=== PATIENT | male | born 1955 | race Caucasian/White ===

== ENCOUNTER 2023-01-11 12:17 | Emergency (ER) | payer MEDICARE, SELFPAY ==
--- NOTE | ~2023-01-11 | XR_ITS ---
EXAMINATION: XR ankle LT min 3V DATE: 01/11/2023 12:47 INDICATION: Left ankle pain, initial encounter TECHNIQUE: Anteroposterior, lateral, mortise, and additional oblique view of the ankle were obtained. COMPARISON: None. FINDINGS: There is an oblique lucency in the anterior margin of the distal tibia on the lateral view which extends to the tibiotalar joint. A tiny osseous fragment projects distal to the lateral malleol us. There is mild soft tissue swelling of ankle. Calcified atherosclerosis is noted. There is a plant ar calcaneal enthesophyte. 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 Possible nondisplaced fractures of the anterior distal tibia at the tibiotalar joint and possible avulsion of the lateral malleolus. Correlate for tenderness at the sites. Reviewed, dictated and finalized at location A. IMPRESSION: 1. Possible nondisplaced fractures of the anterior distal tibia at the tibiotal ar joint and possible avulsion of the lateral malleolus. Correlate for tenderne ss at the sites.
--- NOTE | 2023-01-11 12:19 | ED.LOWEXIN ---
HPI - Extremity Injury (Lower) General Chief Complaint: Extremity Injury, Lower Stated Complaint: INJURED L FOOT Time Seen by Provider: 01/11/23 12:19 Source: patient Mode of arrival: ambulatory Limitations: no limitations History of Present Illness HPI Narrative: Mr. Malave is a 67-year-old male patient presenting to the clinic today with complaints of a left ankle injury. He reports he almost fell this morning when getting off the commode twisting his left ankle. States he almost fell but caught himself using the vanity. He reports pain to the lateral ankle and it is radiating across the ankle joint. Related Data Home Medications Medication Instructions Recorded Confirmed alprazolam 0.5 mg tablet mg 01/11/23 atorvastatin 40 mg tablet mg 01/11/23 bupropion HCl 450 mg 24 hr tablet, mg PO 01/11/23 extended release hydrocodone 5 mg-acetaminophen 325 tablet 01/11/23 mg tablet metformin 500 mg tablet,extended mg PO 01/11/23 release 24 hr pantoprazole 40 mg tablet,delayed mg PO 01/11/23 release pregabalin 50 mg capsule mg 01/11/23 propranolol 80 mg capsule,24 mg PO 01/11/23 hr,extended release quetiapine 50 mg tablet mg 01/11/23 semaglutide 0.25 mg or 0.5 mg (2 mg subcut 01/11/23 mg/1.5 mL) subcutaneous pen injector (Ozempic) valsartan 160 tablet 01/11/23 mg-hydrochlorothiazide 25 mg tablet Allergies Allergy/AdvReac Type Severity Reaction Status Date / Time Penicillins Allergy Hives Verified 01/11/23 12:29 Review of Systems Review of Systems: Pertinent positives per HPI. Patient denies any fever, chills, rash, headache, visual changes, dizziness, cough, runny nose, sore throat, shortness of breath, chest pain, palpitations, nausea, vomiting, diarrhea, constipation, abdominal pain, or any urinary issues. [facility] Comments At the time of my signature, I reviewed and agree with the nursing past medical, surgical, social, and family history. There is no relevant family history pertinent to the patient complaint. Exam Narrative: General: Well-developed, obese, in no apparent distress Head: Normocephalic, atraumatic. Cardio: Regular rate and rhythm, s1 and s2 normal, no murmur appreciated. Resp: Clear to auscultation bilaterally, no rhonchi, rales, wheezing or rubs. Musculoskeletal: No deformity, tender to palpation over the lateral malleolus and across the anterior ankle joint, pain with valgus varus testing, no pain with dorsal and plantar flexion, muscle strength strong and equal, peripheral pulse strong, no edema, no cyanosis, sitting in wheelchair Course Course Emergency Course: Portions of this record may have been created with voice recognition software. Level of Care: Express Care Visit Vital Signs Vital signs: Vital Signs Temperature 36.1 C L 01/11/23 12:30 Pulse Rate 89 01/11/23 12:30 Respiratory Rate 16 01/11/23 12:30 Blood Pressure 125/83 01/11/23 12:30 Pulse Oximetry 100 01/11/23 12:30 Temperature 36.1 C L 01/11/23 12:33 Pulse Rate 89 01/11/23 12:33 Respiratory Rate 16 01/11/23 12:33 Blood Pressure 125/83 01/11/23 12:33 Pulse Oximetry 100 01/11/23 12:33 Vital signs reviewed MDM - Extremity Injury (Lower) MDM Narrative Medical decision making narrative: At the time of visit patient is resting comfortably on exam table. X-ray of the left ankle was performed and he has possible fractures of the left anterior tibia/tibialtalor joint, and the lateral malleolus. Will place a posterior short-leg splint on the patient have him follow-up with ortho. Supportive measures were discussed with the patient he voiced understanding of discharge instructions and agrees to treatment plan. Differential Diagnosis Differential diagnosis: Likely ankle sprain and strain and ankle fracture Imaging Data Radiologist's impression: Close Ankle X-Ray (Signed) Mays,Sean - 01/11/23 [id number]
[2023-01-11 12:30] VITALS: BP 125/83; PULSE 89; RESP 16; TEMP 36.1; O2SAT 100
[2023-01-11 12:33] VITALS: BP 125/83; PULSE 89; RESP 16; TEMP 36.1; O2SAT 100
--- NOTE | 2023-01-11 16:18 | PC.NURSE ---
1432 Patient is waiting with left leg elevated on chair-patient is attempting to secure ride home, concern about getting into his condo which has several steps. Patient has walker at home. Patient instructed to call out for assistance.
--- NOTE | 2023-01-11 16:21 | PC.NURSE ---
1500 patient remains sitting in wheelchair with left leg elevated. toes left foot warm to touch, patient reports that left foot is numb but has been since he was a child due to traumatic injury. Patient reports he has spoken to his son and he is on his way here.
--- NOTE | 2023-01-11 16:23 | PC.NURSE ---
1530 frequent checks on patient- declines drink.
--- NOTE | 2023-01-11 16:24 | PC.NURSE ---
1545 Attempted to fit patient with crutches, unable to stand independently with crutches; patient reports he felt as if he was going to fall. Crutches were not dispensed. Continue to wait for son.
--- NOTE | 2023-01-11 16:26 | PC.NURSE ---
1615 Patient remains sitting in wheelchair with left leg elevated. Declines offer of drink or use of potty. Reports his son should be here in 30 minutes.
== END 2023-01-11 16:35 | disposition home or self-care (01) ==
PROVIDERS: Emergency Provider Nurse Practitioner Family
DX: S82.892A Other fracture of left lower leg, initial encounter for closed fracture (principal); X50.9XXA Other and unspecified overexertion or strenuous movements or postures, initial encounter; E78.00 Pure hypercholesterolemia, unspecified; I10 Essential (primary) hypertension; G47.33 Obstructive sleep apnea (adult) (pediatric); K21.9 Gastro-esophageal reflux disease without esophagitis; E11.9 Type 2 diabetes mellitus without complications; Z96.612 Presence of left artificial shoulder joint; Z96.611 Presence of right artificial shoulder joint; Z86.73 Personal history of transient ischemic attack (TIA), and cerebral infarction without residual deficits; F41.9 Anxiety disorder, unspecified; F32.9 Major depressive disorder, single episode, unspecified; D64.9 Anemia, unspecified; Z86.61 Personal history of infections of the central nervous system
CPT/HCPCS: 29515; 73610; 99214; G0463

== ENCOUNTER 2023-12-15 11:22 | Emergency (ER) | payer MEDICARE, SELFPAY ==
--- NOTE | ~2023-12-15 | XR_ITS ---
[XR ribs BI 3V w CXR 2V ] INDICATION: Status post fall TECHNIQUE: Frontal projection of the upper ribs, frontal projection of the lower ribs, oblique projec tion of all the ribs, frontal inspiratory chest x-ray for interpretation. FINDINGS: There are no displaced rib fractures identified. There are no soft tissue abnormality see n. The lungs are clear. IMPRESSION: 1:No acute displaced rib fractures. Reviewed, dictated and finalized at location B.
[2023-12-15 11:28] VITALS: BP 142/87; PULSE 76; RESP 20; TEMP 36.4; O2SAT 100
--- NOTE | 2023-12-15 11:36 | ED.GENADULT ---
HPI - General Adult General Chief complaint: Upper Respiratory Infection Stated complaint: Upper Respiratory Symptoms Source: patient, RN notes reviewed and old records reviewed Mode of arrival: ambulatory Limitations: no limitations History of Present Illness HPI narrative: 67-year-old male presents to [facility] with complaints of productive cough, congestion, pain with coughing this started Friday into Friday. Patient states he has also fallen and Friday, Patient states his jaw and left shoulder. Patient complaining all over pain, patient states is chronic pain. Patient is worried that he might of her ribs in full that is now causing cough. Patient does complain of headache but states has had headache for 2 years. Related Data Home Medications Medication Instructions Recorded Confirmed alprazolam 0.5 mg tablet 0.5 mg PO TID PRN Anxiety 01/11/23 12/15/23 aspirin 81 mg tablet,delayed 81 mg PO DAILY 01/11/23 12/15/23 release atorvastatin 40 mg tablet 40 mg PO HS 01/11/23 12/15/23 bupropion HCl 450 mg 24 hr tablet, 450 mg PO DAILY 01/11/23 12/15/23 extended release ferrous sulfate 325 mg (65 mg 325 mg PO DAILY 01/11/23 12/15/23 iron) tablet hydrocodone 5 mg-acetaminophen 325 1 tablet PO Q6H pain 01/11/23 12/15/23 mg tablet metformin 500 mg tablet,extended 1,000 mg PO BID 01/11/23 12/15/23 release 24 hr pregabalin 50 mg capsule 50 mg PO TID 01/11/23 12/15/23 propranolol 80 mg capsule,24 80 mg PO DAILY 01/11/23 12/15/23 hr,extended release quetiapine 50 mg tablet 50 mg PO HS 01/11/23 12/15/23 losartan 50 mg tablet 50 mg PO DAILY 12/15/23 12/15/23 semaglutide 7 mg tablet (Rybelsus) 7 mg PO DAILY 12/15/23 12/15/23 Allergies Allergy/AdvReac Type Severity Reaction Status Date / Time Penicillins Allergy Hives Verified 12/15/23 11:34 blood pressure med Allergy Headache Uncoded 12/15/23 11:35 Review of Systems Constitutional: Constitutional: Reports no additional constitutional complaints, Denies body ache(s), Denies chills, Denies fatigue, Denies fever(s) and Denies headache(s) Eyes: Eyes: Reports no additional eye complaints and Denies blurry vision ENT: Reports system reviewed and no additional complaints, except as documented, Denies vertigo, Denies dizziness, Denies ear discharge, Denies otalgia, Denies facial pain, Denies headache(s), Reports nasal congestion, Denies nasal discharge, Denies sinus pain, Denies sinus pressure and Denies sore throat Cardiovascular: Cardiovascular: Reports no additional cardiovascular complaints, Denies chest pain, Denies chest pain at rest, Denies rapid heart rate and Denies dyspnea Respiratory: Respiratory: Reports no additional respiratory complaints, Reports chest congestion, Reports cough, Reports pain on inspiration, Reports pain with cough and Denies dyspnea Gastrointestinal: Gastrointestinal: Denies abdominal pain, Denies diarrhea, Denies nausea and Denies vomiting Integumentary/Breasts: Skin/Breast: Denies rash Neurologic: Reports system reviewed and no additional complaints, except as documented, Denies vertigo, Denies dizziness and Denies headache(s) Endocrine: Endocrine: Denies fatigue PMFSH Past Medical History Medical History Crush injury of foot Crushing injury of left foot Moderate left ankle sprain Surgical History Surgical History History of shoulder replacement Family History Family History Unknown Hypertension Depression Diabetes mellitus Cerebrovascular accident Neuropathy Social History Social History Smoking status: Never smoker Alcohol intake: never Substance use: never Occupation/Education: retired Gender identity (if verbalized by the patient): Male Comments At the time of m
[2023-12-15 11:39] VITALS: BP 142/87; PULSE 76; RESP 20; TEMP 36.4; O2SAT 100
== END 2023-12-15 12:32 | disposition home or self-care (01) ==
PROVIDERS: Emergency Provider Registered Nurse; PCP Nurse Practitioner Family
DX: B34.9 Viral infection, unspecified (principal); R07.81 Pleurodynia; Z20.822 Contact with and (suspected) exposure to COVID-19; Z79.82 Long term (current) use of aspirin
CPT/HCPCS: 71046; 71110; 87426; 87804; 99213; G0463

== ENCOUNTER 2023-12-22 10:06 | Outpatient (CLI) | payer MEDICARE, SELFPAY ==
[2023-12-22 17:07] LABS: Cholesterol 115 mg/dL (0-200); HDL Direct 41 mg/dL; Triglycerides 103 mg/dL (<150)
[2023-12-22 17:14] LABS: Basophils Absolute Auto 0.1 K/mm3 (0.0-0.1); Basophils Percent Auto 0.8 % (0.2-1.2); Eosinophils Absolute Auto 0.2 K/mm3 (0-0.3); Eosinophils Percent Auto 3.1 % (0-4.4); Hematocrit 47.3 % (42.0-52.0); Hemoglobin 14.9 g/dL (14.0-18.0); Immature Granulocyte Absolute 0.03 K/mm3 (0.00-0.031); Immature Granulocyte Percent A 0.4 % (0-0.5); Immature Platelet Fraction Pct 5.1 % (0.9-11.2); Lymphocytes Absolute Auto 1.77 K/mm3 (0.9-3.2); Lymphocytes Percent Auto 24.1 % (18.3-44.2); Mean Corpuscular HGB Conc 31.5 g/dl (32-36); Mean Corpuscular Hemoglobin 28.2 pg (26-34); Mean Corpuscular Volume 89.4 fl (80-100); Mean Platelet Volume 11.5 fl (7.4-10.4); Monocytes Absolute Auto 0.7 K/mm3 (0.1-0.6); Monocytes Percent Auto 9.1 % (2.6-8.5); Neutrophils Absolute Auto 4.6 K/mm3 (1.3-6.7); Neutrophils Percent Auto 62.5 % (45.5-73.1); Platelet Count Result 255 k/mm3 (150-375); Red Blood Count 5.29 M/mm3 (4.6-6.20); Red Cell Distribution Width 15.4 % (11.5-14.5); White Blood Count 7.3 K/mm3 (4.5-10.0)
[2023-12-22 17:19] LABS: LDL Cholesterol Direct 61 mg/dL
[2023-12-22 17:29] LABS: Hemoglobin A1C 5.9 % (<5.7)
[2023-12-22 17:36] LABS: Vitamin D 25 Hydroxy 73.1 ng/mL
[2023-12-22 17:42] LABS: Prostate Specific Antigen 0.4 ng/mL (< OR = 4.0); Thyroid Stimulating Hormone 0.843 uIU/mL (0.465-4.680)
[2023-12-22 18:08] LABS: Platelet Estimate Adequate (Adequate); Schistocytes None Seen
[2023-12-23 11:48] LABS: Alanine Aminotransferase 19 U/L (6-50); Albumin Level 4.2 g/dL (3.5-5.1); Alkaline Phosphatase 90 U/L (38-126); Anion Gap 7 mmol/L (4-12); Aspartate Amino Transferase 24 U/L (17-59); Blood Urea Nitrogen 14 mg/dL (9-20); Calcium 9.9 mg/dL (8.4-10.2); Carbon Dioxide 31 mmol/L (22-30); Chloride 105 mmol/L (98-107); Estimated Glomerular Filt Rate > 60; Glucose 129 mg/dL (65-110); Potassium 4.7 mmol/L (3.4-5.0); Sodium 143 mmol/L (137-145)
== END 2023-12-22 10:07 | disposition home or self-care (01) ==
LOC: ANHGOSHLAB 10:08
PROVIDERS: PCP Nurse Practitioner Family; Visit Provider Nurse Practitioner Family
DX: E11.9 Type 2 diabetes mellitus without complications (principal); I10 Essential (primary) hypertension; Z00.00 Encounter for general adult medical examination without abnormal findings; Z12.5 Encounter for screening for malignant neoplasm of prostate; E55.9 Vitamin D deficiency, unspecified; E78.5 Hyperlipidemia, unspecified; Z13.29 Encounter for screening for other suspected endocrine disorder
CPT/HCPCS: 36415; 80053; 80061; 82306; 83036; 84153; 84443; 85025; 85055; G0103

== ENCOUNTER 2024-01-28 12:23 | Outpatient (CLI) | payer MEDICARE, SELFPAY ==
--- NOTE | ~2024-01-28 | CT_ITS ---
Non-contrast Head CT History: Headache Technique: Axial non-contrast imaging of the brain was performed. Dose reduction technique was used on this scan by utilizing automated exposure control and iterative reconstruction technique. The dose -length product (DLP) was 726.40 mGy-cm. Findings: There is no evidence of intracranial hemorrhage, mass lesion, or acute infarct. Brain par enchyma appears normal. The ventricles and subarachnoid spaces are normal in size. The calvarium ap pears normal. The visualized paranasal sinuses and mastoid air cells are clear. Impression: No significant abnormality seen. Reviewed, dictated and finalized at location . Impression: No significant abnormality seen.
== END 2024-01-28 12:24 ==
PROVIDERS: PCP Family Medicine; Visit Provider Nurse Practitioner
DX: G93.89 Other specified disorders of brain (principal)
CPT/HCPCS: 70450

== ENCOUNTER 2024-02-08 15:48 | Inpatient (IN) | payer MEDICARE, SELFPAY ==
[2024-02-08] VITALS (8 sets, daily range): BP systolic 128–146; BP diastolic 79–100; PULSE 82–94; RESP 15–16; TEMP 36.6; O2SAT 96–100
--- NOTE | ~2024-02-08 | CT_ITS ---
EXAMINATION: CT lumbar spine wo con DATE: 02/08/2024 18:15 INDICATION: fall . TECHNIQUE: Computed tomography (CT) of the lumbar spine was performed without intravenous contrast. A utomated exposure control and iterative reconstruction technique were employed. The dose-length produ ct was 1286.92 mGy-cm. COMPARISON: None. FINDINGS: 5 nonrib-bearing lumbar-type vertebral bodies. Bilateral pars defects at L5-S1. 5 mm haroon listhesis at L5-S1. Multilevel disc space narrowing, severe at L5-S1 where there is vacuum phenomenon . Vertebral body heights are maintained. Multilevel large bridging osteophytes. Multilevel mild facet hypertrophy and sclerosis. Severe bilateral neural foraminal narrowing at L5-S1 secondary to degener ative changes and the anterolisthesis. No severe central canal narrowing. Moderate central canal narr owing at L3-4 and L4-5 secondary to degenerative change. IMPRESSION: No acute fracture or traumatic malalignment in the lumbar spine. Reviewed, dictated and finalized at location K.
--- NOTE | ~2024-02-08 | CT_ITS ---
EXAMINATION: CT cervical spine wo con DATE: 02/08/2024 18:15 INDICATION: fall TECHNIQUE: Computed tomography (CT) of the cervical spine was performed without intravenous contrast. Automated exposure control and iterative reconstruction technique were employed. The dose-length pro duct was 523.90 mGy-cm. COMPARISON: None. FINDINGS: Vertebral Body Alignment: 2 mm anterolisthesis at C7-T1, presumably on a degenerative basis. Craniocervical and atlantoaxial alignment: Moderate degenerative change. Alignment intact. Osseous structures/fracture: No evidence of a lytic or blastic process in the visualized spine. No e vidence of acute fracture. Uncomplicated ACDF spanning C5-C7, interbody bone plugs in good position Cervical soft tissues: The paraspinal soft tissues planes are maintained. Degenerative changes: Multilevel severe degenerative disc disease. Multilevel moderate facet arthropa thy. Multilevel severe left-sided neural foraminal narrowing secondary to degenerative changes. Sever e central canal narrowing at C5-6 secondary to degenerative changes. IMPRESSION: No acute fracture or traumatic malalignment in the cervical spine. Reviewed, dictated and finalized at location K.
--- NOTE | ~2024-02-08 | CT_ITS ---
CT ANGIOGRAM NECK AND HEAD History: Dizziness. Technique: Serial spiral axial images through the head and neck were obtained during arterial phase I V injection of 100 cc of Omnipaque 350. 3-D postprocessing and MIP images were then reconstructed on the remote workstation. Dose reduction technique was used on this scan by utilizing automated exposur e control and iterative reconstruction technique. The dose-length product (DLP) was 1229.69 mGy-cm. CTA neck findings: Bilateral vertebral arteries are patent. Bilateral common carotid, internal carot id, and external carotid arteries are patent. No stenosis. No large vessel occlusion. No aneurysm. Th e proximal right internal carotid artery demonstrates 0% stenosis relative to the normal distal arter y lumen diameter. The proximal left internal carotid artery demonstrates 0% stenosis relative to the normal distal artery lumen diameter. CTA head findings: Distal vertebral arteries, basilar artery, and posterior cerebral arteries are pat ent. Distal internal carotid arteries, middle cerebral arteries, and anterior cerebral arteries are p atent. No stenosis or large vessel occlusion. No aneurysm. There is a 1.3 x 0.9 cm enhancing extra axial lesion in the anterior temporal lobe region, most mine tible with meningioma (series 3 image 103). Impression: No significant vascular abnormality. 1.3 x 0.9 cm meningioma in the anterior right temporal lobe region, as detailed above. Reviewed, dictated and finalized at location . Impression: No significant vascular abnormality. 1.3 x 0.9 cm meningioma in the anterior right temporal lobe region, as detailed above.
--- NOTE | ~2024-02-08 | CT_ITS ---
EXAMINATION: CT brain wo con DATE: 02/08/2024 18:15 INDICATION: hx of fall . TECHNIQUE: Computed tomography (CT) of the head was performed without intravenous contrast. The mA wa s adjusted according to patient size. Iterative reconstruction technique was employed. The dose-lengt h product was 605.33 mGy-cm. COMPARISON: 01/28/2024. FINDINGS: No acute intracranial hemorrhage or extra-axial fluid collection. No hydrocephalus, mass, or herniation. No acute ischemic infarct. Unremarkable dural venous sinus attenuation. No acute osseous abnormality. Posterior scalp swelling/hematoma. Left frontal and bilateral ethmoid and maxillary mucosal thickening, the remaining aerated spaces are clear. IMPRESSION: No acute intracranial process. Reviewed, dictated and finalized at location K.
--- NOTE | ~2024-02-08 | MR_ITS ---
EXAMINATION: MR brain/brain stem wo/w con DATE: 02/10/2024 10:50 INDICATION: Unresponsiveness. Falls. TECHNIQUE: Magnetic resonance imaging (MRI) of the brain and brainstem was performed without and with 20 mL MultiHance intravenous contrast. COMPARISON: Head CT 02/08/2024 FINDINGS: There are scattered areas of nonspecific increased T2-weighted signal intensity in the cere bral white matter and lorenzo, which is within normal limits for the patient's age. There is no intracra nial hemorrhage or acute infarction. Anterior to the right temporal lobe, there is a 1.6 x 0.9 cm enh ancing extra-axial mass with dural tails, consistent with a meningioma. The ventricles are normal in size. There is mild mucosal thickening in the paranasal sinuses. The orbits are normal. The mastoid a ir cells are normal. IMPRESSION: 1. 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 Reviewed, dictated and finalized at location A.
--- NOTE | ~2024-02-08 | XR_ITS ---
EXAMINATION: XR chest 1V portable Exam Date/Time: 02/08/2024 17:20 CDT HISTORY: fall Comparison: 12/15/2023. RESULT: Lines, tubes, and devices: Partially visualized bilateral shoulder arthroplasty hardware. Lungs and pleura: Low volumes and mild crowding. Streaky bibasilar scar/atelectasis. Cardiomediastinal silhouette: Stable. Other: No acute osseous or upper abdominal finding. IMPRESSION: No acute cardiopulmonary process. Reviewed, dictated and finalized at location K.
--- NOTE | 2024-02-08 17:20 | ECG_ITS ---
SEE SCANNED COPY FOR CONFIRMED REPORT. MTDD
[2024-02-08 17:39] LABS: Basophils Absolute Auto 0.1 K/mm3 (0.0-0.1); Basophils Percent Auto 0.9 % (0.2-1.2); Eosinophils Absolute Auto 0.3 K/mm3 (0-0.3); Eosinophils Percent Auto 4.6 % (0-4.4); Hematocrit 43.5 % (42.0-52.0); Hemoglobin 14.1 g/dL (14.0-18.0); Immature Granulocyte Absolute 0.01 K/mm3 (0.00-0.031); Immature Granulocyte Percent A 0.2 % (0-0.5); Lymphocytes Absolute Auto 1.93 K/mm3 (0.9-3.2); Lymphocytes Percent Auto 34.4 % (18.3-44.2); Mean Corpuscular HGB Conc 32.4 g/dl (32-36); Mean Corpuscular Hemoglobin 28.4 pg (26-34); Mean Corpuscular Volume 87.7 fl (80-100); Mean Platelet Volume 10.2 fl (7.4-10.4); Monocytes Absolute Auto 0.5 K/mm3 (0.1-0.6); Monocytes Percent Auto 9.1 % (2.6-8.5); Neutrophils Absolute Auto 2.9 K/mm3 (1.3-6.7); Neutrophils Percent Auto 50.8 % (45.5-73.1); Platelet Count Result 193 k/mm3 (150-375); Red Blood Count 4.96 M/mm3 (4.6-6.20); Red Cell Distribution Width 14.2 % (11.5-14.5); White Blood Count 5.6 K/mm3 (4.5-10.0)
[2024-02-08 17:52] LABS: Magnesium 1.6 mg/dL (1.6-2.3)
[2024-02-08 17:53] LABS: Alanine Aminotransferase 18 U/L (6-50); Albumin Level 4.4 g/dL (3.5-5.1); Alkaline Phosphatase 56 U/L (38-126); Anion Gap 9 mmol/L (4-12); Aspartate Amino Transferase 18 U/L (17-59); Bilirubin,Total 1.5 mg/dL (0.2-1.3); Blood Urea Nitrogen 12 mg/dL (9-20); Calcium 9.2 mg/dL (8.4-10.2); Carbon Dioxide 25 mmol/L (22-30); Chloride 108 mmol/L (98-107); Estimated CRCL calculation 81 ml/min; Estimated Glomerular Filt Rate > 60; Glucose 84 mg/dL (65-110); Potassium 4.2 mmol/L (3.4-5.0); Sodium 142 mmol/L (137-145)
[2024-02-08 18:03] LABS: Troponin I < 0.012 ng/mL (0.000-0.034)
[2024-02-08 18:07] LABS: D Dimer < 0.27 ug/mL (<0.48)
[2024-02-08 19:13] LABS: Appearance Urine Clear (Clear); Bilirubin Urine Negative (Negative); Blood Urine Negative (Negative); Color Urine Yellow (Yellow); Glucose Urine UA Negative (Negative); Ketones Urine Negative (Negative); Leukocyte Esterase Ur Negative LEU/UL (Negative); Nitrate Urine Negative (Negative); Protein Urine Negative (Negative); Specific Grav Ur 1.023 (1.001-1.035); Urobilinogen Urine 0.2 mg/dL (<2.0); pH Urine 5.5 (5.0-9.0)
--- NOTE | 2024-02-08 19:16 | ED.GENADULT ---
HPI - General Adult General Chief complaint: Fall Stated complaint: fall last noc Time Seen by Provider: 02/08/24 16:43 History of Present Illness HPI narrative: Ernst Malave is a 68 y/o male with PMHx htn/ DM/ HLD/ who presents today with his son after having a fall yesterday and he does not remember how it happened. He explains that he has had multiple falls increasingly lately over the past 6-8 months that he states that he feels his legs give out and he falls Yesterday he states that he was driving home from [place] and was all over the road because he felt dizzy, he then pulled in to a gas station for gas and the next thing he remembers he was laying on the ground between the gas pump and his car. He states he came to- got up and walked around to his car, felt like he was drunk trying to walk and drive home. He explained this to his son and his son made him come in today - he reports he does feel better today/ no blurry vision report mild dizzy No chest pain/ SOB / fever/ cough / no recent illness Related Data Home Medications Medication Instructions Recorded Confirmed aspirin 81 mg tablet,delayed 81 mg PO DAILY 01/11/23 02/09/24 release atorvastatin 40 mg tablet 40 mg PO HS 01/11/23 02/09/24 bupropion HCl 450 mg 24 hr tablet, 450 mg PO DAILY 01/11/23 02/09/24 extended release hydrocodone 5 mg-acetaminophen 325 1 tablet PO Q6H PRN pain 01/11/23 02/09/24 mg tablet metformin 500 mg tablet,extended 1,000 mg PO BID 01/11/23 02/09/24 release 24 hr propranolol 80 mg capsule,24 80 mg PO DAILY 01/11/23 02/09/24 hr,extended release quetiapine 50 mg tablet 50 mg PO HS 01/11/23 02/09/24 cyclobenzaprine 5 mg tablet 5 mg PO TID PRN Spasms 12/22/23 02/09/24 multivitamin 1 tablet PO DAILY 12/22/23 02/09/24 pregabalin 50 mg capsule 100 mg PO BID 01/27/24 02/09/24 Allergies Allergy/AdvReac Type Severity Reaction Status Date / Time Penicillins Allergy Hives Verified 01/27/24 07:34 blood pressure med Allergy Headache Uncoded 01/27/24 07:34 Review of Systems Review of Systems: CONSTITUTIONAL: Denies fever, chills, or sweats. EYES: Denies visual changes, redness, or discharge. ENT: Denies rhinorrhea, congestion, sore throat, or otalgia. CARDIOVASCULAR: Denies chest pain, palpitations, or edema. RESPIRATORY: Denies cough or dyspnea. GASTROINTESTINAL: Denies abdominal pain, nausea, vomiting, or diarrhea. GENITOURINARY: Denies dysuria or hematuria. SKIN: Denies rash or itching. MUSCULOSKELETAL: Denies back pain, joint pain, or myalgia. NEUROLOGIC: Reports he had some dizzy/ blurry vision/ balance issues after a fall yesterday that has improved mostly today PSYCHIATRIC: Denies anxiety or depression. [facility] Past Medical History Medical History Crush injury of foot Crushing injury of left foot Diabetes type 2, controlled HTN (hypertension) with goal to be determined Hyperlipidemia Moderate left ankle sprain Neuropathy Sinusitis, acute Surgical History Surgical History History of shoulder replacement Family History Family History Unknown Hypertension Depression Diabetes mellitus Cerebrovascular accident Neuropathy Social History Social History Smoking status: Never smoker Alcohol intake: former Substance use: never Substance use type: does not use Do You Feel Safe in your Home?: Yes Lack of Transportation: No Lack of Food: Never True Current Housing: I Have Housing Concerned About Future Housing: No Difficulty Paying Gas/Electric Bills: No Difficulty Paying for Meds: No Currently Unemployed: No Education: Bachelor's Degree Difficulty w/ Childcare or Family Care: No Occupation/Education: retired Gender identity (if verbalized by the patient): Male Spiritual ca
[2024-02-08 19:19] LABS: Add Urine Microscopic? NO
--- NOTE | 2024-02-08 20:56 | PC.NURSE ---
ADMISSION ORDERS ENTERED AT 2026, BUT ED PROVIDER INSTRUCTED THAT THIS PT CANNOT GO TO A ROOM ON TELE FLOOR UNTIL HE GETS HIS CTA-BRAIN & CAROTID, AND THE RESULTS COME BACK. REROLLING MACHINE OPERATOR MADE AWARE OF THIS AT 2052.
--- NOTE | 2024-02-08 21:05 | PM.IMHP ---
H&P: HPI History of Present Illness Date/Time: 02/08/24 21:05 Chief Complaint: 1. Near fall 2. Pre-syncope 3. Dizziness Narrative: Ernst Malave is a 68yo M with a MHx significant for obesity, Depression, NIDDM, HTN, Dyslipidemia, intention tremors. The day [employer], he while at a gas station, the head turning action of replacing the nozzle and locking the tank cap left his dizzy; dizzy enough to lead to a fall, but he caught a nearby object to prevent a full fall. As he made his way to the utility driver's seat, he describes his gait to be as if drunken; he successfully got in but while he drove home, he could not keep in a straight line; he on multiple occasions cross the median. He denies associated chest pain, diaphoresis, nausea, vomiting, total LOC, visual disturbance, speech difficulties, numbness or weakness in his limbs He came to the [facility] on the same day of the event, but could not find his way to the ED and frustrated, returned home. Today he returned at the request of his son, who is at the bedside. He confesses to having experienced similar episodes in the pass; they occur when he gets up from a sitting to a standing position; also whenever he turns his neck to visualize an object to his flanks. He was also evaluated about 3 years ago for similar symptoms and with an unremarkable work-up was believed to have suffered a TIA. 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 His routine medications include a Statin and low-dose Aspirin daily. Work-up findings in the [facility] CBC was unremarkable; CMP demonstrated an elevated total bilirubin, 1.5 CT Head and neck: No acute intracranial process CT cervical spine: No acute fracture or traumatic malalignment in the cervical spine. CT Lumbar spine: No acute fracture or traumatic malalignment in the lumbar spine. CXR: No acute cardiopulmonary process. UA: Unremarkable Ernst Malave will be admitted, evaluated and managed for pre-syncope and near fall. Review of Systems Constitutional: Constitutional: Denies body ache(s), Denies chills, Denies difficulty sleeping, Denies fatigue, Denies lethargy and Denies night sweats Eyes: Eyes: Denies no additional eye complaints and Denies blurry vision ENT: Denies system reviewed and no additional complaints, except as documented, Reports as per HPI, Denies Normal hearing present, Denies dysphagia, Denies epistaxis, Denies nasal congestion and Denies nasal discharge Cardiovascular: Cardiovascular: Denies no additional cardiovascular complaints, Denies chest pain, Denies diaphoresis, Denies pedal edema, Denies leg edema, Reports lightheadedness and Denies palpitations Respiratory: Respiratory: Denies no additional respiratory complaints, Denies chest congestion, Denies hemoptysis, Denies dyspnea and Denies dyspnea on exertion Gastrointestinal: Gastrointestinal: Denies no additional gastrointestinal complaints, Denies abdominal pain, Denies melena, Denies bloating, Denies hematochezia, Denies constipation, Denies diarrhea, Denies nausea and Denies vomiting Genitourinary: Genitourinary: Denies hematuria, Denies flank pain, Denies urinary frequency, Denies urinary hesitancy and Reports urinary incontinence Musculoskeletal: Musculoskeletal: Reports no additional musculoskeletal complaints, Denies back pain, Reports arthralgias and Reports joint swelling Integumentary/Breasts: Skin/Breast: Denies pruritus and Denies erythema Neurologic: Denies system reviewed and no additional complaints, except as documented, Denies abnormal gait, Denies confusion and Denies headache(s) Psychiatric: Psychiatric: Denies anxiety, Denies behavioral changes, Denies depression and Denies homicidal ideation [facility] Past Medical History Medical History Crush injury of foot Crushing injury o
--- NOTE | 2024-02-08 21:35 | ECG_ITS ---
SEE SCANNED COPY FOR CONFIRMED REPORT. MTDD
[2024-02-08 23:44] LABS: Cholesterol 108 mg/dL (0-200); HDL Direct 43 mg/dL; Triglycerides 140 mg/dL (<150)
[2024-02-08 23:46] LABS: Hemoglobin A1C 5.5 % (<5.7)
[2024-02-08 23:55] LABS: LDL Cholesterol Direct 57 mg/dL
[2024-02-09] VITALS (17 sets, daily range): BP systolic 104–144; BP diastolic 66–88; PULSE 82–117; RESP 14–20; TEMP 36.1–36.5; O2SAT 95–99; BMI 35.2
--- NOTE | 2024-02-09 | ECHO_ITS ---
Patient Info Name: Ernst Malave Age: 68 years : 1955 Gender: Male Ht: 72 in Wt: 257 lbs BSA: 2.47 m2 HR: 85 bpm BP: 144 / 84 mmHg Heart Rhythm: Sinus Rhythm Technical Quality: Fair Exam Date: 02/09/2024 12:47 PM Exam Location: Echo Lab Patient Status: Inpatient Admit Date: 02/08/2024 Staff Ordering Physician: Cameron Aragon MD [place]: Pat Barber RDCS Attending Provider: Cameron Aragon MD Referring Physician: Mahesh PENA; Exam Type: CA echo doppler color flow Study Info Indications R55 - Syncope and collapse - chf Complete two-dimensional, color flow and Doppler transthoracic echocardiogram is performed with contrast to opacify the left ventricle and to improve the deliniation of the left ventricle endocardial borders. Contrast/Agitated Saline Contrast/Ag. Saline: Definity Amount: 2.00 ml Administered By: Pat Barber RDCS Existing IV Access: Yes IV Access Condition: patent with no signs of infiltration Summary 1. Definity contrast administered improved wall motion interpretation. 2. Left ventricular chamber dimension is normal. 3. Left ventricular systolic function is normal, estimated at 60-65%. 4. The left ventricular diastolic function is grade I diastolic dysfunction. 5. E/e' 9 is minimally elevated. Left Ventricle E/e' 9 is minimally elevated. Definity contrast administered improved wall motion interpretation. Left ventricular chamber dimension is normal. Left ventricular systolic function is normal, estimated at 60-65%. The left ventricular diastolic function is grade I diastolic dysfunction. Right Ventricle Right ventricular systolic function is normal and with normal TAPSE 2.2 cm. Right ventricular chamber dimension is normal. Left Atria Left atrial chamber dimension is normal. Right Atria Right atrial chamber dimension is normal. Aortic Valve The aortic valve is trileaflet. There is no aortic valve stenosis. There is no aortic valve regurgitation. Pulmonic Valve There is no pulmonic regurgitation. Mitral Valve There is no mitral valve stenosis. There is no mitral valve regurgitation. Tricuspid Valve There is no tricuspid valve regurgitation. Pericardium/Pleural There is no pericardial effusion. Inferior Vena Cava Normal inferior vena cava with >50% collapse upon inspiration consistent with normal right atrial pressure, 5 mmHg. Aorta The aortic root size at the sinus of Valsalva is normal. Left Ventricular Outflow Tract Name Value Normal LVOT 2D LVOT Diameter 2.1 cm LVOT Doppler LVOT Peak Gradient 3 mmHg LVOT Mean Gradient 2 mmHg LVOT VTI 16 cm LVOT VTI/AV VTI Ratio 0.8 LVOT Stroke Volume 55 ml LVOT CO 4.5 l/min LVOT CI 1.9 l/min/m2 Pulmonic Valve Name Value Normal RVOT
--- NOTE | 2024-02-09 00:37 | ADMGEN ---
This patient, Ernst Malave, was admitted to Medical Room 340-01. Patient/family oriented to hospital policies and general routines including ID bracelet, bed and alarms, visiting hours, pain management, procedures, bathroom and other care routines, personal items, smoking policy, room service/diet, and visiting hours. Information on how to activate the Rapid Response Team has been discussed. Patient/Family are encouraged to report perceived risks to care and to ask questions if they do not understand what they are told or what they should do.
[2024-02-09 01:04] LABS: Glucose Point of Care 85 mg/dl (65-105)
[2024-02-09 05:50] LABS: Basophils Absolute Auto 0.1 K/mm3 (0.0-0.1); Basophils Percent Auto 0.9 % (0.2-1.2); Eosinophils Absolute Auto 0.3 K/mm3 (0-0.3); Eosinophils Percent Auto 4.1 % (0-4.4); Hemoglobin 13.6 g/dL (14.0-18.0); Immature Granulocyte Absolute 0.01 K/mm3 (0.00-0.031); Immature Granulocyte Percent A 0.2 % (0-0.5); Lymphocytes Absolute Auto 1.89 K/mm3 (0.9-3.2); Lymphocytes Percent Auto 29.5 % (18.3-44.2); Mean Corpuscular HGB Conc 32.4 g/dl (32-36); Mean Corpuscular Hemoglobin 28.6 pg (26-34); Mean Corpuscular Volume 88.4 fl (80-100); Mean Platelet Volume 10.2 fl (7.4-10.4); Monocytes Absolute Auto 0.6 K/mm3 (0.1-0.6); Neutrophils Absolute Auto 3.6 K/mm3 (1.3-6.7); Neutrophils Percent Auto 56.3 % (45.5-73.1); Platelet Count Result 180 k/mm3 (150-375); Red Blood Count 4.75 M/mm3 (4.6-6.20); Red Cell Distribution Width 14.2 % (11.5-14.5); White Blood Count 6.4 K/mm3 (4.5-10.0)
[2024-02-09 06:04] LABS: Alanine Aminotransferase 18 U/L (6-50); Albumin Level 4.1 g/dL (3.5-5.1); Alkaline Phosphatase 54 U/L (38-126); Anion Gap 7 mmol/L (4-12); Aspartate Amino Transferase 19 U/L (17-59); Bilirubin,Total 1.8 mg/dL (0.2-1.3); Blood Urea Nitrogen 14 mg/dL (9-20); Carbon Dioxide 26 mmol/L (22-30); Chloride 106 mmol/L (98-107); Estimated CRCL calculation 75 ml/min; Estimated Glomerular Filt Rate > 60; Glucose 109 mg/dL (65-110); Potassium 4.1 mmol/L (3.4-5.0); Sodium 139 mmol/L (137-145)
[2024-02-09 08:33] LABS: Glucose Point of Care 116 mg/dl (65-105)
[2024-02-09] MEDS: ACETAMINOPHEN 325 MG TABLET 650 MG PO ×2 (08:39→23:51)
[2024-02-09] MEDS: ENOXAPARIN 40 MG/0.4 ML SYRINGE SUB-Q (08:39)
[2024-02-09] MEDS: HYDROcodone/acetaminophen (*CRX) 5-325 MG TABLET 1 TAB PO (09:34)
[2024-02-09 11:59] LABS: Glucose Point of Care 114 mg/dl (65-105)
--- NOTE | 2024-02-09 12:21 | PM.IMPN ---
Progress Note: A&P Assessment and Plan (1) Pre-syncope: Code(s): R55 - Syncope and collapse Status: Acute Plan This is a 68-year-old male who presents after a fall. He reports recurrent falls increasingly over the past 6-8 months. He states his legs give out any falls however a day prior to admission he was driving home from [place] and was feeling dizzy all over the road. He then pulled into a gas station for gas and next thing he remembers was laying on the ground between the gas pump in his car. He states she got up and walked around to his car felt like he was drunk trying to walk and he drove home. Explained this to his son and his son brought him to the ER for evaluation. He reports to me that whenever he makes a sudden movement he feels dizzy vision gets blurry and a falls. This also happens with sudden neck movement. ER evaluation revealed Labs were unremarkable CT head and neck with no acute intracranial process does have 1.3 x 0.9 cm meningioma in the anterior right temporal region. CTA neck with no carotid artery stenosis CT cervical spine no acute fracture or traumatic malalignment in the cervical spine CT lumbar spine no acute fracture or traumatic malalignment of the lumbar spine Chest x-ray no acute cardiopulmonary process UA unremarkable. EKG normal sinus rhythm D-dimer negative TSH normal Orthostatic blood pressures been adequate. MRI brain/echo/neurology consult/monitor on telemetry Chronic headache Dyslipidemia. on Statin Hypertension. on Losartan NIDDM. Place on Basal+correctional insulin Obesity, BMI 35 Depression. on Quetiapine, Wellbutrin, Amitriptyline Peripheral neuropathy. on Pre-gabalin Intention tremors. on Propranolol Code status. Full VTE prophylaxis. on Lovenox, SCDs Nutrition. Carb-controlled; Heart healthy Dispostion. TBD PT OT to see Subjective Date/time seen: 02/09/24 12:21 Interval history: Feels well. No new complaints. History reviewed with the patient. Imaging findings were reviewed. Normally from [facility] and had been seeing neurologist there. Dizziness has been an ongoing issue leading to multiple falls in the past. Review of Systems Review of Systems: All systems reviewed & are unremarkable except as noted in HPI and below Exam Narrative: GENERAL: Well-appearing, well-nourished, and in no acute distress. HEAD: Normocephalic, atraumatic. EYES: PERRLA and EOMI. ENT: Nares clear, no rhinorrhea or epistaxis.? Mucous membranes moist.? ? NECK: Supple.? No adenopathy or masses.? No carotid bruits or JVD CHEST: Clear to auscultation.? No respiratory distress.? No wheezes rales or rhonchi HEART: Regular rate and rhythm.? No murmur heard.? Normal peripheral pulses. ABDOMEN: Soft, nontender, nondistended, normal active bowel sounds. EXTREMITIES: Normal range of motion.? No edema. SKIN: Warm, dry, no rash. NEURO: No focal deficits.? Alert and oriented x3. PSYCH: Normal mood and affect. Objective Data Vital Signs Vital Signs: Vital Signs - 24 hr 02/08/24 15:52 02/08/24 18:44 02/08/24 16:41 Temperature 98 F Pulse Rate 94 86 91 Respiratory Rate 16 16 Blood Pressure 146/100 H 135/79 Pulse Oximetry 99 98 Oxygen Delivery 02/08/24 18:46 02/08/24 19:16 02/08/24 20:01 Temperature Pulse Rate 83 85 84 Respiratory Rate 15 Blood Pressure 135/79 128/90 133/88 Pulse Oximetry 100 97 98 Oxygen Delivery 02/08/24 20:16 02/08/24 23:15 02/09/24 00:46 Temperature Pulse Rate 82 87 Respiratory Rate 15 Blood Pressure 145/93 H Pulse Oximetry 98 96 Oxygen Delivery Room Air 02/09/24 00:35 02/09/24 00:36 02/09/24 00:40 Temperature Pulse Rate 82 84 90 Respiratory Rate 18 Blood Pressure 141/80 H 129/88 125/66 Pulse Oximetry 95 Oxygen Delivery 02/09/24 00:00 02/09/24 01:30 02/09/24 04:00 Temperature Pulse Rate 86 85 83 Respiratory Rate 14 Blood Pressure Pulse Oximetry 96 Oxygen Delive
[2024-02-09] MEDS: PERFLUTREN LIPID MICROSPHERES 1.5 ML VIAL DILUTED TO 10 ML TOTAL VOLUME IV PUSH (13:11)
--- NOTE | 2024-02-09 13:54 | IVDEFINITY ---
Prior to administration of IV Definity the patient was educated on the risks and benefits of the imaging enhancing agent including potential adverse side effects. The patient verbalized understanding. Allergies were verified. No exclusion criteria were identified and at least one of the following inclusion criteria were met: 1) physician request, 2) patient technically difficult to image (per the [place] [employer]ocardi[employer] guidelines of two or more segments not discernable within the apical view), or 3) questionable left ventricular function. ?
[2024-02-09] MEDS: PREGABALIN (*CRX) 50 MG CAPSULE 100 MG PO (17:47)
[2024-02-09] MEDS: metFORMIN HCL XR 500 MG TAB.SR.24H 1000 MG PO (17:48)
--- NOTE | 2024-02-09 17:56 | WPDNEURCNPN ---
Assessment and Plan Assessment and plan (1) Syncope and collapse: Code(s): R55 - Syncope and collapse Status: Acute Assessment and Plan: Possibility of seizure need to be considered particularly since there is a lack of awareness for. Of time before he falls. He has been found to have a what appears to be most likely meningioma in the right anterior temporal region. Although it is small weight can certainly be a possible source of seizures indeed be borne in mind. An MRI of the brain would be recommended. (2) Chronic headache: Code(s): R51.9 - Headache, unspecified; G89.29 - Other chronic pain Status: Acute Assessment and Plan: The patient history of headache for last 4 years however these occur either in the frontal area or sometimes occipital area. (3) Frequent falls: Code(s): R29.6 - Repeated falls Status: Acute (4) Diabetes type 2, controlled: Code(s): E11.9 - Type 2 diabetes mellitus without complications Status: Acute (5) Meningioma: Code(s): D32.9 - Benign neoplasm of meninges, unspecified Status: Acute Assessment and Plan: Small meningioma 1.3/0.9 cm in the right anterior temporal area was noted Plan Initially I would like to hold off how the medications such as bupropion which may increase the possibility of seizures and also has a fairly high dose of it. In addition we can hold off cyclobenzaprine and amitriptyline and start him on Keppra particularly since he had a meningioma and episodes where he had lapse in his awareness leading to the fall and has a possibility of some sort of partial complex seizure would come to mind until we figure out what is going on. He has had a 5 or 6 spells in the last 1 year. An MRI of the brain is recommended to identify the lesion in more detail. As I noted the CT angiogram head and neck did not show any significant abnormalities. Consult date: 02/09/24 HPI: Ernst Malave is a 68 year old male with multiple spells of unexpected fall. The most recent spell occurred while he was trying to fill up gas in his car and he does not know what happened but apparently did not buy any gas and in turn around the next thing he knows he was on the floor. He thinks he may have had a lapse in his awareness for a few seconds. He did not have any major head trauma tongue biting incontinence urine. He also does not recall having any chest pain palpitation or any other warning signs. He does have a recurrent spells such as this. Does not smoke or drink any alcohol. Patient is . 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 He also history of obstructive sleep apnea syndrome and has been compliant with the CPAP. No history of major head trauma meningitis or encephalitis reported. Previous CT scan of brain did not show any significant abnormality. He has had a CT angiogram of the head and neck done today which shows the meningioma in the right temporal area however no large vessel occlusion. History of diabetes mellitus for under 10 years. History of chronic headache for last 4 years. States that he has headache usually in the frontal area sometimes in the occipital area. His BMI is over 35. History of hypertension which has been controlled with medications. Review of Systems Review of Systems: All systems reviewed & are unremarkable except as noted in HPI and below Constitutional: Constitutional: Reports no additional constitutional complaints Eyes: Eyes: Reports no additional eye complaints ENT: Reports system reviewed and no additional complaints, except as documented Cardiovascular: Cardiovascular: Reports no additional cardiovascular complaints Respiratory: Respiratory: Reports no additional respiratory complaints Gastrointestinal: Gastrointestinal: Reports no additional gastrointestinal complaints Genitourinar
[2024-02-09 19:06] LABS: Cholesterol 125 mg/dL (0-200); HDL Direct 45 mg/dL; Triglycerides 183 mg/dL (<150)
[2024-02-09 19:17] LABS: LDL Cholesterol Direct 63 mg/dL
[2024-02-09 19:23] LABS: T4 Thyroxine 9.12 ug/dL (5.53-11.0)
[2024-02-09 19:53] LABS: Vitamin D 25 Hydroxy 49.7 ng/mL
[2024-02-09 20:14] LABS: Folic Acid > 20.0 ng/mL (2.76->20)
--- NOTE | 2024-02-09 21:00 | PHAR ---
PT'S HOME MED PROPRANOLOL ER 80 MG CAPSULES VERIFIED BY PHARMACY
[2024-02-09] MEDS: QUEtiapine FUMARATE 25 MG TABLET 50 MG PO (21:54)
[2024-02-09] MEDS: levETIRAcetam Tablet 250 MG, levETIRAcetam Tablet 500 MG 750 MG PO (21:54)
[2024-02-09] MEDS: ATORVASTATIN 40 MG TABLET PO (21:54)
--- NOTE | 2024-02-09 23:40 | PHAR ---
Pt is no longer taking the injection at this time. Will switch over to PO form at d/c.
[2024-02-10] VITALS (13 sets, daily range): BP systolic 94–115; BP diastolic 64–80; PULSE 79–116; RESP 14–20; TEMP 36.2–37.2; O2SAT 96–100
[2024-02-10 04:46] LABS: Glucose Point of Care 98 mg/dl (65-105)
[2024-02-10 06:21] LABS: Basophils Absolute Auto 0.1 K/mm3 (0.0-0.1); Basophils Percent Auto 0.8 % (0.2-1.2); Eosinophils Absolute Auto 0.2 K/mm3 (0-0.3); Eosinophils Percent Auto 3.9 % (0-4.4); Hematocrit 44.7 % (42.0-52.0); Hemoglobin 14.2 g/dL (14.0-18.0); Immature Granulocyte Absolute 0.02 K/mm3 (0.00-0.031); Immature Granulocyte Percent A 0.3 % (0-0.5); Lymphocytes Absolute Auto 2.33 K/mm3 (0.9-3.2); Lymphocytes Percent Auto 37.6 % (18.3-44.2); Mean Corpuscular HGB Conc 31.8 g/dl (32-36); Mean Corpuscular Hemoglobin 28.2 pg (26-34); Mean Corpuscular Volume 88.9 fl (80-100); Mean Platelet Volume 10.9 fl (7.4-10.4); Monocytes Absolute Auto 0.6 K/mm3 (0.1-0.6); Monocytes Percent Auto 9.7 % (2.6-8.5); Neutrophils Percent Auto 47.7 % (45.5-73.1); Platelet Count Result 177 k/mm3 (150-375); Red Blood Count 5.03 M/mm3 (4.6-6.20); White Blood Count 6.2 K/mm3 (4.5-10.0)
[2024-02-10 06:32] LABS: Alanine Aminotransferase 17 U/L (6-50); Albumin Level 4.4 g/dL (3.5-5.1); Alkaline Phosphatase 56 U/L (38-126); Anion Gap 9 mmol/L (4-12); Aspartate Amino Transferase 25 U/L (17-59); Bilirubin,Total 1.6 mg/dL (0.2-1.3); Blood Urea Nitrogen 13 mg/dL (9-20); Calcium 8.9 mg/dL (8.4-10.2); Carbon Dioxide 23 mmol/L (22-30); Chloride 107 mmol/L (98-107); Estimated CRCL calculation 82 ml/min; Estimated Glomerular Filt Rate > 60; Glucose 91 mg/dL (65-110); Magnesium 1.9 mg/dL (1.6-2.3); Potassium 3.6 mmol/L (3.4-5.0); Sodium 139 mmol/L (137-145)
[2024-02-10 08:47] LABS: Glucose Point of Care 100 mg/dl (65-105)
[2024-02-10] MEDS: PREGABALIN (*CRX) 50 MG CAPSULE 100 MG PO ×2 (08:47→18:11)
[2024-02-10] MEDS: LOSARTAN POTASSIUM 50 MG TABLET PO (08:47)
[2024-02-10] MEDS: MULTIVITAMINS THERAPEUTIC TAB (*BKC) 1 TABLET PO (08:48)
[2024-02-10] MEDS: ASPIRIN 81 MG ENTERIC TABLET PO (08:49)
[2024-02-10] MEDS: metFORMIN HCL XR 500 MG TAB.SR.24H 1000 MG PO ×2 (08:49→18:11)
[2024-02-10] MEDS: levETIRAcetam Tablet 250 MG, levETIRAcetam Tablet 500 MG 750 MG PO ×2 (08:50→20:13)
[2024-02-10] MEDS: ENOXAPARIN 40 MG/0.4 ML SYRINGE SUB-Q (08:50)
[2024-02-10] MEDS: HYDROcodone/acetaminophen (*CRX) 5-325 MG TABLET 1 TAB PO ×2 (08:59→22:09)
[2024-02-10] MEDS: LORazepam (*CRX) 0.5 MG TABLET PO (09:48)
--- NOTE | 2024-02-10 09:49 | WPDNEUROLOGY ---
Neurology EEG Report General Information Date of Study: 02/10/24 TEST eeg DIAGNOSIS Loss of consciousness CONDITION OF RECORDING awake drowsy and sleep EEG NUMBER [id number] CLINICAL HISTORY patient is not sure what hospital he is at or why he is here EEG DESCRIPTION background rhythm consists of low-voltage to medium voltage 5 to 7 hertz per 2nd theta activity admixed with multiple movements artifacts. Bilateral symmetrical sleep activity seen during sleep with symmetrical sleep spindles. Hyperventilation not done. Photic stimulation not done. Non paroxysmal. Nonfocal. Nonlateralizing. IMPRESSION abnormal record due to the presence of excessive amount of theta activity. Clinical correlation recommended as these abnormalities could be suggestive of underlying organic a metabolic encephalopathy or postictal state.
[2024-02-10 12:08] LABS: Glucose Point of Care 101 mg/dl (65-105)
--- NOTE | 2024-02-10 12:25 | PM.IMPN ---
Progress Note: A&P Assessment and Plan (1) Pre-syncope: Code(s): R55 - Syncope and collapse Status: Acute Plan This is a 68-year-old male who presents after a fall. He reports recurrent falls increasingly over the past 6-8 months. He states his legs give out any falls however a day prior to admission he was driving home from [place] and was feeling dizzy all over the road. He then pulled into a gas station for gas and next thing he remembers was laying on the ground between the gas pump in his car. He states she got up and walked around to his car felt like he was drunk trying to walk and he drove home. Explained this to his son and his son brought him to the ER for evaluation. He reports to me that whenever he makes a sudden movement he feels dizzy vision gets blurry and a falls. This also happens with sudden neck movement. ER evaluation revealed Labs were unremarkable CT head and neck with no acute intracranial process does have 1.3 x 0.9 cm meningioma in the anterior right temporal region. CTA neck with no carotid artery stenosis CT cervical spine no acute fracture or traumatic malalignment in the cervical spine CT lumbar spine no acute fracture or traumatic malalignment of the lumbar spine Chest x-ray no acute cardiopulmonary process UA unremarkable. EKG normal sinus rhythm telemetry with sinus rhythm D-dimer negative TSH normal Orthostatic blood pressures been adequate. Brain MRI 6 cm meningioma. EEG was performed as possible seizure as a etiology. Neurology has been consulted and has been placed on Keppra. With the possibility of seizure his bupropion has been stopped. He has been on bupropion 450 mg daily since he went in with suicidal ideation. Echo normal EF grade 1 diastolic dysfunction abnormality. Confusion: New 02/10/2024. Labs unremarkable. Will check ABG. MRI brain with no acute findings.? Postictal Chronic headache Dyslipidemia. on Statin Hypertension. on Losartan NIDDM. Place on Basal+correctional insulin Obesity, BMI 35 Depression. on Quetiapine, Wellbutrin, Amitriptyline. Wellbutrin held Peripheral neuropathy. on Pre-gabalin Intention tremors. on Propranolol Code status. Full VTE prophylaxis. on Lovenox, SCDs Nutrition. Carb-controlled; Heart healthy Dispostion. TBD PT OT to see Subjective Date/time seen: 02/10/24 12:25 Interval history: He reports that he is more confused today unaware of this happening and what made him come here. Not feeling dizzy or lightheaded. Does not clearly remember what happened prior to admission. He used his CPAP last night. Labs reviewed. Discussed with nursing staff. Review of Systems Review of Systems: All systems reviewed & are unremarkable except as noted in HPI and below Exam Narrative: GENERAL: Well-appearing, well-nourished, and in no acute distress. HEAD: Normocephalic, atraumatic. EYES: PERRLA and EOMI. ENT: Nares clear, no rhinorrhea or epistaxis.? Mucous membranes moist.? ? NECK: Supple.? No adenopathy or masses.? No carotid bruits or JVD CHEST: Clear to auscultation.? No respiratory distress.? No wheezes rales or rhonchi HEART: Regular rate and rhythm.? No murmur heard.? Normal peripheral pulses. ABDOMEN: Soft, nontender, nondistended, normal active bowel sounds. EXTREMITIES: Normal range of motion.? No edema. SKIN: Warm, dry, no rash. NEURO: No focal deficits.? Alert and oriented x3. PSYCH: Normal mood and affect. Objective Data Vital Signs Vital Signs: Vital Signs - 24 hr 02/09/24 14:42 02/09/24 14:44 02/09/24 14:43 Temperature 97.4 F L Pulse Rate 88 Respiratory Rate 18 Blood Pressure 122/80 122/80 124/77 Pulse Oximetry 97 Oxygen Delivery 02/09/24 14:44 02/09/24 16:00 02/09/24 20:00 Temperature Pulse Rate 100 100 Respiratory Rate Blood Pressure 104/68 Pulse Oximetry Oxygen Delivery 02/09/24 20:00 02/10/24 00:00 02/09/24 22:00 Temperature 97.7 F Pulse Rate 100 92 98 Re
[2024-02-10 15:09] LABS: Alveolar/Arterial O2 Gradient 18.9 mmHg; Base Excess ABG -0.8 mEq/l (+/-2.0); Fractional Inspired Oxygen 21 %; Oxygen Content ABG 20.5 %vol (16.0-22.0); Oxygen Saturation ABG 96.1 % (95.0-100.0); Oxyhemoglobin 94.7 % THb (90.0-100.0); PCO2 ABG 40.3 mmHg (35.0-45.0); PO2 ABG 82.6 mmHg (80.0-100.0); PO2 FiO2 Ratio Arterial Blood 3.93 %; Total Hemoglobin 15.4 g/dL (12.0-18.0); pH ABG 7.393 (7.350-7.450)
[2024-02-10 15:10] LABS: Device ROOM AIR; Modified Allen's Test Pass; Site Drawn LEFT RADIAL
--- NOTE | 2024-02-10 16:17 | PHAR ---
PT'S HOME MED RYBELSUS 7 MG TABLETS VERIFIED BY PHARMACY
[2024-02-10 17:05] LABS: Glucose Point of Care 93 mg/dl (65-105)
[2024-02-10] MEDS: ATORVASTATIN 40 MG TABLET PO (20:13)
[2024-02-10] MEDS: QUEtiapine FUMARATE 25 MG TABLET 50 MG PO (20:13)
[2024-02-10 20:27] LABS: Glucose Point of Care 97 mg/dl (65-105)
[2024-02-11] VITALS (8 sets, daily range): BP systolic 105–115; BP diastolic 75–100; PULSE 77–85; RESP 16–20; TEMP 36.3–37.1; O2SAT 97–98
[2024-02-11 05:45] LABS: Basophils Absolute Auto 0.1 K/mm3 (0.0-0.1); Basophils Percent Auto 1.2 % (0.2-1.2); Eosinophils Absolute Auto 0.3 K/mm3 (0-0.3); Eosinophils Percent Auto 4.6 % (0-4.4); Hematocrit 44.8 % (42.0-52.0); Hemoglobin 14.1 g/dL (14.0-18.0); Immature Granulocyte Absolute 0.02 K/mm3 (0.00-0.031); Immature Granulocyte Percent A 0.4 % (0-0.5); Lymphocytes Absolute Auto 2.09 K/mm3 (0.9-3.2); Lymphocytes Percent Auto 37.1 % (18.3-44.2); Mean Corpuscular HGB Conc 31.5 g/dl (32-36); Mean Corpuscular Hemoglobin 28.7 pg (26-34); Mean Corpuscular Volume 91.1 fl (80-100); Mean Platelet Volume 10.6 fl (7.4-10.4); Monocytes Absolute Auto 0.6 K/mm3 (0.1-0.6); Monocytes Percent Auto 10.6 % (2.6-8.5); Neutrophils Absolute Auto 2.6 K/mm3 (1.3-6.7); Neutrophils Percent Auto 46.1 % (45.5-73.1); Platelet Count Result 189 k/mm3 (150-375); Red Blood Count 4.92 M/mm3 (4.6-6.20); Red Cell Distribution Width 13.8 % (11.5-14.5); White Blood Count 5.6 K/mm3 (4.5-10.0)
[2024-02-11 05:55] LABS: Alanine Aminotransferase 17 U/L (6-50); Albumin Level 4.2 g/dL (3.5-5.1); Alkaline Phosphatase 55 U/L (38-126); Anion Gap 7 mmol/L (4-12); Aspartate Amino Transferase 19 U/L (17-59); Bilirubin,Total 1.3 mg/dL (0.2-1.3); Blood Urea Nitrogen 14 mg/dL (9-20); Carbon Dioxide 29 mmol/L (22-30); Chloride 105 mmol/L (98-107); Estimated CRCL calculation 75 ml/min; Estimated Glomerular Filt Rate > 60; Glucose 97 mg/dL (65-110); Potassium 4.7 mmol/L (3.4-5.0); Sodium 141 mmol/L (137-145)
[2024-02-11] MEDS: ASPIRIN 81 MG ENTERIC TABLET PO (08:44)
[2024-02-11] MEDS: levETIRAcetam Tablet 250 MG, levETIRAcetam Tablet 500 MG 750 MG PO (08:45)
[2024-02-11] MEDS: metFORMIN HCL XR 500 MG TAB.SR.24H 1000 MG PO (08:46)
[2024-02-11] MEDS: MULTIVITAMINS THERAPEUTIC TAB (*BKC) 1 TABLET PO (08:46)
[2024-02-11] MEDS: LOSARTAN POTASSIUM 50 MG TABLET PO (08:46)
[2024-02-11] MEDS: PREGABALIN (*CRX) 50 MG CAPSULE 100 MG PO (08:47)
[2024-02-11] MEDS: HYDROcodone/acetaminophen (*CRX) 5-325 MG TABLET 1 TAB PO (08:48)
[2024-02-11] MEDS: ENOXAPARIN 40 MG/0.4 ML SYRINGE SUB-Q (08:49)
--- NOTE | 2024-02-11 12:08 | WPDNEURCNPN ---
Consult date: 02/11/24 HPI: Ernts Malave is a 68 year old male admitted to the emergency room for the complaints of syncope and collapse and initially seen by For the possibility of seizure in addition to the ongoing diagnosis of 1. Chronic headaches 2. Frequent falls 3. Diabetes mellitus 4. Incidental finding of the meningioma Dr. Ramirez you wanted to readjust his medications. Patient wanted me to discuss with him again in front of his son who was at this time present on telephone. Patient's routine lab has been normal and he has been receiving aspirin 81mg daily, losartan 50mg daily, metformin 1000mg twice a day, Lyrica 100mg twice a day, Seroquel 50mg at night, and Keppra 750mg q.12 hours eeg was abnormal due to the presence of excessive amount of theta activity which raise the possibility of either metabolic encephalopathy or postictal state. As mentioned before MRI documented only 1.6cm right sphenoid wing meningioma. Patient was advised it could be incidental finding but he should continue the anticonvulsants as started and follow-up with a physician in addition to stay off the driving the 6 months he has been taking multiple pain medication particularly hydrocodone for that he was not able to drive anyhow was advised to take the simpler pain medication and again stay off the driving should follow-up with his physician. [facility] Past Medical History Medical History (Updated 02/09/24 @ 18:02 by Yoan Espinoza MD) Crush injury of foot Crushing injury of left foot Diabetes type 2, controlled HTN (hypertension) with goal to be determined Hyperlipidemia Meningioma Moderate left ankle sprain Neuropathy Sinusitis, acute Surgical History Surgical History History of shoulder replacement Family History Family History Unknown Hypertension Depression Diabetes mellitus Cerebrovascular accident Neuropathy Social History Social History Smoking status: Never smoker Alcohol intake: former Substance use: never Substance use type: does not use Do You Feel Safe in your Home?: Yes Lack of Transportation: No Lack of Food: Never True Current Housing: I Have Housing Concerned About Future Housing: No Difficulty Paying Gas/Electric Bills: No Difficulty Paying for Meds: No Currently Unemployed: No Education: Bachelor's Degree Difficulty w/ Childcare or Family Care: No Occupation/Education: retired Gender identity (if verbalized by the patient): Male Spiritual care concerns: No Agree to blood products: Yes Meds Home Medications and Allergies Home Medications Medication Instructions Recorded Confirmed Type aspirin 81 mg tablet,delayed 81 mg PO DAILY 01/11/23 02/09/24 History release atorvastatin 40 mg tablet 40 mg PO HS 01/11/23 02/09/24 History bupropion HCl 450 mg 24 hr tablet, 450 mg PO DAILY 01/11/23 02/09/24 History extended release hydrocodone 5 mg-acetaminophen 325 1 tablet PO Q6H PRN pain 01/11/23 02/09/24 History mg tablet metformin 500 mg tablet,extended 1,000 mg PO BID 01/11/23 02/09/24 History release 24 hr propranolol 80 mg capsule,24 80 mg PO DAILY 01/11/23 02/09/24 History hr,extended release quetiapine 50 mg tablet 50 mg PO HS 01/11/23 02/09/24 History cyclobenzaprine 5 mg tablet 5 mg PO TID PRN Spasms 12/22/23 02/09/24 History multivitamin 1 tablet PO DAILY 12/22/23 02/09/24 History amitriptyline 100 mg tablet 100 mg PO QHS #30 tabs 01/27/24 02/09/24 Rx losartan 50 mg tablet 50 mg PO DAILY #90 tabs 01/27/24 02/09/24 Rx pregabalin 50 mg capsule 100 mg PO BID 01/27/24 02/09/24 History semaglutide 7 mg tablet (Rybelsus) 7 mg PO DAILY 02/10/24 02/10/24 History Allergies Allergy/AdvReac Type Severity Reaction Status Date / Time Penicillins Allergy Hives Verified 01/27/24 07:34 blood
--- NOTE | 2024-02-11 16:15 | PM.DS ---
DS: Admitting Diagnosis Discharge Date 02/11/24 Admitting Diagnosis 1. Near fall 2. Pre-syncope 3. Dizziness DS: Discharge Diagnosis Discharge Diagnosis (1) Pre-syncope: Code(s): R55 - Syncope and collapse Status: Acute Plan This is a 68-year-old male who presents after a fall. He reports recurrent falls increasingly over the past 6-8 months. He states his legs give out any falls however a day prior to admission he was driving home from [place] and was feeling dizzy all over the road. He then pulled into a gas station for gas and next thing he remembers was laying on the ground between the gas pump in his car. He states she got up and walked around to his car felt like he was drunk trying to walk and he drove home. Explained this to his son and his son brought him to the ER for evaluation. He reports to me that whenever he makes a sudden movement he feels dizzy vision gets blurry and a falls. This also happens with sudden neck movement. ER evaluation revealed Labs were unremarkable CT head and neck with no acute intracranial process does have 1.3 x 0.9 cm meningioma in the anterior right temporal region. CTA neck with no carotid artery stenosis CT cervical spine no acute fracture or traumatic malalignment in the cervical spine CT lumbar spine no acute fracture or traumatic malalignment of the lumbar spine Chest x-ray no acute cardiopulmonary process UA unremarkable. EKG normal sinus rhythm telemetry with sinus rhythm D-dimer negative TSH normal Orthostatic blood pressures been adequate. Brain MRI 6 cm meningioma. EEG was performed as possible seizure as a etiology. Neurology has been consulted and has been placed on Keppra. With the possibility of seizure his bupropion has been stopped. He has been on bupropion 450 mg daily since he went in with suicidal ideation. Echo normal EF grade 1 diastolic dysfunction abnormality. Confusion: New 02/10/2024. Labs unremarkable. Will check ABG. MRI brain with no acute findings.? Postictal 02/11/24: will Dc today; to stop Wellbutrin, Chronic headache Dyslipidemia. on Statin Hypertension. on Losartan NIDDM. Place on Basal+correctional insulin Obesity, BMI 35 Depression. on Quetiapine, Wellbutrin, Amitriptyline. Wellbutrin held Peripheral neuropathy. on Pre-gabalin Intention tremors. on Propranolol Code status. Full VTE prophylaxis. on Lovenox, SCDs Nutrition. Carb-controlled; Heart healthy Disposition. home DS: Summary Hospital Course Reason for hospitalization: 1. Near fall 2. Pre-syncope 3. Dizziness Hospital Course: Ernst Malave is a 68yo M with a MHx significant for obesity, Depression, NIDDM, HTN, Dyslipidemia, intention tremors. 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 He denies associated chest pain, diaphoresis, nausea, vomiting, total LOC, visual disturbance, speech difficulties, numbness or weakness in his limbs He came to the [facility] on the same day of the event, but could not find his way to the ED and frustrated, returned home. Today he returned at the request of his son, who is at the bedside. He confesses to having experienced similar episodes in the pass; they occur when he gets up from a sitting to a standing position; also whenever he turns his neck to visualize an object to his flanks. He was also evaluated about 3 years ago for similar symptoms and with an unremarkable work-up was believed to have suffered a TIA. 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
[2024-02-11 16:58] LABS: T3 Free 3.1
== END 2024-02-11 16:40 | disposition home health service (06) | DRG 312 ==
LOC: ANHED 20:47 → ANH3MED 23:49
PROVIDERS: Internal Medicine; Psychiatry & Neurology Neurology; Admitting Provider Internal Medicine; Emergency Provider Nurse Practitioner Family; PCP Family Medicine; Visit Provider Internal Medicine
DX: R55 Syncope and collapse (principal); I10 Essential (primary) hypertension; E78.5 Hyperlipidemia, unspecified; E11.40 Type 2 diabetes mellitus with diabetic neuropathy, unspecified; E66.9 Obesity, unspecified; D32.0 Benign neoplasm of cerebral meninges; R51.9 Headache, unspecified; G47.30 Sleep apnea, unspecified; G25.2 Other specified forms of tremor; R29.6 Repeated falls; F32.A Depression, unspecified; Z96.619 Presence of unspecified artificial shoulder joint; Z79.82 Long term (current) use of aspirin
CPT/HCPCS: 36415; 36600; 70450; 70496; 70498; 70553; 71045; 72125; 72131; 80053; 80061; 81003; 82306; 82607; 82746; 82805; 82948; 83036; 83735; 84436; 84443; 84480; 84484; 85025; 85380; 93005; 93306; 95816; 96372; 97161; 97166; 99285; A9270; A9577; C8929; G0378; J1650; Q9957; Q9967

== ENCOUNTER 2024-04-09 17:28 | Observation (INO) | payer MEDICARE, SELFPAY ==
--- NOTE | ~2024-04-09 | CT_ITS ---
CT lumbar spine wo con Ordering provider: Denice Longoria PA-C History: 68 years Male with . fall, low back pain . Comparison: None. Technique: CT lumbar spine without contrast. Automated exposure control and iterative reconstruction technique were employed. The dose-length product was 681.00 mGy-cm. FINDINGS: VERTEBRAE: First-degree spondylolisthesis at the level of L5-S1 with bilateral spondylolysis. Otherwi se, Normal height and alignment. No subluxation or visible acute fracture. DISC SPACES: Well maintained. . T12-L1: No stenosis. L1-L2: No stenosis. L2-L3: No stenosis. Diffuse disc bulge. Slight narrowing of the foramina. L3-L4: No stenosis. Diffuse disc bulge with bilateral narrowing of the foramina and the root compress ion. L4-L5: No stenosis. Diffuse disc bulge with bilateral narrowing of the foramina and the root que jax. L5-S1: No stenosis. Diffuse disc bulge with bilateral narrowing of the foramina and the root que jax. PARASPINOUS SOFT TISSUES: Mild atheromatous disease of the abdominal aorta. Effusion in the left sacroiliac joint. IMPRESSION: No acute osseous abnormalities.. Reviewed, dictated and finalized at location A.
--- NOTE | ~2024-04-09 | CT_ITS ---
CT diagnostic chest wo con Ordering provider: Denice Longoria PA-C History: 68 years Male with . lung contusion versus atelectasis . Comparison: None. Technique: CT chest without IV contrast. Radiation reduction technique utilized. DLP is 428.77 mGy-cm. FINDINGS: VISUALIZED THORACIC INLET: Normal. MEDIASTINUM: Aorta/coronary arteries: Mild atheromatous disease. Heart/other: The heart is not enlarged. Trace of pericardial effusion. Lymph nodes: No mediastinal or hilar adenopathy. Calcified left hilar and subcarinal lymph nodes. LUNGS: Minimal atelectatic changes seen in the lingula with minimal dependent atelectatic changes see n posteriorly in the left lung base. No pulmonary nodules or masses. No infiltrates or effusions. No pneumothorax. VISUALIZED UPPER ABDOMEN: Cholelithiasis. Otherwise, the visualized upper abdomen is normal. MUSCULOSKELETAL: Soft tissues: The superficial soft tissues are normal. Bones: Age appropriate degenerative changes of the spine. IMPRESSION: 1. Trace of pericardial effusion. 2. Subsegmental chronic Atelectatic changes in the lingula. 3. No acute lung lesion seen. 4. Cholelithiasis. Reviewed, dictated and finalized at location A.
--- NOTE | ~2024-04-09 | XR_ITS ---
XR chest 2V Ordering provider: Denice Longoria PA-C History: 68 years Male with . fall . Comparison: February 08, 2024 FINDINGS: MEDIASTINUM: The cardiac silhouette is not enlarged. LUNGS: No effusion or pneumothorax. Opacification in the left lung base suggestive of atelectasis michael neema lung contusion. OTHER: No free air under the diaphragm. Degenerative changes of the spine. Bilateral shoulder arthrop lasty. IMPRESSION: Opacification in the left lung base suggestive of atelectasis versus lung contusion. Reviewed, dictated and finalized at location A. IMPRESSION: Opacification in the left lung base suggestive of atelectasis versus lung contu jax.
--- NOTE | ~2024-04-09 | CT_ITS ---
CT brain wo con Ordering provider: Denice Longoria PA-C History: 68 years Male with . headache, fall . Comparison: February 08, 2024 Technique: CT of the head without contrast. Radiation reduction technique utilized. DLP is 681 mGy-cm. FINDINGS: BRAIN PARENCHYMA AND CSF SPACES: Mild leukoaraiosis and diffuse cortical atrophy. Mild atheromatous d isease. The anterior right temporal meningioma is unchanged and measures 1.8 x 8.8 cm.. No midline s hift, mass effect or hemorrhage. The brain parenchyma and CSF spaces are otherwise normal. VISUALIZED PARANASAL SINUSES: Normal. MASTOIDS: Normal. BONES: Normal. SOFT TISSUES: Visualized nasopharynx is normal. Superficial soft tissues are normal. IMPRESSION: No acute intracranial findings. Reviewed, dictated and finalized at location A.
--- NOTE | ~2024-04-09 | CT_ITS ---
CT cervical spine wo con Ordering provider: Denice Longoria PA-C History: . fall, neck pain . Comparison: None. Technique: CT of the cervical spine was performed without contrast. Sagittal and coronal reformatted images were also obtained and reviewed. Automated exposure control and iterative reconstruction mendez hnique were employed. The dose-length product was 681.00 mGy-cm. FINDINGS: VERTEBRAE: No subluxation or acute fracture. The occipital condyles are intact. Postoperative change s at the levels of C5-C6 and T1 with plate and screws seen anteriorly. DISC SPACES: Narrowing of the disc C5-C6, C6-C7 and C7-T1. Multilevel facet joint disease. Multilevel uncovertebral joint osteoarthritic changes. Narrowing of the foramina at the level of C3-C4, and lef t C4-C5. Mild spinal canal stenosis at the level of C5-C6 and C6-C7 with narrowing of the foramina. PARASPINOUS SOFT TISSUES: Normal. IMPRESSION: No acute osseous abnormality cervical spine. Reviewed, dictated and finalized at location A.
--- NOTE | ~2024-04-09 | MR_ITS ---
EXAMINATION: MR brain/brain stem wo con DATE: 04/12/2024 11:50 INDICATION: Nystagmus and ataxia TECHNIQUE: Magnetic resonance imaging (MRI) of the brain and brainstem was performed without intraven ous contrast. Sequences included sagittal and axial T1-weighted SE, axial diffusion-weighted FS SE, a xial 3D SWAN, axial T2-weighted FLAIR, and axial T2-weighted FSE. Postcontrast axial and coronal T1-w eighted SE was obtained. Apparent diffusion coefficient (ADC) maps were created. COMPARISON: Head CT dated 04/09/2024 FINDINGS: There are no areas of restricted diffusion to suggest acute infarction. No intracranial hemorrhage. N o interval change in the slightly T2 hyperintense 1.5 x 0.9 cm dural based extra-axial meningioma nereida ng the greater wing of the right sphenoid. There are scattered areas of nonspecific increased T2-weig hted signal intensity in the cerebral and pontine white matter, predominantly involving the deep and periventricular white matter and at the left lorenzo. There are no intraparenchymal signal abnormalities seen on the other pulse sequences. The ventricles are symmetric and normal in size. There are no abn ormal extra-axial fluid collections. Flow voids are seen in the cerebral arteries on the T2-weighted sequences consistent with their expected patency. Visualized orbits and soft tissues are unremarkable . Mild mucosal thickening the bilateral ethmoid sinuses. IMPRESSION: 1. No acute intracranial process. 2. Unchanged mild mass effect cerebral and pontine white matter T2 hyperintensity consistent with chr onic small vessel ischemic disease. 3. Unchanged 1.5 x 0.9 cm right sphenoid wing meningioma. Reviewed, dictated and finalized at location A. IMPRESSION: 1. No acute intracranial process. 2. Unchanged mild mass effect cerebral and pontine white matter T2 hyperintensi ty consistent with chronic small vessel ischemic disease. 3. Unchanged 1.5 x 0.9 cm right sphenoid wing meningioma.
[2024-04-09 17:33] VITALS: BP 141/73; PULSE 130; RESP 22; TEMP 36.6; O2SAT 98
--- NOTE | 2024-04-09 17:48 | ECG_ITS ---
Test Date: 2024-04-09 17:50:28 Measurements Intervals [place] Rate: 123 P: 12 [place]: 148 QRS: 28 QRSD: 92 T: 34 QT: 299 QTc: 429 Interpretive Statements SINUS TACHYCARDIA DELAYED PRECORDIAL R/S TRANSITION BASELINE ARTIFACT- III, AVF, V1, V6 ABNORMAL ECG No previous ECG available for comparison Electronically Signed On 04-09-2024 20:12:16 CDT by Gordon Jackson D.O.
[2024-04-09 18:27] VITALS: BP 158/86; PULSE 116
[2024-04-09 18:28] VITALS: BP 148/90; PULSE 128
[2024-04-09 18:29] VITALS: BP 145/83; PULSE 131
--- NOTE | 2024-04-09 18:30 | ED.FALL ---
HPI - Fall General Chief Complaint: Fall Stated Complaint: fall Time Seen by Provider: 04/09/24 18:19 Source: patient Mode of arrival: EMS Limitations: other (patient does not fully remember incident) History of Present Illness HPI Narrative: This is a 68 year old male that presents to the ER for a fall today. Patient walked from his house to [email or web address] to get some meatloaf today. This took him about 3 hours. He ate and had a couple glasses of iced tea then tried to walk back home. He was close to his house when he started to feel very lightheaded. He had to sit on the ground. He does not believe he lost consciousness. Some bystanders called 911. Patient currently reports a headache, and lightheadedness. Denies chest pain, shortness of breath, vomiting, focal numbness or weakness. Related Data Home Medications Medication Instructions Recorded Confirmed aspirin 81 mg tablet,delayed 81 mg PO DAILY 01/11/23 02/17/24 release atorvastatin 40 mg tablet 40 mg PO HS 01/11/23 02/17/24 metformin 500 mg tablet,extended 1,000 mg PO BID 01/11/23 02/17/24 release 24 hr multivitamin 1 tablet PO DAILY 12/22/23 02/17/24 semaglutide 7 mg tablet (Rybelsus) 7 mg PO DAILY 02/10/24 02/17/24 Allergies Allergy/AdvReac Type Severity Reaction Status Date / Time Penicillins Allergy Hives Verified 02/17/24 13:01 blood pressure med Allergy Headache Uncoded 02/17/24 13:01 Review of Systems Review of Systems: CONSTITUTIONAL: Denies fever EYES: Denies visual changes CARDIOVASCULAR: Denies chest pain RESPIRATORY: Denies dyspnea. GASTROINTESTINAL: Denies vomiting MUSCULOSKELETAL: Reports back pain, joint pain, and myalgia. NEUROLOGIC: Reports headache. Denies numbness, or weakness. All systems reviewed & are unremarkable except as noted in HPI and below PMFSH Past Medical History Medical History Crush injury of foot Crushing injury of left foot Diabetes type 2, controlled HTN (hypertension) with goal to be determined Hyperlipidemia Meningioma Moderate left ankle sprain Neuropathy Sinusitis, acute Surgical History Surgical History History of shoulder replacement Family History Family History Unknown Hypertension Depression Diabetes mellitus Cerebrovascular accident Neuropathy Social History Social History Smoking status: Never smoker Alcohol intake: former Substance use: never Substance use type: does not use Do You Feel Safe in your Home?: Yes Lack of Transportation: No Lack of Food: Never True Current Housing: I Have Housing Concerned About Future Housing: No Difficulty Paying Gas/Electric Bills: No Difficulty Paying for Meds: No Currently Unemployed: No Education: Bachelor's Degree Difficulty w/ Childcare or Family Care: No Occupation/Education: retired Gender identity (if verbalized by the patient): Male Spiritual care concerns: No Agree to blood products: Yes Exam Narrative: GENERAL: Well-appearing, well-nourished, and in no acute distress. HEAD: Normocephalic, atraumatic. EYES: PERRLA and EOMI. ENT: Nares clear, no rhinorrhea or epistaxis. Mucous membranes moist. Oropharynx without tonsillar hypertrophy exudate or other lesions. Bilateral TMs pearly see non-bulging NECK: Supple. No adenopathy or masses. Tender to palpation of midline cervical spine CHEST: Clear to auscultation. No respiratory distress. No wheezes rales or rhonchi HEART: Regular rate and rhythm. No murmur heard. Normal peripheral pulses. BACK: Nontender to palpation of midline thoracic spine. Tender to palpation of midline lumbar spine EXTREMITIES: Normal range of motion. No edema or obvious deformity. Strength equal in bilateral upper and lower extremities (5/5) SKIN: Warm, dry,
[2024-04-09 18:32] LABS: Basophils Absolute Auto 0.1 K/mm3 (0.0-0.1); Basophils Percent Auto 0.9 % (0.2-1.2); Eosinophils Absolute Auto 0.2 K/mm3 (0-0.3); Eosinophils Percent Auto 1.6 % (0-4.4); Hematocrit 45.5 % (42.0-52.0); Hemoglobin 14.6 g/dL (14.0-18.0); Immature Granulocyte Absolute 0.03 K/mm3 (0.00-0.031); Immature Granulocyte Percent A 0.3 % (0-0.5); Lymphocytes Absolute Auto 1.39 K/mm3 (0.9-3.2); Lymphocytes Percent Auto 15.1 % (18.3-44.2); Mean Corpuscular HGB Conc 32.1 g/dl (32-36); Mean Corpuscular Hemoglobin 28.4 pg (26-34); Mean Corpuscular Volume 88.5 fl (80-100); Mean Platelet Volume 10.2 fl (7.4-10.4); Monocytes Absolute Auto 0.7 K/mm3 (0.1-0.6); Monocytes Percent Auto 7.1 % (2.6-8.5); Neutrophils Absolute Auto 6.9 K/mm3 (1.3-6.7); Platelet Count Result 345 k/mm3 (150-375); Red Blood Count 5.14 M/mm3 (4.6-6.20); Red Cell Distribution Width 13.2 % (11.5-14.5); White Blood Count 9.2 K/mm3 (4.5-10.0)
[2024-04-09] MEDS: SODIUM CHLORIDE 0.9% IV 1,000 ML 999 ML IV CONT (18:34)
[2024-04-09 18:41] LABS: Alanine Aminotransferase 21 U/L (6-50); Albumin Level 4.5 g/dL (3.5-5.1); Alkaline Phosphatase 68 U/L (38-126); Anion Gap 16 mmol/L (4-12); Aspartate Amino Transferase 26 U/L (17-59); Bilirubin,Total 0.8 mg/dL (0.2-1.3); Blood Urea Nitrogen 18 mg/dL (9-20); Calcium 9.2 mg/dL (8.4-10.2); Carbon Dioxide 20 mmol/L (22-30); Chloride 108 mmol/L (98-107); Creatine Kinase 245 U/L (55-170); Estimated CRCL calculation 61 ml/min; Estimated Glomerular Filt Rate 50; Glucose 147 mg/dL (65-110); Potassium 4.2 mmol/L (3.4-5.0); Sodium 144 mmol/L (137-145)
--- NOTE | 2024-04-09 19:07 | PC.NURSE ---
pt attempted to urinate at this time with no success
--- NOTE | 2024-04-09 19:25 | PC.NURSE ---
called pt son Maurice at this time per pt request to give him an update on care
[2024-04-09] MEDS: ACETAMINOPHEN 500 MG TABLET 1000 MG PO (19:34)
[2024-04-09] MEDS: LACTATED RINGERS 1,000 ML 999 ML IV CONT (19:38)
[2024-04-09 20:24] LABS: Appearance Urine Clear (Clear); Bacteria Urine None Seen /hpf; Bilirubin Urine Negative (Negative); Blood Urine Negative (Negative); Color Urine Yellow (Yellow); Glucose Urine UA Negative (Negative); Ketones Urine 2+ mg/dL (Negative); Leukocyte Esterase Ur Negative LEU/UL (Negative); Need Manual Microscopic Reviewed; Nitrate Urine Negative (Negative); Protein Urine 2+ mg/dL (Negative); RBC Urine 0-2 /hpf (0-2); Specific Grav Ur 1.036 (1.001-1.035); Squamous Epithelial Cell Urine None Seen /hpf (Few); WBC Urine 0-5 /hpf (0-3)
[2024-04-09 20:25] LABS: Add Urine Microscopic? YES
[2024-04-09 23:47] VITALS: BP 149/94; PULSE 89; RESP 20; O2SAT 99
[2024-04-09] MEDS: levETIRAcetam Tablet 250 MG, levETIRAcetam Tablet 500 MG 750 MG PO (23:53)
[2024-04-09] MEDS: LACTATED RINGERS 1,000 ML 125 ML IV CONT (23:53)
[2024-04-10] VITALS (11 sets, daily range): BP systolic 117–174; BP diastolic 51–96; PULSE 67–100; RESP 18–20; TEMP 36.4–36.9; O2SAT 95–100
--- NOTE | 2024-04-10 03:54 | PM.IMHP ---
H&P: HPI History of Present Illness Date/Time: 04/10/24 03:54 Chief Complaint: Weakness and fall Narrative: 68-year-old loquacious male with a past medical history type 2 diabetes mellitus, obstructive sleep apnea, essential hypertension, hyperlipidemia and peripheral neuropathy who presented to the ER by private vehicle when a bystander witnessed the patient fall her walking to [employer]. The patient reported that he was creeping meat loaf and is not allowed to drive until he is evaluated by Neurology as outpatient so he decided to walk to [employer] while 5 miles from his home. He ate his meal and walk back home. He reports that he became weak and stumbled. A bystander saw him fall in stopped at help. The Bystander then brought him into the ER. On arrival to the ER the patient was found to be tachycardic heart rate in the 130s. The patient reports that he became very hot. He was sweaty. His legs started to hurt. He noticed that he was drifting to the left side when he was walking. He knew he was going to fall so he East himself down to the ground. A nurse was walking on the trail behind events all him go down in assisted him. She convinced him to allow her to bring him to the ER. He denies having any chest pain or shortness of breath. He does admit that he is now sun burned and realizes that he got too much sun on his walk. He denies any nausea or vomiting. He reports that he usually drinks 3 64 oz glasses of water a day. He drank 3 glasses of tea when he went to lunch. The patient had is giving variable reports as to his home meds depending on the provider. He he tells me that he stop taking Rybelsus because his A1c was normal. This seems to be accurate. His primary care providers note states that the patient's amitriptyline, Lyrica, cyclobenzaprine and Novice would be discontinued because the patient did not know why he was taking the medications. At the time my evaluation the patient is was aware that he took the Lyrica for neuropathy and took amitriptyline and cyclobenzaprine for headaches. He states he only reason he has not been taking them is because his primary care physician did not sent in the refill to the pharmacy. Although he had told nursing staff that he did not take these medications at all anymore. Patient was easily distracted and at times difficult to redirect. He told me that he has been out of his cap breath for about 5 days since his primary care did not feel his meds. Review of Systems Review of Systems: 12 systems were reviewed with pertinent positives and negatives per HPI. Except as documented in the HPI, all other systems were reviewed and are negative. [facility] Past Medical History Medical History (Updated 04/10/24 @ 08:46 by Dennise Becker DO) Crush injury of foot As a child left foot Crushing injury of left foot Diabetes type 2, controlled HTN (hypertension) with goal to be determined Hyperlipidemia Meningioma Neuropathy Obstructive sleep apnea on CPAP Sinusitis, acute Surgical History Surgical History (Updated 04/10/24 @ 08:46 by Dennise Becker DO) History of shoulder replacement Bilateral Status post open reduction with internal fixation of fracture Left foot due to crush injury as a child Family History Family History Unknown Hypertension Depression Diabetes mellitus Cerebrovascular accident Neuropathy Social History Social History (Updated 04/10/24 @ 08:30 by Dennise Becker DO) Social History: The patient is still but he and his have been legally since 2018. 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 He denies any history of tobacco or alcohol use. Code status: DNR/DNI per patient request Healthcare power of securities attorney: Lalo (son) Smoking status: Never smoker Alcohol intake: former Substance use: never Substance use t
--- NOTE | 2024-04-10 07:26 | PC.NURSE ---
On 04/10/24, the SAND SHOVELER, [ Gita], provided care and completed [email or web address] documentation on this patient. I have reviewed the SAND SHOVELER's documentation and agree with the findings.
[2024-04-10 07:30] LABS: Glucose Point of Care 100 mg/dl (65-105)
[2024-04-10] MEDS: PREGABALIN (*CRX) 50 MG CAPSULE 100 MG PO ×2 (09:06→18:31)
[2024-04-10] MEDS: levETIRAcetam 250 MG TABLET 750 MG PO ×2 (09:06→20:58)
[2024-04-10] MEDS: MULTIVITAMINS THERAPEUTIC TAB (*BKC) 1 TABLET PO (09:06)
[2024-04-10] MEDS: ENOXAPARIN 40 MG/0.4 ML SYRINGE SUB-Q (09:06)
[2024-04-10] MEDS: CYCLOBENZAPRINE HCL 5 MG TABLET PO (09:06)
[2024-04-10] MEDS: ASPIRIN 81 MG ENTERIC TABLET PO (09:06)
[2024-04-10 10:46] LABS: Anion Gap 9 mmol/L (4-12); Blood Urea Nitrogen 14 mg/dL (9-20); Calcium 8.4 mg/dL (8.4-10.2); Carbon Dioxide 24 mmol/L (22-30); Chloride 107 mmol/L (98-107); Estimated CRCL calculation 92 ml/min; Estimated Glomerular Filt Rate > 60; Glucose 161 mg/dL (65-110); Potassium 3.8 mmol/L (3.4-5.0); Sodium 140 mmol/L (137-145)
[2024-04-10 10:51] LABS: Creatine Kinase 1203 U/L (55-170)
--- NOTE | 2024-04-10 11:29 | PM.IMPN ---
Progress Note: A&P Assessment and Plan (1) Elevated CK: Code(s): R74.8 - Abnormal levels of other serum enzymes Status: Acute Assessment and Plan: CK came back greater than a 1000 this morning which is an increase from yesterday -will continue IV fluids and recheck tomorrow -once this is trending down, patient can discharge home -likely due to heat exhaustion and/or more physical exertion than he is used to (walking 4 miles to a restaurant) -will monitor kidney and liver function (2) Acute kidney injury: Code(s): N17.9 - Acute kidney failure, unspecified Status: Acute Assessment and Plan: Resolved -likely due to dehydration -continue IV fluids due to elevated CK (3) Acute dehydration: Code(s): E86.0 - Dehydration Status: Acute Assessment and Plan: Improving with IV fluids (4) Memory changes: Code(s): R41.3 - Other amnesia Status: Acute Assessment and Plan: Has history of TIA, seizures and memory issues at times which is why he cannot drive -follow-up with outpatient neurologist (5) Pre-syncope: Code(s): R55 - Syncope and collapse Status: Acute Assessment and Plan: Due to dehydration -PT ordered (6) Obstructive sleep apnea on CPAP: Code(s): G47.33 - Obstructive sleep apnea (adult) (pediatric) Status: Acute Assessment and Plan: Will order CPAP Plan hx of seizures-continue keppra Time Spent With Patient Time with patient: 25 - 35 minutes Subjective Date/time seen: 04/10/24 11:29 Interval history: Pt is a 68-year-old male here for heat exhaustion. Patient was seen today and states he feels good. He does have pain to his left rib cage at the lower part but overall doing okay. He denies chest pain, nausea, vomiting, fevers or chills. He does not feel short of breath. He states he sleeps with a CPAP and cannot sleep without it. We reviewed the events of yesterday. He said he thought walking to [employer] would get him some exercise and get him the food that he wanted. He realized on the way back it was too far and that is when he lowered himself to the ground and someone helped him. Did not fall and hit his head or have seizure-like activity. He had no loss of consciousness. He says he has history of TIA and seizures and that is why he does not drive. He sees Neurology on Friday. He had been out of his Keppra for 1 week prior to this. Review of Systems Review of Systems: All systems reviewed & are unremarkable except as noted in HPI and below Exam Narrative: General: Well developed well nourished patient in NAD HEENT: normocephalic Neck: supple Neuro: Alert and oriented x4. Strength equal 5/5 in the upper and lower extremities. No asymmetrical features. Fluent speech CV:RRR Resp:CTA. Pain to palpation to left ribcage Abd: Soft, non distended. No pain to palpation. Positive bowel sounds Extremities: No swelling, erythema, or pain to palpation. Objective Data Vital Signs Vital Signs: Vital Signs - 24 hr 04/09/24 17:33 04/09/24 18:27 04/09/24 18:28 Temperature 97.9 F Pulse Rate 130 H 116 H 128 H Respiratory Rate 22 H Blood Pressure 141/73 H 158/86 H 148/90 H Pulse Oximetry 98 Oxygen Delivery Room Air 04/09/24 18:29 04/09/24 23:47 04/10/24 00:34 Temperature 98.2 F Pulse Rate 131 H 89 69 Respiratory Rate 20 18 Blood Pressure 145/83 H 149/94 H 164/96 H Pulse Oximetry 99 95 Oxygen Delivery 04/10/24 00:35 04/10/24 00:49 04/10/24 04:00 Temperature 98.4 F 97.9 F Pulse Rate 99 100 83 Respiratory Rate 18 18 Blood Pressure 174/80 H 171/86 H Pulse Oximetry 95 97 Oxygen Delivery 04/10/24 06:00 Temperature 97.7 F Pulse Rate 75 Respiratory Rate 18 Blood Pressure 123/83 Pulse Oximetry 98 Oxygen Delivery Intake/Output Intake/Output: Intake & Output 04/07/24 04/08/24 04/09/24 04/10/24
[2024-04-10 11:34] LABS: Glucose Point of Care 121 mg/dl (65-105)
[2024-04-10] MEDS: LACTATED RINGERS 1,000 ML 100 ML IV CONT (12:21)
[2024-04-10 17:07] LABS: Glucose Point of Care 103 mg/dl (65-105)
[2024-04-10] MEDS: ACETAMINOPHEN 325 MG TABLET 650 MG PO (18:31)
[2024-04-10] MEDS: QUEtiapine FUMARATE 25 MG TABLET 50 MG PO (20:57)
[2024-04-10] MEDS: ATORVASTATIN 40 MG TABLET PO (20:58)
[2024-04-10 21:23] LABS: Glucose Point of Care 110 mg/dl (65-105)
[2024-04-11] VITALS (11 sets, daily range): BP systolic 130–158; BP diastolic 75–86; PULSE 17–91; RESP 18–22; TEMP 36.3–36.6; O2SAT 95–100
[2024-04-11] MEDS: LACTATED RINGERS 1,000 ML 100 ML IV CONT ×2 (00:56→14:53)
--- NOTE | 2024-04-11 06:47 | PC.NURSE ---
On 04/11/24, the FACILITY SERVICE ASSOCIATE, [ Gita], provided care and completed [facility] documentation on this patient. I have reviewed the FACILITY SERVICE ASSOCIATE's documentation and agree with the findings.
[2024-04-11 07:25] LABS: Glucose Point of Care 113 mg/dl (65-105)
[2024-04-11 07:28] LABS: Hematocrit 38.2 % (42.0-52.0); Hemoglobin 11.9 g/dL (14.0-18.0); Mean Corpuscular HGB Conc 31.2 g/dl (32-36); Mean Corpuscular Hemoglobin 28.1 pg (26-34); Mean Corpuscular Volume 90.3 fl (80-100); Mean Platelet Volume 10.2 fl (7.4-10.4); Platelet Count Result 223 k/mm3 (150-375); Red Blood Count 4.23 M/mm3 (4.6-6.20); Red Cell Distribution Width 13.2 % (11.5-14.5); White Blood Count 4.2 K/mm3 (4.5-10.0)
[2024-04-11 07:44] LABS: Alanine Aminotransferase 21 U/L (6-50); Albumin Level 3.4 g/dL (3.5-5.1); Alkaline Phosphatase 48 U/L (38-126); Anion Gap 7 mmol/L (4-12); Aspartate Amino Transferase 41 U/L (17-59); Blood Urea Nitrogen 10 mg/dL (9-20); Calcium 8.3 mg/dL (8.4-10.2); Carbon Dioxide 26 mmol/L (22-30); Chloride 107 mmol/L (98-107); Creatine Kinase 850 U/L (55-170); Estimated CRCL calculation 103 ml/min; Estimated Glomerular Filt Rate > 60; Glucose 116 mg/dL (65-110); Potassium 3.7 mmol/L (3.4-5.0); Sodium 140 mmol/L (137-145)
[2024-04-11] MEDS: MULTIVITAMINS THERAPEUTIC TAB (*BKC) 1 TABLET PO (08:49)
[2024-04-11] MEDS: levETIRAcetam 250 MG TABLET 750 MG PO ×2 (08:49→20:19)
[2024-04-11] MEDS: PREGABALIN (*CRX) 50 MG CAPSULE 100 MG PO ×2 (08:49→18:06)
[2024-04-11] MEDS: ENOXAPARIN 40 MG/0.4 ML SYRINGE SUB-Q (08:49)
--- NOTE | 2024-04-11 11:13 | PM.IMPN ---
Progress Note: A&P Assessment and Plan (1) Elevated CK: Code(s): R74.8 - Abnormal levels of other serum enzymes Status: Acute Assessment and Plan: CK down to 850 today -will continue IV fluids and continue to monitor -once this is trending down, patient can discharge home -likely due to heat exhaustion and/or more physical exertion than he is used to (walking 4 miles to a restaurant) -kidney and liver function WNL, will continue to monitor (2) Acute kidney injury: Code(s): N17.9 - Acute kidney failure, unspecified Status: Acute Assessment and Plan: Resolved -likely due to dehydration -continue IV fluids due to elevated CK (3) Acute dehydration: Code(s): E86.0 - Dehydration Status: Resolved Assessment and Plan: Improving with IV fluids (4) Memory changes: Code(s): R41.3 - Other amnesia Status: Acute Assessment and Plan: Has history of TIA, seizures and memory issues at times which is why he cannot drive -scheduled to see our neuro tomorrow, will consult while inpatient (5) Pre-syncope: Code(s): R55 - Syncope and collapse Status: Acute Assessment and Plan: Due to dehydration -PT ordered and awaiting evaluation Patient also has history of seizures and has been off his Keppra for approximately 2 weeks -restarted Keppra while inpatient and Seroquel Provider previously took him off Seroquel cold turkey Will order ECHO (6) Obstructive sleep apnea on CPAP: Code(s): G47.33 - Obstructive sleep apnea (adult) (pediatric) Status: Chronic Assessment and Plan: Home CPAP settings Subjective Date/time seen: 04/11/24 11:13 Interval history: Patient sitting up at the edge of his bed this morning in no distress. 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 He does report intermittent double vision sand dizziness, but walked with PT in the [place] without problem. He is scheduled to see Dr. Espinoza tomorrow in clinic, however will consult while inpatient. His CK has improved but is still elevated at 850 today, will continue IV fluids for the time being and plan for d/c when improving. Review of Systems Review of Systems: All systems reviewed & are unremarkable except as noted in HPI and below Exam Narrative: General: Well developed well nourished patient in no acute distress HEENT: normocephalic, PERRLA, EOMI Neck: supple Neuro: Alert and oriented x4. Strength equal 5/5 in the upper and lower extremities. No asymmetrical features. Fluent speech CV:RRR, no mumurs Resp:Lungs clear to auscultation Abd: Soft, non distended. No pain to palpation. Positive bowel sounds Extremities: No swelling, erythema, or pain to palpation. Psych: appropriate mood and affect Objective Data Vital Signs Vital Signs: Vital Signs - 24 hr 04/10/24 13:53 04/10/24 12:00 04/10/24 16:00 Temperature 97.5 F L Pulse Rate 84 84 84 Respiratory Rate 20 Blood Pressure 117/77 Pulse Oximetry 100 Oxygen Delivery Oxygen Flow Rate Fraction of Inspired Oxygen 04/10/24 21:42 04/10/24 20:00 04/10/24 20:00 Temperature 98 F Pulse Rate 67 67 Respiratory Rate 20 Blood Pressure 118/51 L Pulse Oximetry 97 Oxygen Delivery Room Air Oxygen Flow Rate Fraction of Inspired Oxygen 04/11/24 00:00 04/11/24 04:00 04/11/24 06:00 Temperature 97.4 F L Pulse Rate 77 67 69 Respiratory Rate 20 Blood Pressure 158/86 H Pulse Oximetry 100 Oxygen Delivery Oxygen Flow Rate Fraction of Inspired Oxygen 04/10/24 20:30 04/11/24 07:55 04/11/24 07:55 Temperature Pulse Rate 91 Respiratory Rate 20 Blood Pressure Pulse Oximetry 95 Oxygen Delivery Autopap CPAP Autopap Oxygen Flow Rate 0 Fraction of Inspired Oxygen 04/11/24 08:00 04/11/24 08:00 Temperature Pulse Rate 68 91 Respiratory Rate B
[2024-04-11 11:51] LABS: Glucose Point of Care 146 mg/dl (65-105)
[2024-04-11] MEDS: ASPIRIN 81 MG ENTERIC TABLET PO (13:26)
[2024-04-11 16:36] LABS: Glucose Point of Care 94 mg/dl (65-105)
--- NOTE | 2024-04-11 17:17 | WPDNEURCNPN ---
Assessment and Plan Assessment and plan (1) Seizure disorder: Code(s): G40.909 - Epilepsy, unspecified, not intractable, without status epilepticus Status: Acute Assessment and Plan: The patient is on Keppra 750 mg twice a day. We should check his Keppra level while he is here. (2) Chronic headache: Code(s): R51.9 - Headache, unspecified; G89.29 - Other chronic pain Status: Acute Assessment and Plan: Etiology for this is unclear. He has had a separation from his in 2018 and lives alone. He is retired from his work. The description is suggestive of a muscle contraction type headache and can be treated symptomatically. I told him that I did not think that the headache was due to tumor noted on the brain scan. (3) Memory changes: Code(s): R41.3 - Other amnesia Status: Acute Assessment and Plan: Patient is concerned about mild memory loss over the last 2 3 years. At this time this appears to more of a subjective issue since I did not see any clear evidence for loss however in the office visits more elaborate evaluation and follow-up can be made. (4) Frequent falls: Code(s): R29.6 - Repeated falls Status: Acute Assessment and Plan: This has been discussed previously. At times it has been thought that he has transient ischemic attack and other times seizures 8 was decided that we shall continue to treat him for both with antiplatelets statins and anticonvulsants for now. He has been investigated [facility] also 2 years ago. (5) Dizziness: Code(s): R42 - Dizziness and giddiness Status: Acute Assessment and Plan: patient has a mild left beating nystagmus. This raises possibility of benign paroxysmal vertigo or a brainstem pathology and I would suggest a repeat MRI of the brain in view of the history and findings. 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 She began around 1200 and now is coming down. Renal function is also improving. (11) Obstructive sleep apnea on CPAP: Code(s): G47.33 - Obstructive sleep apnea (adult) (pediatric) Status: Chronic (12) Acute dehydration: Code(s): E86.0 - Dehydration Status: Resolved Assessment and Plan: This was thought to be due to the heat exhaustion. Plan 1. MRI of the brain in view of the left beating nystagmus and symptoms of ataxia and reason particularly when looking to the left side 2. Continue the Keppra 750 mg twice a day 3. Check levetiracetam blood level tomorrow. 4. Continue the efforts of hydration and physical therapy for ambulation 5. I discussed with him regarding use of available technology to get food deliveries and get around in Uber or Lyft or cab Or use of bike while he has driving restriction in place. He told me that he does not use any of those apps and I advised to seek help from his family members. 6. I would see him for follow-up in my office in 4 4-6 weeks time. 7. An outpatient appointment with the neurosurgeon regarding meningioma would be considered. Consult date: 04/11/24 HPI: Ernst Malave is a 68 year old male with history of seizure disorder, right sphenoid wing meningioma and a possible transient ischemic attack admitte
[2024-04-11] MEDS: CYCLOBENZAPRINE HCL 5 MG TABLET PO (18:06)
[2024-04-11 19:04] LABS: Cholesterol 150 mg/dL (0-200); HDL Direct 35 mg/dL; Triglycerides 161 mg/dL (<150)
[2024-04-11 19:16] LABS: LDL Cholesterol Direct 99 mg/dL
[2024-04-11 19:37] LABS: Thyroid Stimulating Hormone 0.758 uIU/mL (0.465-4.680)
[2024-04-11 20:06] LABS: Glucose Point of Care 97 mg/dl (65-105)
[2024-04-11 20:19] LABS: Folic Acid > 20.0 ng/mL (2.76->20)
[2024-04-11] MEDS: QUEtiapine FUMARATE 25 MG TABLET 50 MG PO (20:20)
[2024-04-11] MEDS: ATORVASTATIN 40 MG TABLET PO (20:20)
[2024-04-12] VITALS: PULSE 80
[2024-04-12] MEDS: LACTATED RINGERS 1,000 ML 100 ML IV CONT (01:58)
[2024-04-12 04:00] VITALS: PULSE 79
[2024-04-12 05:51] VITALS: BP 126/72; PULSE 72; RESP 18; TEMP 36.3; O2SAT 100
--- NOTE | 2024-04-12 07:39 | PC.NURSE ---
I have reviewed the charting and in agreement of the findings. Will continue to monitor
[2024-04-12 07:41] LABS: Glucose Point of Care 102 mg/dl (65-105)
[2024-04-12 08:00] VITALS: PULSE 67; RESP 18; O2SAT 100
--- NOTE | 2024-04-12 08:48 | PM.IMPN ---
Progress Note: A&P Assessment and Plan (1) Acute dehydration: Code(s): E86.0 - Dehydration Status: Resolved Assessment and Plan: 04/12/24: Received IV fluids (2) Acute kidney injury: Code(s): N17.9 - Acute kidney failure, unspecified Status: Acute Assessment and Plan: 04/12/24: Likely secondary to dehydration Initial creatinine 1.4 Baseline creatinine 0.9-1.1 Creatinine today 0.8 Resolved (3) Elevated CK: Code(s): R74.8 - Abnormal levels of other serum enzymes Status: Acute Assessment and Plan: 04/12/24: CK Continue IV fluids (4) Memory changes: Code(s): R41.3 - Other amnesia Status: Acute Assessment and Plan: 04/12/24: Patient experiencing increased memory loss over the last 2-3 years Neurology will follow up outpatient for more detailed evaluation (5) Pre-syncope: Code(s): R55 - Syncope and collapse Status: Acute Assessment and Plan: 04/12/24: Likely secondary to dehydration Orthostatic blood pressures did not show significant drop in heart rate or blood pressure Last echo was on 02/09/2024 which showed a normal LV systolic function with an estimated EF of 60-65%, grade 1 diastolic dysfunction PT ordered (6) Obstructive sleep apnea on CPAP: Code(s): G47.33 - Obstructive sleep apnea (adult) (pediatric) Status: Chronic Assessment and Plan: 04/12/24: Continue CPAP Subjective Date/time seen: 04/12/24 08:48 Interval history: Interval history: This is a 68-year-old male who presented to the hospital on 04/09/2024 for evaluation after sustaining a fall. Workup in hospital included a chest x-ray which shown opacification in the left lung base suggestive of atelectasis versus lung contusion. Head CT was negative for any acute intracranial findings. Cervical spine CT was negative. Lumbar spine CT was negative. Chest CTA showed trace pericardial effusion, no acute lung lesion, subsegmental chronic atelectasis changes in the lingula. Initial labs showed a normal white blood cell count of 9.2, bicarb 20, creatinine 1.4, EGFR 50, blood sugar ranging 147-161, total CK 245> 1203> A 50. UA was obtained and showed a urine specific gravity of 1.036, 2+ urine protein, 2+ ketone, otherwise normal. Patient was given IV fluids. 04/12/24: Patient denies. Patient endorses. Review of Systems Review of Systems: All systems reviewed & are unremarkable except as noted in HPI and below Constitutional: Constitutional: Reports as per HPI and Reports no additional constitutional complaints Eyes: Eyes: Reports as per HPI and Reports no additional eye complaints ENT: Reports system reviewed and no additional complaints, except as documented and Reports as per HPI Cardiovascular: Cardiovascular: Reports as per HPI and Reports no additional cardiovascular complaints Respiratory: Respiratory: Reports as per HPI and Reports no additional respiratory complaints Gastrointestinal: Gastrointestinal: Reports as per HPI and Reports no additional gastrointestinal complaints Genitourinary: Genitourinary: Reports no additional male genitourinary complaints and Reports as per HPI Musculoskeletal: Musculoskeletal: Reports no additional musculoskeletal complaints and Reports as per HPI Integumentary/Breasts: Skin/Breast: Reports system reviewed and no additional complaints, except as docu and Reports as per HPI Neurologic: Reports system reviewed and no additional complaints, except as documented and Reports as per HPI Psychiatric: Psychiatric: Reports no additional psychiatric complaints and Reports as per HPI Exam Narrative: General: In no acute distress, well nourished Head: atraumatic, no encephalopathy Eyes: EOMI, PERRLA, sclera clear ENT: moist mucous membranes, nasal passages clear Neck: supple, no JVD, no adenopathy, trachea midline Cardiac: Normal S1 and
[2024-04-12 09:51] LABS: Basophils Percent Auto 0.8 % (0.2-1.2); Eosinophils Absolute Auto 0.2 K/mm3 (0-0.3); Hematocrit 39.2 % (42.0-52.0); Hemoglobin 12.5 g/dL (14.0-18.0); Immature Granulocyte Absolute 0.01 K/mm3 (0.00-0.031); Immature Granulocyte Percent A 0.3 % (0-0.5); Lymphocytes Percent Auto 30.5 % (18.3-44.2); Mean Corpuscular HGB Conc 31.9 g/dl (32-36); Mean Corpuscular Hemoglobin 28.5 pg (26-34); Mean Corpuscular Volume 89.3 fl (80-100); Mean Platelet Volume 9.7 fl (7.4-10.4); Monocytes Absolute Auto 0.5 K/mm3 (0.1-0.6); Monocytes Percent Auto 12.5 % (2.6-8.5); Neutrophils Absolute Auto 1.8 K/mm3 (1.3-6.7); Neutrophils Percent Auto 50.9 % (45.5-73.1); Platelet Count Result 224 k/mm3 (150-375); Red Blood Count 4.39 M/mm3 (4.6-6.20); Red Cell Distribution Width 13.2 % (11.5-14.5); White Blood Count 3.6 K/mm3 (4.5-10.0)
[2024-04-12 10:01] LABS: Alanine Aminotransferase 22 U/L (6-50); Albumin Level 3.6 g/dL (3.5-5.1); Alkaline Phosphatase 49 U/L (38-126); Anion Gap 7 mmol/L (4-12); Aspartate Amino Transferase 30 U/L (17-59); Blood Urea Nitrogen 7 mg/dL (9-20); Calcium 8.6 mg/dL (8.4-10.2); Carbon Dioxide 29 mmol/L (22-30); Chloride 106 mmol/L (98-107); Estimated CRCL calculation 103 ml/min; Estimated Glomerular Filt Rate > 60; Glucose 127 mg/dL (65-110); Magnesium 1.8 mg/dL (1.6-2.3); Potassium 3.9 mmol/L (3.4-5.0); Sodium 142 mmol/L (137-145)
[2024-04-12 10:03] LABS: Creatine Kinase 316 U/L (55-170)
[2024-04-12] MEDS: levETIRAcetam 250 MG TABLET 750 MG PO (10:04)
[2024-04-12] MEDS: ASPIRIN 81 MG ENTERIC TABLET PO (10:04)
[2024-04-12] MEDS: PREGABALIN (*CRX) 50 MG CAPSULE 100 MG PO (10:04)
[2024-04-12] MEDS: MULTIVITAMINS THERAPEUTIC TAB (*BKC) 1 TABLET PO (10:04)
[2024-04-12] MEDS: ENOXAPARIN 40 MG/0.4 ML SYRINGE SUB-Q (10:04)
[2024-04-12 11:29] LABS: Glucose Point of Care 104 mg/dl (65-105)
--- NOTE | 2024-04-12 13:46 | PM.DS ---
DS: Admitting Diagnosis Discharge Date 04/12/24 Admitting Diagnosis Acute kidney injury Dehydration Presyncope Obstructive sleep apnea on CPAP DS: Discharge Diagnosis Discharge Diagnosis (1) Acute dehydration: Code(s): E86.0 - Dehydration Status: Resolved (2) Acute kidney injury: Code(s): N17.9 - Acute kidney failure, unspecified Status: Acute (3) Elevated CK: Code(s): R74.8 - Abnormal levels of other serum enzymes Status: Acute (4) Memory changes: Code(s): R41.3 - Other amnesia Status: Acute (5) Pre-syncope: Code(s): R55 - Syncope and collapse Status: Acute (6) Obstructive sleep apnea on CPAP: Code(s): G47.33 - Obstructive sleep apnea (adult) (pediatric) Status: Chronic DS: Summary Hospital Course Reason for hospitalization: Acute kidney injury Dehydration Presyncope Obstructive sleep apnea on CPAP Hospital Course: This is a 68-year-old male who presented to the hospital on 04/09/2024 for evaluation after sustaining a fall. Workup in hospital included a chest x-ray which shown opacification in the left lung base suggestive of atelectasis versus lung contusion. Head CT was negative for any acute intracranial findings. Cervical spine CT was negative. Lumbar spine CT was negative. Chest CTA showed trace pericardial effusion, no acute lung lesion, subsegmental chronic atelectasis changes in the lingula. Initial labs showed a normal white blood cell count of 9.2, bicarb 20, creatinine 1.4, EGFR 50, blood sugar ranging 147-161, total CK 245> 1203> A 50. UA was obtained and showed a urine specific gravity of 1.036, 2+ urine protein, 2+ ketone, otherwise normal. Patient was given IV fluids. Patient denies any fever, chills, nausea, vomiting, diarrhea, abdominal pain, chest pain, shortness a breath. He states that he is feeling much better today. He had a brain MRI today that was negative for any acute intracranial process and showed unchanged mild mass effect cerebral and pontine white matter T2 hyperintensity consistent with chronic small vessel ischemic disease, unchanged 1.5 x 0.9 cm right sphenoid wing meningioma. Patient is stable for discharge at this time. He will need to follow up with Neurology within the next 4-6 weeks. Final diagnosis: Rhabdomyolysis, acute kidney injury, dehydration Status at Discharge Cognitive/behavioral status at discharge: Alert oriented x4 Functional status at discharge: uses cane/walker Overall status at discharge: patient is progressing back to baseline Time Spent with Patient Time attestation: Total time spent providing and/or coordinating discharge services: Time spent: Greater than 30 minutes Exam Narrative: General: In no acute distress, well nourished Head: atraumatic, no encephalopathy Eyes: EOMI, PERRLA, sclera clear ENT: moist mucous membranes, nasal passages clear Neck: supple, no JVD, no adenopathy, trachea midline Cardiac: Normal S1 and S2. RRR, No murmur, gallops or friction rubs, peripheral pulses intact. Respiratory: Lungs clear to auscultation, no adventitious lung sounds, currently on room air Gastrointestinal: soft, non-distended, non-tender, normoactive bowel sounds. : voiding without difficulty. Extremities: moves all extremities well, no edema, good ROM, strength 5/5 Skin: clean, dry, intact. No wounds or lesions. Neuro: Alert and oriented x4, cranial nerves intact, no neuro deficits. Psych: normal mood, normal affect, interactive DS: Data Data Completed and Pending Completed studies during hospitalization: Chest x-ray Head CT Cervical spine CT Lumbar spine Chest CT Brain MRI Pending studies at discharge: None Labs on day of discharge: Labs from last 24 hours 04/12/24 04/12/24 04/12/24 11:15 09:27 07:26 WBC 3.6 L RBC 4.39 L Hgb 12.5 L Hct 39.2 L MCV 89.3 MCH 28.5 MCHC 31.9 L RDW 13.2 Plt Count 224 MPV 9.7 Immature Gran %
[2024-04-12 14:00] VITALS: BP 139/89; PULSE 77; RESP 18; TEMP 36.6; O2SAT 98
[2024-04-14 06:14] LABS: Methylmalonic Acid 151 nmol/L (69-390)
== END 2024-04-12 17:00 | disposition home or self-care (01) ==
LOC: ANHED 19:46 → ANH3MEDSUR 04-10 00:14
PROVIDERS: Physician Assistant; Psychiatry & Neurology Neurology; Admitting Provider Internal Medicine; Emergency Provider Physician Assistant; PCP Family Medicine; Visit Provider Nurse Practitioner Acute Care
DX: N17.9 Acute kidney failure, unspecified (principal); E86.0 Dehydration; R74.8 Abnormal levels of other serum enzymes; R41.3 Other amnesia; R55 Syncope and collapse; R51.9 Headache, unspecified; G89.29 Other chronic pain; D32.9 Benign neoplasm of meninges, unspecified; W01.0XXA Fall on same level from slipping, tripping and stumbling without subsequent striking against object, initial encounter; I10 Essential (primary) hypertension; E78.5 Hyperlipidemia, unspecified; E11.42 Type 2 diabetes mellitus with diabetic polyneuropathy; G40.909 Epilepsy, unspecified, not intractable, without status epilepticus; G47.33 Obstructive sleep apnea (adult) (pediatric); Z79.84 Long term (current) use of oral hypoglycemic drugs; Z79.82 Long term (current) use of aspirin; Z79.85 Long-term (current) use of injectable non-insulin antidiabetic drugs
CPT/HCPCS: 36415; 70450; 70551; 71046; 71250; 72125; 72131; 80048; 80053; 80061; 81001; 82306; 82550; 82607; 82746; 82948; 83735; 83921; 84443; 85025; 85027; 93005; 96360; 96361; 96372; 97161; 99285; A9270; G0378; J1650; J7030; J7120

== ENCOUNTER 2024-04-25 17:14 | Observation (INO) | payer MEDICARE, SELFPAY ==
--- NOTE | ~2024-04-25 | CT_ITS ---
EXAMINATION: CT brain wo con DATE: 04/25/2024 22:01 INDICATION: Slurred speech. Weakness. Dizziness, lightheadedness. Weakness. Abdominal pain. TECHNIQUE: Computed tomography (CT) of the head was performed without intravenous contrast. The mA wa s adjusted according to patient size. Iterative reconstruction technique was employed. Exam dose: 68 1.00 mGy-cm total exam DLP. COMPARISON: 04/12/2024 MR brain/brainstem 04/09/2024 CT brain FINDINGS: No intracranial mass lesion or hemorrhage, midline shift or mass defect or subdural hematom a is detected. Normal ventricular size. No subdural or epidural hematoma. The orbital contents are unremarkable. No skull fracture or bone destruction. Bilateral nasal antral windows and partial ethmoidectomies. There is mild soft tissue thickening of the remaining ethmoid air cells and the paranasal sinuses and mastoid air cells are otherwise unremarkable IMPRESSION: No significant intracranial abnormality Reviewed, dictated and finalized at [facility] Reviewed, dictated and finalized at [facility].
--- NOTE | ~2024-04-25 | MR_ITS ---
MRI of the abdomen: Clinical indication: Left renal lesion. Technique: Coronal SSFSE ARC, WATER:coronal LAVA-FLEX, Coronal 2D FIESTA FatSat, Axial SSFSE BH ARC, Axial 3D DualEcho BH, Axial SSFSE-IR, Axial DWI b=500, Axial 2D FIESTA FatSat, pre and dynamic postco ntrast Axial LAVA ARC, postcontrast Coronal In and Opposed phase LAVA FLEX. Following intravenous adm inistration of 20 cc MultiHance gadolinium, T1-weighted fat-sat imaging was performed in the axial an d coronal planes. COMPARISON: CT scan dated 04/25/2024 Findings: Several gallstones are noted. The common bile duct is normal in course and caliber. No fill ing defects are seen within the CBD. No evidence of intrahepatic biliary ductal dilatation. The pancr eatic duct is normal in size. Liver, spleen, pancreas, adrenals, and right kidney appear normal. 2 simple/benign left renal cysts a re present, which correlate with lesion seen on prior CT scan. One of these is a medial lesion measur ing 2.3 cm. No suspicious renal mass identified. The aorta and the paraaortic regions appear normal. Impression: Benign left renal cysts. No suspicious renal mass. Cholelithiasis. Reviewed, dictated and finalized at [facility]. Impression: Benign left renal cysts. No suspicious renal mass. Cholelithiasis.
--- NOTE | ~2024-04-25 | CT_ITS ---
EXAMINATION: CTA brain carotid DATE: 04/26/2024 11:04 INDICATION: Slurred speech. Confusion. TECHNIQUE: Computed tomographic angiography (CTA) of the head was performed without and with 100 mL O mnipaque-350 intravenous contrast. CTA of the neck was performed with intravenous contrast. Automated exposure control and iterative reconstruction technique were employed. The dose-length product was 1 970.43 mGy-cm. Maximum intensity projection and volume rendered 3D-reconstructions were created by chica hines technologist on a separate workstation. COMPARISON: Head CT 04/25/2024, right MRI 04/12/2024 FINDINGS: HEAD CTA: There is no acute ischemic infarct or intracranial hemorrhage. There is a 1.5 x 0.8 cm enha ncing extra-axial mass anterior to right temporal lobe, consistent with a sphenoid wing meningioma. T he ventricles are normal in size. There is mild mucosal thickening in the paranasal sinuses. The mast oid air cells are normal. The orbits are normal. The vertebral arteries are codominant. There is no s ignificant stenosis of basilar artery or the posterior cerebral arteries. There is no significant ivett nosis of the intracranial internal carotid arteries or anterior or middle cerebral arteries. Anterior communicating artery is normal. The posterior communicating arteries are normal. There is no aneurys m. NECK CTA: Calcified left hilar mediastinal lymph nodes are consistent with old granulomatous disease. There are no pathologically enlarged lymph nodes. There is no free intraperitoneal fluid. The proxim al vertebral arteries are distributed by artifact. There is no significant stenosis of the vertebral arteries. There is plaque in the proximal internal carotid arteries. There is 0% stenosis of the prox imal right internal carotid artery relative to normal distal artery lumen diameter (NASCET criteria). There is 0% stenosis of the proximal left internal carotid artery relative to normal distal artery l umen diameter. There are changes of anterior fusion procedure from C5 to C7 with anterior plate and s crews. There is moderate cervical spondylosis. IMPRESSION: 1. 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 2. No aneurysm or significant intracranial arterial stenosis. 3. 0% stenosis of the proximal internal carotid arteries relative to normal distal artery lumen diame ters (NASCET criteria). Reviewed, dictated and finalized at location A. IMPRESSION: 1. 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 2. No aneurysm or significant intracranial arterial stenosis. 3. 0% stenosis of the proximal internal carotid arteries relative to normal dis roman artery lumen diameters (NASCET criteria).
--- NOTE | ~2024-04-25 | MR_ITS ---
EXAMINATION: MR brain/brain stem wo/w con DATE: 04/26/2024 12:52 INDICATION: Slurred speech. Sphenoid wing meningioma. TECHNIQUE: Magnetic resonance imaging (MRI) of the brain and brainstem was performed without and with 20 mL MultiHance intravenous contrast. COMPARISON: Brain MRI 04/12/2024 FINDINGS: There are scattered areas of nonspecific increased T2-weighted signal intensity in the cere bral white matter, which is within normal limits for the patient's age. There is a 15 x 8 mm enhancin g extra-axial mass anterolateral right temporal lobe, consistent with a sphenoid wing meningioma. The re is no intracranial hemorrhage or acute ischemic infarct. The ventricles are normal in size. There is mucosal thickening in the paranasal sinuses. The orbits are normal. The mastoid air cells are norm al. IMPRESSION: 1. 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 Reviewed, dictated and finalized at location A.
--- NOTE | ~2024-04-25 | CT_ITS ---
EXAMINATION: CT abdomen pelvis w con DATE: 04/25/2024 22:02 INDICATION: Abdominal pain TECHNIQUE: Computed tomography (CT) of the abdomen and pelvis was performed with 100 CC Omnipaque 350 intravenous contrast. Automated exposure control and iterative reconstruction technique were employe d. Exam dose: 1692.10 mGy-cm total exam DLP. COMPARISON: None. FINDINGS: Minimal focal discoid atelectasis or scarring at the left lung base. Lung bases are clear o f infiltrate or consolidation. Heart size is within normal limits. Cholelithiasis, with stones situated in the dependent aspect of the gallbladder neck. No unusual gall bladder wall distention, no gallbladder wall thickening or pericholecystic fluid or fat stranding. No hepatic space-occupying mass lesion is evident. No bile duct or pancreatic duct dilatation. No pancreatic mass lesion or calcification. Normal splenic size. Normal morphology of the adrenal glands. Approximately 11 mm exophytic anterior upper pole left renal cyst and 8mm anterior upper pole left re nal cortical cyst. There is an indeterminate approximately 1.5 x 2.5 cm hypoenhancing lesion of the anteromedial aspect of the mid to upper left kidney. Hypernephroma is not excluded. Consider further evaluation with nii l MR examination. No right renal space occupying mass lesion is evident. No urinary tract calculus or hydroureteronephrosis of either kidney. Normal caliber of the abdominal aorta and iliac arteries, with calcified plaques. No intraperitoneal or retroperitoneal or pelvic mass lesion or adenopathy or ascites is detected. Normal appendix. There are numerous diverticula of the sigmoid and descending colon in addition to the right colon, pa rticularly at the hepatic flexure and descending colon. There is minimal surrounding fat infiltration and some diverticula and a couple of areas in the dista l descending colon which may represent mild uncomplicated diverticulitis. Right fat-containing inguinal hernia Very small fat-containing umbilical hernia. Diffuse idiopathic skeletal hyperostosis of the thoracolumbar spine. 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 Consider further evaluation with renal MRI Reviewed, dictated and finalized at Location A. Reviewed, dictated and finalized at location J. IMPRESSION: There are 2 focal areas of mild pericolic fat stranding of the dis roman descending colon in areas of diverticulosis, suggesting mild uncomplicated diverticulitis Diverticulosis of left and right colon Normal appendix Cholelithiasis Left renal cysts Indeterminate 1.5 x 2.5 cm hypoenhancing lesion of the anteromedial aspect of t he mid to upper left kidney; hypernephroma is not excluded. Consider further ev aluation with renal MRI
--- NOTE | ~2024-04-25 | XR_ITS ---
XR chest 2V DATE: 04/25/2024 17:46 INDICATION: Dizziness, lightheadedness for one day. Weakness. TECHNIQUE: AP and lateral views COMPARISON: 04/09/2024 CT chest 04/09/2024 AP and lateral chest FINDINGS: Normal heart size. Aortic arch calcification. No hilar or mediastinal enlargement. No pulmonary infiltrate or consolidation, pleural effusion or pulmonary vascular congestion or pneumo thorax. Bilateral glenohumeral arthroplasty. Status post anterior cervical spine surgical fusion. Degenerative spurring of the thoracic spine. IMPRESSION: No active cardiopulmonary disease Reviewed, dictated and finalized at location J.
[2024-04-25 17:18] VITALS: BP 119/73; PULSE 90; RESP 20; TEMP 36.6; O2SAT 100
--- NOTE | 2024-04-25 17:19 | ECG_ITS ---
Test Date: 2024-04-25 17:25:12 Measurements Intervals [place] Rate: 91 P: 34 MI: 190 QRS: 22 QRSD: 88 T: 30 QT: 326 QTc: 402 Interpretive Statements SINUS RHYTHM POOR R-WAVE PROGRESSION OTHERWISE UNREMARKABLE ECG Compared to ECG 04/09/2024 17:50:28 NO SIGNIFICANT CHANGE Electronically Signed On 04-26-2024 15:28:06 CDT by Darrius Braun M.D.
[2024-04-25 17:41] LABS: Basophils Absolute Auto 0.1 K/mm3 (0.0-0.1); Basophils Percent Auto 1.1 % (0.2-1.2); Eosinophils Absolute Auto 0.3 K/mm3 (0-0.3); Eosinophils Percent Auto 4.1 % (0-4.4); Hematocrit 40.7 % (42.0-52.0); Hemoglobin 13.2 g/dL (14.0-18.0); Immature Granulocyte Absolute 0.02 K/mm3 (0.00-0.031); Immature Granulocyte Percent A 0.2 % (0-0.5); Lymphocytes Absolute Auto 1.05 K/mm3 (0.9-3.2); Mean Corpuscular HGB Conc 32.4 g/dl (32-36); Mean Corpuscular Hemoglobin 27.6 pg (26-34); Mean Corpuscular Volume 85.1 fl (80-100); Mean Platelet Volume 10.8 fl (7.4-10.4); Monocytes Absolute Auto 0.7 K/mm3 (0.1-0.6); Monocytes Percent Auto 8.6 % (2.6-8.5); Neutrophils Absolute Auto 5.9 K/mm3 (1.3-6.7); Platelet Count Result 244 k/mm3 (150-375); Red Blood Count 4.78 M/mm3 (4.6-6.20); Red Cell Distribution Width 13.4 % (11.5-14.5); White Blood Count 8.1 K/mm3 (4.5-10.0)
[2024-04-25 17:52] LABS: Alanine Aminotransferase 23 U/L (6-50); Albumin Level 4.4 g/dL (3.5-5.1); Alkaline Phosphatase 64 U/L (38-126); Anion Gap 15 mmol/L (4-12); Aspartate Amino Transferase 29 U/L (17-59); Bilirubin,Total 0.6 mg/dL (0.2-1.3); Blood Urea Nitrogen 20 mg/dL (9-20); Calcium 9.3 mg/dL (8.4-10.2); Carbon Dioxide 18 mmol/L (22-30); Chloride 109 mmol/L (98-107); Estimated CRCL calculation 71 ml/min; Estimated Glomerular Filt Rate 60; Glucose 85 mg/dL (65-110); Sodium 142 mmol/L (137-145)
[2024-04-25 20:45] LABS: Creatine Kinase 86 U/L (55-170)
[2024-04-25 20:50] VITALS: BP 113/67; PULSE 89; RESP 16; O2SAT 98
[2024-04-25 21:10] LABS: Add Urine Microscopic? YES; Appearance Urine Clear (Clear); Bilirubin Urine Negative (Negative); Blood Urine Negative (Negative); Color Urine Dark Yellow (Yellow); Glucose Urine UA Negative (Negative); Ketones Urine 1+ mg/dL (Negative); Leukocyte Esterase Ur Negative LEU/UL (Negative); Nitrate Urine Negative (Negative); Protein Urine Negative (Negative); Specific Grav Ur 1.035 (1.001-1.035); Urobilinogen Urine 0.2 mg/dL (<2.0)
[2024-04-25] MEDS: SODIUM CHLORIDE 0.9% IV 1,000 ML 999 ML IV CONT (21:43)
[2024-04-25 21:47] LABS: Ethanol < 10 mg/dL (<10); Magnesium 2.1 mg/dL (1.6-2.3)
[2024-04-25 21:51] LABS: INR 1.1; Prothrombin Time 14.5 Seconds (11.1-14.7)
[2024-04-25 21:52] LABS: Partial Thromboplastin Time 24.7 Seconds (22.3-36.8)
[2024-04-25 21:58] LABS: Lactic Acid Reflex 0.8 mmol/L (0.7-2.0)
[2024-04-25 21:58] LABS: Amphetamine Screen Urine Negative (Negative); Barbiturate Screen Urine Negative (Negative); Benzodiazepines Screen Urine Negative (Negative); Cannabinoid Screen Urine Negative (Negative); Cocaine Screen Urine Negative (Negative); Methadone Screen Urine Negative (Negative); Opiate Screen Urine Negative (Negative); Phencyclidine Screen Urine Negative (Negative)
[2024-04-25 22:06] LABS: Troponin I < 0.012 ng/mL (0.000-0.034)
[2024-04-25 22:11] LABS: Procalcitonin 0.1 ng/mL
[2024-04-25 22:42] VITALS: BP 111/88; PULSE 87; RESP 18; O2SAT 98
--- NOTE | 2024-04-25 22:44 | ED.GENADULT ---
HPI - General Adult General Chief complaint: Weakness Stated complaint: weakness Time Seen by Provider: 04/25/24 20:27 History of Present Illness HPI narrative: patient is a 68-year-old gentleman who presents emergency department with chief complaint of weak dizzy and abdominal pain. The patient is recently discharged hospital he had an episode of heat exhaustion and dehydration patient was discharged home and was feeling better and reports that on Friday he started getting episodes of confusion feeling like as though he was slurring his speech whenever he would talk fast the patient reports that he started having discomfort in his abdomen as well today. Patient reports no focal weakness in his arms or legs Related Data Home Medications Medication Instructions Recorded Confirmed aspirin 81 mg tablet,delayed 81 mg PO DAILY 01/11/23 04/10/24 release atorvastatin 40 mg tablet 40 mg PO HS 01/11/23 04/10/24 multivitamin 1 tablet PO DAILY 12/22/23 04/10/24 cyclobenzaprine 5 mg tablet 5 mg PO TID PRN Muscle Spasm 04/10/24 04/10/24 hydrocodone 5 mg-acetaminophen 325 1 tablet PO Q6H PRN Pain (Scale 04/10/24 04/10/24 mg tablet Score 7-10) ibuprofen 600 mg tablet 600 mg PO Q6H PRN Moderate Pain 04/10/24 04/10/24 (Scale Score 5-6) pregabalin 100 mg capsule 100 mg PO BID 04/10/24 04/10/24 tirzepatide 2.5 mg/0.5 mL 2.5 mg subcut WEEKLY 04/10/24 04/10/24 subcutaneous pen injector (Lroy) bupropion HCl 150 mg 24 hr tablet, mg PO DAILY 04/23/24 extended release losartan 50 mg tablet mg PO DAILY 04/23/24 metformin 500 mg tablet,extended mg PO 04/23/24 release 24 hr propranolol 80 mg capsule,24 mg PO DAILY 04/23/24 hr,extended release Allergies Allergy/AdvReac Type Severity Reaction Status Date / Time Penicillins Allergy Hives Verified 04/23/24 12:55 blood pressure med Allergy Headache Uncoded 04/23/24 12:55 Review of Systems Review of Systems: A 10 system review of systems was completed on the patient and is negative except for what is stated in the HPI. Nursing and ancillary documentation was reviewed. 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 He denies any history of tobacco or alcohol use. Code status: DNR/DNI per patient request Healthcare power of personal injury attorney: Lalo (son) Smoking status: Never smoker Alcohol intake: former Substance use: never Substance use type: does not use Do You Feel Safe in your Home?: Yes Lack of Transportation: No Lack of Food: Never True Current Housing: I Have Housing Concerned About Future Housing: No Difficulty Paying Gas/Electric Bills: No Difficulty Paying for Meds: No Currently Unemployed: No Education: Bachelor's Degree Difficulty w/ Childcare or Family Care: No Occupation/Education: retired Gender identity (if verbalized by the patient): Barrie
[2024-04-26] VITALS (14 sets, daily range): BP systolic 111–155; BP diastolic 62–89; PULSE 78–90; RESP 15–18; TEMP 36.4–36.9; O2SAT 96–99; BMI 37.3
[2024-04-26 01:11] LABS: Troponin I < 0.012 ng/mL (0.000-0.034)
[2024-04-26] MEDS: SODIUM CHLORIDE 0.9% IV 1,000 ML 100 ML IV CONT ×2 (01:35→15:07)
[2024-04-26] MEDS: metroNIDAZOLE 500 MG/ISO 100ML 500 MG/100 ML BAG 100 MG IVPB (01:36)
--- NOTE | 2024-04-26 03:06 | ADMGEN ---
This patient, Ernst Malave, was admitted to Medical Room 252-01. Patient/family oriented to hospital policies and general routines including ID bracelet, bed and alarms, visiting hours, pain management, procedures, bathroom and other care routines, personal items, smoking policy, room service/diet, and visiting hours. Information on how to activate the Rapid Response Team has been discussed. Patient/Family are encouraged to report perceived risks to care and to ask questions if they do not understand what they are told or what they should do.
--- NOTE | 2024-04-26 07:56 | PM.IMHP ---
H&P: HPI History of Present Illness Date/Time: 04/26/24 07:56 Chief Complaint: Confusion/slurred Speech Narrative: Patient is a 68-year-old male who presented to the emergency department with complaints confusion and slurred speech. Patient states he was at home and his son had noticed worsening confusion, fall at home with reported slurred speech. Patient was recently discharged on 04/12/2024 for rhabdomyolysis. In that admission patient was found to have a right sphenoid meningioma and was seen by Neurology. Patient states he has had other issues with seizure-like activity as well as chronic headaches likely secondary to this finding on last visit he was started on Keppra b.i.d. and informed it is best that he does not drive. Patient also has a past medical history of diabetes, HTN, HLD, neuropathy, and seizures. Patient's labs were unremarkable in the emergency department with negative drug screen, negative UA in no acute issues noted on head CT. It was reported to ED had some abdominal pain and CT abdomen showed stable diverticulosis of the right and left colon and a hypoenhancing lesion of the anterior medial aspect of the mid left upper kidney. Patient was admitted for further evaluation and treatment of worsening confusion and generalized weakness. Patient denied any chest pain, shortness a breath, nausea, vomiting, loss of consciousness or hitting his head. Patient with no deficits upon assessment full strength and range of motion of upper and lower extremities facial drooping NIH stroke scale 0. Patient states he does follow with a neurologist outpatient but unsure of their name however did inform patient he would likely need a neurosurgeon to evaluate for removal of the meningioma. 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 He denies any history of tobacco or alcohol use. Code status: DNR/DNI per patient request Healthcare power of finance attorney: Lalo (son) Smoking status: Never smoker Alcohol intake: former Substance use: never Substance use type: does not use Do You Feel Safe in your Home?: Yes Lack of Transportation: No Lack of Food: Never True Current Housing: I Have Housing Concerned About Future Housing: No Difficulty Paying Gas/Electric Bills: No Difficulty Paying for Meds: No Currently Unemployed: No Education: Associate Degree Difficulty w/ Childcare or Family Care: No Occupation/Education: retired Gender identity (if verbalized by the patient): Male Spiritual care concerns: No Agree to blood products: Yes Meds Home Medications and Allergies Home Medications Medication Instructions Recorded Confirmed Type aspirin 81 mg tablet,delayed 81 mg PO DAILY 01/11/23 04/26/24 History
[2024-04-26 08:08] LABS: Glucose Point of Care 81 mg/dl (65-105)
[2024-04-26 08:17] LABS: Hematocrit 37.9 % (42.0-52.0); Hemoglobin 11.9 g/dL (14.0-18.0); Mean Corpuscular HGB Conc 31.4 g/dl (32-36); Mean Corpuscular Hemoglobin 27.5 pg (26-34); Mean Corpuscular Volume 87.7 fl (80-100); Mean Platelet Volume 10.4 fl (7.4-10.4); Platelet Count Result 212 k/mm3 (150-375); Red Blood Count 4.32 M/mm3 (4.6-6.20); Red Cell Distribution Width 13.7 % (11.5-14.5); White Blood Count 7.4 K/mm3 (4.5-10.0)
[2024-04-26 08:27] LABS: Alanine Aminotransferase 20 U/L (6-50); Albumin Level 3.8 g/dL (3.5-5.1); Alkaline Phosphatase 54 U/L (38-126); Anion Gap 15 mmol/L (4-12); Aspartate Amino Transferase 24 U/L (17-59); Bilirubin,Total 0.4 mg/dL (0.2-1.3); Blood Urea Nitrogen 19 mg/dL (9-20); Calcium 8.3 mg/dL (8.4-10.2); Carbon Dioxide 17 mmol/L (22-30); Chloride 111 mmol/L (98-107); Estimated CRCL calculation 71 ml/min; Estimated Glomerular Filt Rate 60; Glucose 77 mg/dL (65-110); Lipase 167 U/L (23-300); Potassium 3.4 mmol/L (3.4-5.0); Sodium 143 mmol/L (137-145)
--- NOTE | 2024-04-26 10:29 | PC.NURSE ---
Patient off of unit to CT scan
[2024-04-26] MEDS: metroNIDAZOLE 500 MG TABLET PO ×3 (11:28→22:22)
[2024-04-26] MEDS: MULTIVITAMINS THERAPEUTIC TAB (*BKC) 1 TABLET PO (11:28)
[2024-04-26] MEDS: PANTOPRAZOLE 40 MG TABLET PO (11:28)
[2024-04-26] MEDS: ENOXAPARIN 40 MG/0.4 ML SYRINGE SUB-Q (11:28)
[2024-04-26] MEDS: buPROPion HCL XL (24 HR) 150 MG TABCR PO (11:28)
[2024-04-26] MEDS: LOSARTAN POTASSIUM 50 MG TABLET PO (11:28)
[2024-04-26] MEDS: PREGABALIN (*CRX) 50 MG CAPSULE 100 MG PO ×2 (11:28→22:21)
[2024-04-26] MEDS: ASPIRIN 81 MG ENTERIC TABLET PO (11:28)
[2024-04-26] MEDS: levETIRAcetam 250 MG TABLET 750 MG PO ×2 (11:28→22:20)
--- NOTE | 2024-04-26 11:59 | PC.NURSE ---
Patient off of unit to MRI
[2024-04-26 12:45] LABS: Glucose Point of Care 82 mg/dl (65-105)
--- NOTE | 2024-04-26 16:01 | PCPTNOTE ---
On 04/26/24, the student, [Lurdes Ruiz], provided care and completed [facility] documentation on this patient. I have reviewed the student's documentation and agree with the findings.
--- NOTE | 2024-04-26 16:34 | PC.NURSE ---
RN spoke with maintenance in regards to patient's home cpap that son brought in. Maintenance verbalized via telephone they would come to patient's room and look at the machine.
[2024-04-26] MEDS: ACETAMINOPHEN 325 MG TABLET 650 MG PO (16:59)
--- NOTE | 2024-04-26 17:02 | WPDNEURCNPN ---
Assessment and Plan Assessment and plan (1) Dizziness: Code(s): R42 - Dizziness and giddiness Status: Acute Assessment and Plan: is had MRI of the brain previously as well as on this occasion which did not show any brainstem vascular spell. On the previous occasion he had a right beating nystagmus and is not seen on this occasion which may frequently be the case with benign paroxysmal positional vertigo where a fatigable nystagmus could be seen. I suspect he most likely has underlying peripheral vascular pathology unless we find something else on Cardiac monitoring. neurological examination did not show any significant abnormality. (2) Seizure disorder: Code(s): G40.909 - Epilepsy, unspecified, not intractable, without status epilepticus Status: Acute Assessment and Plan: The patient is on Keppra 750 mg twice a day. Wears Keppra and pregabalin can also cause dizziness he has had this problem even before we put him on the medication but I will go ahead and order a blood level for Keppra for tomorrow morning. (3) Sleep apnea treated with continuous positive airway pressure (CPAP): Code(s): G47.30 - Sleep apnea, unspecified Status: Acute (4) Depression: Qualifiers: Depression Type: major depressive disorder Major depression recurrence: single episode Active/Remission status: in partial remission Qualified Code(s): F32.4 - Major depressive disorder, single episode, in partial remission Code(s): F32.A - Depression, unspecified Status: Acute Plan A course of physical therapy for dizziness may be beneficial. Previously we have talked about using his resources to avoid problems since he lives by himself. He agrees to it. Most recent MRI of the brain and CT angiogram head and neck did not show any significant abnormalities. I have reviewed these and agree with the findings. Consult date: 04/26/24 HPI: Ernst Malave is a 68 year old male with previous diagnosis of seizure disorder and heat exhaustion and dizziness and right beating nystagmus was readmitted account of having dizziness and also some abdominal pain. He has history of occasional dizziness. On the previous admission it was noted that he had right beating nystagmus. MRI of the brain did not show any significant abnormality. His stable meningioma in the file on the previous as well as most recent MRI of the brain. A CT angiogram of the brain was also repeated which did not show any additional new findings. Patient lives by himself. Previous records were reviewed. He denies any headache or any new symptoms with regard to his upper lower limbs or his a [place] unless he is having a dizzy spell. 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
[2024-04-26 17:08] LABS: Glucose Point of Care 72 mg/dl (65-105)
[2024-04-26] MEDS: ATORVASTATIN 40 MG TABLET PO (22:21)
[2024-04-26] MEDS: QUEtiapine FUMARATE 25 MG TABLET 50 MG PO (22:22)
[2024-04-26] MEDS: levoFLOXacin 750 MG TABLET PO (22:47)
[2024-04-26 22:52] LABS: Glucose Point of Care 104 mg/dl (65-105)
[2024-04-27] VITALS: PULSE 80
[2024-04-27] MEDS: SODIUM CHLORIDE 0.9% IV 1,000 ML 100 ML IV CONT (01:26)
[2024-04-27 04:00] VITALS: PULSE 81
[2024-04-27] MEDS: metroNIDAZOLE 500 MG TABLET PO (05:16)
[2024-04-27 05:32] LABS: Hematocrit 37.6 % (42.0-52.0); Hemoglobin 11.5 g/dL (14.0-18.0); Mean Corpuscular HGB Conc 30.6 g/dl (32-36); Mean Corpuscular Hemoglobin 27.4 pg (26-34); Mean Corpuscular Volume 89.7 fl (80-100); Mean Platelet Volume 10.6 fl (7.4-10.4); Platelet Count Result 206 k/mm3 (150-375); Red Blood Count 4.19 M/mm3 (4.6-6.20); White Blood Count 5.2 K/mm3 (4.5-10.0)
[2024-04-27 05:44] LABS: Alanine Aminotransferase 19 U/L (6-50); Albumin Level 3.8 g/dL (3.5-5.1); Alkaline Phosphatase 50 U/L (38-126); Anion Gap 14 mmol/L (4-12); Aspartate Amino Transferase 23 U/L (17-59); Bilirubin,Total 0.5 mg/dL (0.2-1.3); Blood Urea Nitrogen 18 mg/dL (9-20); Carbon Dioxide 19 mmol/L (22-30); Chloride 109 mmol/L (98-107); Estimated CRCL calculation 77 ml/min; Estimated Glomerular Filt Rate > 60; Glucose 65 mg/dL (65-110); Potassium 3.4 mmol/L (3.4-5.0); Sodium 142 mmol/L (137-145)
[2024-04-27 06:30] VITALS: BP 107/61; PULSE 84; RESP 16; TEMP 36.8; O2SAT 95
[2024-04-27 08:00] VITALS: PULSE 82
[2024-04-27 08:03] LABS: Glucose Point of Care 68 mg/dl (65-105)
[2024-04-27 09:42] VITALS: O2SAT 95
[2024-04-27] MEDS: PANTOPRAZOLE 40 MG TABLET PO (10:40)
[2024-04-27] MEDS: levETIRAcetam 250 MG TABLET 750 MG PO (10:40)
[2024-04-27] MEDS: MULTIVITAMINS THERAPEUTIC TAB (*BKC) 1 TABLET PO (10:40)
[2024-04-27] MEDS: ASPIRIN 81 MG ENTERIC TABLET PO (10:40)
[2024-04-27] MEDS: POTASSIUM CHLORIDE 20 MEQ ER TABLET 40 MEQ PO (10:41)
[2024-04-27] MEDS: LOSARTAN POTASSIUM 50 MG TABLET PO (10:41)
[2024-04-27] MEDS: buPROPion HCL XL (24 HR) 150 MG TABCR PO (10:41)
[2024-04-27] MEDS: PREGABALIN (*CRX) 50 MG CAPSULE 100 MG PO (10:41)
[2024-04-27] MEDS: ACETAMINOPHEN 325 MG TABLET 650 MG PO (10:41)
[2024-04-27] MEDS: ENOXAPARIN 40 MG/0.4 ML SYRINGE SUB-Q (10:44)
[2024-04-27 12:00] VITALS: PULSE 78
[2024-04-27 12:10] LABS: Glucose Point of Care 91 mg/dl (65-105)
--- NOTE | 2024-04-27 12:24 | PM.DS ---
DS: Admitting Diagnosis Discharge Date 04/27/2024 Admitting Diagnosis Confusion/diverticulosis DS: Discharge Diagnosis Discharge Diagnosis (1) Meningioma: Code(s): D32.9 - Benign neoplasm of meninges, unspecified Status: Acute (2) Chronic headache: Code(s): R51.9 - Headache, unspecified; G89.29 - Other chronic pain Status: Acute (3) Frequent falls: Code(s): R29.6 - Repeated falls Status: Acute (4) Diabetes type 2, controlled: Code(s): E11.9 - Type 2 diabetes mellitus without complications Status: Acute (5) Seizure disorder: Code(s): G40.909 - Epilepsy, unspecified, not intractable, without status epilepticus Status: Acute (6) Diverticulitis: Code(s): K57.92 - Diverticulitis of intestine, part unspecified, without perforation or abscess without bleeding Status: Acute (7) Hyperlipidemia: Code(s): E78.5 - Hyperlipidemia, unspecified Status: Acute (8) Slurred speech: Code(s): R47.81 - Slurred speech Status: Acute (9) Confusion: Code(s): R41.0 - Disorientation, unspecified Status: Acute (10) Kidney lesion: Code(s): N28.9 - Disorder of kidney and ureter, unspecified Status: Acute Plan Confusion/slurring speech/TIA? HX of 1.6 cm right sphenoid wing meningioma region right anterior temporal lobe HX of seizures CT head negative CTA head pending MRI pending Neurology consulted PT/OT Will likely need outpatient neurosurgeon for meningoma Diverticulitis CT abdomen showing a stable diverticulitis of the left and right colon Rocephin and Flagyl no abdominal pain reported switch to p.o. Flagyl and Levaquin Advance diet as tolerated Normal WBC gentle hydration pain control LT kidney lesion CT ABD 1.5 x 2.5 cm hypoenhancing lesion of the anteromedial aspect of the mid to upper left kidney Tay MRI pending Renal function stable Diabetes Accu-Cheks a.c. HS sliding scale insulin hold oral diabetic medications Diabetic diet Optimize Manuel inhibitors and statins. Watch for hypoglycemia/hypoglycemic protocol ordered HX seizures: Resumed Keppra HX HLD: Resume Statin Disposition: Discharged to home DS: Summary Hospital Course Reason for hospitalization: confusion/diverticulosis Hospital Course: Patient is a 68-year-old male who presented to the emergency department with complaints confusion and slurred speech. Patient states he was at home and his son had noticed worsening confusion, fall at home with reported slurred speech. Patient was recently discharged on 04/12/2024 for rhabdomyolysis. In that admission patient was found to have a right sphenoid meningioma and was seen by Neurology. Patient states he has had other issues with seizure-like activity as well as chronic headaches likely secondary to this finding on last visit he was started on Keppra b.i.d. and informed it is best that he does not drive. Patient also has a past medical history of diabetes, HTN, HLD, neuropathy, and seizures. Patient's labs were unremarkable in the emergency department with negative drug screen, negative UA in no acute issues noted on head CT. It was reported to ED had some abdominal pain and CT abdomen showed stable diverticulosis of the right and left colon and a hypoenhancing lesion of the anterior medial aspect of the mid left upper kidney. Patient was admitted for further evaluation and treatment of worsening confusion and generalized weakness. Patient denied any chest pain, shortness a breath, nausea, vomiting, loss of consciousness or hitting his head. Patient with no deficits upon assessment full strength and range of motion of upper and lower extremities facial drooping NIH stroke scale 0. Patient states he does follow with a neurologist outpatient but unsure of their name however did inform patient he would likely need a neurosurgeon to eval
== END 2024-04-27 13:00 | disposition home or self-care (01) ==
LOC: ANHED 04-26 00:25 → ANH2MED 04-26 01:24
PROVIDERS: Emergency Medicine; Admitting Provider Internal Medicine; Emergency Provider Emergency Medicine; PCP Family Medicine; Visit Provider Nurse Practitioner Family
DX: D32.9 Benign neoplasm of meninges, unspecified (principal); R51.9 Headache, unspecified; G89.29 Other chronic pain; K57.32 Diverticulitis of large intestine without perforation or abscess without bleeding; R29.6 Repeated falls; R53.1 Weakness; R41.0 Disorientation, unspecified; E86.0 Dehydration; N28.9 Disorder of kidney and ureter, unspecified; I10 Essential (primary) hypertension; E11.40 Type 2 diabetes mellitus with diabetic neuropathy, unspecified; E78.5 Hyperlipidemia, unspecified; G47.33 Obstructive sleep apnea (adult) (pediatric); G40.909 Epilepsy, unspecified, not intractable, without status epilepticus; F32.4 Major depressive disorder, single episode, in partial remission; Z66 Do not resuscitate; Z79.82 Long term (current) use of aspirin; Z79.891 Long term (current) use of opiate analgesic; Z79.85 Long-term (current) use of injectable non-insulin antidiabetic drugs; Z79.84 Long term (current) use of oral hypoglycemic drugs
CPT/HCPCS: 36415; 70450; 70496; 70498; 70553; 71046; 74177; 74183; 80053; 80307; 81001; 82550; 82948; 83605; 83690; 83735; 84145; 84484; 85025; 85027; 85610; 85730; 93005; 96361; 96372; 96374; 96375; 97161; 97165; 99285; A9270; A9577; G0378; J0696; J1650; J1836; J7030; Q9967

== ENCOUNTER 2024-08-02 13:40 | Emergency (ER) | payer MEDICARE, SELFPAY ==
--- NOTE | ~2024-08-02 | XR_ITS ---
CHEST RADIOGRAPH CLINICAL HISTORY: AMS . COMPARISON: 04/25/2024 TECHNIQUE: Single portable view of the chest. FINDINGS The cardiomediastinal silhouette is unremarkable. Low lung volumes detected bilaterally, giving the appearance of pulmonary vascular congestion. The lungs are clear. Bilateral shoulder prostheses. IMPRESSION: No focal infiltrate or effusion. Reviewed, dictated and finalized at location A. SITION REPORTER
--- NOTE | ~2024-08-02 | CT_ITS ---
EXAMINATION: CT brain wo con DATE: 08/02/2024 15:46 INDICATION: Altered mental status. TECHNIQUE: Computed tomography (CT) of the head was performed without intravenous contrast. The mA wa s adjusted according to patient size. Iterative reconstruction technique was employed. The dose-lengt h product was 756.67 mGy-cm. COMPARISON: Head CT 04/26/2024 FINDINGS: There is no intracranial hemorrhage or acute infarction. There is a 15 mm extra-axial mass anterior to the right temporal lobe, consistent with a meningioma. The ventricles are normal in size. There is mild mucosal thickening in the paranasal sinuses. The orbits are normal. The mastoid air ce lls are normal. IMPRESSION: 1. 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 Reviewed, dictated and finalized at location A. S MOLDER HELPER
[2024-08-02 14:12] VITALS: PULSE 72; O2SAT 100
[2024-08-02 14:18] VITALS: BP 118/73; PULSE 73; RESP 12; TEMP 36.6; O2SAT 97
--- NOTE | 2024-08-02 14:56 | ECG_ITS ---
Test Date: 2024-08-02 15:01:40 Measurements Intervals [place] Rate: 67 P: 16 IN: 244 QRS: 18 QRSD: 97 T: 28 QT: 358 QTc: 380 Interpretive Statements SINUS RHYTHM WITH FIRST DEGREE AV BLOCK BASELINE ARTIFACT- I, II AVR, AVL, AVF, V1 BORDERLINE ECG Compared to ECG 04/25/2024 17:25:12 NO SIGNIFICANT CHANGE Electronically Signed On 08-02-2024 15:23:39 [employer] by Gordon Jackson D.O.
[2024-08-02 15:23] LABS: Basophils Absolute Auto 0.1 K/mm3 (0.0-0.1); Eosinophils Absolute Auto 0.5 K/mm3 (0-0.3); Eosinophils Percent Auto 7.1 % (0-4.4); Hematocrit 40.4 % (42.0-52.0); Hemoglobin 12.9 g/dL (14.0-18.0); Immature Granulocyte Absolute 0.02 K/mm3 (0.00-0.031); Immature Granulocyte Percent A 0.3 % (0-0.5); Lymphocytes Absolute Auto 2.18 K/mm3 (0.9-3.2); Lymphocytes Percent Auto 30.3 % (18.3-44.2); Mean Corpuscular HGB Conc 31.9 g/dl (32-36); Mean Corpuscular Hemoglobin 27.1 pg (26-34); Mean Corpuscular Volume 84.9 fl (80-100); Mean Platelet Volume 10.5 fl (7.4-10.4); Monocytes Absolute Auto 0.6 K/mm3 (0.1-0.6); Monocytes Percent Auto 8.3 % (2.6-8.5); Neutrophils Absolute Auto 3.8 K/mm3 (1.3-6.7); Platelet Count Result 270 k/mm3 (150-375); Red Blood Count 4.76 M/mm3 (4.6-6.20); Red Cell Distribution Width 17.8 % (11.5-14.5); White Blood Count 7.2 K/mm3 (4.5-10.0)
[2024-08-02 15:32] LABS: Add Urine Microscopic? NO; Appearance Urine Clear (Clear); Bilirubin Urine Negative (Negative); Blood Urine Negative (Negative); Color Urine Yellow (Yellow); Glucose Urine UA Negative (Negative); Ketones Urine Trace mg/dL (Negative); Leukocyte Esterase Ur Negative LEU/UL (Negative); Nitrate Urine Negative (Negative); Protein Urine Negative (Negative); Specific Grav Ur 1.024 (1.001-1.035); Urobilinogen Urine 0.2 mg/dL (<2.0)
[2024-08-02 15:35] LABS: Alanine Aminotransferase 31 U/L (6-50); Alkaline Phosphatase 59 U/L (38-126); Anion Gap 13 mmol/L (4-12); Aspartate Amino Transferase 36 U/L (17-59); Bilirubin,Total 0.4 mg/dL (0.2-1.3); Blood Urea Nitrogen 16 mg/dL (9-20); Calcium 9.2 mg/dL (8.4-10.2); Carbon Dioxide 21 mmol/L (22-30); Chloride 111 mmol/L (98-107); Estimated CRCL calculation 61 ml/min; Estimated Glomerular Filt Rate 50; Glucose 105 mg/dL (65-110); Potassium 4.1 mmol/L (3.4-5.0); Sodium 145 mmol/L (137-145)
[2024-08-02 15:36] LABS: INR 1.2; Prothrombin Time 15.2 Seconds (11.1-14.7)
[2024-08-02 15:37] LABS: Partial Thromboplastin Time 29.3 Seconds (22.3-36.8)
--- NOTE | 2024-08-02 15:57 | ED_ITS ---
HPI - General Adult General Chief complaint: Altered Mental Status Stated complaint: ams Time Seen by Provider: 08/02/24 15:30 History of Present Illness HPI narrative: 68-year-old male presents to the emergency department for evaluation for altered mental status. Patient states this morning he was hallucinating and had an argument with his ex- who no longer lives with him. Patient states his neighbors called his son to inform him that the patient was having an argument with someone and when the son arrived the patient states he was having an argument with his ex- and son confirmed that the ex- was not actually there. Patient states he recognizes this was a hallucination. States that this is not new for him. Patient denies any nausea vomiting diarrhea. Patient denies any pain with urination. Patient denies any recent falls or injuries. Patient states he does have a history alcohol abuse but quit drinking approximately 5 years ago. Related Data Home Medications Medication Instructions Recorded Confirmed aspirin 81 mg tablet,delayed 81 mg PO DAILY 01/11/23 06/11/24 release multivitamin 1 tablet PO DAILY 12/22/23 06/11/24 cyclobenzaprine 5 mg tablet 5 mg PO TID PRN Muscle Spasm 04/10/24 06/11/24 hydrocodone 5 mg-acetaminophen 325 1 tablet PO Q6H PRN Pain (Scale 04/10/24 06/11/24 mg tablet Score 7-10) ibuprofen 600 mg tablet 600 mg PO Q6H PRN Moderate Pain 04/10/24 04/26/24 (Scale Score 5-6) bupropion HCl 150 mg 24 hr tablet, 150 mg PO DAILY 04/23/24 06/11/24 extended release losartan 50 mg tablet 50 mg PO DAILY 04/23/24 06/11/24 metformin 500 mg tablet,extended 500 mg PO BID 04/23/24 06/11/24 release 24 hr propranolol 80 mg capsule,24 80 mg PO DAILY 04/23/24 06/11/24 hr,extended release Allergies Allergy/AdvReac Type Severity Reaction Status Date / Time Penicillins Allergy Hives Verified 08/02/24 14:19 blood pressure med AdvReac Headache Uncoded 08/02/24 14:19 Review of Systems Review of Systems: All systems reviewed & are unremarkable except as noted in HPI and below PMFSH Past Medical History Medical History (Updated 08/02/24 @ 17:19 by Warner Fajardo MD) Crush injury of foot As a child left foot Crushing injury of left foot Depression determined by examination Diabetes type 2, controlled Dizziness Essential tremor HTN (hypertension) with goal to be determined Hyperlipidemia MCI (mild cognitive impairment) with memory loss Meningioma 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 He denies any history of tobacco or alcohol use. Code status: DNR/DNI per patient request Healthcare power of attorney general: Lalo (son) Smoking status: Never smoker Alcohol intake: current Alcohol use details: occasionally Substance use: never Substance use type: does not use Do You Feel Safe in your Home?: Yes Lack of Transportation: No Lack of Food: Never True Current Housing: I Have Housing Concerned About Future Housing: No Difficulty Paying Gas/Electric Bills: No Difficulty Paying for Meds: No Currently Unemployed: No Education: Associate Degree Difficulty w/ Childcare or Family Care: No Occupation/Education: retired Gender identity (if verbalized by the patient): Male Spiritual care concerns: No Agree to blood products: Yes Exam Narrative: APPEARANCE: Well appearing, no pain, no distress, well-nourished. HEAD: normocephalic, atraumatic. EYES: PERRLA/EOMI, conjunctivae clear. NOSE: Normal no drainage EARS:TMS clear with good light reflex. THROAT: Pharynx clear, no exudate. NECK: Supple. No adenopathy, no masses. RESPIRATORY: Airway patent, respirations nonlabored. Clear to auscultation bilaterally, no rales, rhonchi, wheezing. CARDIOVASCULAR: Regular rate and rhythm without murmurs rubs or gallops. ABDOMINAL: Soft, nontender, nondistended, normal bowel sounds MUSCULOSKELETAL: Moves all extremities. Strength/ROM intact, No edema, No calf tenderness. NEURO: Alert. Cranial nerves II through XII intact. Good gait. Good coordination SKIN: Warm, dry. Normal Color Course Vital Signs Vital signs: Vital Signs Pulse Rate 72 08/02/24 14:12 Pulse Oximetry 100 08/02/24 14:12 Oxygen Delivery Room Air 08/02/24 14:12 Temperature 97.9 F 08/02/24 14:18 Pulse Rate 78 08/02/24 17:45 Respiratory Rate 18 08/02/24 17:45 Blood Pressure 118/75 08/02/24 17:45 Pulse Oximetry 100 08/02/24 17:45 Oxygen Delivery Room Air 08/02/24 14:12 Medical Decision Making MDM Narrative Medical decision making narrative: 88-year-old male presents to the emergency department for evaluation for intermittent dizziness. Patient states that having hallucinations is not uncommon for him. I discussed admission and patient appears alert and oriented and has declined admission. Patient states he prefers to have follow-up with his primary care physician. Patient is currently afebrile with no leukocytosis and hemoglobin of 12.9. Patient has no acute abnormalities on his CMP INR is 1.2. UA is negative for infection patient's alcohol was negative. Patient was negative for influenza RSV and for COVID. Patient's head CT was negative for acute intracranial abnormality. Patient was able to ambulate out of the emergency department with a strong steady gait. Patient's family was called and updated that the patient preferred to be discharged home. Differential Diagnosis Differential Diagnosis: CVA, TIA, urinary tract infection, COVID, RSV, influenza. Vital Signs Vital Signs: Vital Signs Pulse Rate 72 08/02/24 14:12 Pulse Oximetry 100 08/02/24 14:12 Oxygen Delivery Room Air 08/02/24 14:12 Temperature 97.9 F 08/02/24 14:18 Pulse Rate 78 08/02/24 17:45 Respiratory Rate 18 08/02/24 17:45 Blood Pressure 118/75 08/02/24 17:45 Pulse Oximetry 100 08/02/24 17:45 Oxygen Delivery Room Air 08/02/24 14:12 Lab Data Lab results reviewed: Yes I reviewed the patient's lab results. 08/02/24 15:09 08/02/24 15:09 Labs: Lab Results 08/02/24 08/02/24 08/02/24 Range/Units 15:09 15:24 16:33 WBC 7.2 (4.5-10.0) K/mm3 RBC 4.76 (4.6-6.20) M/mm3 Hgb 12.9 L (14.0-18.0) g/dL Hct 40.4 L (42.0-52.0) % MCV 84.9 (80-100) fl MCH 27.1 (26-34) pg MCHC 31.9 L (32-36) g/dl RDW 17.8 H (11.5-14.5) % Plt Count 270 (150-375) k/mm3 MPV 10.5 H (7.4-10.4) fl Immature Gran % (Auto) 0.3 (0-0.5) % Neut % (Auto) 53.0 (45.5-73.1) % Lymph % (Auto) 30.3 (18.3-44.2) % [place] % (Auto) 8.3 (2.6-8.5) % Eos % (Auto) 7.1 H (0-4.4) % Baso % (Auto) 1.0 (0.2-1.2) % Lymph # (Auto) 2.18 (0.9-3.2) K/mm3 [place] # (Auto) 0.6 (0.1-0.6) K/mm3 Eos # (Auto) 0.5 H (0-0.3) K/mm3 Baso # (Auto) 0.1 (0.0-0.1) K/mm3 Abs Immat Gran (auto) 0.02 (0.00-0.031) K/mm3 Absolute Neuts (auto) 3.8 (1.3-6.7) K/mm3 Absolute Nucleated RBC 0.000 (0.0-0.012) K/mm3 Nucleated RBC % 0.0 (0.0-0.2) % PT 15.2 H (11.1-14.7) Seconds INR 1.2 APTT 29.3 (22.3-36.8) Seconds Sodium 145 (137-145) mmol/L Potassium 4.1 (3.4-5.0) mmol/L Chloride 111 H (98-107) mmol/L Carbon Dioxide 21 L (22-30) mmol/L Anion Gap 13 H (4-12) mmol/L BUN 16 (9-20) mg/dL Creatinine 1.40 H (0.7-1.3) mg/dL Estim Creat Clear Calc 61 ml/min Estimated GFR 50 L (59 - ) Glucose 105 (65-110) mg/dL Calcium 9.2 (8.4-10.2) mg/dL Total Bilirubin 0.4 (0.2-1.3) mg/dL AST 36 (17-59) U/L ALT 31 (6-50) U/L Alkaline Phosphatase 59 (38-126) U/L Ammonia < 9 L (9-30) umol/L Total Protein 8.0 (6.3-8.2) g/dL Albumin 4.0 (3.5-5.1) g/dL Urine Color Yellow (Yellow) Urine Appearance Clear (Clear) Urine pH 5.0 (5.0-9.0) Ur Specific [place] 1.024 (1.001-1.035) Urine Protein Negative (Negative) mg/dL Urine Glucose (UA) Negative (Negative) mg/dL Urine Ketones Trace H (Negative) mg/dL Ur Blood (Man) Negative (Negative) Urine Nitrate Negative (Negative) Urine Bilirubin Negative (Negative) Urine Urobilinogen 0.2 (<2.0) mg/dL Leukocyte Esterase Rfl Negative (Negative) JORJE/UL Ethyl Alcohol < 10 (<10) mg/dL Influenza A (RT-PCR) (Negative) Influenza B (RT-PCR) (Negative) RSV (RT-PCR) (Negative) SARS-CoV-2 RNA (RT-PCR) (Negative) 08/02/24 Range/Units 16:34 WBC (4.5-10.0) K/mm3 RBC (4.6-6.20) M/mm3 Hgb (14.0-18.0) g/dL Hct (42.0-52.0) % MCV (80-100) fl MCH (26-34) pg MCHC (32-36) g/dl RDW (11.5-14.5) % Plt Count (150-375) k/mm3 MPV (7.4-10.4) fl Immature Gran % (Auto) (0-0.5) % Neut % (Auto) (45.5-73.1) % Lymph % (Auto) (18.3-44.2) % [place] % (Auto) (2.6-8.5) % Eos % (Auto) (0-4.4) % Baso % (Auto) (0.2-1.2) % Lymph # (Auto) (0.9-3.2) K/mm3 [place] # (Auto) (0.1-0.6) K/mm3 Eos # (Auto) (0-0.3) K/mm3 Baso # (Auto) (0.0-0.1) K/mm3 Abs Immat Gran (auto) (0.00-0.031) K/mm3 Absolute Neuts (auto) (1.3-6.7) K/mm3 Absolute Nucleated RBC (0.0-0.012) K/mm3 Nucleated RBC % (0.0-0.2) % PT (11.1-14.7) Seconds INR APTT (22.3-36.8) Seconds Sodium (137-145) mmol/L Potassium (3.4-5.0) mmol/L Chloride (98-107) mmol/L Carbon Dioxide (22-30) mmol/L Anion Gap (4-12) mmol/L BUN (9-20) mg/dL Creatinine (0.7-1.3) mg/dL Estim Creat Clear Calc ml/min Estimated GFR (59 - ) Glucose (65-110) mg/dL Calcium (8.4-10.2) mg/dL Total Bilirubin (0.2-1.3) mg/dL AST (17-59) U/L ALT (6-50) U/L Alkaline Phosphatase (38-126) U/L Ammonia (9-30) umol/L Total Protein (6.3-8.2) g/dL Albumin (3.5-5.1) g/dL Urine Color (Yellow) Urine Appearance (Clear) Urine pH (5.0-9.0) Ur Specific [place] (1.001-1.035) Urine Protein (Negative) mg/dL Urine Glucose (UA) (Negative) mg/dL Urine Ketones (Negative) mg/dL Ur Blood (Man) (Negative) Urine Nitrate (Negative) Urine Bilirubin (Negative) Urine Urobilinogen (<2.0) mg/dL Leukocyte Esterase Rfl (Negative) JORJE/UL Ethyl Alcohol (<10) mg/dL Influenza A (RT-PCR) Negative (Negative) Influenza B (RT-PCR) Negative (Negative) RSV (RT-PCR) Negative (Negative) SARS-CoV-2 RNA (RT-PCR) Negative (Negative) Imaging Data Radiologist's impression: Impressions Head CT 08/02/24 15:48 IMPRESSION: 1. 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 Chest X-Ray 08/02/24 17:23 IMPRESSION: No focal infiltrate or effusion. Discharge Plan Discharge Clinical Impression: Dizziness, Hallucination Patient Disposition: Home, Self-Care Condition: Stable Instructions: Antibiotic Form, General Patient Instructions Additional Instructions: You were offered admission for further workup for your intermittent frankie lucinations, but you declined. Please have close follow-up with primary care physician. If you have any worsening symptoms then please call or return to the emergency department. Prescriptions: No Action aspirin 81 mg Tablet,Delayed Release (Dr/Ec) 81 mg PO DAILY multivitamin Tablet 1 tablet PO DAILY metformin 500 mg tablet extended release 24 hr 500 mg PO BID losartan 50 mg tablet 50 mg PO DAILY bupropion HCl 150 mg tablet extended release 24 hr 150 mg PO DAILY propranolol 80 mg capsule,extended release 24 hr 80 mg PO DAILY hydrocodone-acetaminophen 5-325 mg tablet 1 tablet PO Q6H PRN (Reason: Pain (Scale Score 7-10)) ibuprofen 600 mg Tablet 600 mg PO Q6H PRN (Reason: Moderate Pain (Scale Score 5-6)) cyclobenzaprine 5 mg tablet 5 mg PO TID PRN (Reason: Muscle Spasm) Patient Comments: Has not taken for approx 6 months as Pt. is unable to refill with new provider levetiracetam [Keppra] 750 mg tablet 750 mg PO BID Qty: 60 3RF quetiapine 50 mg tablet 50 mg PO HS Qty: 90 2RF (DME) CPAP machine and supplies See Rx Instructions .Route .MEDSUPPLY Qty: 1 1RF Rx Instructions: Needs machine, mask, tubing, chamber and filters. atorvastatin 40 mg tablet 40 mg PO QHS Qty: 90 2RF pregabalin 100 mg capsule 100 mg PO BID Qty: 180 0RF Follow-up/Referrals: Rosana Zhang MD [Primary Care Provider] -
[2024-08-02 16:52] LABS: Ammonia < 9 umol/L (9-30); Ethanol < 10 mg/dL (<10)
[2024-08-02 17:17] LABS: Influenza A QL RT-PCR Negative (Negative); Influenza B QL RT-PCR Negative (Negative); RSV RNA, RT-PCR Negative (Negative); SARS-CoV-2 RNA PCR Negative (Negative)
[2024-08-02 17:45] VITALS: BP 118/75; PULSE 78; RESP 18; O2SAT 100
--- NOTE | 2024-08-02 18:18 | PC.NURSE ---
pt walks out of ER room holding left lower forearm with paper towel and approaches charge manager desk stating the doctor said I can be discharged, I need my papers . this RN directed pt back to ER room 9 and noted that pt had removed their IV themselves and multiple bloody paper towels in the trash can. this RN then gets papers to discharge patient.
== END 2024-08-02 17:44 | disposition home or self-care (01) ==
PROVIDERS: Emergency Medicine; Emergency Provider Emergency Medicine; PCP Family Medicine
DX: R42 Dizziness and giddiness (principal); R44.3 Hallucinations, unspecified; Z79.82 Long term (current) use of aspirin; E11.9 Type 2 diabetes mellitus without complications; E78.5 Hyperlipidemia, unspecified; I10 Essential (primary) hypertension; G47.33 Obstructive sleep apnea (adult) (pediatric); Z99.89 Dependence on other enabling machines and devices; G40.909 Epilepsy, unspecified, not intractable, without status epilepticus; Z96.612 Presence of left artificial shoulder joint; Z96.611 Presence of right artificial shoulder joint; Z20.822 Contact with and (suspected) exposure to COVID-19
CPT/HCPCS: 36415; 70450; 71045; 80053; 81003; 82077; 82140; 85025; 85610; 85730; 87637; 93005; 99284

== ENCOUNTER 2024-08-28 15:58 | Emergency (ER) | payer MEDICARE, SELFPAY ==
--- NOTE | ~2024-08-28 | XR_ITS ---
EXAMINATION: XR chest 1V portable DATE: 08/28/2024 22:20 INDICATION: Intermittent dizziness. TECHNIQUE: A single frontal view of the chest was obtained. COMPARISON: Chest single view 08/02/2024, CT abdomen and pelvis 04/25/2024 FINDINGS: There is mild atelectasis in the lower lung zones. No pleural effusion or pneumothorax. The heart size is normal. There are bilateral shoulder arthroplasties. There are changes of anterior fus ion procedure in cervical spine. IMPRESSION: 1. Mild atelectasis in the lower lung zones. Reviewed, dictated and finalized at location A. BROKER
[2024-08-28 16:10] VITALS: BP 126/98; PULSE 69; RESP 16; TEMP 36.3; O2SAT 97
--- NOTE | 2024-08-28 21:44 | ECG_ITS ---
Test Date: 2024-08-28 21:57:32 Measurements Intervals [place] Rate: 73 P: -14 ID: [id number] QRS: 34 QRSD: 102 T: 28 QT: 359 QTc: 397 Interpretive Statements SINUS RHYTHM Compared to ECG 08/02/2024 15:01:40 First degree AV block no longer present Electronically Signed On 08-29-2024 14:54:17 AC/DC REWINDER by Jcarlos Hopper M.D.
[2024-08-28 21:55] VITALS: BP 137/72; PULSE 74; PULSE 77; RESP 15; O2SAT 98
[2024-08-28 22:01] VITALS: BP 131/86; PULSE 73; RESP 15; O2SAT 95
[2024-08-28 22:02] LABS: Basophils Absolute Auto 0.1 K/mm3 (0.0-0.1); Basophils Percent Auto 1.3 % (0.2-1.2); Eosinophils Absolute Auto 0.4 K/mm3 (0-0.3); Eosinophils Percent Auto 4.2 % (0-4.4); Hematocrit 40.4 % (42.0-52.0); Hemoglobin 12.7 g/dL (14.0-18.0); Immature Granulocyte Absolute 0.04 K/mm3 (0.00-0.031); Immature Granulocyte Percent A 0.5 % (0-0.5); Lymphocytes Absolute Auto 2.69 K/mm3 (0.9-3.2); Lymphocytes Percent Auto 30.8 % (18.3-44.2); Mean Corpuscular HGB Conc 31.4 g/dl (32-36); Mean Corpuscular Hemoglobin 26.6 pg (26-34); Mean Corpuscular Volume 84.7 fl (80-100); Mean Platelet Volume 10.4 fl (7.4-10.4); Monocytes Absolute Auto 0.9 K/mm3 (0.1-0.6); Neutrophils Absolute Auto 4.6 K/mm3 (1.3-6.7); Neutrophils Percent Auto 53.2 % (45.5-73.1); Platelet Count Result 300 k/mm3 (150-375); Red Blood Count 4.77 M/mm3 (4.6-6.20); Red Cell Distribution Width 17.1 % (11.5-14.5); White Blood Count 8.7 K/mm3 (4.5-10.0)
[2024-08-28 22:14] LABS: Alanine Aminotransferase 20 U/L (6-50); Albumin Level 4.2 g/dL (3.5-5.1); Alkaline Phosphatase 63 U/L (38-126); Anion Gap 12 mmol/L (4-12); Aspartate Amino Transferase 28 U/L (17-59); Bilirubin,Total 0.5 mg/dL (0.2-1.3); Blood Urea Nitrogen 17 mg/dL (9-20); Calcium 9.3 mg/dL (8.4-10.2); Carbon Dioxide 19 mmol/L (22-30); Chloride 113 mmol/L (98-107); Estimated CRCL calculation 65 ml/min; Estimated Glomerular Filt Rate 55; Glucose 89 mg/dL (65-110); Sodium 144 mmol/L (137-145)
[2024-08-28 22:26] LABS: Troponin I < 0.012 ng/mL (0.000-0.034)
[2024-08-28 22:32] VITALS: BP 130/69; PULSE 73; RESP 15; O2SAT 98
[2024-08-28 23:02] VITALS: BP 139/66; PULSE 79; RESP 15; O2SAT 98
[2024-08-28 23:16] VITALS: BP 142/94; PULSE 74; RESP 14; O2SAT 98
--- NOTE | 2024-08-28 23:49 | PC.NURSE ---
pt requested to be straight cathed for urine due to not feeling like having to pee .
[2024-08-29 00:23] LABS: Add Urine Microscopic? YES; Appearance Urine Clear (Clear); Bacteria Urine None Seen /hpf; Bilirubin Urine Negative (Negative); Blood Urine Negative (Negative); Color Urine Yellow (Yellow); Glucose Urine UA Negative (Negative); Ketones Urine 1+ mg/dL (Negative); Leukocyte Esterase Ur Negative LEU/UL (Negative); Need Manual Microscopic Reviewed; Nitrate Urine Negative (Negative); Non Pathogenic Casts 0-2; Protein Urine Trace mg/dL (Negative); RBC Urine 0-2 /hpf (0-2); Specific Grav Ur 1.034 (1.001-1.035); Squamous Epithelial Cell Urine None Seen /hpf (Few); Urobilinogen Urine 0.2 mg/dL (<2.0); WBC Urine 0-5 /hpf (0-3)
--- NOTE | 2024-08-29 01:26 | PC.NURSE ---
this rn attempted to call Lalo- patient son per edp dr. kaminski request. this attempt was unsuccessful.
--- NOTE | 2024-08-29 01:31 | ED_ITS ---
HPI - General Adult General Chief complaint: Dizziness Stated complaint: dizzy, falls Time Seen by Provider: 08/28/24 23:18 History of Present Illness HPI narrative: This is a 68-year-old male with a history of depression, grief reaction dizziness, and hallucinations presenting to ED for dizziness and hallucinations. The symptoms are chronic. Patient says that they are unchanged. He has no physical complaints at this time. He is denying SI or HI. No use of drugs or alcohol. Patient said that he was having his typical dizziness hallucinations at home and called his son asked if he should go to the ER. His ED son told him to come to the emergency room. The patient does not want to be here. Patient's symptoms are chronic. Review of the EMR shows that he has had m ultiple imaging studies including CT, CTA MRI. He has been evaluated by Neurology and follows up with them on an outpatient basis. He has been arranged psychiatry follow-up for his symptoms. Related Data Home Medications Medication Instructions Recorded Confirmed aspirin 81 mg tablet,delayed 81 mg PO DAILY 01/11/23 08/18/24 release multivitamin 1 tablet PO DAILY 12/22/23 08/18/24 cyclobenzaprine 5 mg tablet 5 mg PO TID PRN Muscle Spasm 04/10/24 08/18/24 hydrocodone 5 mg-acetaminophen 325 1 tablet PO Q6H PRN Pain (Scale 04/10/24 08/18/24 mg tablet Score 7-10) ibuprofen 600 mg tablet 600 mg PO Q6H PRN Moderate Pain 04/10/24 08/18/24 (Scale Score 5-6) losartan 50 mg tablet 50 mg PO DAILY 04/23/24 08/18/24 metformin 500 mg tablet,extended 500 mg PO BID 04/23/24 08/18/24 release 24 hr propranolol 80 mg capsule,24 80 mg PO DAILY 04/23/24 08/18/24 hr,extended release bupropion HCl 150 mg 24 hr tablet, 450 mg PO DAILY 08/18/24 08/18/24 extended release quetiapine 50 mg tablet 50 mg PO QHS 08/18/24 08/18/24 Allergies Allergy/AdvReac Type Severity Reaction Status Date / Time Penicillins Allergy Hives Verified 08/18/24 08:14 blood pressure med AdvReac Headache Uncoded 08/18/24 08:14 [facility] Past Medical History Medical History Chronic low back pain Crush injury of foot As a child left foot Depression determined by examination Diabetes type 2, controlled Dizziness Essential tremor Frequent falls Hyperlipidemia MCI (mild cognitive impairment) with memory loss 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 He denies any history of tobacco or alcohol use. Code status: DNR/DNI per patient request Healthcare power of employment law attorney: Lalo (son) Smoking status: Never smoker Alcohol intake: current Alcohol use details: occasionally Substance use: never Substance use type: does not use Do You Feel Safe in your Home?: Yes Lack of Transportation: No Lack of Food: Never True Current Housing: I Have Housing Concerned About Future Housing: No Difficulty Paying Gas/Electric Bills: No Difficulty Paying for Meds: No Currently Unemployed: No Education: Associate Degree Difficulty w/ Childcare or Family Care: No Occupation/Education: retired Gender identity (if verbalized by the patient): Male Spiritual care concerns: No Agree to blood products: Yes Exam Narrative: APPEARANCE: No apparent distress. Head: atraumatic. EYES: EOMI, NOSE: Atraumatic NECK: Trachea midline RESPIRATORY: No increased rate of breathing CARDIOVASCULAR: RRR, ABDOMINAL: Non-distended MUSCULOSKELETAl: No obvious deformities NEURO: Alert. Cranial nerves 2-12 grossly intact. Sensation light touch, motor function cerebellar function intact for 4 extremities. Gait exam was normal. SKIN:: Warm, dry. Normal color PSYCHIATRIC: Normal affect Course Vital Signs Vital signs: Vital Signs Temperature 97.3 F L 08/28/24 16:10 Pulse Rate 69 08/28/24 16:10 Respiratory Rate 16 08/28/24 16:10 Blood Pressure 126/98 H 08/28/24 16:10 Pulse Oximetry 97 08/28/24 16:10 Temperature 97.3 F L 08/28/24 16:10 Pulse Rate 79 08/28/24 23:02 Respiratory Rate 15 08/28/24 23:02 Blood Pressure 139/66 08/28/24 23:02 Pulse Oximetry 98 08/28/24 23:02 Medical Decision Making MDM Narrative Medical decision making narrative: -Course: 68-year-old male presenting with chief complaint of dizziness and hallucinations. This is a chronic problem for this patient and it does not appear that his changed in any way. He can not really give me a good reason for why he came to the emergency room other than he called his son to tell him he was dizzy and the son told him to go to the ER. Patient is not currently dizzy. Patient says that he does not want to be in the emergency room. I called the patient's son but was sent to voicemail. Vital signs are stable. Neuro exam is normal. He is not homicidal or suicidal. He is not overtly psychotic. He has had multiple admissions and workups for the symptoms. I do not think I have anything to add to his workup today. Patient says he is comfortable going home. Patient be discharged follow-up with his outpatient. Vital Signs Vital Signs: Vital Signs Temperature 97.3 F L 08/28/24 16:10 Pulse Rate 69 08/28/24 16:10 Respiratory Rate 16 08/28/24 16:10 Blood Pressure 126/98 H 08/28/24 16:10 Pulse Oximetry 97 08/28/24 16:10 Temperature 97.3 F L 08/28/24 16:10 Pulse Rate 79 08/28/24 23:02 Respiratory Rate 15 08/28/24 23:02 Blood Pressure 139/66 08/28/24 23:02 Pulse Oximetry 98 08/28/24 23:02 Lab Data 08/28/24 21:55 08/28/24 21:55 Labs: Lab Results 08/28/24 08/28/24 Range/Units 21:55 23:56 WBC 8.7 (4.5-10.0) K/mm3 RBC 4.77 (4.6-6.20) M/mm3 Hgb 12.7 L (14.0-18.0) g/dL Hct 40.4 L (42.0-52.0) % MCV 84.7 (80-100) fl MCH 26.6 (26-34) pg MCHC 31.4 L (32-36) g/dl RDW 17.1 H (11.5-14.5) % Plt Count 300 (150-375) k/mm3 MPV 10.4 (7.4-10.4) fl Immature Gran % (Auto) 0.5 (0-0.5) % Neut % (Auto) 53.2 (45.5-73.1) % Lymph % (Auto) 30.8 (18.3-44.2) % Roberts % (Auto) 10.0 H (2.6-8.5) % Eos % (Auto) 4.2 (0-4.4) % Baso % (Auto) 1.3 H (0.2-1.2) % Lymph # (Auto) 2.69 (0.9-3.2) K/mm3 Roberts # (Auto) 0.9 H (0.1-0.6) K/mm3 Eos # (Auto) 0.4 H (0-0.3) K/mm3 Baso # (Auto) 0.1 (0.0-0.1) K/mm3 Abs Immat Gran (auto) 0.04 H (0.00-0.031) K/mm3 Absolute Neuts (auto) 4.6 (1.3-6.7) K/mm3 Absolute Nucleated RBC 0.000 (0.0-0.012) K/mm3 Nucleated RBC % 0.0 (0.0-0.2) % Sodium 144 (137-145) mmol/L Potassium 4.0 (3.4-5.0) mmol/L Chloride 113 H (98-107) mmol/L Carbon Dioxide 19 L (22-30) mmol/L Anion Gap 12 (4-12) mmol/L BUN 17 (9-20) mg/dL Creatinine 1.30 (0.7-1.3) mg/dL Estim Creat Clear Calc 65 ml/min Estimated GFR 55 L (59 - ) Glucose 89 (65-110) mg/dL Calcium 9.3 (8.4-10.2) mg/dL Total Bilirubin 0.5 (0.2-1.3) mg/dL AST 28 (17-59) U/L ALT 20 (6-50) U/L Alkaline Phosphatase 63 (38-126) U/L Troponin I < 0.012 (0.000-0.034) ng/mL Total Protein 7.0 (6.3-8.2) g/dL Albumin 4.2 (3.5-5.1) g/dL Urine Color Yellow (Yellow) Urine Appearance Clear (Clear) Urine pH 5.0 (5.0-9.0) Ur Specific [place] 1.034 (1.001-1.035) Urine Protein Trace (Negative) mg/dL Urine Glucose (UA) Negative (Negative) mg/dL Urine Ketones 1+ H (Negative) mg/dL Ur Blood (Man) Negative (Negative) Urine Nitrate Negative (Negative) Urine Bilirubin Negative (Negative) Urine Urobilinogen 0.2 (<2.0) mg/dL Add Ur Microanalysis Reviewed Leukocyte Esterase Rfl Negative (Negative) JORJE/UL Urine RBC 0-2 (0-2) /hpf Urine WBC 0-5 (0-3) /hpf Ur Squamous Epith Cells None seen (Few) /hpf Urine Bacteria None seen /hpf Urine Casts 0-2 Discharge Plan Discharge Clinical Impression: Dizziness and giddiness Patient Disposition: Home, Self-Care Condition: Stable Instructions: Antibiotic Form, Dizziness (ED) Additional Instructions: please follow-up with the neurologist and her psychologist for further management. If you develop any new or worsening symptoms he can return to the ED for re-evaluation. Prescriptions: No Action aspirin 81 mg Tablet,Delayed Release (Dr/Ec) 81 mg PO DAILY multivitamin Tablet 1 tablet PO DAILY metformin 500 mg tablet extended release 24 hr 500 mg PO BID losartan 50 mg tablet 50 mg PO DAILY propranolol 80 mg capsule,extended release 24 hr 80 mg PO DAILY bupropion HCl 150 mg tablet extended release 24 hr 450 mg PO DAILY quetiapine 50 mg tablet 50 mg PO QHS citalopram 10 mg tablet 10 mg PO DAILY Qty: 90 0RF hydrocodone-acetaminophen 5-325 mg tablet 1 tablet PO Q6H PRN (Reason: Pain (Scale Score 7-10)) ibuprofen 600 mg Tablet 600 mg PO Q6H PRN (Reason: Moderate Pain (Scale Score 5-6)) cyclobenzaprine 5 mg tablet 5 mg PO TID PRN (Reason: Muscle Spasm) Patient Comments: Has not taken for approx 6 months as Pt. is unable to refill with new provider (DME) CPAP machine and supplies See Rx Instructions .Route .MEDSUPPLY Qty: 1 1RF Rx Instructions: Needs machine, mask, tubing, chamber and filters. atorvastatin 40 mg tablet 40 mg PO QHS Qty: 90 2RF levetiracetam [Keppra] 750 mg tablet 750 mg PO BID Qty: 60 5RF pregabalin 100 mg capsule 100 mg PO BID Qty: 180 1RF Follow-up/Referrals: Rosana Zhang MD [Primary Care Provider] -
--- NOTE | 2024-08-29 01:53 | PC.NURSE ---
pt stating upon discharge, no one is listening to me and my symptoms. I am dizzy. I will call my son . this rn verbalized following up with pcp and neurologist at this time. pt is ao x4 upon discharge. pt able to walk with a steady unassisted gait towards the exit of the ed.
== END 2024-08-29 01:54 | disposition home or self-care (01) ==
PROVIDERS: Emergency Provider Emergency Medicine; PCP Family Medicine
DX: R42 Dizziness and giddiness (principal); E78.5 Hyperlipidemia, unspecified; E11.40 Type 2 diabetes mellitus with diabetic neuropathy, unspecified; G47.33 Obstructive sleep apnea (adult) (pediatric); G40.909 Epilepsy, unspecified, not intractable, without status epilepticus; F32.A Depression, unspecified; Z66 Do not resuscitate; Z96.612 Presence of left artificial shoulder joint; Z96.611 Presence of right artificial shoulder joint; Z79.84 Long term (current) use of oral hypoglycemic drugs; Z79.82 Long term (current) use of aspirin; Z79.899 Other long term (current) drug therapy
CPT/HCPCS: 36415; 71045; 80053; 81001; 84484; 85025; 93005; 99284

== ENCOUNTER 2024-09-10 10:44 | Outpatient (RCR) | payer MEDICARE, SELFPAY ==
--- NOTE | 2024-09-10 16:37 | OPREHPOC ---
Outpatient Therapy Plan of Care This is a Multidisciplinary Plan of Care that may contain components documented by all disciplines (PT, OT, and ST.) PT Problem 1 PT Problem #1 Knowledge Deficit PT Goal 1 Goal / Goal Update [place] with HEP Target Visit 4 PT Goal 2 Goal / Goal Update Demonstrate 25% reduction in back pain with exercise intervention Target Visit 8 PT Problem 2 PT Problem #2 Impaired Balance PT Goal 1 Goal / Goal Update Improve [place] score by 5+ point to reflect reduction in fall risk Target Visit 8 PT Goal 2 Goal / Goal Update Improve dyllan hip flexion strength to 4+/5 to improve foot clearance with gait and stair navigation Target Visit 8 PT Problem 3 PT Problem #3 Impaired Endurance PT Goal 1 Goal / Goal Update Demonstrate tolerance to 10 minutes of cardiovascular activity to improve gross endurance for mobility and ADL function Target Visit 8
--- NOTE | 2024-09-10 16:37 | PTOPEVAL1 ---
Assessment and note entered by Robert Hillman, PT Evaluation Information Assessment Status Evaluation ICD-10 Condition Codes (PT) Repeated falls R29.6,Difficulty Walking R26.2, Weakness R53.1 Onset Approximately 2014 but worsening with time Subjective Information Patient reports that he has been having a lot of falls. Reports 5-6 falls this week alone. Reports that he has severe neuropathy in his left foot and does not feel anything at all in his left foot. Had an injury as a child and has had issues with this most of his life. Reports that right foot functions fairly well. Had cervical surgery about 10 years ago due to severe disc issue. Has history of back pain but no surgical intervention. Feels that his balance is just not good and has not been good for a long time. All of his falls seem to be forward. He has been told that he has seizure activity. He also has a fairly consistent headache . Reported Pain Level Pain Score 7: Self Report Assessment PT Clinical Summary Patient presents with poor stability and severe weakness in his L LE. He is showing decent strength of dyllan LEs and but has some weakness and instability of dyllan hips at this time leading to poor lateral stability with ADLs and transfers. Patient demonstrates depressive behavior and was open about past psychological history. I believe that he will benefit form an exercise program focused on LE stability, conditioning, and balance to improve gross mechanics and ADL function. Patient had 2 minor episodes of loss of balance to left side this date on sit to stand transfer. Plan of Care Interventions Gait Training,Manual Therapy,Neuro Re-education, Therapeutic Activities,Therapeutic Exercise Treatment Frequency and 1-2x/week for 8 visits Duration These treatments will address the objective and functional deficits as defined above. The patient will be advanced safely and appropriately in order for the patient to progress towards his/her prior level of function. Additional exercises will be introduced and as well as a comprehensive home exercise program upon discharge, if needed, ?to ensure carryover of functional gains achieved in the clinic. This treatment plan has been reviewed and agreement upon by the patient.
--- NOTE | 2024-09-24 14:27 | PCPTNOTE ---
Patient no showed to appointment this date. Called and left voicemail this date to remind of next appointment on 09/29/23.
--- NOTE | 2024-09-29 12:49 | PCPTNOTE ---
Patient no showed to appointment this date. Called and left voicemail.
--- NOTE | 2024-10-01 08:10 | PCPTNOTE ---
Patient called to cancel all future appointments due to being hospitalized after his evaluation. Patient is now getting home health.
--- NOTE | 2024-10-01 09:04 | PTOPDC ---
Assessment and note entered by Robert Hillman, PT Evaluation Information Assessment Status Discharge - Pt Not Present ICD-10 Condition Codes (PT) Repeated falls R29.6,Difficulty Walking R26.2, Weakness R53.1 Onset Approximately 2014 but worsening with time Subjective Information Patient underwent recent hospitalization and was discharged to home with Home Health. Will be discharged from outpatient services at this time. Assessment PT Clinical Summary Patient currently enrolled in home health and will be discharged at this time from outpatient therapy. Please see initial evaluation for discharge status.
== END 2024-10-01 09:20 | disposition home or self-care (01) ==
LOC: ANHGOSHPT 10:44
PROVIDERS: PCP Family Medicine; Visit Provider Family Medicine
DX: R29.6 Repeated falls (principal); R26.81 Unsteadiness on feet
CPT/HCPCS: 97110; 97161

== ENCOUNTER 2024-10-05 16:43 | Inpatient (IN) | payer MEDICARE, SELFPAY ==
--- NOTE | ~2024-10-05 | CT_ITS ---
Clinical Indication: Sepsis CT Scan of the Chest, Abdomen, and Pelvis with Contrast: Technique: Contiguous sections were acquired throughout the chest, abdomen, and pelvis after intraven ous administration of 100 cc of Omnipaque 350. Dose reduction technique was used on this scan by stefany lux automated exposure control and iterative reconstruction technique. The dose-length product (DL P) was 2925.06 mGy-cm. Comparison: 04/25/2024, 04/09/2024 Findings: Examination degraded by motion artifact. There is no evidence of any significant mediastinal, hilar or axillary lymphadenopathy. The mediastin al soft tissues appear normal. No large central pulmonary embolus seen. No aortic aneurysm or dissect ion. There is no evidence of pleural or pericardial effusion. The lungs are clear. No pulmonary nodules or infiltrates are noted. The liver, spleen, pancreas, adrenals and right kidney are within normal limits. Gallstones are prese nt. Low-density left adrenal mass is unchanged, likely a cyst. There are atherosclerotic calcificatio ns of the aorta. No lymphadenopathy. No bowel obstruction or bowel wall thickening. There is no evidence to suggest acute appendicitis. Urinary bladder is unremarkable. No pelvic mass seen. No ascites. There are bilateral L5 pars interar ticularis defects, with minimal grade 1 anterolisthesis of L5 over S1. Impression: No acute abnormality seen. Cholelithiasis. Reviewed, dictated and finalized at [facility]. OL AGE LEAD TEACHER Impression: No acute abnormality seen. Cholelithiasis.
--- NOTE | ~2024-10-05 | CT_ITS ---
Noncontrast CT scan of the cervical spine Technique: Multiple contiguous axial [address] images of the cervical spine were obtained and rec onstructed in 2D sagittal and coronal planes on the acquisition scanner. Dose reduction technique was used on this scan by utilizing automated exposure control, adjustment of the mA and/or kV according to patient size. The dose-length product (DLP) was 677.67 mGy-cm. Clinical History: Pain, altered mental status Findings: No fractures or dislocations. There is anterior and interbody fusion from C5 to C7. There is moderate degenerative disc narrowing at C2-C3 and C4-C5. There is advanced degenerative disc narro wing in the upper thoracic spine. There are extensive facet joint degenerative changes, left side wor se than right. There is left neural foraminal narrowing at C2-C3. There is bilateral neural foraminal narrowing at C3-C4, left worse than right, with probable mild canal stenosis. There is severe left n eural foraminal narrowing at C4-C5 with moderate right neural foraminal narrowing. There is severe ri ght neural foraminal narrowing at C5-C6, with mild left neural foraminal narrowing and probable mild canal stenosis. There is bilateral moderate neural foraminal narrowing at C6-C7 with mild canal steno sis. No prevertebral soft tissue swelling. Impression: No fracture or subluxation of the cervical spine. Anterior and interbody fusion from C5 to C7. Advanced degenerative spondylosis, as above. Reviewed, dictated and finalized at [facility]. OGICAL SCIENCES PROFESSOR Impression: No fracture or subluxation of the cervical spine. Anterior and interbody fusion from C5 to C7. Advanced degenerative spondylosis, as above.
--- NOTE | ~2024-10-05 | XR_ITS ---
CHEST RADIOGRAPH CLINICAL HISTORY: altered mental status, tachycardic . COMPARISON: 08/28/2024 TECHNIQUE: Single portable view of the chest. FINDINGS The cardiomediastinal silhouette is unremarkable. Redemonstration of a left-sided pleural effusion. The lungs are otherwise clear. Fixation hardware within the lower cervical spine and bilateral shoulders Remaining visualized osseous structures and soft tissues are otherwise unremarkable. IMPRESSION: Small left-sided pleural effusion, without focal infiltrate. Reviewed, dictated and finalized at location A. ESS MAKER
--- NOTE | ~2024-10-05 | CT_ITS ---
Non-contrast Head CT History: Altered mental status COMPARISON: 09/23/2024 Technique: Axial non-contrast imaging of the brain was performed. Dose reduction technique was used on this scan by utilizing automated exposure control and iterative reconstruction technique. The dose -length product (DLP) was 756.67 mGy-cm. Findings: There is no evidence of intracranial hemorrhage, mass lesion, or acute infarct. Brain par enchyma appears normal. The ventricles and subarachnoid spaces are normal in size. The calvarium ap pears normal. The visualized paranasal sinuses and mastoid air cells are clear. Impression: No significant abnormality seen. Reviewed, dictated and finalized at location . INAL PRESS OPERATOR Impression: No significant abnormality seen.
--- NOTE | ~2024-10-05 | XR_ITS ---
XR chest 1V portable Ordering provider: Kelli Jordan APRN History: 68 years Male with . re eval for aspirartion/pneumonia . Comparison: October 05, 2024 FINDINGS: MEDIASTINUM: The cardiac silhouette is not enlarged. LUNGS: No pneumothorax. Minimal opacification the left costophrenic angle which may indicate atelecta sis versus residual effusion. OTHER: No free air under the diaphragm. Degenerative changes of the spine. Bilateral shoulder arthrop lasty. IMPRESSION: Opacification in the left costophrenic angle which is suggestive of atelectasis. Reviewed, dictated and finalized at location A. TRICIAN RESEARCH IMPRESSION: Opacification in the left costophrenic angle which is suggestive of atelectasi s.
[2024-10-05 16:53] VITALS: BP 108/80; PULSE 137; RESP 18; TEMP 36.2; O2SAT 98
--- NOTE | 2024-10-05 17:12 | ECG_ITS ---
Test Date: 2024-10-05 17:14:43 Measurements Intervals [place] Rate: 130 P: 135 [place]: 160 QRS: 22 QRSD: 85 T: 132 QT: 306 QTc: 451 Interpretive Statements SINUS TACHYCARDIA LOW QRS VOLTAGE IN EXTREMITY LEADS [QRS DEFLECTION < 0.5 mV IN LIMB LEADS] MINIMAL ST DEPRESSION [0.025+ mV ST DEPRESSION] ABNORMAL QRS-T ANGLE [QRS-T AXIS DIFFERENCE > 60] Compared to ECG 09/23/2024 18:54:04 SINUS TACHYCARDIA NOW PRESENT Electronically Signed On 10-06-2024 14:17:22 [employer] by Patricia Holley M.D.
--- NOTE | 2024-10-05 17:31 | ED_ITS ---
HPI - Altered Mental Status General Chief Complaint: Altered Mental Status <Lola Gustafson MD - Last Filed: 10/06/24 00:33> Stated Complaint: AMS <Lola Gustafson MD - Last Filed: 10/06/24 00:33> Time Seen by Provider: 10/05/24 17:13 <Lola Gustafson MD - Last Filed: 10/06/24 00:33> Source: patient, family and RN notes reviewed <Lola Gustafson MD - Last Filed: 10/06/24 00:33> Mode of arrival: EMS <Lola Gustafson MD - Last Filed: 10/06/24 00:33> History of Present Illness HPI narrative: Patient with past medical history diabetes mellitus, seizure disorder, and bipolar disorder presents with report of altered mental status. Son states that he has these episodes not infrequently. 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 He reports that he has been admitted for this previously and that a noncancerous tumor had previously been noted in the brain with plans for an MRI. He states he presented approximately week ago for the same. Patient states he has not been taking his medications the last 3 days. He was recently taken off of 1 of his blood pressure medications as well as the Wellbutrin that he has been taking was discontinued given that it lowers the seizure threshold and he has a history of seizures. He notes that his father often complains of head and neck pain and this is chronic. At his baseline he communicates but son does note that his vocabulary is limited and last time he did not talk at all for 4 days and this time it is been a day and a half. Patient was more communicative yesterday and they had talked about looking at assisted living places tomorrow and father was agreeable at that time. Son has made a psych appointment for his father but this will not occur until next month. He has been uncooperative with the home nurse physical therapist that comes to the house. PCP Dr Zhang. <Lola Gustafson MD - Last Filed: 10/06/24 00:33> Related Data Home Medications: Home Medications ?Medication ?Instructions ?Recorded ?Confirmed ?Last Taken ?Type aspirin 81 mg tablet,delayed 81 mg PO DAILY 01/11/23 09/30/24 Unknown History release multivitamin 1 tablet PO DAILY 12/22/23 09/30/24 Unknown History cyclobenzaprine 5 mg tablet 5 mg PO TID PRN Muscle Spasm 04/10/24 09/30/24 Unknown History hydrocodone 5 mg-acetaminophen 325 1 tablet PO Q6H PRN Pain (Scale 04/10/24 09/30/24 Unknown History mg tablet Score 7-10) ibuprofen 600 mg tablet 600 mg PO Q6H PRN Moderate Pain 04/10/24 09/30/24 Unknown History (Scale Score 5-6) losartan 50 mg tablet 50 mg PO DAILY 04/23/24 09/30/24 Unknown History metformin 500 mg tablet,extended 500 mg PO BID 04/23/24 09/30/24 Unknown History release 24 hr propranolol 80 mg capsule,24 80 mg PO DAILY 04/23/24 09/30/24 Unknown History hr,extended release quetiapine 50 mg tablet 50 mg PO QHS 08/18/24 09/30/24 Unknown History <Lola Gustafson MD - Last Filed: 10/06/24 00:33> Allergies/Adverse Reactions: Allergies Allergy/AdvReac Type Severity Reaction Status Date / Time Penicillins Allergy Hives Verified 10/05/24 18:45 blood pressure med AdvReac Headache Uncoded 10/05/24 18:45 <Lola Gustafson MD - Last Filed: 10/06/24 00:33> FOR[facility]LY [facility] Past Medical History Medical History: Medical History Bipolar disorder Essential (primary) hypertension Chronic low back pain Essential tremor Obstructive sleep apnea syndrome in adult 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 Depression determined by examination MCI (mild cognitive impairment) with memory loss Seizure disorder Dizziness Obstructive sleep apnea on CPAP Frequent falls Neuropathy Hyperlipidemia Diabetes type 2, controlled Crush injury of foot As a child left foot <Lola Gustafson MD - Last Filed: 10/06/24 00:33> Surgical History Surgical History: Surgical History Status post open reduction with internal fixation of fracture Left foot due to crush injury as a child History of shoulder replacement Bilateral <Lola Gustafson MD - Last Filed: 10/06/24 00:33> Family History Family History: Family History Unknown Hypertension Depression Diabetes mellitus Cerebrovascular accident Neuropathy <Lola Gustafson MD - Last Filed: 10/06/24 00:33> Social History Social History: Social History Social History: The patient is still but he and his have been legally since 2018. 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 He denies any history of tobacco or alcohol use. Code status: DNR/DNI per patient request Healthcare power of commonwealth attorney: Lalo (son) Smoking status: Never smoker Alcohol intake: current Drinks per week: 4 Alcohol use details: occasionally Substance use: never Substance use type: does not use Do You Feel Safe in your Home?: Yes Lack of Transportation: YES Lack of Food: Never True Current Housing: I Do Not Have Housing Concerned About Future Housing: No Difficulty Paying Gas/Electric Bills: No Difficulty Paying for Meds: No Currently Unemployed: No Education: Trade/Vocational Certificate Difficulty w/ Childcare or Family Care: No Occupation/Education: retired Gender identity (if verbalized by the patient): Male Spiritual care concerns: No Agree to blood products: Yes <Lola Gustafson MD - Last Filed: 10/06/24 00:33> Exam 2 Narrative: GENERAL: Well-appearing, well-nourished HEAD: Normocephalic, atraumatic. EYES: Non injected, non icteric. PERRL. No ocular clonus. ENT: Nares clear, no rhinorrhea or epistaxis. NECK: Supple. CHEST: Speaking in full sentences. No respiratory distress. HEART: Tachycardic rate and rhythm. . ABDOMEN: Soft, nondistended. EXTREMITIES: Normal range of motion. No lower extremity edema. SKIN: Warm, dry. Some scattered abrasions over bilateral knees. NEURO: No focal deficits. Moving all extremities, at times erratically but it does not appear to be rhythmic / seizure-like. No myoclonus invoked at bilateral ankles. PSYCH: Potentially hallucinating. Does appear at time to be picking at things. Spitting and grabbing at staff. Not speaking but responds to painful stimuli. Agitated. <Lola Gustafson MD - Last Filed: 10/06/24 00:33> Course Course Emergency Course: Zych: Patient signed out pending completion of his workup. Patient continued to be severely agitated during his stay and required multiple rounds of sedatives to complete his workup. Extensive workup including laboratory studies, infectious workup, toxicologic workup, CT imaging the head, C-spine chest abdomen pelvis did not reveal any causative findings. Patient meets SIRS criteria and will be treated for sepsis of unknown etiology. Patient will be admitted hospital for further evaluation and treatment. <Tres Jj MD - Last Filed: 10/06/24 04:29> Vital Signs Vital signs: Vital Signs Temperature 97.2 F L 10/05/24 16:53 Pulse Rate 137 H 10/05/24 16:53 Respiratory Rate 18 10/05/24 16:53 Blood Pressure 108/80 10/05/24 16:53 Pulse Oximetry 98 10/05/24 16:53 Oxygen Delivery Room Air 10/05/24 16:53 Temperature 98.7 F 10/06/24 02:04 Pulse Rate 121 H 10/06/24 02:32 Respiratory Rate 20 10/06/24 02:32 Blood Pressure 131/99 H 10/06/24 02:32 Pulse Oximetry 99 10/06/24 02:32 Oxygen Delivery Room Air 10/05/24 16:53 <Lola Gustafson MD - Last Filed: 10/06/24 00:33> Vital Signs Temperature 97.2 F L 10/05/24 16:53 Pulse Rate 137 H 10/05/24 16:53 Respiratory Rate 18 10/05/24 16:53 Blood Pressure 108/80 10/05/24 16:53 Pulse Oximetry 98 10/05/24 16:53 Oxygen Delivery Room Air 10/05/24 16:53 Temperature 98.7 F 10/06/24 02:04 Pulse Rate 121 H 10/06/24 02:32 Respiratory Rate 20 10/06/24 02:32 Blood Pressure 131/99 H 10/06/24 02:32 Pulse Oximetry 99 10/06/24 02:32 Oxygen Delivery Room Air 10/05/24 16:53 <Tres Jj MD - Last Filed: 10/06/24 04:29> MDM - Altered Mental Status MDM Narrative Medical decision making narrative: Patient presents from home with report of altered mental status. In the emergency department he is afebrile with vital signs notable for tachycardia at 137bpm. He is agitated and initially Ativan is ordered followed by Haldol. Patient does feel warm particularly around his head on physical exam. Rectal temperature is obtained and is 101.1 F per nurse. Rectal Tylenol ordered. Given the degree of tachycardia as well as the fact that he is febrile, will also initiate broad-spectrum antibiotics, obtain lactic acid and blood cultures and administer a 2 L of fluids given concern for sepsis. Will reassess and consider the need for full 30cc/kg (total 3330 if so). Patient is reassessed at 6:55 p.m. and continues to be agitated. In order to facilitate further studies, patient will require more medication. Olanzapine 10 mg IM ordered. At this point it is the end of my shift and patient's workup is still not completed. Signed out to oncoming ED attending physician pending work up and reassessment in regards to disposition location which will be admission. Additional 1500 mL fluids ordered given presumed sepsis of unknown origin. <Lola Gustafson MD - Last Filed: 10/06/24 00:33> Differential Diagnosis Differential diagnosis: Likely alcoholic intoxication, altered mental status, delirium, dementia, hypoglycemia, hyponatremia, subarachnoid hemorrhage, sepsis (UTI, pneumonia) and other (meningitis; serotonin syndrome; acute viral syndrome; thyroid dysfunction,) <Lola Gustafson MD - Last Filed: 10/06/24 00:33> Lab Data Attestation: I reviewed the patient's lab results. <Lola Gustafson MD - Last Filed: 10/06/24 00:33> Lab results narrative: Leukocytosis <Lola Gustafson MD - Last Filed: 10/06/24 00:33> Result diagrams: 10/05/24 18:08 10/06/24 00:11 <Lola Gustafson MD - Last Filed: 10/06/24 00:33> Labs: Lab Results 10/05/24 10/05/24 10/05/24 Range/Units 18:07 18:08 18:15 WBC 12.3 H (4.5-10.0) K/mm3 RBC 5.17 (4.6-6.20) M/mm3 Hgb 14.1 (14.0-18.0) g/dL Hct 43.6 (42.0-52.0) % MCV 84.3 (80-100) fl MCH 27.3 (26-34) pg MCHC 32.3 (32-36) g/dl RDW 15.6 H (11.5-14.5) % Plt Count 293 D (150-375) k/mm3 MPV 11.8 H (7.4-10.4) fl Immature Gran % (Auto) 0.2 (0-0.5) % Neut % (Auto) 72.4 (45.5-73.1) % Lymph % (Auto) 18.4 (18.3-44.2) % [place] % (Auto) 8.8 H (2.6-8.5) % Eos % (Auto) 0.0 (0-4.4) % Baso % (Auto) 0.2 (0.2-1.2) % Lymph # (Auto) 2.26 (0.9-3.2) K/mm3 [place] # (Auto) 1.1 H (0.1-0.6) K/mm3 Eos # (Auto) 0.0 (0-0.3) K/mm3 Baso # (Auto) 0.0 (0.0-0.1) K/mm3 Abs Immat Gran (auto) 0.03 (0.00-0.031) K/mm3 Absolute Neuts (auto) 8.9 H (1.3-6.7) K/mm3 Absolute Nucleated RBC 0.000 (0.0-0.012) K/mm3 Nucleated RBC % 0.0 (0.0-0.2) % PT 15.2 H (11.1-14.7) Seconds INR 1.1 APTT 25.3 (22.3-36.8) Seconds D-Dimer 0.46 (<0.48) ug/mL Sodium Cancelled Potassium Cancelled Chloride Cancelled Carbon Dioxide Cancelled Anion Gap Cancelled BUN Cancelled Creatinine Cancelled Estim Creat Clear Calc Cancelled Estimated GFR Cancelled Glucose Cancelled Calcium Cancelled Magnesium (1.6-2.3) mg/dL Total Bilirubin Cancelled AST Cancelled ALT Cancelled Alkaline Phosphatase Cancelled Ammonia Total Creatine Kinase (55-170) U/L Troponin I (0.000-0.034) ng/mL NT-Pro-B Natriuret Pep (19.9-100) pg/mL Total Protein Cancelled Albumin Cancelled TSH 0.556 (0.465-4.680) uIU/mL Urine Color Dark yellow (Yellow) Urine Appearance Clear (Clear) Urine pH 5.5 (5.0-9.0) Ur Specific [place] 1.031 (1.001-1.035) Urine Protein 2+ H (Negative) mg/dL Urine Glucose (UA) Negative (Negative) mg/dL Urine Ketones 2+ H (Negative) mg/dL Ur Blood (Man) Negative (Negative) Urine Nitrate Negative (Negative) Urine Bilirubin Negative (Negative) Urine Urobilinogen 0.2 (<2.0) mg/dL Add Ur Microanalysis Reviewed Leukocyte Esterase Rfl Negative (Negative) JORJE/UL Urine RBC 0-2 (0-2) /hpf Urine WBC 0-5 (0-3) /hpf Ur Squamous Epith Cells None seen (Few) /hpf Urine Bacteria None seen /hpf Urine Casts 0-2 Salicylates (2-20) mg/dL Urine Opiates Screen Negative (Negative) Urine Methadone Screen Negative (Negative) Acetaminophen (10-30) ug/mL Ur Barbiturates Screen Negative (Negative) Pregabalin Levetiracetam Ur Phencyclidine Scrn Negative (Negative) Ur Amphetamine Screen Negative (Negative) U Benzodiazepines Scrn Negative (Negative) Urine Cocaine Screen Negative (Negative) U Cannabinoids Screen Negative (Negative) Ethyl Alcohol (<10) mg/dL Influenza A (RT-PCR) Negative (Negative) Influenza B (RT-PCR) Negative (Negative) RSV (RT-PCR) Negative (Negative) SARS-CoV-2 RNA (RT-PCR) Negative (Negative) 10/06/24 10/06/24 10/06/24 Range/Units 00:11 00:13 01:28 WBC (4.5-10.0) K/mm3 RBC (4.6-6.20) M/mm3 Hgb (14.0-18.0) g/dL Hct (42.0-52.0) % MCV (80-100) fl MCH (26-34) pg MCHC (32-36) g/dl RDW (11.5-14.5) % Plt Count (150-375) k/mm3 MPV (7.4-10.4) fl Immature Gran % (Auto) (0-0.5) % Neut % (Auto) (45.5-73.1) % Lymph % (Auto) (18.3-44.2) % [place] % (Auto) (2.6-8.5) % Eos % (Auto) (0-4.4) % Baso % (Auto) (0.2-1.2) % Lymph # (Auto) (0.9-3.2) K/mm3 [place] # (Auto) (0.1-0.6) K/mm3 Eos # (Auto) (0-0.3) K/mm3 Baso # (Auto) (0.0-0.1) K/mm3 Abs Immat Gran (auto) (0.00-0.031) K/mm3 Absolute Neuts (auto) (1.3-6.7) K/mm3 Absolute Nucleated RBC (0.0-0.012) K/mm3 Nucleated RBC % (0.0-0.2) % PT (11.1-14.7) Seconds INR APTT (22.3-36.8) Seconds D-Dimer (<0.48) ug/mL Sodium 148 H Potassium 3.9 Chloride 114 H Carbon Dioxide 24 Anion Gap 10 BUN 34 H D Creatinine 0.92 Estim Creat Clear Calc 87 Estimated GFR > 60 Glucose 136 H Calcium 9.5 Magnesium 1.8 (1.6-2.3) mg/dL Total Bilirubin 1.4 H AST 26 ALT 24 Alkaline Phosphatase 75 Ammonia Cancelled < 9 L Total Creatine Kinase 100 (55-170) U/L Troponin I 0.027 (0.000-0.034) ng/mL NT-Pro-B Natriuret Pep 578 H (19.9-100) pg/mL Total Protein 7.0 Albumin 4.1 TSH (0.465-4.680) uIU/mL Urine Color (Yellow) Urine Appearance (Clear) Urine pH (5.0-9.0) Ur Specific [place] (1.001-1.035) Urine Protein (Negative) mg/dL Urine Glucose (UA) (Negative) mg/dL Urine Ketones (Negative) mg/dL Ur Blood (Man) (Negative) Urine Nitrate (Negative) Urine Bilirubin (Negative) Urine Urobilinogen (<2.0) mg/dL Add Ur Microanalysis Leukocyte Esterase Rfl (Negative) JORJE/UL Urine RBC (0-2) /hpf Urine WBC (0-3) /hpf Ur Squamous Epith Cells (Few) /hpf Urine Bacteria /hpf Urine Casts Salicylates < 1.0 L (2-20) mg/dL Urine Opiates Screen (Negative) Urine Methadone Screen (Negative) Acetaminophen < 10 L (10-30) ug/mL Ur Barbiturates Screen (Negative) Pregabalin Pending Levetiracetam Pending Ur Phencyclidine Scrn (Negative) Ur Amphetamine Screen (Negative) U Benzodiazepines Scrn (Negative) Urine Cocaine Screen (Negative) U Cannabinoids Screen (Negative) Ethyl Alcohol < 10 (<10) mg/dL Influenza A (RT-PCR) (Negative) Influenza B (RT-PCR) (Negative) RSV (RT-PCR) (Negative) SARS-CoV-2 RNA (RT-PCR) (Negative) <Lola Gustafson MD - Last Filed: 10/06/24 00:33> Lab Results 10/05/24 10/05/24 10/05/24 Range/Units 18:07 18:08 18:15 WBC 12.3 H (4.5-10.0) K/mm3 RBC 5.17 (4.6-6.20) M/mm3 Hgb 14.1 (14.0-18.0) g/dL Hct 43.6 (42.0-52.0) % MCV 84.3 (80-100) fl MCH 27.3 (26-34) pg MCHC 32.3 (32-36) g/dl RDW 15.6 H (11.5-14.5) % Plt Count 293 D (150-375) k/mm3 MPV 11.8 H (7.4-10.4) fl Immature Gran % (Auto) 0.2 (0-0.5) % Neut % (Auto) 72.4 (45.5-73.1) % Lymph % (Auto) 18.4 (18.3-44.2) % [place] % (Auto) 8.8 H (2.6-8.5) % Eos % (Auto) 0.0 (0-4.4) % Baso % (Auto) 0.2 (0.2-1.2) % Lymph # (Auto) 2.26 (0.9-3.2) K/mm3 [place] # (Auto) 1.1 H (0.1-0.6) K/mm3 Eos # (Auto) 0.0 (0-0.3) K/mm3 Baso # (Auto) 0.0 (0.0-0.1) K/mm3 Abs Immat Gran (auto) 0.03 (0.00-0.031) K/mm3 Absolute Neuts (auto) 8.9 H (1.3-6.7) K/mm3 Absolute Nucleated RBC 0.000 (0.0-0.012) K/mm3 Nucleated RBC % 0.0 (0.0-0.2) % PT 15.2 H (11.1-14.7) Seconds INR 1.1 APTT 25.3 (22.3-36.8) Seconds D-Dimer 0.46 (<0.48) ug/mL Sodium Cancelled Potassium Cancelled Chloride Cancelled Carbon Dioxide Cancelled Anion Gap Cancelled BUN Cancelled Creatinine Cancelled Estim Creat Clear Calc Cancelled Estimated GFR Cancelled Glucose Cancelled Calcium Cancelled Magnesium (1.6-2.3) mg/dL Total Bilirubin Cancelled AST Cancelled ALT Cancelled Alkaline Phosphatase Cancelled Ammonia Total Creatine Kinase (55-170) U/L Troponin I (0.000-0.034) ng/mL NT-Pro-B Natriuret Pep (19.9-100) pg/mL Total Protein Cancelled Albumin Cancelled TSH 0.556 (0.465-4.680) uIU/mL Urine Color Dark yellow (Yellow) Urine Appearance Clear (Clear) Urine pH 5.5 (5.0-9.0) Ur Specific [place] 1.031 (1.001-1.035) Urine Protein 2+ H (Negative) mg/dL Urine Glucose (UA) Negative (Negative) mg/dL Urine Ketones 2+ H (Negative) mg/dL Ur Blood (Man) Negative (Negative) Urine Nitrate Negative (Negative) Urine Bilirubin Negative (Negative) Urine Urobilinogen 0.2 (<2.0) mg/dL Add Ur Microanalysis Reviewed Leukocyte Esterase Rfl Negative (Negative) JORJE/UL Urine RBC 0-2 (0-2) /hpf Urine WBC 0-5 (0-3) /hpf Ur Squamous Epith Cells None seen (Few) /hpf Urine Bacteria None seen /hpf Urine Casts 0-2 Salicylates (2-20) mg/dL Urine Opiates Screen Negative (Negative) Urine Methadone Screen Negative (Negative) Acetaminophen (10-30) ug/mL Ur Barbiturates Screen Negative (Negative) Pregabalin Levetiracetam Ur Phencyclidine Scrn Negative (Negative) Ur Amphetamine Screen Negative (Negative) U Benzodiazepines Scrn Negative (Negative) Urine Cocaine Screen Negative (Negative) U Cannabinoids Screen Negative (Negative) Ethyl Alcohol (<10) mg/dL Influenza A (RT-PCR) Negative (Negative) Influenza B (RT-PCR) Negative (Negative) RSV (RT-PCR) Negative (Negative) SARS-CoV-2 RNA (RT-PCR) Negative (Negative) 10/06/24 10/06/24 10/06/24 Range/Units 00:11 00:13 01:28 WBC (4.5-10.0) K/mm3 RBC (4.6-6.20) M/mm3 Hgb (14.0-18.0) g/dL Hct (42.0-52.0) % MCV (80-100) fl MCH (26-34) pg MCHC (32-36) g/dl RDW (11.5-14.5) % Plt Count (150-375) k/mm3 MPV (7.4-10.4) fl Immature Gran % (Auto) (0-0.5) % Neut % (Auto) (45.5-73.1) % Lymph % (Auto) (18.3-44.2) % [place] % (Auto) (2.6-8.5) % Eos % (Auto) (0-4.4) % Baso % (Auto) (0.2-1.2) % Lymph # (Auto) (0.9-3.2) K/mm3 [place] # (Auto) (0.1-0.6) K/mm3 Eos # (Auto) (0-0.3) K/mm3 Baso # (Auto) (0.0-0.1) K/mm3 Abs Immat Gran (auto) (0.00-0.031) K/mm3 Absolute Neuts (auto) (1.3-6.7) K/mm3 Absolute Nucleated RBC (0.0-0.012) K/mm3 Nucleated RBC % (0.0-0.2) % PT (11.1-14.7) Seconds INR APTT (22.3-36.8) Seconds D-Dimer (<0.48) ug/mL Sodium 148 H Potassium 3.9 Chloride 114 H Carbon Dioxide 24 Anion Gap 10 BUN 34 H D Creatinine 0.92 Estim Creat Clear Calc 87 Estimated GFR > 60 Glucose 136 H Calcium 9.5 Magnesium 1.8 (1.6-2.3) mg/dL Total Bilirubin 1.4 H AST 26 ALT 24 Alkaline Phosphatase 75 Ammonia Cancelled < 9 L Total Creatine Kinase 100 (55-170) U/L Troponin I 0.027 (0.000-0.034) ng/mL NT-Pro-B Natriuret Pep 578 H (19.9-100) pg/mL Total Protein 7.0 Albumin 4.1 TSH (0.465-4.680) uIU/mL Urine Color (Yellow) Urine Appearance (Clear) Urine pH (5.0-9.0) Ur Specific [place] (1.001-1.035) Urine Protein (Negative) mg/dL Urine Glucose (UA) (Negative) mg/dL Urine Ketones (Negative) mg/dL Ur Blood (Man) (Negative) Urine Nitrate (Negative) Urine Bilirubin (Negative) Urine Urobilinogen (<2.0) mg/dL Add Ur Microanalysis Leukocyte Esterase Rfl (Negative) JORJE/UL Urine RBC (0-2) /hpf Urine WBC (0-3) /hpf Ur Squamous Epith Cells (Few) /hpf Urine Bacteria /hpf Urine Casts Salicylates < 1.0 L (2-20) mg/dL Urine Opiates Screen (Negative) Urine Methadone Screen (Negative) Acetaminophen < 10 L (10-30) ug/mL Ur Barbiturates Screen (Negative) Pregabalin Pending Levetiracetam Pending Ur Phencyclidine Scrn (Negative) Ur Amphetamine Screen (Negative) U Benzodiazepines Scrn (Negative) Urine Cocaine Screen (Negative) U Cannabinoids Screen (Negative) Ethyl Alcohol < 10 (<10) mg/dL Influenza A (RT-PCR) (Negative) Influenza B (RT-PCR) (Negative) RSV (RT-PCR) (Negative) SARS-CoV-2 RNA (RT-PCR) (Negative) <Tres Jj MD - Last Filed: 10/06/24 04:29> ECG Data EKG #1: Attestation: I personally reviewed and interpreted this ECG as follows: < Lola Gustafson MD - Last Filed: 10/06/24 00:33> ECG completion date: 10/05/24 <Lola Gustafson MD - Last Filed: 10/06/24 00:33> ECG completion time: 17:14 <Lola Gustafson MD - Last Filed: 10/06/24 00:33> Prior ECG tracings: available for review (09/23/2024 showed a sinus rhythm at that time) <Lola Gustafson MD - Last Filed: 10/06/24 00:33> Interpretation: Pre populated rhythm suggests ectopic atrial tachycardia although there do appear to be P-waves appreciated in leads 3, 1, AVR thus I suspect this is sinus tachycardia. NM interval 160. QRS 85. QT/QTC 306/383. Normal. No T-wave inversions <Lola Gustafson MD - Last Filed: 10/06/24 00:33> Restraint Face to Face Eval ED Reason for Restraint Aggressive/Violent <Lola Gustafson MD - Last Filed: 10/06/24 00:33> Evaluation Findings Date Seen by EDP: 10/05/24 <Lola Gustafson MD - Last Filed: 10/06/24 00:33> Time Seen by EDP: 20:00 <Lola Gustafson MD - Last Filed: 10/06/24 00:33> Pt's immediate situation:: agitated, spitting, kicking, can not facilitate studies. S/p Ativan, Haldol, olanzapine. Will also give midazolam 5. <Lola Gustafson MD - Last Filed: 10/06/24 00:33> Pt's reaction to intervention:: Calmed down <Tres Jj MD - Last Filed: 10/06/24 04:29> Pt's med/behavioral condition:: Pulling out IV lines, Trying to get out of bed. <Tres Jj MD - Last Filed: 10/06/24 04:29> Restraint or Seclusion Need Need to continue or terminate:: Continue. <Tres Jj MD - Last Filed: 10/06/24 04:29> Discharge Plan Discharge Clinical Impression: Altered mental status, Proteinuria, Ketonuria, Leukocytosis, Pleural effusion on left <Lola Gustafson MD - Last Filed: 10/06/24 00:33> Patient Disposition: Still a Patient <Lola Gustafson MD - Last Filed: 10/06/24 00:33> Condition: Stable <Lola Gustafson MD - Last Filed: 10/06/24 00:33> Patient Language: Irish <Lola Gustafson MD - Last Filed: 10/06/24 00:33> Prescriptions: No Action aspirin 81 mg Tablet,Delayed Release (Dr/Ec) 81 mg PO DAILY multivitamin Tablet 1 tablet PO DAILY metformin 500 mg tablet extended release 24 hr 500 mg PO BID losartan 50 mg tablet 50 mg PO DAILY propranolol 80 mg capsule,extended release 24 hr 80 mg PO DAILY quetiapine 50 mg tablet 50 mg PO QHS citalopram 10 mg tablet 10 mg PO DAILY Qty: 90 0RF citalopram [Celexa] 40 mg tablet 40 mg PO DAILY Qty: 90 0RF hydrocodone-acetaminophen 5-325 mg tablet 1 tablet PO Q6H PRN (Reason: Pain (Scale Score 7-10)) ibuprofen 600 mg Tablet 600 mg PO Q6H PRN (Reason: Moderate Pain (Scale Score 5-6)) cyclobenzaprine 5 mg tablet 5 mg PO TID PRN (Reason: Muscle Spasm) Patient Comments: Has not taken for approx 6 months as Pt. is unable to refill with new provider (DME) CPAP machine and supplies See Rx Instructions .Route .MEDSUPPLY Qty: 1 1RF Rx Instructions: Needs machine, mask, tubing, chamber and filters. atorvastatin 40 mg tablet 40 mg PO QHS Qty: 90 2RF levetiracetam [Keppra] 750 mg tablet 750 mg PO BID Qty: 60 5RF pregabalin 100 mg capsule 100 mg PO BID Qty: 180 1RF <Lola Gustafson MD - Last Filed: 10/06/24 00:33> Follow-up/Referrals: Rosana Zhang MD [Primary Care Provider] - <Lola Gustafson MD - Last Filed: 10/06/24 00:33>
[2024-10-05 17:37] VITALS: TEMP 38.4
[2024-10-05] MEDS: LORazepam INJ (*CRX) 2 MG/ML VIAL 0.5 MG IV PUSH (18:05)
[2024-10-05] MEDS: HALOPERIDOL LACTATE 5 MG/ML VIAL IV PUSH (18:15)
[2024-10-05 18:19] LABS: Basophils Percent Auto 0.2 % (0.2-1.2); Hematocrit 43.6 % (42.0-52.0); Hemoglobin 14.1 g/dL (14.0-18.0); Immature Granulocyte Absolute 0.03 K/mm3 (0.00-0.031); Immature Granulocyte Percent A 0.2 % (0-0.5); Lymphocytes Absolute Auto 2.26 K/mm3 (0.9-3.2); Lymphocytes Percent Auto 18.4 % (18.3-44.2); Mean Corpuscular HGB Conc 32.3 g/dl (32-36); Mean Corpuscular Hemoglobin 27.3 pg (26-34); Mean Corpuscular Volume 84.3 fl (80-100); Mean Platelet Volume 11.8 fl (7.4-10.4); Monocytes Absolute Auto 1.1 K/mm3 (0.1-0.6); Monocytes Percent Auto 8.8 % (2.6-8.5); Neutrophils Absolute Auto 8.9 K/mm3 (1.3-6.7); Neutrophils Percent Auto 72.4 % (45.5-73.1); Platelet Count Result 293 k/mm3 (150-375); Red Blood Count 5.17 M/mm3 (4.6-6.20); Red Cell Distribution Width 15.6 % (11.5-14.5); White Blood Count 12.3 K/mm3 (4.5-10.0)
[2024-10-05] MEDS: ACETAMINOPHEN 650 MG SUPPOSITORY RECTAL (18:27)
[2024-10-05] MEDS: SODIUM CHLORIDE 0.9% IV 1,000 ML 999 ML IV CONT (18:27)
[2024-10-05 18:35] LABS: INR 1.1; Partial Thromboplastin Time 25.3 Seconds (22.3-36.8); Prothrombin Time 15.2 Seconds (11.1-14.7)
[2024-10-05 18:36] LABS: Amphetamine Screen Urine Negative (Negative); Barbiturate Screen Urine Negative (Negative); Benzodiazepines Screen Urine Negative (Negative); Cannabinoid Screen Urine Negative (Negative); Cocaine Screen Urine Negative (Negative); Methadone Screen Urine Negative (Negative); Opiate Screen Urine Negative (Negative); Phencyclidine Screen Urine Negative (Negative)
--- NOTE | 2024-10-05 18:39 | PC.NURSE ---
Pt presented with altered mental status, non verbal mumbling, twitching to x4 extremities, rolling from side to side. Unable to redirect. Medicated with Ativan with no change. Dr. Gustafson at bedside assessed pt. Pt medicated with Haldol with no change in assessment. Dr. Gustafson aware CT unable to perform CT due to agitation
[2024-10-05 18:41] LABS: Add Urine Microscopic? YES; Appearance Urine Clear (Clear); Bacteria Urine None Seen /hpf; Bilirubin Urine Negative (Negative); Blood Urine Negative (Negative); Color Urine Dark Yellow (Yellow); Glucose Urine UA Negative (Negative); Ketones Urine 2+ mg/dL (Negative); Leukocyte Esterase Ur Negative LEU/UL (Negative); Need Manual Microscopic Reviewed; Nitrate Urine Negative (Negative); Non Pathogenic Casts 0-2; Protein Urine 2+ mg/dL (Negative); RBC Urine 0-2 /hpf (0-2); Specific Grav Ur 1.031 (1.001-1.035); Squamous Epithelial Cell Urine None Seen /hpf (Few); Urobilinogen Urine 0.2 mg/dL (<2.0); WBC Urine 0-5 /hpf (0-3); pH Urine 5.5 (5.0-9.0)
--- NOTE | 2024-10-05 18:43 | PC.NURSE ---
Son reports to this RN it is his opinion that his father has not been taking his meds as an act of self harm. Pt unable to comprehend any questions concerning these concerns. Dr. Gustafson informed
[2024-10-05 18:44] LABS: D Dimer 0.46 ug/mL (<0.48)
[2024-10-05 18:58] LABS: Influenza A QL RT-PCR Negative (Negative); Influenza B QL RT-PCR Negative (Negative); RSV RNA, RT-PCR Negative (Negative); SARS-CoV-2 RNA PCR Negative (Negative)
[2024-10-05] MEDS: OLANZapine 10 MG INJ VIAL IM (19:04)
[2024-10-05 19:07] LABS: Thyroid Stimulating Hormone 0.556 uIU/mL (0.465-4.680)
[2024-10-05 20:48] VITALS: PULSE 93; RESP 20; O2SAT 99
[2024-10-05] MEDS: MIDAZOLAM HCL (*CRX) 2 MG/2 ML VIAL 5 MG IV PUSH (21:08)
[2024-10-06] VITALS (11 sets, daily range): BP systolic 120–144; BP diastolic 63–99; PULSE 100–121; RESP 17–21; TEMP 36.1–37.1; O2SAT 90–100; BMI 32.3
[2024-10-06 00:31] LABS: Acetaminophen < 10 ug/mL (10-30); Ethanol < 10 mg/dL (<10); Salicylate < 1.0 mg/dL (2-20)
[2024-10-06 01:05] LABS: Alanine Aminotransferase 24 U/L (6-50); Albumin Level 4.1 g/dL (3.5-5.1); Alkaline Phosphatase 75 U/L (38-126); Anion Gap 10 mmol/L (4-12); Aspartate Amino Transferase 26 U/L (17-59); Bilirubin,Total 1.4 mg/dL (0.2-1.3); Blood Urea Nitrogen 34 mg/dL (9-20); Calcium 9.5 mg/dL (8.4-10.2); Carbon Dioxide 24 mmol/L (22-30); Chloride 114 mmol/L (98-107); Creatine Kinase 100 U/L (55-170); Estimated CRCL calculation 87 ml/min; Estimated Glomerular Filt Rate > 60; Glucose 136 mg/dL (65-110); Magnesium 1.8 mg/dL (1.6-2.3); Potassium 3.9 mmol/L (3.4-5.0); Sodium 148 mmol/L (137-145)
[2024-10-06 01:16] LABS: NT Pro B Type Natriuretic Pept 578 pg/mL (19.9-100); Troponin I 0.027 ng/mL (0.000-0.034)
[2024-10-06 01:47] LABS: Ammonia < 9 umol/L (9-30)
[2024-10-06] MEDS: SODIUM CHLORIDE 0.9% IV 1,000 ML 999 ML IV CONT ×2 (03:30→06:16)
[2024-10-06 07:49] LABS: Lactic Acid Reflex 1.4 mmol/L (0.7-2.0)
[2024-10-06] MEDS: SODIUM CHLORIDE 0.9% IV 1,000 ML 100 ML IV CONT (08:34)
[2024-10-06] MEDS: CEFEPIME 2 GM/NS 50 ML 2 GM/50 ML BAG IVPB ×2 (09:34→20:19)
[2024-10-06 11:57] LABS: Glucose Point of Care 147 mg/dl (65-105)
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
--- NOTE | 2024-10-06 12:38 | P.CONNEU_ITS ---
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 Ongoing neurological problem with complicated psychiatric problem as well requiring the long-term placement. 2. Will need the ongoing follow-up with the psychiatrist for which the arrangements have been made. 3. The findings of meningioma Which has been stable on different scans , Obviously not a candidate for the neurosurgical intervention. 4. Seizure disorder for which patient is already on Keppra 750mg twice a day 5. Underlying bipolar illness but patient is receiving only Seroquel 50mg at night with citalopram 10mg daily will benefit from the psychiatric opinion And arrangement has been made to be seen as an outpatient. Please do not hesitate to contact me if any question arises. I agree with the plan. Consult date: 10/13/24 HPI: Ernst Malave is a 68 year old male Has been admitted to the hospital through the emergency room for the concerns that he is trying to hurt himself by either not taking the medication or some time taking 2 of the medication same time as per the account of the pelvis. Recently he was taken off 1 of his blood pressure medication as well as Wellbutrin because of concern about the seizure threshold he also intermittently complains of head and neck pain on a chronic basis and the son has also noted that leave a cab blurry is limited he does not talk much the family had considered assisted living place and also appointment with a psychiatrist as an outpatient otherwise he has been uncooperative with the home nurse physical therapist. He has been taking multiple medications which includes aspirin 81mg daily, cyclobenzaprine 5mg 3 times a day on PRN basis, hydrocodone 1 tablet q.6 hours p.r.n., ibuprofen 600mg q.6 hours p.r.n., losartan 50mg daily, metformin 500mg b.i.d., propranolol 80mg daily, and Seroquel 50mg at night. He is allergic to penicillin and some blood pressure medications. He carries the diagnosis of 1. Bipolar disorder 2. Chronic low back 3. Meningioma of the right sphenoid wing involving the cavernous sinus 4. Seizure disorder 5. Diabetes mellitus with diabetic peripheral neuropathy and autonomic neuropathy. He has never smoker, currently 4 drinks per week of alcohol, on initial evaluation in the emergency room his temp was 97.2? with blood pressure 108/80 otherwise vital signs were normal, patient has been admitted to the hospital for the complaints of change in the mental status his CBC was normal, basic metabolic panel was borderline abnormal, and the mass scan was negative including the urine for drug screen, I reviewed the previous records, his brain MRI has confirmed 15mm right sphenoid wing meningioma, head and neck CTA has documented no aneurysm or significant intracranial arterial stenosis, and he has been documented to have on examination in the past diabetes mellitus with peripheral neuropathy resulting the recurrent fall in addition to ongoing problems with the depression sleep apnea and also ongoing bipolar illness. 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 Depression determined by examination MCI (mild cognitive impairment) with memory loss Seizure disorder Dizziness Obstructive sleep apnea on CPAP Frequent falls Neuropathy Hyperlipidemia Diabetes type 2, controlled Crush injury of foot As a child left foot Surgical History Surgical History Status post open reduction with internal fixation of fracture Left foot due to crush injury as a child History of shoulder replacement Bilateral Family History Family History Unknown Hypertension Depression Diabetes mellitus Cerebrovascular accident Neuropathy Social History Social History Social History: The patient is still but he and his have been legally since 2018. 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 He denies any history of tobacco or alcohol use. Code status: DNR/DNI per patient request Healthcare power of mergers and acquisitions attorney: Lalo (son) Smoking status: Never smoker Alcohol intake: unknown Drinks per week: 4 Alcohol use details: occasionally Substance use: never Substance use type: does not use Other substance usage details: Son says patient rarely drinks alcohol Do You Feel Safe in your Home?: Yes Lack of Transportation: YES Lack of Food: Never True Current Housing: I Do Not Have Housing Concerned About Future Housing: No Difficulty Paying Gas/Electric Bills: No Difficulty Paying for Meds: No Currently Unemployed: No Education: Trade/Vocational Certificate Difficulty w/ Childcare or Family Care: No Occupation/Education: retired Gender identity (if verbalized by the patient): Male Spiritual care concerns: No Agree to blood products: Yes Meds Home Medications and Allergies Home Medications ?Medication ?Instructions ?Recorded ?Confirmed ?Type aspirin 81 mg tablet,delayed 81 mg PO DAILY 01/11/23 10/06/24 History release multivitamin 1 tablet PO DAILY 12/22/23 10/06/24 History cyclobenzaprine 5 mg tablet 5 mg PO TID PRN Muscle Spasm 04/10/24 10/06/24 History hydrocodone 5 mg-acetaminophen 325 1 tablet PO Q6H PRN Pain (Scale 04/10/24 10/06/24 History mg tablet Score 7-10) ibuprofen 600 mg tablet 600 mg PO Q6H PRN Moderate Pain 04/10/24 10/06/24 History (Scale Score 5-6) metformin 500 mg tablet,extended 500 mg PO BID 04/23/24 10/06/24 History release 24 hr propranolol 80 mg capsule,24 80 mg PO DAILY 04/23/24 10/06/24 History hr,extended release CPAP machine and supplies #1 ea 05/03/24 09/30/24 Rx atorvastatin 40 mg tablet 40 mg PO QHS #90 tabs 05/25/24 10/06/24 Rx quetiapine 50 mg tablet 50 mg PO QHS 08/18/24 10/06/24 History levetiracetam 750 mg tablet 750 mg PO BID #60 tabs 08/23/24 10/06/24 Rx (Keppra) citalopram 40 mg tablet (Celexa) 40 mg PO DAILY #90 tabs 09/30/24 10/06/24 Rx pregabalin 50 mg capsule (Lyrica) 50 mg PO BID #90 caps 10/12/24 Rx Allergies Allergy/AdvReac Type Severity Reaction Status Date / Time Penicillins Allergy Hives Verified 10/11/24 12:11 blood pressure med AdvReac Headache Uncoded 10/05/24 18:45 Vital Signs Vital Signs - 24 hr 10/05/24 16:53 10/05/24 16:53 10/05/24 17:37 Temperature 36.2 C L 38.4 C H Pulse Rate 137 H Respiratory Rate 18 Blood Pressure 108/80 Pulse Oximetry 98 98 Oxygen Delivery Room Air Room Air 10/05/24 20:48 10/06/24 00:19 10/06/24 02:04 Temperature 37.1 C 37.1 C Pulse Rate 93 120 H Respiratory Rate 20 21 H Blood Pressure 134/97 H Pulse Oximetry 99 100 Oxygen Delivery 10/06/24 02:32 10/06/24 02:32 10/06/24 05:13 Temperature Pulse Rate 115 H 121 H 100 Respiratory Rate 20 19 Blood Pressure 131/99 H 139/85 Pulse Oximetry 99 99 Oxygen Delivery 10/06/24 06:36 10/06/24 06:41 10/06/24 06:45 Temperature 37.1 C Pulse Rate 100 104 H Respiratory Rate 19 20 Blood Pressure 139/85 141/84 H Pulse Oximetry 99 99 Oxygen Delivery Room Air 10/06/24 08:00 10/06/24 08:00 10/06/24 08:15 Temperature 36.1 C L Pulse Rate 116 H 115 H Respiratory Rate 18 Blood Pressure 144/90 H Pulse Oximetry 90 Oxygen Delivery Room Air 10/06/24 12:00 Temperature Pulse Rate 118 H Respiratory Rate Blood Pressure Pulse Oximetry Oxygen Delivery Exam 2 Narrative: Reveals him to be awake alert not following all the verbal commands appropriately lying in bed in supine position head normocephalic with no bruit, ear nose throat examination normal, neck supple with no meningeal signs, heart regular, lungs clear to auscultation with no crepitations, abdomen is soft nontender with normal bowel sounds, neurologically he is awake alert does not follow all the verbal commands appropriately his speech is of low volume and mildly dysphasic and dysarthric, pupils round regular feels the vision were full to confrontation only in the horizontal case there was no spontaneous nystagmus or nystagmus when he looked around in the horizontal gaze. Facial sensation was intact face was symmetrical on minimal conversation tongue was in the oral cavity with no fasciculation and motor examination revealed him to generally weak 4/5 and at this stage not able to walk there were no abnormal movements at this particular time. Results Labs 10/09/24 06:18 10/12/24 05:30 Labs: Short CBC 10/05/24 Range/Units 18:08 WBC 12.3 H (4.5-10.0) K/mm3 Hgb 14.1 (14.0-18.0) g/dL Hct 43.6 (42.0-52.0) % Plt Count 293 D (150-375) k/mm3 BMP 10/05/24 10/06/24 18:08 00:11 Sodium Cancelled 148 H Potassium Cancelled 3.9 Chloride Cancelled 114 H Carbon Dioxide Cancelled 24 BUN Cancelled 34 H D Creatinine Cancelled 0.92 Glucose Cancelled 136 H Calcium Cancelled 9.5 Cardiac Enzymes 10/06/24 Range/Units 00:11 Total Creatine Kinase 100 (55-170) U/L Troponin I 0.027 (0.000-0.034) ng/mL Liver Function 10/05/24 10/06/24 Range/Units 18:08 00:11 Total Bilirubin Cancelled 1.4 H AST Cancelled 26 ALT Cancelled 24 Alkaline Phosphatase Cancelled 75 Albumin Cancelled 4.1 Urine 10/05/24 Range/Units 18:08 Urine Color Dark yellow (Yellow) Urine Appearance Clear (Clear) Urine pH 5.5 (5.0-9.0) Ur Specific [place] 1.031 (1.001-1.035) Urine Protein 2+ H (Negative) mg/dL Urine Glucose (UA) Negative (Negative) mg/dL
[2024-10-06 17:08] LABS: Glucose Point of Care 141 mg/dl (65-105)
[2024-10-06] MEDS: PREGABALIN (*CRX) 50 MG CAPSULE 100 MG PO (17:50)
[2024-10-06] MEDS: IBUPROFEN 600 MG TABLET PO (17:50)
[2024-10-06] MEDS: levETIRAcetam 250 MG TABLET 750 MG PO (17:50)
[2024-10-06] MEDS: QUEtiapine FUMARATE 25 MG TABLET 50 MG PO (20:18)
[2024-10-06] MEDS: ATORVASTATIN 40 MG TABLET PO (20:18)
[2024-10-06 20:38] LABS: Glucose Point of Care 124 mg/dl (65-105)
[2024-10-07] VITALS (9 sets, daily range): BP systolic 100–147; BP diastolic 56–93; PULSE 65–101; RESP 16–20; TEMP 36.4–36.9; O2SAT 97–99
[2024-10-07 06:40] LABS: Hematocrit 34.9 % (42.0-52.0); Hemoglobin 10.8 g/dL (14.0-18.0); Mean Corpuscular HGB Conc 30.9 g/dl (32-36); Mean Corpuscular Hemoglobin 27.1 pg (26-34); Mean Corpuscular Volume 87.5 fl (80-100); Mean Platelet Volume 11.8 fl (7.4-10.4); Platelet Count Result 186 k/mm3 (150-375); Red Blood Count 3.99 M/mm3 (4.6-6.20); Red Cell Distribution Width 15.9 % (11.5-14.5); White Blood Count 5.8 K/mm3 (4.5-10.0)
--- NOTE | 2024-10-07 06:40 | PC.NURSE ---
Patient has very little output this shift. Bladder scan done with 639 ml retention. Spoke with Dr. Baugh. New order received to straight cath patient.
[2024-10-07 06:52] LABS: Anion Gap 5 mmol/L (4-12); Blood Urea Nitrogen 18 mg/dL (9-20); Calcium 8.6 mg/dL (8.4-10.2); Carbon Dioxide 26 mmol/L (22-30); Chloride 113 mmol/L (98-107); Estimated CRCL calculation 96 ml/min; Estimated Glomerular Filt Rate > 60; Glucose 111 mg/dL (65-110); Potassium 3.4 mmol/L (3.4-5.0); Sodium 144 mmol/L (137-145)
[2024-10-07 07:56] LABS: Glucose Point of Care 113 mg/dl (65-105)
[2024-10-07] MEDS: CEFEPIME 2 GM/NS 50 ML 2 GM/50 ML BAG IVPB ×2 (09:49→21:04)
[2024-10-07] MEDS: levETIRAcetam 250 MG TABLET 750 MG PO ×2 (09:50→17:19)
[2024-10-07] MEDS: PREGABALIN (*CRX) 50 MG CAPSULE 100 MG PO ×2 (09:50→17:21)
[2024-10-07] MEDS: PROPRANOLOL HCL 40 MG TABLET 80 MG PO (09:51)
[2024-10-07] MEDS: MULTIVITAMINS THERAPEUTIC TAB (*BKC) 1 TABLET PO (09:51)
[2024-10-07] MEDS: CITALOPRAM HYDROBROMIDE 20 MG TABLET 40 MG PO (09:51)
[2024-10-07] MEDS: ASPIRIN 81 MG ENTERIC TABLET PO (09:51)
[2024-10-07 11:53] LABS: Glucose Point of Care 148 mg/dl (65-105)
--- NOTE | 2024-10-07 12:41 | WPDNEUROPN ---
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 He should be seen by psychiatrist with regard to depression. He already has been seen by Neurosurgery with regard to the sphenoid wing meningioma which will require periodic follow-up only at this time. Subjective Date/time seen: 10/07/24 12:41 Interval history: 68-year-old with history of seizure disorder and depression was seen for follow-up. He saw me in my office previously in June 2024. He is currently on Keppra 1500 mg a day. He has had had separation from his 3-4 years ago and has been depressed. He is awaiting to see psychiatrist. He denies any specific symptoms. He has not had any seizures since admitted here. Review of Systems Review of Systems: He has some difficulty walking and balance. All systems reviewed & are unremarkable except as noted in HPI and below Exam Narrative: Fully conscious alert oriented to self time place and person. Cranial nerves in individual testing intact. Motor system normal power tone both upper lower limbs. No involuntary movements seen. No cogwheeling. Objective Data Vital Signs Vital Signs: Vital Signs - 24 hr 10/06/24 16:00 10/06/24 20:00 10/06/24 20:00 Temperature Pulse Rate 111 H 111 H Respiratory Rate Blood Pressure Pulse Oximetry Oxygen Delivery Room Air 10/06/24 21:39 10/07/24 00:00 10/07/24 04:00 Temperature 97.0 F L Pulse Rate 117 H 101 H 90 Respiratory Rate 17 Blood Pressure 120/63 Pulse Oximetry 98 Oxygen Delivery 10/07/24 06:26 10/07/24 07:30 10/07/24 09:51 Temperature 98.4 F Pulse Rate 96 96 Respiratory Rate 18 Blood Pressure 147/93 H Pulse Oximetry 99 Oxygen Delivery Room Air Intake/Output Intake/Output: Intake & Output 10/04/24 10/05/24 10/06/24 10/07/24 23:59 23:59 23:59 23:59 Intake Total 1000 4960 310 Output Total 300 675 Balance 1000 4964 -032 Meds/Results Medications: Active Medications Generic Name Dose Route Start Last Admin Trade Name Freq PRN Reason Stop Dose Admin Aspirin 81 mg 10/07/24 09:00 10/07/24 09:51 Aspirin 81 Mg Enteric Tablet PO 81 mg DAILY KAPIL Administration Atorvastatin Calcium 40 mg 10/06/24 21:00 10/06/24 20:18 Atorvastatin 40 Mg Tablet PO 40 mg QHS KAPIL Administration Citalopram Hydrobromide 40 mg 10/07/24 09:00 10/07/24 09:51 Citalopram Hydrobromide 20 Mg Tablet PO 40 mg DAILY KAPIL Administration Dextrose 12.5 gm 10/06/24 15:26 Dextrose 50% 25 Gm/50 Ml Syringe IV PUSH PRN PRN Hypoglycemia Protocol Glucagon 1 mg 10/06/24 15:26 Glucagon For Inj 1 Mg Vial IM PRN PRN Hypoglycemia Protocol Glucose 15 gm 10/06/24 15:26 Glucose Oral Gel 15 Gm Of Glucse In 37.5 Gm Tube PO PRN PRN Hypoglycemia Protocol Cefepime HCl 2 gm in 50 mls @ 100 mls/hr 10/06/24 09:05 10/07/24 10:19 Maxipime 2 Gm/Ns 50 Ml IVPB Infused Q12HR KAPIL Infusion Dextrose 1,000 mls @ 100 mls/hr 10/06/24 15:26 Dextrose 5% 1,000 Ml IVPB PRN PRN Hypoglycemia Protocol Ibuprofen 600 mg 10/06/24 11:40 10/06/24 17:50 Ibuprofen 600 Mg Tablet PO 600 mg Q6H PRN Administration Moderate Pain (Scale Score 5-6) Levetiracetam 750 mg 10/06/24 17:00 10/07/24 09:50 Levetiracetam 250 Mg Tablet PO 750 mg BID KAPIL Administration Multivitamins Therapeutic 1 tablet 10/07/24 09:00 10/07/24 09:51 Multivitamins Therapeutic Tab (*Bkc) PO 1 tablet DAILY KAPIL Administration Pregabalin 100 mg 10/06/24 17:00 10/07/24 09:50 Pregabalin (*Crx) 50 Mg Capsule PO 100 mg BID KAPIL Administration Propranolol HCl 80 mg 10/07/24 09:00 10/07/24 09:51 Propranolol Hcl 40 Mg Tablet PO 80 mg DAILY KAPIL Administration Quetiapine Fumarate 50 mg 10/06/24 21:00 10/06/24 20:18 Quetiapine Fumarate 25 Mg Tablet PO 50 mg QHS KAPIL Administration Radiology Results: ITS Impressions Chest X-Ray 10/05/24 20:21 IMPRESSION: Small left-sided pleural effusion, without focal infiltrate. Head CT 10/06/24 05:20 Impression: No significant abnormality seen. Cervical Spine CT 10/06/24 05:22 Impression: No fracture or subluxation of the cervical spine. Anterior and interbody fusion from C5 to C7. Advanced degenerative spondylosis, as above. Chest/Abdomen/Pelvis CT 10/06/24 05:26 Impression: No acute abnormality seen. Cholelithiasis. Labs Labs: Laboratory Results - last 24 hr 10/06/24 10/06/24 10/07/24 17:04 20:35 05:50 WBC 5.8 RBC 3.99 L Hgb 10.8 L D Hct 34.9 L MCV 87.5 MCH 27.1 MCHC 30.9 L RDW 15.9 H Plt Count 186 MPV 11.8 H Sodium 144 Potassium 3.4 Chloride 113 H Carbon Dioxide 26 Anion Gap 5 BUN 18 D Creatinine 0.83 Estim Creat Clear Calc 96 Estimated GFR > 60 Glucose 111 H POC Capillary Glucose 141 H 124 H Calcium 8.6 10/07/24 10/07/24 07:53 11:50 WBC RBC Hgb Hct MCV MCH MCHC RDW Plt Count MPV Sodium Potassium Chloride Carbon Dioxide Anion Gap BUN Creatinine Estim Creat Clear Calc Estimated GFR Glucose POC Capillary Glucose 113 H 148 H Calcium
--- NOTE | 2024-10-07 15:48 | PM.IMPN ---
Progress Note: A&P Assessment and Plan (1) Depression: Qualifiers: Depression Type: major depressive disorder Major depression recurrence: single episode Active/Remission status: in partial remission Qualified Code(s): F32.4 - Major depressive disorder, single episode, in partial remission Code(s): F32.A - Depression, unspecified Status: Acute Assessment and Plan: cialopram 40 mg, seroquel 50 mg wellbutrin was stopped last hospitalization as pt has h/o seizures psych referral in [place] per pcp- next month z[place] (2) Essential (primary) hypertension: Code(s): I10 - Essential (primary) hypertension Status: Acute Assessment and Plan: monitor (3) Hyperlipidemia: Qualifiers: Hyperlipidemia type: unspecified Qualified Code(s): E78.5 - Hyperlipidemia, unspecified Code(s): E78.5 - Hyperlipidemia, unspecified Status: Acute (4) Diabetes type 2, controlled: Qualifiers: Diabetes mellitus termite control service representative insulin use: without termite control service representative use Diabetes mellitus complication status: without complication Qualified Code(s): E11.9 - Type 2 diabetes mellitus without complications Code(s): E11.9 - Type 2 diabetes mellitus without complications Status: Acute Assessment and Plan: ac/hs accuchecks hypoglycemia protocol ill stop metfromin for now add ss if needed (5) Meningioma: Code(s): D32.9 - Benign neoplasm of meninges, unspecified Status: Acute Assessment and Plan: neurology following stable (6) Altered mental status: Qualifiers: Altered mental status type: unspecified Qualified Code(s): R41.82 - Altered mental status, unspecified Code(s): R41.82 - Altered mental status, unspecified Status: Acute Assessment and Plan: see #7 neurology consulted -better today, 10/07- more alert, appropriate (7) Sepsis: Code(s): A41.9 - Sepsis, unspecified organism Status: Acute Assessment and Plan: meets sepsis criteria with elevated HR, temp, wbc bc obtained, UA obtained, chest xray/ct done to rule out sources of sepsis and ams cefepime 2 gm q12h ordered Time Spent With Patient Time with patient: 25 - 35 minutes Subjective Date/time seen: 10/07/24 15:48 Interval history: pt is seen and examined. He is better today, more awake and alert. Neurology was consulted-no new recommendations. Will work with PT/OT Review of Systems Cardiovascular: Cardiovascular: Denies chest pain Respiratory: Respiratory: Denies chest congestion Gastrointestinal: Gastrointestinal: Denies abdominal pain Genitourinary: Genitourinary: Denies hematuria Musculoskeletal: Musculoskeletal: Denies back pain Exam Narrative: resting with eyes closed Const: General: comfortable Resp: Effort & Inspection: normal respiratory effort Auscultation: clear to auscultation bilaterally Cardio: Rate: regular rate Rhythm: regular rhythm Skin: General skin exam: normal color Neuro: Motor exam (neuro): 5/5 motor strength present throughout Extrem: General: normal to inspection Psych: Affect: normal affect Objective Data Vital Signs Vital Signs: Vital Signs - 24 hr 10/06/24 16:00 10/06/24 20:00 10/06/24 20:00 Temperature Pulse Rate 111 H 111 H Respiratory Rate Blood Pressure Pulse Oximetry Oxygen Delivery Room Air 10/06/24 21:39 10/07/24 00:00 10/07/24 04:00 Temperature 97.0 F L Pulse Rate 117 H 101 H 90 Respiratory Rate 17 Blood Pressure 120/63 Pulse Oximetry 98 Oxygen Delivery 10/07/24 06:26 10/07/24 07:30 10/07/24 09:51 Temperature 98.4 F Pulse Rate 96 96 Respiratory Rate 18 Blood Pressure 147/93 H Pulse Oximetry 99 Oxygen Delivery Room Air 10/07/24 14:00 Temperature 97.5 F L Pulse Rate 71 Respiratory Rate 16 Blood Pressure 100/61 Pulse Oximetry 99 Oxygen Delivery Intake/Output Intake/Output: Intake & Output 10/04/24 10/05/24 10/06/24 10/07/24 23:59 23:59 23:59 23:59 Intake Total 1000 4960 650 Output Total 300 675 Balance 1000 4660 -25 Meds/Results Medications: Active Medications Generic Name Dose Route Start Last Admin Trade Name Freq PRN Reason Stop Dose Admin Aspirin 81 mg 10/07/24 09:00 10/07/24 09:51 Aspirin 81 Mg Enteric Tablet PO 81 mg DAILY KAPIL Administration Atorvastatin Calcium 40 mg 10/06/24 21:00 10/06/24 20:18 Atorvastatin 40 Mg Tablet PO 40 mg QHS KAPIL Administration Citalopram Hydrobromide 40 mg 10/07/24 09:00 10/07/24 09:51 Citalopram Hydrobromide 20 Mg Tablet PO 40 mg DAILY KAPIL Administration Dextrose 12.5 gm 10/06/24 15:26 Dextrose 50% 25 Gm/50 Ml Syringe IV PUSH PRN PRN Hypoglycemia Protocol Glucagon 1 mg 10/06/24 15:26 Glucagon For Inj 1 Mg Vial IM PRN PRN Hypoglycemia Protocol Glucose 15 gm 10/06/24 15:26 Glucose Oral Gel 15 Gm Of Glucse In 37.5 Gm Tube PO PRN PRN Hypoglycemia Protocol Cefepime HCl 2 gm in 50 mls @ 100 mls/hr 10/06/24 09:05 10/07/24 10:19 Maxipime 2 Gm/Ns 50 Ml IVPB Infused Q12HR KAPIL Infusion Dextrose 1,000 mls @ 100 mls/hr 10/06/24 15:26 Dextrose 5% 1,000 Ml IVPB PRN PRN Hypoglycemia Protocol Ibuprofen 600 mg 10/06/24 11:40 10/06/24 17:50 Ibuprofen 600 Mg Tablet PO 600 mg Q6H PRN Administration Moderate Pain (Scale Score 5-6) Levetiracetam 750 mg 10/06/24 17:00 10/07/24 09:50 Levetiracetam 250 Mg Tablet PO 750 mg BID KAPIL Administration Multivitamins Therapeutic 1 tablet 10/07/24 09:00 10/07/24 09:51 Multivitamins Therapeutic Tab (*Bkc) PO 1 tablet DAILY KAPIL Administration Pregabalin 100 mg 10/06/24 17:00 10/07/24 09:50 Pregabalin (*Crx) 50 Mg Capsule PO 100 mg BID KAPIL Administration Propranolol HCl 80 mg 10/07/24 09:00 10/07/24 09:51 Propranolol Hcl 40 Mg Tablet PO 80 mg DAILY KAPIL Administration Quetiapine Fumarate 50 mg 10/06/24 21:00 10/06/24 20:18 Quetiapine Fumarate 25 Mg Tablet PO 50 mg QHS KAPIL Administration Radiology Results: ITS Impressions Chest X-Ray 10/05/24 20:21 IMPRESSION: Small left-sided pleural effusion, without focal infiltrate. Head CT 10/06/24 05:20 Impression: No significant abnormality seen. Cervical Spine CT 10/06/24 05:22 Impression: No fracture or subluxation of the cervical spine. Anterior and interbody fusion from C5 to C7. Advanced degenerative spondylosis, as above. Chest/Abdomen/Pelvis CT 10/06/24 05:26 Impression: No acute abnormality seen. Cholelithiasis. Labs Labs: Laboratory Results - last 24 hr 10/06/24 10/06/24 10/07/24 17:04 20:35 05:50 WBC 5.8 RBC 3.99 L Hgb 10.8 L D Hct 34.9 L MCV 87.5 MCH 27.1 MCHC 30.9 L RDW 15.9 H Plt Count 186 MPV 11.8 H Sodium 144 Potassium 3.4 Chloride 113 H Carbon Dioxide 26 Anion Gap 5 BUN 18 D Creatinine 0.83 Estim Creat Clear Calc 96 Estimated GFR > 60 Glucose 111 H POC Capillary Glucose 141 H 124 H Calcium 8.6 10/07/24 10/07/24 07:53 11:50 WBC RBC Hgb Hct MCV MCH MCHC RDW Plt Count MPV Sodium Potassium Chloride Carbon Dioxide Anion Gap BUN Creatinine Estim Creat Clear Calc Estimated GFR Glucose POC Capillary Glucose 113 H 148 H Calcium Quality VTE Prophylaxis VTE prophylaxis: mechanical ordered
[2024-10-07 16:33] LABS: Glucose Point of Care 113 mg/dl (65-105)
[2024-10-07 20:34] LABS: Glucose Point of Care 94 mg/dl (65-105)
[2024-10-07] MEDS: ATORVASTATIN 40 MG TABLET PO (21:03)
[2024-10-07] MEDS: IBUPROFEN 600 MG TABLET PO (21:03)
[2024-10-07] MEDS: QUEtiapine FUMARATE 25 MG TABLET 50 MG PO (21:04)
[2024-10-08] VITALS (10 sets, daily range): BP systolic 90–116; BP diastolic 62–66; PULSE 55–93; RESP 14–20; TEMP 36.6–36.8; O2SAT 97–99
[2024-10-08 07:21] LABS: Hematocrit 36.9 % (42.0-52.0); Hemoglobin 11.4 g/dL (14.0-18.0); Mean Corpuscular HGB Conc 30.9 g/dl (32-36); Mean Corpuscular Hemoglobin 27.3 pg (26-34); Mean Corpuscular Volume 88.3 fl (80-100); Mean Platelet Volume 11.8 fl (7.4-10.4); Platelet Count Result 172 k/mm3 (150-375); Red Blood Count 4.18 M/mm3 (4.6-6.20); Red Cell Distribution Width 15.9 % (11.5-14.5)
[2024-10-08 07:32] LABS: Anion Gap 4 mmol/L (4-12); Blood Urea Nitrogen 16 mg/dL (9-20); Calcium 8.3 mg/dL (8.4-10.2); Carbon Dioxide 29 mmol/L (22-30); Chloride 109 mmol/L (98-107); Estimated CRCL calculation 94 ml/min; Estimated Glomerular Filt Rate > 60; Glucose 120 mg/dL (65-110); Potassium 3.5 mmol/L (3.4-5.0); Sodium 142 mmol/L (137-145)
[2024-10-08 08:04] LABS: Glucose Point of Care 130 mg/dl (65-105)
[2024-10-08 08:22] LABS: Levetiracetam Keppra <2.0 mcg/mL (6.0-46.0)
[2024-10-08] MEDS: CITALOPRAM HYDROBROMIDE 20 MG TABLET 40 MG PO (09:25)
[2024-10-08] MEDS: levETIRAcetam 250 MG TABLET 750 MG PO ×2 (09:25→18:14)
[2024-10-08] MEDS: ASPIRIN 81 MG ENTERIC TABLET PO (09:25)
[2024-10-08] MEDS: PROPRANOLOL HCL 40 MG TABLET 80 MG PO (09:25)
[2024-10-08] MEDS: PREGABALIN (*CRX) 50 MG CAPSULE 100 MG PO (09:25)
[2024-10-08] MEDS: MULTIVITAMINS THERAPEUTIC TAB (*BKC) 1 TABLET PO (09:25)
[2024-10-08] MEDS: CEFEPIME 2 GM/NS 50 ML 2 GM/50 ML BAG IVPB ×2 (09:27→20:22)
--- NOTE | 2024-10-08 10:11 | P.PNIM_ITS ---
Progress Note: A&P Assessment and Plan (1) Depression: Qualifiers: Active/Remission status: in partial remission Depression Type: major depressive disorder Major depression recurrence: single episode Qualified Code(s): F32.4 - Major depressive disorder, single episode, in partial remission Code(s): F32.A - Depression, unspecified Status: Acute Assessment and Plan: cialopram 40 mg, seroquel 50 mg wellbutrin was stopped last hospitalization as pt has h/o seizures psych referral in place per pcp- next month zena (2) Essential (primary) hypertension: Code(s): I10 - Essential (primary) hypertension Status: Acute Assessment and Plan: monitor (3) Hyperlipidemia: Qualifiers: Hyperlipidemia type: unspecified Qualified Code(s): E78.5 - Hyperlipidemia, unspecified Code(s): E78.5 - Hyperlipidemia, unspecified Status: Acute (4) Diabetes type 2, controlled: Qualifiers: Diabetes mellitus complication status: without complication Diabetes mellitus half-way insulin use: without half-way use Qualified Code(s): E11.9 - Type 2 diabetes mellitus without complications Code(s): E11.9 - Type 2 diabetes mellitus without complications Status: Acute Assessment and Plan: ac/hs AccuCheck hypoglycemia protocol will stop Metformin for now add ss if needed (5) Meningioma: Code(s): D32.9 - Benign neoplasm of meninges, unspecified Status: Acute Assessment and Plan: neurology following stable (6) Altered mental status: Qualifiers: Altered mental status type: unspecified Qualified Code(s): R41.82 - Altered mental status, unspecified Code(s): R41.82 - Altered mental status, unspecified Status: Acute Assessment and Plan: see #7 neurology consulted -better today, 10/07- more alert, appropriate 10/08- sleeping but easily awaken, appropriate (7) Sepsis: Code(s): A41.9 - Sepsis, unspecified organism Status: Acute Assessment and Plan: meets sepsis criteria with elevated HR, temp, wbc bc obtained, UA obtained, chest xray/ct done to rule out sources of sepsis and ams cefepime 2 gm q12h ordered BC prelim- negative VS reviewed-stable chest xray repeated- 10/08- Opacification in the left costophrenic angle which is suggestive of atelectasis. will order IS encourage ambulation, up to the chair Time Spent With Patient Time with patient: 25 - 35 minutes Subjective Date/time seen: 10/08/24 10:11 Interval history: 10/08- Pt is seen and examined. He is better today, more awake and alert. C/o some pain earlier -will repeat chest xray Neurology is following. Working with PT/OT. Placement pending Review of Systems Review of Systems: ROS unobtainable: Yes unobtainable due to mental status Cardiovascular: Cardiovascular: Denies chest pain Respiratory: Respiratory: Denies chest congestion Gastrointestinal: Gastrointestinal: Denies abdominal pain Genitourinary: Genitourinary: Denies hematuria Musculoskeletal: Musculoskeletal: Denies back pain Exam Narrative: resting with eyes closed Const: General: comfortable Resp: Effort & Inspection: normal respiratory effort Auscultation: clear to auscultation bilaterally Cardio: Rate: regular rate Rhythm: regular rhythm Skin: General skin exam: normal color Neuro: Motor exam (neuro): 5/5 motor strength present throughout Extrem: General: normal to inspection Psych: Affect: normal affect Objective Data Vital Signs Vital Signs: Vital Signs - 24 hr 10/07/24 12:02 10/07/24 14:00 10/07/24 16:02 Temperature 97.5 F L Pulse Rate 72 71 74 Respiratory Rate 16 Blood Pressure 100/61 Pulse Oximetry 99 Oxygen Delivery 10/07/24 20:00 10/07/24 20:00 10/07/24 22:00 Temperature 98.4 F Pulse Rate 65 69 Respiratory Rate 20 Blood Pressure 106/56 L Pulse Oximetry 97 Oxygen Delivery Room Air 10/08/24 00:00 10/08/24 04:00 10/08/24 06:00 Temperature 97.8 F Pulse Rate 67 55 L 64 Respiratory Rate 20 Blood Pressure 116/66 Pulse Oximetry 99 Oxygen Delivery 10/08/24 09:25 Temperature Pulse Rate 71 Respiratory Rate Blood Pressure Pulse Oximetry Oxygen Delivery Intake/Output Intake/Output: Intake & Output 10/05/24 10/06/24 10/07/24 10/08/24 23:59 23:59 23:59 23:59 Intake Total 1000 4960 880 550 Output Total 300 675 Balance 1000 4660 205 550 Meds/Results Medications: Active Medications Generic Name Dose Route Start Last Admin Trade Name Freq PRN Reason Stop Dose Admin Aspirin 81 mg 10/07/24 09:00 10/08/24 09:25 Aspirin 81 Mg Enteric Tablet PO 81 mg DAILY KAPIL Administration Atorvastatin Calcium 40 mg 10/06/24 21:00 10/07/24 21:03 Atorvastatin 40 Mg Tablet PO 40 mg QHS KAPIL Administration Citalopram Hydrobromide 40 mg 10/07/24 09:00 10/08/24 09:25 Citalopram Hydrobromide 20 Mg Tablet PO 40 mg DAILY KAPIL Administration Dextrose 12.5 gm 10/06/24 15:26 Dextrose 50% 25 Gm/50 Ml Syringe IV PUSH PRN PRN Hypoglycemia Protocol Glucagon 1 mg 10/06/24 15:26 Glucagon For Inj 1 Mg Vial IM PRN PRN Hypoglycemia Protocol Glucose 15 gm 10/06/24 15:26 Glucose Oral Gel 15 Gm Of Glucse In 37.5 Gm Tube PO PRN PRN Hypoglycemia Protocol Cefepime HCl 2 gm in 50 mls @ 100 mls/hr 10/06/24 09:05 10/08/24 09:27 Maxipime 2 Gm/Ns 50 Ml IVPB 100 mls/hr Q12HR KAPIL Administration Dextrose 1,000 mls @ 100 mls/hr 10/06/24 15:26 Dextrose 5% 1,000 Ml IVPB PRN PRN Hypoglycemia Protocol Ibuprofen 600 mg 10/06/24 11:40 10/07/24 21:03 Ibuprofen 600 Mg Tablet PO 600 mg Q6H PRN Administration Moderate Pain (Scale Score 5-6) Levetiracetam 750 mg 10/06/24 17:00 10/08/24 09:25 Levetiracetam 250 Mg Tablet PO 750 mg BID KAPIL Administration Multivitamins Therapeutic 1 tablet 10/07/24 09:00 10/08/24 09:25 Multivitamins Therapeutic Tab (*Bkc) PO 1 tablet DAILY KAPIL Administration Pregabalin 100 mg 10/06/24 17:00 10/08/24 09:25 Pregabalin (*Crx) 50 Mg Capsule PO 100 mg BID KAPIL Administration Propranolol HCl 80 mg 10/07/24 09:00 10/08/24 09:25 Propranolol Hcl 40 Mg Tablet PO 80 mg DAILY KAPIL Administration Quetiapine Fumarate 50 mg 10/06/24 21:00 10/07/24 21:04 Quetiapine Fumarate 25 Mg Tablet PO 50 mg QHS KAPIL Administration Radiology Results: ITS Impressions Chest X-Ray 10/05/24 20:21 IMPRESSION: Small left-sided pleural effusion, without focal infiltrate. Head CT 10/06/24 05:20 Impression: No significant abnormality seen. Cervical Spine CT 10/06/24 05:22 Impression: No fracture or subluxation of the cervical spine. Anterior and interbody fusion from C5 to C7. Advanced degenerative spondylosis, as above. Chest/Abdomen/Pelvis CT 10/06/24 05:26 Impression: No acute abnormality seen. Cholelithiasis. Labs Labs: Laboratory Results - last 24 hr 10/06/24 10/07/24 10/07/24 00:13 11:50 16:23 WBC RBC Hgb Hct MCV MCH MCHC RDW Plt Count MPV Sodium Potassium Chloride Carbon Dioxide Anion Gap BUN Creatinine Estim Creat Clear Calc Estimated GFR Glucose POC Capillary Glucose 148 H 113 H Calcium Levetiracetam <2.0 L 10/07/24 10/08/24 10/08/24 20:30 06:56 08:02 WBC 4.0 L RBC 4.18 L Hgb 11.4 L Hct 36.9 L MCV 88.3 MCH 27.3 MCHC 30.9 L RDW 15.9 H Plt Count 172 MPV 11.8 H Sodium 142 Potassium 3.5 Chloride 109 H Carbon Dioxide 29 Anion Gap 4 BUN 16 Creatinine 0.85 Estim Creat Clear Calc 94 Estimated GFR > 60 Glucose 120 H POC Capillary Glucose 94 130 H Calcium 8.3 L Levetiracetam Quality VTE Prophylaxis VTE prophylaxis: mechanical ordered
[2024-10-08 11:52] LABS: Glucose Point of Care 164 mg/dl (65-105)
[2024-10-08 15:12] LABS: IFOB Positive Control Positive; Immunochemical Fecal Occult Bl Positive (N)
[2024-10-08 17:01] LABS: Glucose Point of Care 118 mg/dl (65-105)
[2024-10-08] MEDS: PREGABALIN (*CRX) 50 MG CAPSULE PO (18:15)
[2024-10-08] MEDS: ATORVASTATIN 40 MG TABLET PO (20:22)
[2024-10-08] MEDS: QUEtiapine FUMARATE 25 MG TABLET 50 MG PO (20:22)
[2024-10-08 20:45] LABS: Glucose Point of Care 161 mg/dl (65-105)
[2024-10-09] VITALS (10 sets, daily range): BP systolic 99–119; BP diastolic 58–62; PULSE 62–79; RESP 13–18; TEMP 36.2–36.6; O2SAT 94–100
[2024-10-09] MEDS: WATER FOR IRRIGATION, STERILE 1,000 ML BOTTLE 1000 ML (00:45)
[2024-10-09 06:51] LABS: Hematocrit 31.3 % (42.0-52.0); Hemoglobin 9.9 g/dL (14.0-18.0); Mean Corpuscular HGB Conc 31.6 g/dl (32-36); Mean Corpuscular Volume 88.4 fl (80-100); Mean Platelet Volume 12.4 fl (7.4-10.4); Platelet Count Result 159 k/mm3 (150-375); Red Blood Count 3.54 M/mm3 (4.6-6.20); Red Cell Distribution Width 15.6 % (11.5-14.5); White Blood Count 4.3 K/mm3 (4.5-10.0)
[2024-10-09 06:57] LABS: Anion Gap 4 mmol/L (4-12); Blood Urea Nitrogen 14 mg/dL (9-20); Calcium 8.2 mg/dL (8.4-10.2); Carbon Dioxide 27 mmol/L (22-30); Chloride 108 mmol/L (98-107); Estimated CRCL calculation 101 ml/min; Estimated Glomerular Filt Rate > 60; Glucose 105 mg/dL (65-110); Potassium 3.3 mmol/L (3.4-5.0); Sodium 139 mmol/L (137-145)
[2024-10-09 07:54] LABS: Glucose Point of Care 115 mg/dl (65-105)
[2024-10-09] MEDS: CEFEPIME 2 GM/NS 50 ML 2 GM/50 ML BAG IVPB ×2 (09:28→20:16)
[2024-10-09] MEDS: ASPIRIN 81 MG ENTERIC TABLET PO (09:29)
[2024-10-09] MEDS: MULTIVITAMINS THERAPEUTIC TAB (*BKC) 1 TABLET PO (09:30)
[2024-10-09] MEDS: PREGABALIN (*CRX) 50 MG CAPSULE PO ×2 (09:30→18:17)
[2024-10-09] MEDS: CITALOPRAM HYDROBROMIDE 20 MG TABLET 40 MG PO (09:30)
[2024-10-09] MEDS: levETIRAcetam 250 MG TABLET 750 MG PO ×2 (09:30→18:16)
[2024-10-09] MEDS: PANTOPRAZOLE 40 MG TABLET PO (09:32)
[2024-10-09] MEDS: PROPRANOLOL HCL 40 MG TABLET 80 MG PO (09:38)
--- NOTE | 2024-10-09 10:47 | P.PNIM_ITS ---
Progress Note: A&P Assessment and Plan (1) Depression: Qualifiers: Active/Remission status: in partial remission Depression Type: major depressive disorder Major depression recurrence: single episode Qualified Code(s): F32.4 - Major depressive disorder, single episode, in partial remission Code(s): F32.A - Depression, unspecified Status: Acute Assessment and Plan: cialopram 40 mg, seroquel 50 mg wellbutrin was stopped last hospitalization as pt has h/o seizures psych referral in place per pcp- next month zena (2) Essential (primary) hypertension: Code(s): I10 - Essential (primary) hypertension Status: Acute Assessment and Plan: monitor (3) Hyperlipidemia: Qualifiers: Hyperlipidemia type: unspecified Qualified Code(s): E78.5 - Hyperlipidemia, unspecified Code(s): E78.5 - Hyperlipidemia, unspecified Status: Acute (4) Diabetes type 2, controlled: Qualifiers: Diabetes mellitus complication status: without complication Diabetes mellitus skilled nursing insulin use: without skilled nursing use Qualified Code(s): E11.9 - Type 2 diabetes mellitus without complications Code(s): E11.9 - Type 2 diabetes mellitus without complications Status: Acute Assessment and Plan: ac/hs AccuCheck hypoglycemia protocol will stop Metformin for now add ss if needed (5) Meningioma: Code(s): D32.9 - Benign neoplasm of meninges, unspecified Status: Acute Assessment and Plan: neurology following stable (6) Altered mental status: Qualifiers: Altered mental status type: unspecified Qualified Code(s): R41.82 - Altered mental status, unspecified Code(s): R41.82 - Altered mental status, unspecified Status: Acute Assessment and Plan: see #7 neurology consulted -better today, 10/07- more alert, appropriate 10/08- sleeping but easily awaken, appropriate (7) Sepsis: Code(s): A41.9 - Sepsis, unspecified organism Status: Acute Assessment and Plan: meets sepsis criteria with elevated HR, temp, wbc bc obtained, UA obtained, chest xray/ct done to rule out sources of sepsis and ams cefepime 2 gm q12h ordered BC prelim- negative VS reviewed-stable chest xray repeated- 10/08- Opacification in the left costophrenic angle which is suggestive of atelectasis. will order IS encourage ambulation, up to the chair (8) Occult blood in stools: Code(s): R19.5 - Other fecal abnormalities Status: Acute Assessment and Plan: positive stool occult blood will add iron studies GI consulted- appreciate recommendations Time Spent With Patient Time with patient: 25 - 35 minutes Subjective Date/time seen: 10/09/24 10:47 Interval history: pt is seen and examined. Per nursing report, dark stool yesterday- concern for bleeding- stool for occult was collected and positive. Hg dropped too. GI consulted. Neurology is following. Working with PT/OT. Placement pending. Lyrica was decreased yesterday as pt was too sleepy/drowsy. Review of Systems Review of Systems: ROS unobtainable: Yes unobtainable due to mental status Cardiovascular: Cardiovascular: Denies chest pain Respiratory: Respiratory: Denies chest congestion Gastrointestinal: Gastrointestinal: Denies abdominal pain Genitourinary: Genitourinary: Denies hematuria Musculoskeletal: Musculoskeletal: Denies back pain Exam Narrative: resting with eyes closed Const: General: comfortable Resp: Effort & Inspection: normal respiratory effort Auscultation: clear to auscultation bilaterally Cardio: Rate: regular rate Rhythm: regular rhythm Skin: General skin exam: normal color Neuro: Motor exam (neuro): 5/5 motor strength present throughout Extrem: General: normal to inspection Psych: Affect: normal affect Objective Data Vital Signs Vital Signs: Vital Signs - 24 hr 10/08/24 10:56 10/08/24 12:02 10/08/24 14:00 Temperature 98.3 F Pulse Rate 71 76 Respiratory Rate 18 Blood Pressure 101/65 Pulse Oximetry 98 Oxygen Delivery Room Air 10/08/24 18:06 10/08/24 20:00 10/08/24 20:00 Temperature Pulse Rate 77 86 93 Respiratory Rate 14 Blood Pressure Pulse Oximetry 97 Oxygen Delivery Room Air 10/08/24 21:38 10/09/24 00:00 10/09/24 04:00 Temperature 97.8 F Pulse Rate 86 79 67 Respiratory Rate 14 Blood Pressure 90/62 L Pulse Oximetry 97 Oxygen Delivery 10/09/24 05:35 10/09/24 09:38 Temperature 97.1 F L Pulse Rate 65 71 Respiratory Rate 13 Blood Pressure 118/58 L Pulse Oximetry 98 Oxygen Delivery Intake/Output Intake/Output: Intake & Output 01/15/10/07/24 10/08/24 10/09/24 23:59 23:59 23:59 23:59 Intake Total 4960 880 1470 250 Output Total 300 675 Balance 4660 205 1470 250 Meds/Results Medications: Active Medications Generic Name Dose Route Start Last Admin Trade Name Freq PRN Reason Stop Dose Admin Aspirin 81 mg 10/07/24 09:00 10/09/24 09:29 Aspirin 81 Mg Enteric Tablet PO 81 mg DAILY KAPIL Administration Atorvastatin Calcium 40 mg 10/06/24 21:00 10/08/24 20:22 Atorvastatin 40 Mg Tablet PO 40 mg QHS KAPIL Administration Citalopram Hydrobromide 40 mg 10/07/24 09:00 10/09/24 09:30 Citalopram Hydrobromide 20 Mg Tablet PO 40 mg DAILY KAPIL Administration Dextrose 12.5 gm 10/06/24 15:26 Dextrose 50% 25 Gm/50 Ml Syringe IV PUSH PRN PRN Hypoglycemia Protocol Glucagon 1 mg 10/06/24 15:26 Glucagon For Inj 1 Mg Vial IM PRN PRN Hypoglycemia Protocol Glucose 15 gm 10/06/24 15:26 Glucose Oral Gel 15 Gm Of Glucse In 37.5 Gm Tube PO PRN PRN Hypoglycemia Protocol Cefepime HCl 2 gm in 50 mls @ 100 mls/hr 10/06/24 09:05 10/09/24 09:28 Maxipime 2 Gm/Ns 50 Ml IVPB 100 mls/hr Q12HR KAPIL Administration Dextrose 1,000 mls @ 100 mls/hr 10/06/24 15:26 Dextrose 5% 1,000 Ml IVPB PRN PRN Hypoglycemia Protocol Ibuprofen 600 mg 10/06/24 11:40 10/07/24 21:03 Ibuprofen 600 Mg Tablet PO 600 mg Q6H PRN Administration Moderate Pain (Scale Score 5-6) Levetiracetam 750 mg 10/06/24 17:00 10/09/24 09:30 Levetiracetam 250 Mg Tablet PO 750 mg BID KAPIL Administration Multivitamins Therapeutic 1 tablet 10/07/24 09:00 10/09/24 09:30 Multivitamins Therapeutic Tab (*Bkc) PO 1 tablet DAILY KAPIL Administration Pantoprazole Sodium 40 mg 10/09/24 09:00 10/09/24 09:32 Pantoprazole 40 Mg Tablet PO 40 mg QAM KAPIL Administration Pregabalin 50 mg 10/08/24 17:00 10/09/24 09:30 Pregabalin (*Crx) 50 Mg Capsule PO 50 mg BID KAPIL Administration Propranolol HCl 80 mg 10/07/24 09:00 10/09/24 09:38 Propranolol Hcl 40 Mg Tablet PO 80 mg DAILY KAPIL Administration Quetiapine Fumarate 50 mg 10/06/24 21:00 10/08/24 20:22 Quetiapine Fumarate 25 Mg Tablet PO 50 mg QHS KAPIL Administration Radiology Results: ITS Impressions Head CT 10/06/24 05:20 Impression: No significant abnormality seen. Cervical Spine CT 10/06/24 05:22 Impression: No fracture or subluxation of the cervical spine. Anterior and interbody fusion from C5 to C7. Advanced degenerative spondylosis, as above. Chest/Abdomen/Pelvis CT 10/06/24 05:26 Impression: No acute abnormality seen. Cholelithiasis. Chest X-Ray 10/08/24 10:35 IMPRESSION: Opacification in the left costophrenic angle which is suggestive of atelectasis. Labs Labs: Laboratory Results - last 24 hr 10/08/24 10/08/24 10/08/24 11:50 14:59 16:56 WBC RBC Hgb Hct MCV MCH MCHC RDW Plt Count MPV Sodium Potassium Chloride Carbon Dioxide Anion Gap BUN Creatinine Estim Creat Clear Calc Estimated GFR Glucose POC Capillary Glucose 164 H 118 H Calcium Stl Occult Blood (IFOB) Positive H 10/08/24 10/09/24 10/09/24 20:42 06:18 07:52 WBC 4.3 L RBC 3.54 L Hgb 9.9 L Hct 31.3 L MCV 88.4 MCH 28.0 MCHC 31.6 L RDW 15.6 H Plt Count 159 MPV 12.4 H Sodium 139 Potassium 3.3 L Chloride 108 H Carbon Dioxide 27 Anion Gap 4 BUN 14 Creatinine 0.78 Estim Creat Clear Calc 101 Estimated GFR > 60 Glucose 105 POC Capillary Glucose 161 H 115 H Calcium 8.2 L Stl Occult Blood (IFOB) Quality VTE Prophylaxis VTE prophylaxis: mechanical ordered
[2024-10-09 11:03] LABS: Iron 26 ug/dL (49-181)
[2024-10-09 11:12] LABS: Percent Iron Saturation 10 % (20-50)
[2024-10-09 12:27] LABS: Glucose Point of Care 154 mg/dl (65-105)
--- NOTE | 2024-10-09 12:37 | P.CONGI_ITS ---
Assessment and Plan Assessment and plan (1) Iron deficiency anemia: Code(s): D50.9 - Iron deficiency anemia, unspecified Status: Acute Assessment and Plan: The patient has been found to have iron deficiency anemia of unclear etiology. Differential diagnosis is broad, including colorectal and gastric neoplasm, angiodysplasia, peptic ulcer disease, esophagitis among others. Will plan on colonoscopy and EGD this coming Friday. GI Consult Note Consult date/time: 10/09/24 12:37 Reason for consult: Dark stools - anemia HPI: Ernst Malave is a 68-year-old male who was recently hospitalized for altered mental status and suspected sepsis, although a definitive source was not identified. His mental status has since improved. Yesterday, he reported passing black stools, however, he states that his stool color has returned to normal today. This consultation is requested to evaluate the patient's recent passage of black stools and investigate the recent finding of iron deficiency anemia in the context of a recent drop in hemoglobin. The patient denies any abdominal pain and recalls having undergone a colonoscopy, although he cannot recall the exact date. 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 Depression determined by examination MCI (mild cognitive impairment) with memory loss Seizure disorder Dizziness Obstructive sleep apnea on CPAP Frequent falls Neuropathy Hyperlipidemia Diabetes type 2, controlled Crush injury of foot As a child left foot Surgical History Surgical History Status post open reduction with internal fixation of fracture Left foot due to crush injury as a child History of shoulder replacement Bilateral Family History Family History Unknown Hypertension Depression Diabetes mellitus Cerebrovascular accident Neuropathy Social History Social History Social History: The patient is still but he and his have been legally since 2018. 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 He denies any history of tobacco or alcohol use. Code status: DNR/DNI per patient request Healthcare power of document review attorney: Lalo (son) Smoking status: Never smoker Alcohol intake: unknown Drinks per week: 4 Alcohol use details: occasionally Substance use: never Substance use type: does not use Other substance usage details: Son says patient rarely drinks alcohol Do You Feel Safe in your Home?: Yes Lack of Transportation: YES Lack of Food: Never True Current Housing: I Do Not Have Housing Concerned About Future Housing: No Difficulty Paying Gas/Electric Bills: No Difficulty Paying for Meds: No Currently Unemployed: No Education: Trade/Vocational Certificate Difficulty w/ Childcare or Family Care: No Occupation/Education: retired Gender identity (if verbalized by the patient): Male Spiritual care concerns: No Agree to blood products: Yes Meds Home Medications and Allergies Home Medications ?Medication ?Instructions ?Recorded ?Confirmed ?Type aspirin 81 mg tablet,delayed 81 mg PO DAILY 01/11/23 10/06/24 History release multivitamin 1 tablet PO DAILY 12/22/23 10/06/24 History cyclobenzaprine 5 mg tablet 5 mg PO TID PRN Muscle Spasm 04/10/24 10/06/24 History hydrocodone 5 mg-acetaminophen 325 1 tablet PO Q6H PRN Pain (Scale 04/10/24 10/06/24 History mg tablet Score 7-10) ibuprofen 600 mg tablet 600 mg PO Q6H PRN Moderate Pain 04/10/24 10/06/24 History (Scale Score 5-6) metformin 500 mg tablet,extended 500 mg PO BID 04/23/24 10/06/24 History release 24 hr propranolol 80 mg capsule,24 80 mg PO DAILY 04/23/24 10/06/24 History hr,extended release CPAP machine and supplies #1 ea 05/03/24 09/30/24 Rx atorvastatin 40 mg tablet 40 mg PO QHS #90 tabs 05/25/24 10/06/24 Rx quetiapine 50 mg tablet 50 mg PO QHS 08/18/24 10/06/24 History levetiracetam 750 mg tablet 750 mg PO BID #60 tabs 08/23/24 10/06/24 Rx (Keppra) pregabalin 100 mg capsule 100 mg PO BID #180 caps 08/26/24 10/06/24 Rx citalopram 40 mg tablet (Celexa) 40 mg PO DAILY #90 tabs 09/30/24 10/06/24 Rx Allergies Allergy/AdvReac Type Severity Reaction Status Date / Time Penicillins Allergy Hives Verified 10/05/24 18:45 blood pressure med AdvReac Headache Uncoded 10/05/24 18:45 Vital Signs Vital Signs - 24 hr 10/08/24 14:00 10/08/24 18:06 10/08/24 20:00 Temperature 98.3 F Pulse Rate 76 77 86 Respiratory Rate 18 14 Blood Pressure 101/65 Pulse Oximetry 98 97 Oxygen Delivery Room Air 10/08/24 20:00 10/08/24 21:38 10/09/24 00:00 Temperature 97.8 F Pulse Rate 93 86 79 Respiratory Rate 14 Blood Pressure 90/62 L Pulse Oximetry 97 Oxygen Delivery 10/09/24 04:00 10/09/24 05:35 10/09/24 09:38 Temperature 97.1 F L Pulse Rate 67 65 71 Respiratory Rate 13 Blood Pressure 118/58 L Pulse Oximetry 98 Oxygen Delivery Exam 2 Narrative: Patient cooperated and oriented although with somewhat impaired memory. Lungs: Clear to auscultation abdomen soft, nontender, no visceromegaly. Rectal: Scant amount of brown stools. No masses. Results Labs 10/09/24 06:18 10/09/24 06:18 Labs: Short CBC 10/09/24 Range/Units 06:18 WBC 4.3 L (4.5-10.0) K/mm3 Hgb 9.9 L (14.0-18.0) g/dL Hct 31.3 L (42.0-52.0) % Plt Count 159 (150-375) k/mm3 BMP 10/09/24 06:18 Sodium 139 Potassium 3.3 L Chloride 108 H Carbon Dioxide 27 BUN 14 Creatinine 0.78 Glucose 105 Calcium 8.2 L
[2024-10-09 17:12] LABS: Glucose Point of Care 118 mg/dl (65-105)
[2024-10-09] MEDS: IBUPROFEN 600 MG TABLET PO (18:17)
[2024-10-09] MEDS: QUEtiapine FUMARATE 25 MG TABLET 50 MG PO (20:16)
[2024-10-09] MEDS: ATORVASTATIN 40 MG TABLET PO (20:16)
[2024-10-10] VITALS (10 sets, daily range): BP systolic 116–132; BP diastolic 63–78; PULSE 54–77; RESP 16–20; TEMP 35.7–36.7; O2SAT 98–100
[2024-10-10 06:34] LABS: Anion Gap 2 mmol/L (4-12); Blood Urea Nitrogen 13 mg/dL (9-20); Calcium 8.2 mg/dL (8.4-10.2); Carbon Dioxide 27 mmol/L (22-30); Chloride 110 mmol/L (98-107); Estimated CRCL calculation 104 ml/min; Estimated Glomerular Filt Rate > 60; Glucose 173 mg/dL (65-110); Potassium 3.5 mmol/L (3.4-5.0); Sodium 139 mmol/L (137-145)
[2024-10-10 08:01] LABS: Glucose Point of Care 156 mg/dl (65-105)
[2024-10-10] MEDS: CEFEPIME 2 GM/NS 50 ML 2 GM/50 ML BAG IVPB ×2 (09:39→20:31)
[2024-10-10] MEDS: levETIRAcetam 250 MG TABLET 750 MG PO ×2 (09:49→18:44)
[2024-10-10] MEDS: PROPRANOLOL HCL 40 MG TABLET 80 MG PO (09:49)
[2024-10-10] MEDS: PANTOPRAZOLE 40 MG TABLET PO (09:49)
[2024-10-10] MEDS: MULTIVITAMINS THERAPEUTIC TAB (*BKC) 1 TABLET PO (09:51)
[2024-10-10] MEDS: CITALOPRAM HYDROBROMIDE 20 MG TABLET 40 MG PO (09:51)
[2024-10-10] MEDS: PREGABALIN (*CRX) 50 MG CAPSULE PO ×2 (09:51→18:44)
[2024-10-10] MEDS: ASPIRIN 81 MG ENTERIC TABLET PO (09:52)
--- NOTE | 2024-10-10 11:22 | P.PNIM_ITS ---
Progress Note: A&P Assessment and Plan (1) Depression: Qualifiers: Active/Remission status: in partial remission Depression Type: major depressive disorder Major depression recurrence: single episode Qualified Code(s): F32.4 - Major depressive disorder, single episode, in partial remission Code(s): F32.A - Depression, unspecified Status: Acute Assessment and Plan: cialopram 40 mg, seroquel 50 mg wellbutrin was stopped last hospitalization as pt has h/o seizures psych referral in place per pcp- next month zena (2) Essential (primary) hypertension: Code(s): I10 - Essential (primary) hypertension Status: Acute Assessment and Plan: monitor- reviewed and stable (3) Hyperlipidemia: Qualifiers: Hyperlipidemia type: unspecified Qualified Code(s): E78.5 - Hyperlipide shruti, unspecified Code(s): E78.5 - Hyperlipidemia, unspecified Status: Acute Assessment and Plan: continue home statin (4) Diabetes type 2, controlled: Qualifiers: Diabetes mellitus complication status: without complication Diabetes mellitus senior care insulin use: without senior care use Qualified Code(s): E11.9 - Type 2 diabetes mellitus without complications Code(s): E11.9 - Type 2 diabetes mellitus without complications Status: Acute Assessment and Plan: ac/hs AccuCheck hypoglycemia protocol will stop Metformin for now add ss if needed (5) Meningioma: Code(s): D32.9 - Benign neoplasm of meninges, unspecified Status: Acute Assessment and Plan: neurology following stable (6) Altered mental status: Qualifiers: Altered mental status type: unspecified Qualified Code(s): R41.82 - Altered mental status, unspecified Code(s): R41.82 - Altered mental status, unspecified Status: Acute Assessment and Plan: see #7 neurology consulted improving it seems he is somewhat confused in am byt as day goes by, he is a lot better (7) Sepsis: Code(s): A41.9 - Sepsis, unspecified organism Status: Acute Assessment and Plan: meets sepsis criteria with elevated HR, temp, wbc bc obtained, UA obtained, chest xray/ct done to rule out sources of sepsis and ams cefepime 2 gm q12h ordered BC prelim- negative VS reviewed-stable chest xray repeated- 10/08- Opacification in the left costophrenic angle which is suggestive of atelectasis. will order IS encourage ambulation, up to the chair (8) Occult blood in stools: Code(s): R19.5 - Other fecal abnormalities Status: Acute Assessment and Plan: positive stool occult blood iron deficiency colonoscopy tomorrow 10/11 Time Spent With Patient Time with patient: 25 - 35 minutes Subjective Date/time seen: 10/10/24 11:22 Interval history: Pt is seen and examined. GI is following now-plan NPO at midnight tonight. Lyrica was decreased couple of days ago. he seems to be a bit more drowsy in am and as days goes by, he is more alert and easily arousable. Reports no more dark stools. colonoscopy tomorrow. bowel prep today Review of Systems Review of Systems: resting with eyes clsoed, cpap in place Cardiovascular: Cardiovascular: Denies chest pain Respiratory: Respiratory: Denies chest congestion Gastrointestinal: Gastrointestinal: Denies abdominal pain Genitourinary: Genitourinary: Denies hematuria Musculoskeletal: Musculoskeletal: Denies back pain Exam Narrative: resting with eyes closed Const: General: comfortable Resp: Effort & Inspection: normal respiratory effort Auscultation: clear to auscultation bilaterally Cardio: Rate: regular rate Rhythm: regular rhythm Skin: General skin exam: normal color Neuro: Motor exam (neuro): 5/5 motor strength present throughout Extrem: General: normal to inspection Psych: Affect: normal affect Objective Data Vital Signs Vital Signs: Vital Signs - 24 hr 10/09/24 12:03 10/09/24 14:00 10/09/24 16:02 Temperature 97.4 F L Pulse Rate 76 62 68 Respiratory Rate 16 Blood Pressure 119/62 Pulse Oximetry 100 Oxygen Delivery 10/09/24 20:00 10/09/24 20:00 10/09/24 21:00 Temperature Pulse Rate 74 Respiratory Rate Blood Pressure Pulse Oximetry Oxygen Delivery Room Air CPAP 10/09/24 22:00 10/10/24 00:00 10/10/24 04:00 Temperature 97.9 F Pulse Rate 68 65 64 Respiratory Rate 18 Blood Pressure 99/58 L Pulse Oximetry 94 Oxygen Delivery 10/10/24 05:17 10/10/24 09:49 Temperature 97.6 F Pulse Rate 65 77 Respiratory Rate 20 Blood Pressure 116/63 Pulse Oximetry 99 Oxygen Delivery Intake/Output Intake/Output: Intake & Output 10/07/24 10/08/24 10/09/24 10/10/24 23:59 23:59 23:59 23:59 Intake Total 880 1470 830 150 Output Total 675 Balance 205 1470 830 150 Meds/Results Medications: Active Medications Generic Name Dose Route Start Last Admin Trade Name Freq PRN Reason Stop Dose Admin Aspirin 81 mg 10/07/24 09:00 10/10/24 09:52 Aspirin 81 Mg Enteric Tablet PO 81 mg DAILY KAPIL Administration Atorvastatin Calcium 40 mg 10/06/24 21:00 10/09/24 20:16 Atorvastatin 40 Mg Tablet PO 40 mg QHS KAPIL Administration Citalopram Hydrobromide 40 mg 10/07/24 09:00 10/10/24 09:51 Citalopram Hydrobromide 20 Mg Tablet PO 40 mg DAILY KAPIL Administration Dextrose 12.5 gm 10/06/24 15:26 Dextrose 50% 25 Gm/50 Ml Syringe IV PUSH PRN PRN Hypoglycemia Protocol Glucagon 1 mg 10/06/24 15:26 Glucagon For Inj 1 Mg Vial IM PRN PRN Hypoglycemia Protocol Glucose 15 gm 10/06/24 15:26 Glucose Oral Gel 15 Gm Of Glucse In 37.5 Gm Tube PO PRN PRN Hypoglycemia Protocol Cefepime HCl 2 gm in 50 mls @ 100 mls/hr 10/06/24 09:05 10/10/24 09:39 Maxipime 2 Gm/Ns 50 Ml IVPB 100 mls/hr Q12HR KAPIL Administration Dextrose 1,000 mls @ 100 mls/hr 10/06/24 15:26 Dextrose 5% 1,000 Ml IVPB PRN PRN Hypoglycemia Protocol Ibuprofen 600 mg 10/06/24 11:40 10/09/24 18:17 Ibuprofen 600 Mg Tablet PO 600 mg Q6H PRN Administration Moderate Pain (Scale Score 5-6) Levetiracetam 750 mg 10/06/24 17:00 10/10/24 09:49 Levetiracetam 250 Mg Tablet PO 750 mg BID KAPIL Administration Multivitamins Therapeutic 1 tablet 10/07/24 09:00 10/10/24 09:51 Multivitamins Therapeutic Tab (*Bkc) PO 1 tablet DAILY KAPIL Administration Pantoprazole Sodium 40 mg 10/09/24 09:00 10/10/24 09:49 Pantoprazole 40 Mg Tablet PO 40 mg QAM KAPIL Administration Pregabalin 50 mg 10/08/24 17:00 10/10/24 09:51 Pregabalin (*Crx) 50 Mg Capsule PO 50 mg BID KAPIL Administration Propranolol HCl 80 mg 10/07/24 09:00 10/10/24 09:49 Propranolol Hcl 40 Mg Tablet PO 80 mg DAILY KAPIL Administration Quetiapine Fumarate 50 mg 10/06/24 21:00 10/09/24 20:16 Quetiapine Fumarate 25 Mg Tablet PO 50 mg QHS KAPIL Administration Radiology Results: ITS Impressions Head CT 10/06/24 05:20 Impression: No significant abnormality seen. Cervical Spine CT 10/06/24 05:22 Impression: No fracture or subluxation of the cervical spine. Anterior and interbody fusion from C5 to C7. Advanced degenerative spondylosis, as above. Chest/Abdomen/Pelvis CT 10/06/24 05:26 Impression: No acute abnormality seen. Cholelithiasis. Chest X-Ray 10/08/24 10:35 IMPRESSION: Opacification in the left costophrenic angle which is suggestive of atelectasis. Labs Labs: Laboratory Results - last 24 hr 10/09/24 10/09/24 10/10/24 12:06 17:01 05:55 Sodium 139 Potassium 3.5 Chloride 110 H Carbon Dioxide 27 Anion Gap 2 L BUN 13 Creatinine 0.76 Estim Creat Clear Calc 104 Estimated GFR > 60 Glucose 173 H POC Capillary Glucose 154 H 118 H Calcium 8.2 L 10/10/24 07:56 Sodium Potassium Chloride Carbon Dioxide Anion Gap BUN Creatinine Estim Creat Clear Calc Estimated GFR Glucose POC Capillary Glucose 156 H Calcium Quality VTE Prophylaxis VTE prophylaxis: mechanical ordered
[2024-10-10 11:53] LABS: Glucose Point of Care 137 mg/dl (65-105)
--- NOTE | 2024-10-10 14:32 | WPDGIPROGNO ---
Progress Note: A&P Assessment and Plan (1) Iron deficiency anemia: Code(s): D50.9 - Iron deficiency anemia, unspecified Status: Acute Assessment and Plan: Patient's differential diagnosis for iron deficiency anemia addressed in yesterday's note. Consent, and prep instructions left in chart. Will perform EGD and colonoscopy tomorrow. Subjective Date/time seen: 10/10/24 14:32 Interval history: No change in patient's current status. Normal color bowel movement. Objective Data Vital Signs Vital Signs: Vital Signs - 24 hr 10/09/24 16:02 10/09/24 20:00 10/09/24 20:00 Temperature Pulse Rate 68 74 Respiratory Rate Blood Pressure Pulse Oximetry Oxygen Delivery Room Air 10/09/24 21:00 10/09/24 22:00 10/10/24 00:00 Temperature 97.9 F Pulse Rate 68 65 Respiratory Rate 18 Blood Pressure 99/58 L Pulse Oximetry 94 Oxygen Delivery CPAP 10/10/24 04:00 10/10/24 05:17 10/10/24 09:49 Temperature 97.6 F Pulse Rate 64 65 77 Respiratory Rate 20 Blood Pressure 116/63 Pulse Oximetry 99 Oxygen Delivery Intake/Output Intake/Output: Intake & Output 10/07/24 10/08/24 10/09/24 10/10/24 23:59 23:59 23:59 23:59 Intake Total 880 1470 830 150 Output Total 675 Balance 205 1470 830 150 Meds/Results Medications: Active Medications Generic Name Dose Route Start Last Admin Trade Name Freq PRN Reason Stop Dose Admin Aspirin 81 mg 10/07/24 09:00 10/10/24 09:52 Aspirin 81 Mg Enteric Tablet PO 81 mg DAILY KAPIL Administration Atorvastatin Calcium 40 mg 10/06/24 21:00 10/09/24 20:16 Atorvastatin 40 Mg Tablet PO 40 mg QHS KAPIL Administration Bisacodyl 20 mg 10/10/24 17:00 Bisacodyl 5 Mg Tablet Ec PO 10/10/24 17:01 ONCE ONE Citalopram Hydrobromide 40 mg 10/07/24 09:00 10/10/24 09:51 Citalopram Hydrobromide 20 Mg Tablet PO 40 mg DAILY KAPIL Administration Dextrose 12.5 gm 10/06/24 15:26 Dextrose 50% 25 Gm/50 Ml Syringe IV PUSH PRN PRN Hypoglycemia Protocol Glucagon 1 mg 10/06/24 15:26 Glucagon For Inj 1 Mg Vial IM PRN PRN Hypoglycemia Protocol Glucose 15 gm 10/06/24 15:26 Glucose Oral Gel 15 Gm Of Glucse In 37.5 Gm Tube PO PRN PRN Hypoglycemia Protocol Cefepime HCl 2 gm in 50 mls @ 100 mls/hr 10/06/24 09:05 10/10/24 09:39 Maxipime 2 Gm/Ns 50 Ml IVPB 100 mls/hr Q12HR KAPIL Administration Dextrose 1,000 mls @ 100 mls/hr 10/06/24 15:26 Dextrose 5% 1,000 Ml IVPB PRN PRN Hypoglycemia Protocol Ibuprofen 600 mg 10/06/24 11:40 10/09/24 18:17 Ibuprofen 600 Mg Tablet PO 600 mg Q6H PRN Administration Moderate Pain (Scale Score 5-6) Levetiracetam 750 mg 10/06/24 17:00 10/10/24 09:49 Levetiracetam 250 Mg Tablet PO 750 mg BID KAPIL Administration Multivitamins Therapeutic 1 tablet 10/07/24 09:00 10/10/24 09:51 Multivitamins Therapeutic Tab (*Bkc) PO 1 tablet DAILY KAPIL Administration Pantoprazole Sodium 40 mg 10/09/24 09:00 10/10/24 09:49 Pantoprazole 40 Mg Tablet PO 40 mg QAM KAPIL Administration Polyethylene Glycol 119 gm 10/10/24 20:00 Polyethylene Glycol 3350 238 Gm Bottle PO 10/11/24 05:01 BID@0500,2000 KAPIL Pregabalin 50 mg 10/08/24 17:00 10/10/24 09:51 Pregabalin (*Crx) 50 Mg Capsule PO 50 mg BID KAPIL Administration Propranolol HCl 80 mg 10/07/24 09:00 10/10/24 09:49 Propranolol Hcl 40 Mg Tablet PO 80 mg DAILY KAPIL Administration Quetiapine Fumarate 50 mg 10/06/24 21:00 10/09/24 20:16 Quetiapine Fumarate 25 Mg Tablet PO 50 mg QHS KAPIL Administration Radiology Results: ITS Impressions Head CT 10/06/24 05:20 Impression: No significant abnormality seen. Cervical Spine CT 10/06/24 05:22 Impression: No fracture or subluxation of the cervical spine. Anterior and interbody fusion from C5 to C7. Advanced degenerative spondylosis, as above. Chest/Abdomen/Pelvis CT 10/06/24 05:26 Impression: No acute abnormality seen. Cholelithiasis. Chest X-Ray 10/08/24 10:35 IMPRESSION: Opacification in the left costophrenic angle which is suggestive of atelectasis. Labs Labs: Laboratory Results - last 24 hr 10/09/24 10/10/24 10/10/24 17:01 05:55 07:56 Sodium 139 Potassium 3.5 Chloride 110 H Carbon Dioxide 27 Anion Gap 2 L BUN 13 Creatinine 0.76 Estim Creat Clear Calc 104 Estimated GFR > 60 Glucose 173 H POC Capillary Glucose 118 H 156 H Calcium 8.2 L 10/10/24 11:42 Sodium Potassium Chloride Carbon Dioxide Anion Gap BUN Creatinine Estim Creat Clear Calc Estimated GFR Glucose POC Capillary Glucose 137 H Calcium
[2024-10-10 16:33] LABS: Glucose Point of Care 145 mg/dl (65-105)
[2024-10-10] MEDS: BISACODYL 5 MG TABLET EC 20 MG PO (18:44)
[2024-10-10] MEDS: polyethylene glycoL 3350 238 GM BOTTLE 119 GM PO (20:34)
[2024-10-10] MEDS: ATORVASTATIN 40 MG TABLET PO (20:34)
[2024-10-10 20:51] LABS: Glucose Point of Care 127 mg/dl (65-105)
[2024-10-11] VITALS (12 sets, daily range): BP systolic 96–130; BP diastolic 58–90; PULSE 63–80; RESP 14–22; TEMP 36.4–36.7; O2SAT 96–100
[2024-10-11] MEDS: polyethylene glycoL 3350 238 GM BOTTLE 119 GM PO (04:27)
[2024-10-11 07:30] LABS: Glucose Point of Care 121 mg/dl (65-105)
[2024-10-11 07:59] LABS: Anion Gap 8 mmol/L (4-12); Blood Urea Nitrogen 11 mg/dL (9-20); Calcium 8.8 mg/dL (8.4-10.2); Carbon Dioxide 29 mmol/L (22-30); Chloride 105 mmol/L (98-107); Estimated CRCL calculation 103 ml/min; Estimated Glomerular Filt Rate > 60; Glucose 124 mg/dL (65-110); Sodium 142 mmol/L (137-145)
[2024-10-11] MEDS: CEFEPIME 2 GM/NS 50 ML 2 GM/50 ML BAG IVPB (08:51)
--- NOTE | 2024-10-11 10:17 | PCNFU ---
Nutrition Follow-Up Complete: Severe protein calorie malnutrition related to chronic loss of appetite as evidenced by weight loss 10%/3 months; inadequate intake <75% needs >1 month; moderate muscle wasting and fat loss Goal:Improve PO intake to at least 50% meals and supplements Pt was meeting goal, NPO at this time. Resume same goal when diet is resumed Pt current nutrition is NPO, for EGD and colonoscopy today. Nutrition recommendation: resume diet post procedure Last recorded weight is 111 kg. Bowel Motility: +BM 10/09 Labs Reviewed: Glu:121 Meds Noted: MVI, protonix Skin: WNL Additional Notes: Pt was on a heart healthy diet, intake 25-100% and varied, NPO today for GI procedures. Monitoring intakes, weights, labs, supplement tolerance, plan of care Follow up in 5 days
[2024-10-11] MEDS: ACETAMINOPHEN 325 MG TABLET 650 MG PO ×2 (11:13→18:20)
[2024-10-11 11:21] LABS: Glucose Point of Care 110 mg/dl (65-105)
--- NOTE | 2024-10-11 13:35 | WPDANESEPPF ---
Anes - Initial Pre Proc Eval Procedure: Operation Date: 10/11/24 15:00 Proposed Procedures p Esophagogastroduodenoscopy & Colonoscopy - Ricardo Underwood MD Date/Time: 10/11/24 13:35 Surgeon: Wesley Felder MD Pre Op Diagnosis: AMS Patient Data Age: 68 Gender: M Height: 1.85 m Weight: 111 kg Last Vital Signs Temp 36.6 C 10/11/24 06:00 Pulse 67 10/11/24 08:00 Resp 20 10/11/24 06:00 BP 121/67 10/11/24 06:00 Pulse Ox 100 10/11/24 06:00 O2 Del Method CPAP 10/09/24 21:00 Allergies Allergy/AdvReac Type Severity Reaction Status Date / Time Penicillins Allergy Hives Verified 10/11/24 12:11 blood pressure med AdvReac Headache Uncoded 10/05/24 18:45 Home Medications ?Medication ?Instructions ?Recorded ?Confirmed ?Type aspirin 81 mg tablet,delayed 81 mg PO DAILY 01/11/23 10/06/24 History release multivitamin 1 tablet PO DAILY 12/22/23 10/06/24 History cyclobenzaprine 5 mg tablet 5 mg PO TID PRN Muscle Spasm 04/10/24 10/06/24 History hydrocodone 5 mg-acetaminophen 325 1 tablet PO Q6H PRN Pain (Scale 04/10/24 10/06/24 History mg tablet Score 7-10) ibuprofen 600 mg tablet 600 mg PO Q6H PRN Moderate Pain 04/10/24 10/06/24 History (Scale Score 5-6) metformin 500 mg tablet,extended 500 mg PO BID 04/23/24 10/06/24 History release 24 hr propranolol 80 mg capsule,24 80 mg PO DAILY 04/23/24 10/06/24 History hr,extended release CPAP machine and supplies #1 ea 05/03/24 09/30/24 Rx atorvastatin 40 mg tablet 40 mg PO QHS #90 tabs 05/25/24 10/06/24 Rx quetiapine 50 mg tablet 50 mg PO QHS 08/18/24 10/06/24 History levetiracetam 750 mg tablet 750 mg PO BID #60 tabs 08/23/24 10/06/24 Rx (Keppra) pregabalin 100 mg capsule 100 mg PO BID #180 caps 08/26/24 10/06/24 Rx citalopram 40 mg tablet (Celexa) 40 mg PO DAILY #90 tabs 09/30/24 10/06/24 Rx Laboratory Tests 10/10/24 10/10/24 10/11/24 16:19 20:25 07:19 Sodium 142 mmol/L (137-145) Potassium 4.0 mmol/L (3.4-5.0) Chloride 105 mmol/L (98-107) Carbon Dioxide 29 mmol/L (22-30) Anion Gap 8 mmol/L (4-12) BUN 11 mg/dL (9-20) Creatinine 0.77 mg/dL (0.7-1.3) Estim Creat Clear Calc 103 ml/min Estimated GFR > 60 (59 - ) Glucose 124 H mg/dL (65-110) POC Capillary Glucose 145 H mg/dl 127 H mg/dl (65-105) (65-105) Calcium 8.8 mg/dL (8.4-10.2) 10/11/24 10/11/24 07:27 11:17 Sodium Potassium Chloride Carbon Dioxide Anion Gap BUN Creatinine Estim Creat Clear Calc Estimated GFR Glucose POC Capillary Glucose 121 H mg/dl 110 H mg/dl (65-105) (65-105) Calcium Patient hx anesthesia problems: none Family hx anesthesia problems: none Results Review: All pre-operative results and documents have been reviewed as part of the pre-operative evaluation. 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 Depression determined by examination MCI (mild cognitive impairment) with memory loss Seizure disorder Dizziness Obstructive sleep apnea on CPAP Frequent falls Neuropathy Hyperlipidemia Diabetes type 2, controlled Crush injury of foot As a child left foot Surgical History Surgical History Status post open reduction with internal fixation of fracture Left foot due to crush injury as a child History of shoulder replacement Bilateral Family History Family History Unknown Hypertension Depression Diabetes mellitus Cerebrovascular accident Neuropathy Social History Social History Social History: The patient is still but he and his have been legally since 2018. 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 He denies any history of tobacco or alcohol use. Code status: DNR/DNI per patient request Healthcare power of district attorney: Lalo (son) Smoking status: Never smoker Alcohol intake: unknown Drinks per week: 4 Alcohol use details: occasionally Substance use: never Substance use type: does not use Other substance usage details: Son says patient rarely drinks alcohol Do You Feel Safe in your Home?: Yes Lack of Transportation: YES Lack of Food: Never True Current Housing: I Do Not Have Housing Concerned About Future Housing: No Difficulty Paying Gas/Electric Bills: No Difficulty Paying for Meds: No Currently Unemployed: No Education: Trade/Vocational Certificate Difficulty w/ Childcare or Family Care: No Occupation/Education: retired Gender identity (if verbalized by the patient): Male Spiritual care concerns: No Agree to blood products: Yes Anes - Eval Final PreProcedure Day of Procedure 10/11/24 13:35 Patient weight: obese Heart: regular rate and rhythm Lungs: clear to auscultation Airway: Mallampati scale class II Neurological: alert and oriented Last oral intake: >/= 8 hours ASA classification: III Emergent: no Anesthetic plan: proceed Anesthesia type and monitoring: general GIVS and standard monitoring Results Review: All pre-operative results and documents have been reviewed as part of the pre-operative evaluation. Informed Consent: The patient's anesthetic plan and its attendant risks and benefits were discussed with the patient/family/POA. Questions were solicited and answers provided to the satisfaction of the patient/family/POA.
[2024-10-11] MEDS: LACTATED RINGERS 1,000 ML 150 ML IV CONT (14:13)
--- NOTE | 2024-10-11 14:20 | PC.NURSE ---
To GI Lab per [ ], IV [ ]. Report given to [nick ].
[2024-10-11 14:21] LABS: Glucose Point of Care 88 mg/dl (65-105)
--- NOTE | 2024-10-11 14:57 | SUR.OPER ---
EGD: start 1444, end 1450 Colonoscopy: start 1456, end 1509
--- NOTE | 2024-10-11 15:15 | P.PNGI_ITS ---
Progress Note: A&P Assessment and Plan (1) Gastric ulcer: Code(s): K25.9 - Gastric ulcer, unspecified as acute or chronic, without hemorrhage or perforation Status: Acute Assessment and Plan: Cause of iron deficiency anemia : gastric ulcer, benign. H pylori status to be determined by biopsies. If positive will contact patient and advise antibiotic treatment. He should have a follow up EGD in 3 months, and will have CBC for follow up in GI clinic. He can be discharged from our specialty standpoint, please arrange a follow up appt. Subjective Date/time seen: 10/11/24 15:15 Interval history: See EGD and colonoscopy reports. Gastric ulcer found. No significant lesions in the colonoscopy. Objective Data Vital Signs Vital Signs: Vital Signs - 24 hr 10/10/24 16:02 10/10/24 20:00 10/10/24 21:55 Temperature 98.1 F Pulse Rate 57 L 76 68 Respiratory Rate 18 Blood Pressure 118/63 Pulse Oximetry 100 Oxygen Delivery 10/11/24 00:00 10/11/24 00:00 10/11/24 04:00 Temperature 97.9 F Pulse Rate 67 68 64 Respiratory Rate 20 Blood Pressure 115/64 Pulse Oximetry 99 Oxygen Delivery 10/11/24 06:00 10/11/24 08:00 10/11/24 14:15 Temperature 97.8 F 97.6 F Pulse Rate 63 67 67 Respiratory Rate 20 16 Blood Pressure 121/67 130/75 Pulse Oximetry 100 100 Oxygen Delivery Room Air Intake/Output Intake/Output: Intake & Output 10/08/24 10/09/24 10/10/24 10/11/24 23:59 23:59 23:59 23:59 Intake Total 1522 754 8238 825 Balance 0596 312 5890 825 Meds/Results Medications: Active Medications Generic Name Dose Route Start Last Admin Trade Name Freq PRN Reason Stop Dose Admin Acetaminophen 650 mg 10/11/24 10:58 10/11/24 11:13 Acetaminophen 325 Mg Tablet PO 650 mg Q6H PRN Administration Mild Pain (1-3) or Fever Aspirin 81 mg 10/07/24 09:00 10/11/24 08:26 Aspirin 81 Mg Enteric Tablet PO Not Given DAILY KAPIL Atorvastatin Calcium 40 mg 10/06/24 21:00 10/10/24 20:34 Atorvastatin 40 Mg Tablet PO 40 mg QHS KAPIL Administration Citalopram Hydrobromide 40 mg 10/07/24 09:00 10/11/24 08:26 Citalopram Hydrobromide 20 Mg Tablet PO Not Given DAILY KAPIL Dextrose 12.5 gm 10/06/24 15:26 Dextrose 50% 25 Gm/50 Ml Syringe IV PUSH PRN PRN Hypoglycemia Protocol Glucagon 1 mg 10/06/24 15:26 Glucagon For Inj 1 Mg Vial IM PRN PRN Hypoglycemia Protocol Glucose 15 gm 10/06/24 15:26 Glucose Oral Gel 15 Gm Of Glucse In 37.5 Gm Tube PO PRN PRN Hypoglycemia Protocol Dextrose 1,000 mls @ 100 mls/hr 10/06/24 15:26 Dextrose 5% 1,000 Ml IVPB PRN PRN Hypoglycemia Protocol Lactated Ringer's 1,000 mls @ 150 mls/hr 10/11/24 14:05 10/11/24 15:10 Lr - Lactated Ringers Iv IV CONT 150 mls/hr .[id number] KAPIL Infusion Ibuprofen 600 mg 10/06/24 11:40 10/09/24 18:17 Ibuprofen 600 Mg Tablet PO 600 mg Q6H PRN Administration Moderate Pain (Scale Score 5-6) Levetiracetam 750 mg 10/06/24 17:00 10/11/24 08:26 Levetiracetam 250 Mg Tablet PO Not Given BID [facility] Multivitamins Therapeutic 1 tablet 10/07/24 09:00 10/11/24 07:28 Multivitamins Therapeutic Tab (*Bkc) PO Not Given DAILY [facility] Pantoprazole Sodium 40 mg 10/09/24 09:00 10/11/24 07:28 Pantoprazole 40 Mg Tablet PO Not Given QAM [facility] Pregabalin 50 mg 10/08/24 17:00 10/11/24 08:26 Pregabalin (*Crx) 50 Mg Capsule PO Not Given BID [facility] Propranolol HCl 80 mg 10/07/24 09:00 10/11/24 08:26 Propranolol Hcl 40 Mg Tablet PO Not Given DAILY [facility] Quetiapine Fumarate 50 mg 10/06/24 21:00 10/10/24 20:35 Quetiapine Fumarate 25 Mg Tablet PO Not Given QHS [facility] Radiology Results: ITS Impressions Head CT 10/06/24 05:20 Impression: No significant abnormality seen. Cervical Spine CT 10/06/24 05:22 Impression: No fracture or subluxation of the cervical spine. Anterior and interbody fusion from C5 to C7. Advanced degenerative spondylosis, as above. Chest/Abdomen/Pelvis CT 10/06/24 05:26 Impression: No acute abnormality seen. Cholelithiasis. Chest X-Ray 10/08/24 10:35 IMPRESSION: Opacification in the left costophrenic angle which is suggestive of atelectasis. Labs Labs: Laboratory Results - last 24 hr 10/06/24 10/10/24 10/10/24 01:28 16:19 20:25 Sodium Potassium Chloride Carbon Dioxide Anion Gap BUN Creatinine Estim Creat Clear Calc Estimated GFR Glucose POC Capillary Glucose 145 H 127 H Calcium Pregabalin TNP 10/11/24 10/11/24 10/11/24 07:19 07:27 11:17 Sodium 142 Potassium 4.0 Chloride 105 Carbon Dioxide 29 Anion Gap 8 BUN 11 Creatinine 0.77 Estim Creat Clear Calc 103 Estimated GFR > 60 Glucose 124 H POC Capillary Glucose 121 H 110 H Calcium 8.8 Pregabalin 10/11/24 14:18 Sodium Potassium Chloride Carbon Dioxide Anion Gap BUN Creatinine Estim Creat Clear Calc Estimated GFR Glucose POC Capillary Glucose 88 Calcium Pregabalin
--- NOTE | 2024-10-11 15:19 | PM.IMPN ---
Progress Note: A&P Assessment and Plan (1) Depression: Qualifiers: Depression Type: major depressive disorder Major depression recurrence: single episode Active/Remission status: in partial remission Qualified Code(s): F32.4 - Major depressive disorder, single episode, in partial remission Code(s): F32.A - Depression, unspecified Status: Acute Assessment and Plan: cialopram 40 mg, seroquel 50 mg wellbutrin was stopped last hospitalization as pt has h/o seizures psych referral in place per pcp- next month zena (2) Essential (primary) hypertension: Code(s): I10 - Essential (primary) hypertension Status: Acute Assessment and Plan: monitor- reviewed and stable (3) Hyperlipidemia: Qualifiers: Hyperlipidemia type: unspecified Qualified Code(s): E78.5 - Hyperlipidemia, unspecified Code(s): E78.5 - Hyperlipidemia, unspecified Status: Acute Assessment and Plan: continue home statin (4) Diabetes type 2, controlled: Qualifiers: Diabetes mellitus fci insulin use: without fci use Diabetes mellitus complication status: without complication Qualified Code(s): E11.9 - Type 2 diabetes mellitus without complications Code(s): E11.9 - Type 2 diabetes mellitus without complications Status: Acute Assessment and Plan: ac/hs AccuCheck hypoglycemia protocol will stop Metformin for now add ss if needed (5) Meningioma: Code(s): D32.9 - Benign neoplasm of meninges, unspecified Status: Acute Assessment and Plan: neurology following stable (6) Altered mental status: Qualifiers: Altered mental status type: unspecified Qualified Code(s): R41.82 - Altered mental status, unspecified Code(s): R41.82 - Altered mental status, unspecified Status: Acute Assessment and Plan: see #7 neurology consulted improving it seems he is somewhat confused in am byt as day goes by, he is a lot better improved (7) Sepsis: Code(s): A41.9 - Sepsis, unspecified organism Status: Acute Assessment and Plan: meets sepsis criteria with elevated HR, temp, wbc bc obtained, UA obtained, chest xray/ct done to rule out sources of sepsis and ams cefepime 2 gm q12h ordered BC prelim- negative VS reviewed-stable chest xray repeated- 10/08- Opacification in the left costophrenic angle which is suggestive of atelectasis. will order IS encourage ambulation, up to the chair no source of infections identified -will stop antibiotics (total had 6 days) (8) Occult blood in stools: Code(s): R19.5 - Other fecal abnormalities Status: Acute Assessment and Plan: positive stool occult blood iron deficiency colonoscopy tomorrow 10/11 Time Spent With Patient Time with patient: 25 - 35 minutes Subjective Date/time seen: 10/11/24 1100 Interval history: colonoscopy today. pt is alert/oriented Review of Systems Review of Systems: resting with eyes clsoed, cpap in place ROS unobtainable: Yes unobtainable due to mental status Cardiovascular: Cardiovascular: Denies chest pain Respiratory: Respiratory: Denies chest congestion Gastrointestinal: Gastrointestinal: Denies abdominal pain Genitourinary: Genitourinary: Denies hematuria Musculoskeletal: Musculoskeletal: Denies back pain Exam Narrative: resting with eyes closed Const: General: comfortable Resp: Effort & Inspection: normal respiratory effort Auscultation: clear to auscultation bilaterally Cardio: Rate: regular rate Rhythm: regular rhythm Skin: General skin exam: normal color Neuro: Motor exam (neuro): 5/5 motor strength present throughout Extrem: General: normal to inspection Psych: Affect: normal affect Objective Data Vital Signs Vital Signs: Vital Signs - 24 hr 10/10/24 16:02 10/10/24 20:00 10/10/24 21:55 Temperature 98.1 F Pulse Rate 57 L 76 68 Respiratory Rate 18 Blood Pressure 118/63 Pulse Oximetry 100 Oxygen Delivery 10/11/24 00:00 10/11/24 00:00 10/11/24 04:00 Temperature 97.9 F Pulse Rate 67 68 64 Respiratory Rate 20 Blood Pressure 115/64 Pulse Oximetry 99 Oxygen Delivery 10/11/24 06:00 10/11/24 08:00 10/11/24 14:15 Temperature 97.8 F 97.6 F Pulse Rate 63 67 67 Respiratory Rate 20 16 Blood Pressure 121/67 130/75 Pulse Oximetry 100 100 Oxygen Delivery Room Air Intake/Output Intake/Output: Intake & Output 10/08/24 10/09/24 10/10/24 10/11/24 23:59 23:59 23:59 23:59 Intake Total 2155 354 8789 825 Balance 2778 487 3569 825 Meds/Results Medications: Active Medications Generic Name Dose Route Start Last Admin Trade Name Freq PRN Reason Stop Dose Admin Acetaminophen 650 mg 10/11/24 10:58 10/11/24 11:13 Acetaminophen 325 Mg Tablet PO 650 mg Q6H PRN Administration Mild Pain (1-3) or Fever Aspirin 81 mg 10/07/24 09:00 10/11/24 08:26 Aspirin 81 Mg Enteric Tablet PO Not Given DAILY KAPIL Atorvastatin Calcium 40 mg 10/06/24 21:00 10/10/24 20:34 Atorvastatin 40 Mg Tablet PO 40 mg QHS KAPIL Administration Citalopram Hydrobromide 40 mg 10/07/24 09:00 10/11/24 08:26 Citalopram Hydrobromide 20 Mg Tablet PO Not Given DAILY KAPIL Dextrose 12.5 gm 10/06/24 15:26 Dextrose 50% 25 Gm/50 Ml Syringe IV PUSH PRN PRN Hypoglycemia Protocol Glucagon 1 mg 10/06/24 15:26 Glucagon For Inj 1 Mg Vial IM PRN PRN Hypoglycemia Protocol Glucose 15 gm 10/06/24 15:26 Glucose Oral Gel 15 Gm Of Glucse In 37.5 Gm Tube PO PRN PRN Hypoglycemia Protocol Dextrose 1,000 mls @ 100 mls/hr 10/06/24 15:26 Dextrose 5% 1,000 Ml IVPB PRN PRN Hypoglycemia Protocol Lactated Ringer's 1,000 mls @ 150 mls/hr 10/11/24 14:05 10/11/24 15:10 Lr - Lactated Ringers Iv IV CONT 150 mls/hr .Q6H40M KAPIL Infusion Ibuprofen 600 mg 10/06/24 11:40 10/09/24 18:17 Ibuprofen 600 Mg Tablet PO 600 mg Q6H PRN Administration Moderate Pain (Scale Score 5-6) Levetiracetam 750 mg 10/06/24 17:00 10/11/24 08:26 Levetiracetam 250 Mg Tablet PO Not Given BID [facility] Multivitamins Therapeutic 1 tablet 10/07/24 09:00 10/11/24 07:28 Multivitamins Therapeutic Tab (*Bkc) PO Not Given DAILY KAPIL Pantoprazole Sodium 40 mg 10/09/24 09:00 10/11/24 07:28 Pantoprazole 40 Mg Tablet PO Not Given QAM [facility] Pregabalin 50 mg 10/08/24 17:00 10/11/24 08:26 Pregabalin (*Crx) 50 Mg Capsule PO Not Given BID [facility] Propranolol HCl 80 mg 10/07/24 09:00 10/11/24 08:26 Propranolol Hcl 40 Mg Tablet PO Not Given DAILY [facility] Quetiapine Fumarate 50 mg 10/06/24 21:00 10/10/24 20:35 Quetiapine Fumarate 25 Mg Tablet PO Not Given QHS [facility] Radiology Results: ITS Impressions Head CT 10/06/24 05:20 Impression: No significant abnormality seen. Cervical Spine CT 10/06/24 05:22 Impression: No fracture or subluxation of the cervical spine. Anterior and interbody fusion from C5 to C7. Advanced degenerative spondylosis, as above. Chest/Abdomen/Pelvis CT 10/06/24 05:26 Impression: No acute abnormality seen. Cholelithiasis. Chest X-Ray 10/08/24 10:35 IMPRESSION: Opacification in the left costophrenic angle which is suggestive of atelectasis. Labs Labs: Laboratory Results - last 24 hr 10/06/24 10/10/24 10/10/24 01:28 16:19 20:25 Sodium Potassium Chloride Carbon Dioxide Anion Gap BUN Creatinine Estim Creat Clear Calc Estimated GFR Glucose POC Capillary Glucose 145 H 127 H Calcium Pregabalin TNP 10/11/24 10/11/24 10/11/24 07:19 07:27 11:17 Sodium 142 Potassium 4.0 Chloride 105 Carbon Dioxide 29 Anion Gap 8 BUN 11 Creatinine 0.77 Estim Creat Clear Calc 103 Estimated GFR > 60 Glucose 124 H POC Capillary Glucose 121 H 110 H Calcium 8.8 Pregabalin 10/11/24 14:18 Sodium Potassium Chloride Carbon Dioxide Anion Gap BUN Creatinine Estim Creat Clear Calc Estimated GFR Glucose POC Capillary Glucose 88 Calcium Pregabalin Quality VTE Prophylaxis VTE prophylaxis: mechanical ordered
[2024-10-11 16:22] LABS: Glucose Point of Care 85 mg/dl (65-105)
[2024-10-11] MEDS: PREGABALIN (*CRX) 50 MG CAPSULE PO (17:58)
[2024-10-11] MEDS: levETIRAcetam 250 MG TABLET 750 MG PO (17:58)
[2024-10-11] MEDS: ATORVASTATIN 40 MG TABLET PO (19:52)
[2024-10-11] MEDS: QUEtiapine FUMARATE 25 MG TABLET 50 MG PO (19:52)
[2024-10-11 21:22] LABS: Glucose Point of Care 149 mg/dl (65-105)
[2024-10-12] VITALS: PULSE 69
[2024-10-12 04:00] VITALS: PULSE 68
[2024-10-12 05:53] VITALS: BP 118/64; PULSE 69; RESP 20; TEMP 36.2; O2SAT 98
[2024-10-12 06:30] LABS: Anion Gap 7 mmol/L (4-12); Blood Urea Nitrogen 10 mg/dL (9-20); Calcium 7.9 mg/dL (8.4-10.2); Carbon Dioxide 25 mmol/L (22-30); Chloride 106 mmol/L (98-107); Estimated CRCL calculation 115 ml/min; Estimated Glomerular Filt Rate > 60; Glucose 118 mg/dL (65-110); Potassium 3.3 mmol/L (3.4-5.0); Sodium 138 mmol/L (137-145)
[2024-10-12 07:59] LABS: Glucose Point of Care 113 mg/dl (65-105)
[2024-10-12 08:00] VITALS: PULSE 63
[2024-10-12] MEDS: MULTIVITAMINS THERAPEUTIC TAB (*BKC) 1 TABLET PO (08:08)
[2024-10-12] MEDS: levETIRAcetam 250 MG TABLET 750 MG PO (08:08)
[2024-10-12 08:09] VITALS: PULSE 69
[2024-10-12] MEDS: PANTOPRAZOLE 40 MG TABLET PO (08:09)
[2024-10-12] MEDS: CITALOPRAM HYDROBROMIDE 20 MG TABLET 40 MG PO (08:09)
[2024-10-12] MEDS: PROPRANOLOL HCL 40 MG TABLET 80 MG PO (08:09)
[2024-10-12] MEDS: PREGABALIN (*CRX) 50 MG CAPSULE PO (08:09)
[2024-10-12] MEDS: ASPIRIN 81 MG ENTERIC TABLET PO (08:09)
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
[2024-10-12 11:48] LABS: Glucose Point of Care 147 mg/dl (65-105)
[2024-10-12 12:00] VITALS: PULSE 66
--- NOTE | 2024-10-12 14:05 | PCPTNOTE ---
On 10/12/24, the student, MEENA Casarez provided care and completed [facility] documentation on this patient. I have reviewed the student's documentation and agree with the findings.
--- OUTSIDE RECORDS SUMMARY | 2024-10-13 18:51 | XMS_ITS | Continuity of Care Document ---
Author Organization [facility] - Main Address [address] [address] Insurance Providers Payer Plan Claims Address Claims Phone Policy Number Group Number Relation Employer Guarantor Name Guarantor Guarantor Address Guarantor Phone [facility] [id number] [phone] Self Ernst Malave [address] [place] [id number] Problems Condition ICD9 code ICD10 code SNOMED code Start Date End Date S tatus Other chronic pain G89.29 Worki ng Weakness R53.1 Working Vitamin D deficiency, unspecified E55.9 Results No Results Allergies, adverse reactions, alerts No known allergies and adverse reactions Medications No administered medications reported Vital Signs No vital signs reported Social History No smoking Hx information available
== END 2024-10-12 14:35 | DRG 872 ==
LOC: ANHED 10-06 04:29 → ANH3MEDSUR 10-06 08:06
PROVIDERS: Hospitalist; Internal Medicine Gastroenterology; Admitting Provider Internal Medicine; Emergency Provider Student in an Organized Health Care Education/Training Program; PCP Family Medicine; Visit Provider Nurse Practitioner
PROC: 0DJ08ZZ Inspection of Upper Intestinal Tract, Via Natural or Artificial Opening Endoscopic (ICD-10-PCS; CPT 45378; principal; 2024-10-11 15:00)
DX: A41.9 Sepsis, unspecified organism (principal); D32.9 Benign neoplasm of meninges, unspecified; R19.5 Other fecal abnormalities; D50.9 Iron deficiency anemia, unspecified; F31.9 Bipolar disorder, unspecified; G31.84 Mild cognitive impairment of uncertain or unknown etiology; G40.909 Epilepsy, unspecified, not intractable, without status epilepticus; E11.42 Type 2 diabetes mellitus with diabetic polyneuropathy; I10 Essential (primary) hypertension; E78.5 Hyperlipidemia, unspecified; Z91.148 Patient's other noncompliance with medication regimen for other reason; G47.33 Obstructive sleep apnea (adult) (pediatric); R45.1 Restlessness and agitation; K25.7 Chronic gastric ulcer without hemorrhage or perforation; K29.30 Chronic superficial gastritis without bleeding; K57.30 Diverticulosis of large intestine without perforation or abscess without bleeding; E66.9 Obesity, unspecified; M47.812 Spondylosis without myelopathy or radiculopathy, cervical region; R29.6 Repeated falls; Z96.612 Presence of left artificial shoulder joint; Z96.611 Presence of right artificial shoulder joint; Z79.82 Long term (current) use of aspirin; Z79.84 Long term (current) use of oral hypoglycemic drugs; Z86.73 Personal history of transient ischemic attack (TIA), and cerebral infarction without residual deficits; Z68.32 Body mass index [BMI] 32.0-32.9, adult
CPT/HCPCS: 36415; 70450; 71045; 71260; 72125; 74177; 80048; 80053; 80143; 80177; 80179; 80307; 80366; 81001; 82077; 82140; 82274; 82550; 82948; 83540; 83550; 83605; 83735; 83880; 84443; 84484; 85025; 85027; 85380; 85610; 85730; 87040; 87637; 88305; 93005; 96361; 96365; 96366; 96367; 96372; 96375; 97110; 97116; 97161; 97165; 97530; 97535; 99285; A9270; G0378; G0480; J0692; J1630; J2003; J2060; J2250; J2359; J2704; J7030; J7120; Q9967

== ENCOUNTER 2024-11-02 10:08 | Emergency (ER) | payer MEDICARE, SELFPAY ==
[2024-11-02] VITALS (37 sets, daily range): BP systolic 124–146; BP diastolic 70–93; PULSE 83–101; RESP 10–22; TEMP 36.7–36.8; O2SAT 94–100
--- NOTE | ~2024-11-02 | XR_ITS ---
EXAMINATION: XR chest 1V portable 11/02/2024 10:34 INDICATION: Shortness of breath and cough. Left-sided chest pain. PROCEDURE: AP portable chest COMPARISON: Comparison to multiple prior studies sequentially, with oldest reviewed study dated 07/23. FINDINGS: The lungs are clear. The cardiomediastinal silhouette is within normal limits. There are no pleural effusions. There is no pneumothorax suspected. IMPRESSION: 1: NO ACUTE CARDIOPULMONARY DISEASE. Reviewed, dictated and finalized at location B. OMER SERVICES MANAGER
--- NOTE | 2024-11-02 10:09 | ED_ITS ---
HPI - Chest Pain General Chief Complaint: Chest Pain Stated Complaint: CHEST PAIN Time Seen by Provider: 11/02/24 10:09 Source: patient Mode of arrival: ambulatory Limitations: no limitations Related Data Home Medications ?Medication ?Instructions ?Recorded ?Confirmed ?Last Taken ?Type aspirin 81 mg tablet,delayed 81 mg PO DAILY 01/11/23 10/06/24 Unknown History release multivitamin 1 tablet PO DAILY 12/22/23 10/06/24 Unknown History cyclobenzaprine 5 mg tablet 5 mg PO TID PRN Muscle Spasm 04/10/24 10/06/24 Unknown History hydrocodone 5 mg-acetaminophen 325 1 tablet PO Q6H PRN Pain (Scale 04/10/24 10/06/24 Unknown History mg tablet Score 7-10) ibuprofen 600 mg tablet 600 mg PO Q6H PRN Moderate Pain 04/10/24 10/06/24 Unknown History (Scale Score 5-6) metformin 500 mg tablet,extended 500 mg PO BID 04/23/24 10/06/24 Unknown History release 24 hr propranolol 80 mg capsule,24 80 mg PO DAILY 04/23/24 10/06/24 Unknown History hr,extended release quetiapine 50 mg tablet 50 mg PO QHS 08/18/24 10/06/24 Unknown History Allergies Allergy/AdvReac Type Severity Reaction Status Date / Time Penicillins Allergy Hives Verified 10/11/24 12:11 blood pressure med AdvReac Headache Uncoded 10/05/24 18:45 PMFSH Past Medical History Medical History (Updated 10/11/24 @ 15:16 by Ricardo Underwood MD) Chronic, continuous use of opioids TIA (transient ischemic attack) Bipolar disorder Essential (primary) hypertension Chronic low back pain Essential tremor Obstructive sleep apnea syndrome in adult 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 Depression determined by examination MCI (mild cognitive impairment) with memory loss Seizure disorder Dizziness Obstructive sleep apnea on CPAP Frequent falls Neuropathy Hyperlipidemia Diabetes type 2, controlled Crush injury of foot As a child left foot Surgical History Surgical History Status post open reduction with internal fixation of fracture Left foot due to crush injury as a child History of shoulder replacement Bilateral Family History Family History Unknown Hypertension Depression Diabetes mellitus Cerebrovascular accident Neuropathy Social History Social History Social History: The patient is still but he and his have been legally since 2018. 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 He denies any history of tobacco or alcohol use. Code status: DNR/DNI per patient request Healthcare power of attorney law clerk: Lalo (son) Smoking status: Never smoker Alcohol intake: unknown Drinks per week: 4 Alcohol use details: occasionally Substance use: never Substance use type: does not use Other substance usage details: Son says patient rarely drinks alcohol Do You Feel Safe in your Home?: Yes Lack of Transportation: YES Lack of Food: Never True Current Housing: I Do Not Have Housing Concerned About Future Housing: No Difficulty Paying Gas/Electric Bills: No Difficulty Paying for Meds: No Currently Unemployed: No Education: Trade/Vocational Certificate Difficulty w/ Childcare or Family Care: No Occupation/Education: retired Gender identity (if verbalized by the patient): Male Spiritual care concerns: No Agree to blood products: Yes Discharge Plan Discharge Patient Language: Montserratian Prescriptions: No Action aspirin 81 mg Tablet,Delayed Release (Dr/Ec) 81 mg PO DAILY multivitamin Tablet 1 tablet PO DAILY metformin 500 mg tablet extended release 24 hr 500 mg PO BID propranolol 80 mg capsule,extended release 24 hr 80 mg PO DAILY quetiapine 50 mg tablet 50 mg PO QHS citalopram [Celexa] 40 mg tablet 40 mg PO DAILY Qty: 90 0RF hydrocodone-acetaminophen 5-325 mg tablet 1 tablet PO Q6H PRN (Reason: Pain (Scale Score 7-10)) ibuprofen 600 mg Tablet 600 mg PO Q6H PRN (Reason: Moderate Pain (Scale Score 5-6)) cyclobenzaprine 5 mg tablet 5 mg PO TID PRN (Reason: Muscle Spasm) Patient Comments: Has not taken for approx 6 months as Pt. is unable to refill with new provider pregabalin [Lyrica] 50 mg Capsule 50 mg PO BID Qty: 90 0RF (DME) CPAP machine and supplies See Rx Instructions .Route .MEDSUPPLY Qty: 1 1RF Rx Instructions: Needs machine, mask, tubing, chamber and filters. atorvastatin 40 mg tablet 40 mg PO QHS Qty: 90 2RF levetiracetam [Keppra] 750 mg tablet 750 mg PO BID Qty: 60 5RF pantoprazole 40 mg tablet,delayed release (DR/EC) 40 mg PO QAM Qty: 90 0RF ferrous sulfate 325 mg (65 mg iron) tablet,delayed release (DR/EC) 325 mg PO BID Qty: 180 0RF Follow-up/Referrals: Marcial Cardenas MD [Primary Care Provider] -
--- NOTE | 2024-11-02 10:16 | ED_ITS ---
HPI - General Adult General Chief complaint: Chest Pain Stated complaint: CHEST PAIN Time Seen by Provider: 11/02/24 10:09 Source: patient Mode of arrival: ambulatory Limitations: no limitations History of Present Illness HPI narrative: 68 years old white male came from assisting living with chief complaint of waking up this morning at 7:30 a.m. with left chest pain, aches, 7/10, constant, no radiation, no aggravating or relieving factors. History of hypertension hyperlipidemia diabetes, depression and bipolar. Currently on baby aspirin once a day. Patient reports everybody at assisting living facility have respiratory viral infection. He report some nausea, coughing up yellow sputum, shortness of breath at rest , headache and chills Related Data Home Medications ?Medication ?Instructions ?Recorded ?Confirmed ?Last Taken ?Type aspirin 81 mg tablet,delayed 81 mg PO DAILY 01/11/23 10/06/24 Unknown History release multivitamin 1 tablet PO DAILY 12/22/23 10/06/24 Unknown History cyclobenzaprine 5 mg tablet 5 mg PO TID PRN Muscle Spasm 04/10/24 10/06/24 Unknown History hydrocodone 5 mg-acetaminophen 325 1 tablet PO Q6H PRN Pain (Scale 04/10/24 10/06/24 Unknown History mg tablet Score 7-10) ibuprofen 600 mg tablet 600 mg PO Q6H PRN Moderate Pain 04/10/24 10/06/24 Unknown History (Scale Score 5-6) metformin 500 mg tablet,extended 500 mg PO BID 04/23/24 10/06/24 Unknown History release 24 hr propranolol 80 mg capsule,24 80 mg PO DAILY 04/23/24 10/06/24 Unknown History hr,extended release quetiapine 50 mg tablet 50 mg PO QHS 08/18/24 10/06/24 Unknown History Allergies Allergy/AdvReac Type Severity Reaction Status Date / Time Penicillins Allergy Hives Verified 11/02/24 10:17 blood pressure med AdvReac Headache Uncoded 11/02/24 10:17 Review of Systems 2 Review of Systems: All systems reviewed & are unremarkable except as noted in HPI and below PMFSH Past Medical History Medical History Chronic, continuous use of opioids TIA (transient ischemic attack) Bipolar disorder Essential (primary) hypertension Chronic low back pain Essential tremor Obstructive sleep apnea syndrome in adult 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 Depression determined by examination MCI (mild cognitive impairment) with memory loss Seizure disorder Dizziness Obstructive sleep apnea on CPAP Frequent falls Neuropathy Hyperlipidemia Diabetes type 2, controlled Crush injury of foot As a child left foot Surgical History Surgical History Status post open reduction with internal fixation of fracture Left foot due to crush injury as a child History of shoulder replacement Bilateral Family History Family History Unknown Hypertension Depression Diabetes mellitus Cerebrovascular accident Neuropathy Social History Social History Social History: The patient is still but he and his have been legally since 2018. 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 He lives in a [address] alone. 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 He denies any history of tobacco or alcohol use. Code status: DNR/DNI per patient request Healthcare power of shipwright: Lalo (son) Smoking status: Never smoker Alcohol intake: unknown Drinks per week: 4 Alcohol use details: occasionally Substance use: never Substance use type: does not use Other substance usage details: Son says patient rarely drinks alcohol Do You Feel Safe in your Home?: Yes Lack of Transportation: YES Lack of Food: Never True Current Housing: I Do Not Have Housing Concerned About Future Housing: No Difficulty Paying Gas/Electric Bills: No Difficulty Paying for Meds: No Currently Unemployed: No Education: Trade/Vocational Certificate Difficulty w/ Childcare or Family Care: No Occupation/Education: retired Gender identity (if verbalized by the patient): Male Spiritual care concerns: No Agree to blood products: Yes Exam 2 Narrative: General appearance: Well-developed, well-nourished Skin: Normal color Head: Normocephalic, nontraumatic Eyes: Clear conjunctiva ENT: Oropharynx normal, ears normal, nose normal Neck: Supple, nontender Chest and respiratory: Airway patent, no respiratory distress, no accessory muscle use, diffuse tenderness left chest with light palpation, no bruises or rash or swelling Heart: Regular rate/rhythm Abdomen: Soft, nontender, no organomegaly, quiet bowel sounds Vascular: Normal peripheral pulses, normal capillary refill. Musculoskeletal: Normal range of motion, nontender back Neurologic: Alert and oriented ?3, SALON MANAGER is normal as tested, no gross motor deficit Course Vital Signs Vital signs: Vital Signs Temperature 36.7 C 11/02/24 10:08 Pulse Rate 98 11/02/24 10:08 Respiratory Rate 12 11/02/24 10:08 Blood Pressure 127/83 11/02/24 10:08 Pulse Oximetry 97 11/02/24 10:08 Oxygen Delivery Room Air 11/02/24 10:08 Temperature 36.7 C 11/02/24 10:08 Pulse Rate 98 11/02/24 10:08 Respiratory Rate 12 11/02/24 10:08 Blood Pressure 127/83 11/02/24 10:08 Pulse Oximetry 97 11/02/24 10:23 Oxygen Delivery Room Air 11/02/24 10:23 Medical Decision Making [facility] Narrative Medical decision making narrative: patient wake up with left chest aching Vital signs are stable Physical examination showing diffuse tenderness left chest with light palpation Differential diagnosis chest wall muscle pain, upper respiratory viral infection, dehydration, electrolyte imbalance, pneumonia, less likely coronary artery disease. EKG on arrival showing sinus rhythm at 95 beats per minute otherwise normal EKG, REPEATED EKG SHOWED NO NEW CHANGES COMPARED TO THE PREVIOUS 1 Chest x-ray showed NO ACUTE ABNORMALITIES Blood workup today included CBC, CMP, LIPASE,troponin, BNP, PT PTT SHOWED NO ACUTE ABNORMALITIES, THE 1ST AND 2ND TROPONIN WITHIN NORMAL LIMIT RESPIRATORY PANEL SHOWED NEGATIVE RESULTS. PATIENT'S SYMPTOMS ARE IMPROVING GRADUALLY, CURRENTLY HIS DISCOMFORT / WITH PALPATION. DIAGNOSIS CHEST WALL PAIN CONTINUE HOME MEDICATION, TAKE TYLENOL, IBUPROFEN NEEDED, PATIENT CURRENTLY CYCLOBENZAPRINE. Vital Signs Vital Signs: Vital Signs Temperature 36.7 C 11/02/24 10:08 Pulse Rate 98 11/02/24 10:08 Respiratory Rate 12 11/02/24 10:08 Blood Pressure 127/83 11/02/24 10:08 Pulse Oximetry 97 11/02/24 10:08 Oxygen Delivery Room Air 11/02/24 10:08 Temperature 36.7 C 11/02/24 10:08 Pulse Rate 98 11/02/24 10:08 Respiratory Rate 12 11/02/24 10:08 Blood Pressure 127/83 11/02/24 10:08 Pulse Oximetry 97 11/02/24 10:23 Oxygen Delivery Room Air 11/02/24 10:23 Lab Data 11/02/24 10:41 11/02/24 10:41 Labs: Lab Results 11/02/24 11/02/24 Range/Units 10:41 13:37 WBC 4.6 L (4.8-10.8) K/mm3 RBC 4.19 L (4.70-6.10) M/mm3 Hgb 10.8 L (12.4-15.3) g/dL Hct 35.7 L (37.0-46.0) % MCV 85.2 (78.0-102.0) fL MCH 25.8 L (27.0-31.0) pg MCHC 30.3 L (32-36) g/dL RDW 14.4 (11.6-14.4) % Plt Count 248 (150-420) K/mm3 MPV 10.4 (8.7-11.0) fl Immature Gran % (Auto) 0.2 H (0.0-0.0) % Neut % (Auto) 49.4 L (50.0-70.0) % Lymph % (Auto) 33.6 (18.0-42.0) % [place] % (Auto) 11.3 H (2.0-11.0) % Eos % (Auto) 4.6 (1.0-6.0) % Baso % (Auto) 0.9 (0.0-1.0) % Lymph # (Auto) 1.55 (1.10-4.50) K/mm3 [place] # (Auto) 0.52 (0.10-0.90) K/mm3 Eos # (Auto) 0.21 (0.02-0.50) K/mm3 Baso # (Auto) 0.04 (0.00-0.10) K/mm3 Abs Immat Gran (auto) 0.01 H (0.00-0.00) K/mm3 Absolute Neuts (auto) 2.28 (1.70-7.20) K/mm3 Absolute Nucleated RBC 0.00 (0.00-0.00) K/mm3 Nucleated RBC % 0.0 (0-0.0) % PT 11.3 (9.50-12.1) Seconds INR 1.0 APTT 24.8 (23.9-30.70) Sec Sodium 142 (136-145) mmol/L Potassium 4.2 (3.5-5.1) mmol/L Chloride 104 (98-108) mmol/L Carbon Dioxide 29 (21-32) mmol/L Anion Gap 9 (4-12) mmol/L BUN 11 (7-18) mg/dL Creatinine 0.93 (0.70-1.30) mg/dL Estim Creat Clear Calc Not Reportable Estimated GFR > 60 (59 - ) Glucose 117 H (70-99) mg/dL Calculated Osmolality 294 (285-295) mOsm/kg Calcium 8.9 (8.5-10.1) mg/dL Total Bilirubin 1.4 H (0.00-1.00) mg/dL AST 13 L (15-37) U/L ALT 19 (16-63) U/L Alkaline Phosphatase 71 (46-116) U/L Troponin I 4.3 < 4.0 (0.00-60.4) ng/L NT-Pro-B Natriuret Pep 71 (0-125) pg/mL Total Protein 7.0 (6.4-8.2) g/dL Albumin 3.7 (3.4-5.0) g/dL Lipase 59 (16-77) U/L Influenza A (RT-PCR) Negative (Negative) Influenza B (RT-PCR) Negative (Negative) RSV (RT-PCR) Negative (Negative) SARS-CoV-2 RNA (RT-PCR) Negative (Negative) Imaging Data Radiologist's impression: Impressions Chest X-Ray 11/02/24 10:35 IMPRESSION: 1: NO ACUTE CARDIOPULMONARY DISEASE. ECG Data EKG #1: Attestation: I personally reviewed and interpreted this ECG as follows: ECG completion date: 11/02/24 Interpretation: NORMAL SINUS RHYTHM AT 95 BEATS PER MINUTE, NORMAL EKG EKG #2: Attestation: I personally reviewed and interpreted this ECG as follows: ECG completion date: 11/02/24 Interpretation: NORMAL SINUS RHYTHM AT 85 BEATS PER MINUTE, NORMAL EKG Critical Care Time Critical Care Time Critical Care Time: No Discharge Plan Discharge Clinical Impression: Chest pain Patient Disposition: Home, Self-Care Condition: Improved Instructions: Chest Wall Pain (ED) Additional Instructions: RETURN IF SYMPTOMS ARE WORSENING , CALL YOUR FAMILY PHYSICIAN FOR APPOINTMENT, TAKE TYLENOL, IBUPROFEN NEEDED FOR ACHES AND PAIN, CONTINUE HOME MEDICATIONS. Patient Language: Czech Prescriptions: No Action aspirin 81 mg Tablet,Delayed Release (Dr/Ec) 81 mg PO DAILY multivitamin Tablet 1 tablet PO DAILY metformin 500 mg tablet extended release 24 hr 500 mg PO BID propranolol 80 mg capsule,extended release 24 hr 80 mg PO DAILY quetiapine 50 mg tablet 50 mg PO QHS citalopram [Celexa] 40 mg tablet 40 mg PO DAILY Qty: 90 0RF hydrocodone-acetaminophen 5-325 mg tablet 1 tablet PO Q6H PRN (Reason: Pain (Scale Score 7-10)) ibuprofen 600 mg Tablet 600 mg PO Q6H PRN (Reason: Moderate Pain (Scale Score 5-6)) cyclobenzaprine 5 mg tablet 5 mg PO TID PRN (Reason: Muscle Spasm) Patient Comments: Has not taken for approx 6 months as Pt. is unable to refill with new provider pregabalin [Lyrica] 50 mg Capsule 50 mg PO BID Qty: 90 0RF (DME) CPAP machine and supplies See Rx Instructions .Route .MEDSUPPLY Qty: 1 1RF Rx Instructions: Needs machine, mask, tubing, chamber and filters. atorvastatin 40 mg tablet 40 mg PO QHS Qty: 90 2RF levetiracetam [Keppra] 750 mg tablet 750 mg PO BID Qty: 60 5RF pantoprazole 40 mg tablet,delayed release (DR/EC) 40 mg PO QAM Qty: 90 0RF ferrous sulfate 325 mg (65 mg iron) tablet,delayed release (DR/EC) 325 mg PO BID Qty: 180 0RF Follow-up/Referrals: Marcial Cardenas MD [Primary Care Provider] - Quality HEART score for chest pain patients History: slightly suspicious ECG: normal Age: > or = to 65 years Risk factors: 1 or 2 risk factors Troponin: < or = to 1x normal limit Heart score: 3
--- NOTE | 2024-11-02 10:17 | ECG_ITS ---
Test Date: 2024-11-02 10:40:10 Measurements Intervals [place] Rate: 95 P: 57 [place]: 170 QRS: 31 QRSD: 85 T: 54 QT: 351 QTc: 442 Interpretive Statements SINUS RHYTHM NORMAL ECG Compared to ECG 10/05/2024 17:14:43 HEART RATE HAS DECREASED Electronically Signed On 11-02-2024 10:54:59 PROGRAM INSTRUCTOR by Gordon Jackson D.O.
[2024-11-02 10:47] LABS: Basophils Absolute Auto 0.04 K/mm3 (0.00-0.10); Basophils Percent Auto 0.9 % (0.0-1.0); Eosinophils Absolute Auto 0.21 K/mm3 (0.02-0.50); Eosinophils Percent Auto 4.6 % (1.0-6.0); Hematocrit 35.7 % (37.0-46.0); Hemoglobin 10.8 g/dL (12.4-15.3); Immature Granulocyte Absolute 0.01 K/mm3 (0.00-0.00); Immature Granulocyte Percent A 0.2 % (0.0-0.0); Lymphocytes Absolute Auto 1.55 K/mm3 (1.10-4.50); Lymphocytes Percent Auto 33.6 % (18.0-42.0); Mean Corpuscular HGB Conc 30.3 g/dL (32-36); Mean Corpuscular Hemoglobin 25.8 pg (27.0-31.0); Mean Corpuscular Volume 85.2 fL (78.0-102.0); Mean Platelet Volume 10.4 fl (8.7-11.0); Monocytes Absolute Auto 0.52 K/mm3 (0.10-0.90); Monocytes Percent Auto 11.3 % (2.0-11.0); Neutrophils Absolute Auto 2.28 K/mm3 (1.70-7.20); Neutrophils Percent Auto 49.4 % (50.0-70.0); Platelet Count Result 248 K/mm3 (150-420); Red Blood Count 4.19 M/mm3 (4.70-6.10); Red Cell Distribution Width 14.4 % (11.6-14.4); White Blood Count 4.6 K/mm3 (4.8-10.8)
[2024-11-02] MEDS: SODIUM CHLORIDE 0.9% IV 1,000 ML 999 ML IV CONT (10:58)
[2024-11-02 11:02] LABS: Partial Thromboplastin Time 24.8 Sec (23.9-30.70); Prothrombin Time 11.3 Seconds (9.50-12.1)
[2024-11-02 11:09] LABS: Alanine Aminotransferase 19 U/L (16-63); Albumin Level 3.7 g/dL (3.4-5.0); Alkaline Phosphatase 71 U/L (46-116); Anion Gap 9 mmol/L (4-12); Aspartate Amino Transferase 13 U/L (15-37); Bilirubin,Total 1.4 mg/dL (0.00-1.00); Blood Urea Nitrogen 11 mg/dL (7-18); Calcium 8.9 mg/dL (8.5-10.1); Carbon Dioxide 29 mmol/L (21-32); Chloride 104 mmol/L (98-108); Estimated Glomerular Filt Rate > 60; Glucose 117 mg/dL (70-99); Lipase 59 U/L (16-77); NT Pro B Type Natriuretic Pept 71 pg/mL (0-125); Osmolality Calculated 294 mOsm/kg (285-295); Potassium 4.2 mmol/L (3.5-5.1); Sodium 142 mmol/L (136-145); Troponin I 4.3 ng/L (0.00-60.4)
--- OUTSIDE RECORDS SUMMARY | 2024-11-02 11:10 | XMS_ITS | CONTINUITY OF CARE DOCUMENT ---
Author Name bj lorenzo Address Unknown Organization [facility] Address [address] [place] [address] [address] [place] [address] Phone [phone] Care Team Providers Care Wrecker Operator Name Role Phone Mike MIRANDA, Neelam Unavailable [phone] Neelam Mckeon MD Unavailable [phone] INSURANCE PROVIDERS Payer name Policy type / Coverage type [place] [employer] party ID [employer] MEDICARE Commercial insurance company 1 [id number]
[2024-11-02 11:24] LABS: SARS-CoV-2 RNA PCR Negative (Negative)
[2024-11-02 11:26] LABS: Influenza A QL RT-PCR Negative (Negative); Influenza B QL RT-PCR Negative (Negative); RSV RNA, RT-PCR Negative (Negative)
--- OUTSIDE RECORDS SUMMARY | 2024-11-02 11:56 | XMS_ITS | CONTINUITY OF CARE DOCUMENT ---
Author Name bj lorenzo Address Unknown Organization [facility] Office Address [address] [place] [address] [address] [place] [address] Phone [phone] Care Team Providers Care Investment Manager Name Role Phone Mike MIRANDA, Neelam Unavailable Neelam Mckeon MD Unavailable [phone] INSURANCE PROVIDERS Payer name Policy type / Coverage type [place] red alliance party ID [employer] MEDICARE Commercial insurance company 1 [id number]
[2024-11-02] MEDS: KETOROLAC 15 MG/ML VIAL (*BKC) IV PUSH (12:39)
[2024-11-02 14:00] LABS: Troponin I < 4.0 ng/L (0.00-60.4)
--- NOTE | 2024-11-02 14:01 | ECG_ITS ---
Test Date: 2024-11-02 14:09:37 Measurements Intervals [place] Rate: 85 P: 41 [place]: 169 QRS: 49 QRSD: 98 T: 19 QT: 380 QTc: 454 Interpretive Statements SINUS RHYTHM BASELINE WANDER- V5 NORMAL ECG Compared to ECG 11/02/2024 10:40:10 No significant changes Electronically Signed On 11-02-2024 14:30:27 GIS ADMINISTRATOR by Gordon Jackson D.O.
== END 2024-11-02 14:11 | disposition home or self-care (01) ==
PROVIDERS: Emergency Provider Emergency Medicine; PCP Family Medicine
DX: R07.9 Chest pain, unspecified (principal); I10 Essential (primary) hypertension; E11.9 Type 2 diabetes mellitus without complications; E78.5 Hyperlipidemia, unspecified; Z86.73 Personal history of transient ischemic attack (TIA), and cerebral infarction without residual deficits; Z20.822 Contact with and (suspected) exposure to COVID-19; Z79.82 Long term (current) use of aspirin
CPT/HCPCS: 36415; 71045; 80053; 83690; 83880; 84484; 85025; 85610; 85730; 87637; 93005; 96361; 96374; 99284; J1885; J7030

== ENCOUNTER 2025-02-08 16:07 | Emergency (ER) | payer MEDICARE, SELFPAY ==
--- NOTE | ~2025-02-08 | CT_ITS ---
EXAMINATION: CT brain wo con DATE: 02/08/2025 16:40 INDICATION: head injury, hit right side of head when fell, on asprin . TECHNIQUE: Computed tomography (CT) of the head was performed without intravenous contrast. The mA wa s adjusted according to patient size. Iterative reconstruction technique was employed. The dose-lengt h product was 681.00 mGy-cm. COMPARISON: 10/06/2024; MR brain 09/24/2024. FINDINGS: No acute intracranial hemorrhage or extra-axial fluid collection. No hydrocephalus, mass, or herniation. No acute ischemic infarct. Unremarkable dural venous sinus attenuation. No acute osseous abnormality. Mild maxillary and ethmoid mucosal thickening, the remaining aerated spaces are clear. Bilateral vascular calcification. Atherosclerotic intracranial calcifications. Stable right sphenoid wing meningioma. IMPRESSION: No acute intracranial process. Reviewed, dictated and finalized at location K.
[2025-02-08 16:07] VITALS: BP 121/76; PULSE 88; RESP 18; TEMP 35.6; O2SAT 97
--- OUTSIDE RECORDS SUMMARY | 2025-02-08 16:17 | XMS_ITS | Continuity of Care Document ---
Author Organization [facility] Address [address] [facility] [address] [place] [address] Insurance Providers Payer Plan Claims Address Claims Phone Policy Number Group Number Relation Employer Guarantor Name Guarantor Guarantor Address Guarantor Phone [employer] [facility] [id number] Self Ernst Malave 1955 [address] [place] [address] [employer] MEDIC ARE [address], [place] [address] Coverag [id number] Self Ernst Malave [address] [place] [id number] [employer] [address], [place] [address] tel:[phone] [id number] Self Ernst Malave 1955 [address] [place] [address] Problems Condition ICD9 code ICD10 code SNOMED [...]
--- OUTSIDE RECORDS SUMMARY | 2025-02-08 16:17 | XMS_ITS | CONTINUITY OF CARE DOCUMENT ---
Author Name bj lorenzo Address Unknown Organization [facility] Office Address [address] [place] [address] [address] [place] [address] Phone [phone] Care Team Providers Care Pattern Grader Supervisor Name Role Phone Mike MIRANDA, Neelam Unavailable [phone] Neelam Mckeon MD Unavailable [phone] INSURANCE PROVIDERS Payer name Policy type / Coverage type [place] red green party ID A[employer] MEDICARE Commercial insurance company 1 [id number]
--- OUTSIDE RECORDS SUMMARY | 2025-02-08 16:17 | XMS_ITS | Patient Health Record ---
Author Organization [facility] Address [address] [facility] [address] [place] [address] Care Team Providers Care Installer Inspector Final Name Role Phone Marcial Cardenas MD Primary Care Provider Nando Varela Unavailable [phone] Tej Dalal Unavailable [phone] Allergies Allergen (clinical drug ingredient) Drug/Non Drug Allergy documented on EMR Reaction Allergy Type Onset Date Status Blood pressure med (uncoded) Unknown Allergy Active Penicillin Unknown Drug Allergy Active Reason For Referral No Information Medications Medication SIG (Take, Route, Frequency, Duration) Notes Start Date End Date Status Propranolol HCl ER 80 MG Oral for 30 Days Active HYDROcodone-Acetamino phen 5-325 MG Oral for 15 Days Active QUEtiapine Fumarate 50 MG 1 tablet at bedtime Oral Once a day for 90 days Active Atorvastatin Calcium 40 MG TAKE 1 TABLET BY MOUTH EVERY DAY AT BEDTIME Oral for 90 Days Active Citalopram Hydrobromide 40 MG 1 tablet Oral Once a day for 90 days Active Pregabalin 100 MG Oral for 90 Days Active Losartan Potassium 50 MG Oral for 90 Days Active metFORMIN HCl ER 500 MG Oral for 90 Days Active Spravato (84 MG Dose) 28 MG/DEVICE 3 sprays in each nostril Nasally twice a week for 1 days Call [phone] for copay. Lalo (son) 11/30/2024 Active Spravato (56 MG Dose) 28 MG/DEVICE 2 sprays in each nostril Nasally once for 1 days Call [phone] for copay. Lalo (son) 11/30/2024 Active Social History Tobacco Use: Social History Observation Description Date Details (start date - stop date) Never Smoker NA - NA Sex Assigned At : Social History Observation Description Sex Assigned At Male Tobacco Control (Standard) Question Answer Notes Tobacco use: Nonsmoker AUDIT-C (Standard) Question Answer Notes Points 1 Interpretation Negative Did you have a drink contain ing alcohol in the past year? Yes How often did you have six o r more drinks on one occasion in the past year? Never (0 point) How many drinks did you have on a typical day when you were drinking in the past year? 1 or 2 drinks (0 point) How often did you have a dri nk containing alcohol in the past year? Monthly or less (1 point) Problems Problem Type SNOMED Code ICD Code Onset Dates Problem Status W/U Status Risk Notes Problem 25756997 Major depressive disorder, recurrent severe without psychotic features (F33.2) Active confirmed Problem 123745355 Memory impairment (R41.3) Active confirmed Problem Benign essential HTN (I10) Active confirmed Vital Signs Heart Rate 76 /min 11/25/2024 Height-cm 182.88 cm 11/25/2024 Blood pressure diastolic 91 mm Hg 11/25/2024 Weight-kg 116.57 kg 11/25/2024 Height 72 in 11/25/2024 Blood pressure systolic 151 mm Hg 11/25/2024 Weight 257 lbs 11/25/2024 BMI 34.85 kg/m2 11/25/2024 Procedures Procedure Date Ordered Date Performed Result Body Sit e SLUMS Testing 11/04/2024 N/A MCI Testing 11/04/2024 11/17/2024 N/A Encounters Encounter Location Date Provider Diagnosis [facility] [address] [address] 11/04/2024 Nando Norma Benign essential HTN I10 ; Major depressive disorder, recurrent severe without psychotic features F33.2 and Memory impairment R41.3 [facility] [address] [address] 11/17/2024 Nando Norma Memory impairment R41.3 [facility] [facility] [address] [address] 11/25/2024 Nando Norma Benign essential HTN I10 ; Major depressive disorder, recurrent severe without psychotic features F33.2 and Memory impairment R41.3 [facility] [facility] [address] [address] 11/04/2024 [employer] [address] [place] [address] 11/18/2024 [facility] [employer] [address] [place] [address] 11/30/2024 Tej Dalal Major depressive disorder, recurrent severe without psychotic features F33.2 Assessments Encounter Date Diagnosis (ICD Code) Assessment Notes Treatment Notes Treatment Clinical Notes Section Notes 11/17/2024 Memory impairment (ICD-10 - R41.3) Cognitive Assessment Summary for 68-Year-Old Male Simental Findings: Attention (Feature Match): Below Average (86) - Possible difficulties in sustained attention and detecting visual details. Episodic Memory (Paired Associates): Average (91) - Memory for associations between concepts is intact. Response Inhibition (Double Trouble): Below Average (77) - Possible issues with impulse control and stopping automatic responses. Visuospatial Working Memory (Number Ladder): Average (90) - Good ability to hold and manipulate spatial information in mind. Mental Rotation (Rotations): Below Average (80) - Possible challenges with spatial visualization and mental object rotation. Verbal Short-Term Memory (Digit Span): Significantly Below Average (46) - Difficulty retaining verbal information over short periods. Cognitive Exercise Recommendations: Attention Training: Play brain-training games that involve quick visual discrimination (e.g., Enjoyor, [employer]). Practice mindfulness meditation to improve sustained focus. Try spot the difference or memory card-matching games. Response Inhibition Improvement: Engage in Stroop Task exercises (e.g., saying the color of a word instead of reading it). Play impulse-control games like Yifan Says or reaction-based games. Mental Rotation & Visuospatial Memory Enhancement: Solve jigsaw puzzles, 3D visualization exercises, or play Envie de Fraisesis-like games. Practice mental imagery tasks, such as imagining an object rotating in space. Engage in activities like model-building or origami. Verbal Memory Boost: Use mnemonics and chunking (e.g., grouping numbers into smaller sets). Read aloud and summarize paragraphs to strengthen verbal retention. Practice reciting number sequences or repeating words in reverse order. Overall Summary: This cognitive profile suggests attention, impulse control, and verbal memory challenges, while episodic memory and visuospatial working memory are relatively intact. Engaging in targeted cognitive exercises can help maintain and improve cognitive function. 11/30/2024 Major depressive disorder, recurrent severe without psychotic features (ICD-10 - F33.2) 11/04/2024 Benign essential HTN (ICD-10 - I10) 11/25/2024 Benign essential HTN (ICD-10 - I10) 11/04/2024 Major depressive disorder, recurrent severe without psychotic features (ICD-10 - F33.2) 11/04/2024 Memory impairment (ICD-10 - R41.3) 11/25/2024 Major depressive disorder, recurrent severe without psychotic features (ICD-10 - F33.2) 11/25/2024 Memory impairment (ICD-10 - R41.3) 11/04/2024 Other Learning About Depression Screening material was printed Major Depressive Disorder, severe - Assessment: Depression scores indicate severe depression with PHQ9 score of 21 and Rossi Depression Inventory score of 32. - Plan: - Continue citalopram 40 mg daily. - Evaluate insurance coverage for esketamine nasal spray for treatment-resist ant depression. - If approved, initiate esketamine treatment in the office for at least 3 months to assess efficacy. - Monitor mood and depression scores during follow-up visits. Anxiety - Assessment: No significant anxiety reported. - Plan: - Continue monitoring during follow-up visits. Memory issues and possible dementia - Assessment: Patient experiencing memory issues with possible dementia. - Plan: - Perform cognitive testing in the office as a baseline assessment. - Reassess memory and cognitive function after addressing depression more aggressively. - Collaborate with the memory clinic at [facility] for further evaluation and management. Insomnia - Assessment: Patient currently taking quetiapine for sleep. - Plan: - Continue quetiapine 50 mg daily for sleep. - Reevaluate the need for dose adjustment after initiating esketamine treatment. Chronic pain (neck and head) - Assessment: Patient experiencing chronic neck and head pain. - Plan: - Continue current pain management plan. - Encourage patient to report any changes in pain levels during follow-up visits. Unusual EEG activity - Assessment: History of seizure-like activity noted, affecting treatment options. - Plan: - Monitor patient's neurological status during follow-up visits. - Collaborate with neurologist for further evaluation and management. Hypertension - Assessment: Patient has hypertension. - Plan: - Continue current blood pressure medication. - Monitor blood pressure during follow-up visits. Diabetes - Assessment: Patient has diabetes. - Plan: - Continue current diabetes management plan. - Monitor blood glucose levels during follow-up visits. Fractured spine - Assessment: Patient has a fractured spine. - Plan: - Continue conservative management as advised by primary care physician. - Encourage patient to report any changes in pain or mobility during follow-up visits. Non-cancerous brain tumor - Assessment: Patient has a non-cancerous brain tumor. - Plan: - Continue monitoring the tumor with periodic MRIs and CAT scans as advised by primary care physician. - Collaborate with neurologist for further evaluation and management if changes are observed. Appetite and weight loss - Assessment: Patient experiencing appetite and weight loss issues. - Plan: - Monitor appetite and weight during follow-up visits. - Encourage patient to eat when hungry and report significant changes in appetite or weight. Medication management - Assessment: Patient currently on multiple medications. - Plan: - Continue lamotrigine 25 mg, increase to 50 mg after 2 weeks. - Discontinue Keppra due to confusion and memory issues. - Monitor patient's response to medication changes during follow-up visits. Independent living adjustment - Assessment: Patient living in an independent living facility. - Plan: - Encourage patient to continue engaging in activities at the facility. - Monitor patient's overall well-being and satisfaction with living situation during follow-up visits. 11/25/2024 Other Adjustment to Assisted Living - Assessment: Patient reports improvement in mood and increased socialization since moving to assisted living. - Plan: - Encourage continued engagement with others and utilization of available support. Cognitive Impairment - Assessment: Cognitive testing revealed below-average performance in attention span, spatial memory, navigation, and short-term memory. - Plan: - Monitor for potential onset of dementia. - Retest cognitive function in 3 months to assess for any changes or improvements. Depression - Assessment: Patient is currently on 40 mg of citalopram and ketamine 50. Discontinued lamotrigine and bupropion. Approved for Spravato (esketamine) nasal spray. - Plan: - If interested, initiate Spravato treatment with sessions twice a week for the first month, then once a week, each lasting 2 hours. - Retest cognitive function in 3 months to assess the impact of mood improvement on cognition. - If Spravato is cost-prohibitive or ineffective, consider adding another medication for depression in 4 weeks. Elevated Blood Pressure - Assessment: Patient has elevated blood pressure. - Plan: - Monitor blood pressure closely, especially in the context of potential esketamine treatment. CNAs and RNs at the assisted living facility will assist with monitoring. - Consider potential impact of caffeine on blood pressure and discuss with primary care provider. Medication Management - Plan: - Discuss cognitive test results and current medications with primary care provider during the upcoming appointment. - Send prescription for Spravato to [facility] in [place] and inform the patient about the cost. If cost is too high, explore other options in 4 weeks. - Schedule follow-up appointment in 4 weeks to assess the effectiveness of the treatment plan and make any necessary adjustments. Plan Of Treatment Pending Test Test Name Order Date SLUMS Testing 11/04/2024 Insurance Providers Payer Name Payer Address Payer Phone Subscriber Number Group Number Insured Name Patient Relationship to Insured Coverage Start Date Coverage End Date [employer] [address] [place] [address] [id number] Ernst Malave Self - patient is the insured Medical (General) History Medical History History ICD Code Essential (primary) HTN Chronic Low Back Pain Essential tremor Past Psychiatric History: Major Depressi ve Episode,Bipolar Disorder undefined abdominal aortic aneurysm: No atrial fibrillation: No chronic fatigue syndrome: No essential tremor: Yes hyperlipidemia: No hypertension: Yes Parkinson's disease: No stroke: Yes type 2 diabetes mellitus: Yes
--- NOTE | 2025-02-08 16:20 | ED.HEATRA ---
HPI - Head Injury General Chief complaint: Head Injury Stated complaint: fall Time Seen by Provider: 02/08/25 16:19 Source: patient Mode of arrival: ambulatory Limitations: no limitations History of Present Illness HPI Narrative: patient is a 69-year-old male with a significant past medical history that presents today for a head injury. Patient was walking and tripped and a mechanical fall on to the corner of the wall. He has little bump on the back of his head the right side where he his head. He did not lose consciousness he did not have dizziness prior to the fall he did not have any almost near syncopal episodes before the fall this was a mechanical fall into the wall. He says after he hit the wall that he started having dizziness and little blurred vision and some sense of wooziness. Complaint: head injury Onset (ago): hour(s) Mechanism of Injury: fall Place: home Loss of Consciousness: no Location of injury: occipital Severity: severe Severity scale (1-10): 8 Quality: dull and stabbing Radiation: none Other Injuries: none Context: on aspirin Related Data Home Medications Medication Instructions Recorded Confirmed Last Taken Type aspirin 81 mg tablet,delayed 81 mg PO DAILY 01/11/23 10/06/24 Unknown History release multivitamin 1 tablet PO DAILY 12/22/23 10/06/24 Unknown History cyclobenzaprine 5 mg tablet 5 mg PO TID PRN Muscle Spasm 04/10/24 10/06/24 Unknown History hydrocodone 5 mg-acetaminophen 325 1 tablet PO Q6H PRN Pain (Scale 04/10/24 10/06/24 Unknown History mg tablet Score 7-10) metformin 500 mg tablet,extended 500 mg PO BID 04/23/24 10/06/24 Unknown History release 24 hr propranolol 80 mg capsule,24 80 mg PO DAILY 04/23/24 10/06/24 Unknown History hr,extended release quetiapine 50 mg tablet 50 mg PO QHS 08/18/24 10/06/24 Unknown History Allergies Allergy/AdvReac Type Severity Reaction Status Date / Time Penicillins Allergy Hives Verified 02/08/25 16:16 blood pressure med AdvReac Headache Uncoded 02/08/25 16:16 Review of Systems Review of Systems: All systems reviewed & are unremarkable except as noted in HPI and below Constitutional: Constitutional: Reports as per HPI Eyes: Eyes: Reports no additional eye complaints ENT: Reports system reviewed and no additional complaints, except as documented Cardiovascular: Cardiovascular: Reports no additional cardiovascular complaints Respiratory: Respiratory: Reports no additional respiratory complaints Gastrointestinal: Gastrointestinal: Reports no additional gastrointestinal complaints Genitourinary: Genitourinary: Reports no additional male genitourinary complaints Musculoskeletal: Musculoskeletal: Reports no additional musculoskeletal complaints Integumentary/Breasts: Skin/Breast: Reports system reviewed and no additional complaints, except as docu Neurologic: Reports headache(s) Comments: hit occipital right head region Psychiatric: Psychiatric: Reports no additional psychiatric complaints Endocrine: Endocrine: Reports no additional endocrine complaints Hematologic/Lymphatic: Hematologic/Lymphatic: Reports no additional hematologic/lymphatic complaints Allergic/Immunologic: Allergic/Immunologic: Reports no additional allergic/immunologic complaints [facility] Past Medical History Medical History Chronic, continuous use of opioids TIA (transient ischemic attack) Bipolar disorder Essential (primary) hypertension Chronic low back pain Essential tremor Obstructive sleep apnea syndrome in adult 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 Depression determined by examination MCI (mild cognitive impairment) with memory loss Seizure disorder Dizziness Obstructive sleep apnea on CPAP Frequent falls Neuropathy Hyperlipidemia Diabetes type 2, controlled Crush injury of foot As a child left foot Surgical History Surgical History Status post open reduction with internal fixation of fracture Left foot due to crush injury as a child History of shoulder replacement Bilateral Family History Family History Unknown Hypertension Depression Diabetes mellitus Cerebrovascular accident Neuropathy Social History Social History Social History: The patient is still but he and his have been legally since 2018. 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 He denies any history of tobacco or alcohol use. Code status: DNR/DNI per patient request Healthcare power of business attorney: Lalo (son) Smoking status: Never smoker Alcohol intake: unknown Drinks per week: 4 Alcohol use details: occasionally Substance use: never Substance use type: does not use Other substance usage details: Son says patient rarely drinks alcohol Do You Feel Safe in your Home?: Yes Lack of Transportation: YES Lack of Food: Never True Current Housing: I Do Not Have Housing Concerned About Future Housing: No Difficulty Paying Gas/Electric Bills: No Difficulty Paying for Meds: No Currently Unemployed: No Education: Trade/Vocational Certificate Difficulty w/ Childcare or Family Care: No Occupation/Education: retired Gender identity (if verbalized by the patient): Male Spiritual care concerns: No Agree to blood products: Yes Exam Const: General: healthy appearing Nutritional Appearance: well nourished Orientation/consciousness: patient oriented x3 HENMT: Head: normal to inspection Ears: external ears normal Face/Nose/Sinus: Normal external nose present Eyes: Conjunctivae: conjunctivae normal Pupils: Equal, round and reactive pupils present EOM: EOMs intact bilaterally Neck: Neck: normal visual inspection Chest: Chest palpation & inspection: normal inspection of the chest Resp: Effort & Inspection: normal respiratory effort Auscultation: clear to auscultation bilaterally Cardio: Rate: regular rate Rhythm: regular rhythm GI: GI Palp: Yes Soft to palpation Back/Spine/Pelvis: Back: no CVA tenderness Skin: General skin exam: normal color Rashes: no rashes Wounds: no wounds Neuro: General: patient oriented x3 Cranial nerves: Yes CN's II-XII intact bilaterally Speech: normal speech Gait exam (Neuro): Normal gait present Extrem: General: normal to inspection Psych: Mental Status: mental status grossly normal Affect: normal affect Attitude: cooperative Course Vital Signs Vital signs: Vital Signs Temperature 96.1 F L 02/08/25 16:07 Pulse Rate 88 02/08/25 16:07 Respiratory Rate 18 02/08/25 16:07 Blood Pressure 121/76 02/08/25 16:07 Pulse Oximetry 97 02/08/25 16:07 Oxygen Delivery Room Air 02/08/25 16:07 Temperature 96.1 F L 02/08/25 16:07 Pulse Rate 88 02/08/25 16:07 Respiratory Rate 18 02/08/25 16:07 Blood Pressure 121/76 02/08/25 16:07 Pulse Oximetry 97 02/08/25 16:07 Oxygen Delivery Room Air 02/08/25 16:07 MDM - Head Injury MDM Narrative Medical decision making narrative: Patient hit his head in the back right occipital lobe area. There is just a small lump there no signs of a hematoma no signs of bleeding or any of the sort. Very low suspicion for any type of skull fracture. He did have dizziness after he hit his head and had a little confusion. Because this will do a CT of the brain without contrast to ensure that there is no intercranial with eating or any other abnormal findings. He says he does have a history of a recurrent brain tumor in the right parietal lobe. Differential Diagnosis Differential diagnosis: Likely closed head injury Medical Records Attestation: I reviewed the patient's medical records. Lab Data Attestation: I reviewed the patient's lab results. Imaging Data Attestation: I personally reviewed and interpreted this imaging study as follows: Discharge Plan Discharge Clinical Impression: Head injury Patient Disposition: Home Condition: Stable Instructions: Head Injury (ED) Patient Language: Luxembourgish Prescriptions: No Action aspirin 81 mg Tablet,Delayed Release (Dr/Ec) 81 mg PO DAILY multivitamin Tablet 1 tablet PO DAILY metformin 500 mg tablet extended release 24 hr 500 mg PO BID propranolol 80 mg capsule,extended release 24 hr 80 mg PO DAILY quetiapine 50 mg tablet 50 mg PO QHS citalopram [Celexa] 40 mg tablet 40 mg PO DAILY Qty: 90 0RF hydrocodone-acetaminophen 5-325 mg tablet 1 tablet PO Q6H PRN (Reason: Pain (Scale Score 7-10)) cyclobenzaprine 5 mg tablet 5 mg PO TID PRN (Reason: Muscle Spasm) Patient Comments: Has not taken for approx 6 months as Pt. is unable to refill with new provider pregabalin [Lyrica] 50 mg Capsule 50 mg PO BID Qty: 90 0RF (DME) CPAP machine and supplies See Rx Instructions .Route .MEDSUPPLY Qty: 1 1RF Rx Instructions: Needs machine, mask, tubing, chamber and filters. atorvastatin 40 mg tablet 40 mg PO QHS Qty: 90 2RF pantoprazole 40 mg tablet,delayed release (DR/EC) 40 mg PO QAM Qty: 90 0RF ferrous sulfate 325 mg (65 mg iron) tablet,delayed release (DR/EC) 325 mg PO BID Qty: 180 0RF lacosamide 50 mg tablet 50 mg PO BID 7 Days Qty: 180 1RF Rx Instructions: start with 50 mg once a day at bedtime after 1 week 1 tablet twice a day for 1 week and then 50 mg 3 times a day for 1 week then 200 mg twice a day levetiracetam [Keppra] 750 mg tablet 750 mg PO BID Qty: 180 1RF ibuprofen 600 mg tablet 600 mg PO BID PRN (Reason: Moderate Pain (Scale Score 5-6)) Qty: 60 0RF Follow-up/Referrals: Marcila Cardenas MD [Primary Care Provider] - Time of Disposition: 16:59
--- OUTSIDE RECORDS SUMMARY | 2025-02-08 16:53 | XMS_ITS | CONTINUITY OF CARE DOCUMENT ---
Author Name bj lorenzo Address Unknown Organization [facility] Office Address [address] [place] [address] [address] [place] [address] Phone [phone] Care Team Providers Care Site Supervisor Name Role Phone Mike MIRANDA, Neelam Unavailable [phone] Neelam Mckeon MD Unavailable [phone] INSURANCE PROVIDERS Payer name Policy type / Coverage type [place] red libertarian ID [employer] MEDICARE Commercial insurance company 1 [id number]
== END 2025-02-08 17:05 | disposition home or self-care (01) ==
PROVIDERS: Emergency Provider Family Medicine; PCP Family Medicine
DX: S09.90XA Unspecified injury of head, initial encounter (principal); W18.30XA Fall on same level, unspecified, initial encounter; Z79.82 Long term (current) use of aspirin; Z86.73 Personal history of transient ischemic attack (TIA), and cerebral infarction without residual deficits; I10 Essential (primary) hypertension; G40.909 Epilepsy, unspecified, not intractable, without status epilepticus; E11.9 Type 2 diabetes mellitus without complications; E78.5 Hyperlipidemia, unspecified
CPT/HCPCS: 70450; 99284

== ENCOUNTER 2025-05-04 08:56 | Outpatient (CLI) | payer MEDICARE, SELFPAY ==
--- NOTE | ~2025-05-04 | XR_ITS ---
XR knee LT 3V 05/04/2025 09:33 Indication: Left knee pain Procedure: 3 views left knee Comparison: No prior studies for comparison. Findings: No fracture, subluxation or dislocation. There is mild tricompartment osteoarthritis. No si gnificant joint effusion. Prominent tibial tubercle. Impression: 1: Mild tricompartment osteoarthritis of the left knee. Reviewed, dictated and finalized at location A. Impression: 1: Mild tricompartment osteoarthritis of the left knee.
--- NOTE | ~2025-05-04 | XR_ITS ---
XR knee RT 3V 05/04/2025 09:33 Indication: Right knee pain Procedure: 3 views right knee Comparison: No prior studies for comparison. Findings: There is mild tricompartment osteoarthritis. No fracture, subluxation or dislocation. No si gnificant joint effusion. Impression: 1: Mild tricompartment osteoarthritis. Reviewed, dictated and finalized at location A. Impression: 1: Mild tricompartment osteoarthritis.
--- OUTSIDE RECORDS SUMMARY | 2025-05-04 09:05 | XMS_ITS | Continuity of Care Document ---
Author Organization [facility] - Main Address [address] [facility] [address] [place] [address] Insurance Providers Payer Plan Claims Address Claims Phone Policy Number Group Number Relation Employer Guarantor Name Guarantor Guarantor Address Guarantor Phone Aetna [facility] [id number] Aetna [facility] [id number] AETNA [place] AETNA [place] MED[place] ARE [address], [place] [address] Coverag [id number] AETNA AETNA [address], [place] [address] tel:[phone] RXAETD Problems Condition ICD9 code ICD10 code SNOMED [...]
--- OUTSIDE RECORDS SUMMARY | 2025-05-04 09:05 | XMS_ITS | Patient Health Record ---
Author Organization [facility] [address] Address [address] [facility] [address] [place] [address] Care Team Providers Care Lead Custodian Name Role Phone Marcial Cardenas MD Primary Care Provider Nando Varela Unavailable [phone] Tej Dalal Unavailable [phone] Allergies Allergen (clinical drug ingredient) Drug/Non Drug Allergy documented on EMR Reaction Allergy Type Onset Date Status Blood pressure med (uncoded) Unknown Allergy Active Penicillin Unknown Drug Allergy Active Reason For Referral No Information Medications Medication SIG (Take, Route, Frequency, Duration) Notes Start Date End Date Status Propranolol HCl ER 80 MG Oral; Duration: 30 Days Active HYDROcodone-Acetamino phen 5-325 MG Oral; Duration: 15 Days Active QUEtiapine Fumarate 50 MG 1 tablet at bedtime Oral Once a day; Duration: 90 days Active Atorvastatin Calcium 40 MG TAKE 1 TABLET BY MOUTH EVERY DAY AT BEDTIME Oral; Duration: 90 Days Active Citalopram Hydrobromide 40 MG 1 tablet Oral Once a day; Duration: 90 days Active Pregabalin 100 MG Oral; Duration: 90 Days Active Losartan Potassium 50 MG Oral; Duration: 90 Days Active metFORMIN HCl ER 500 MG Oral; Duration: 90 Days Active Spravato (84 MG Dose) 28 MG/DEVICE 3 sprays in each nostril Nasally twice a week; Duration: 1 days Call [phone] for copay. Lalo (son) 11/30/2024 Active Spravato (56 MG Dose) 28 MG/DEVICE 2 sprays in each nostril Nasally once; Duration: 1 days Call [phone] for copay. Lalo (son) 11/30/2024 Active Social [...] Problem Status W/U Status Risk Notes Problem Severe recurrent major depression without psychotic features (32655194) Major depressive disorder, recurrent severe without psychotic features (F33.2) Active confirmed Problem Memory impairment (668740012) Memory impairment (R41.3) Active confirmed Problem Essential hypertension (70815122) Benign essential HTN (I10) Active confirmed Vital [...] N/A Encounters Encounter Location Date Provider Diagnosis [facility] [address] [address] 11/04/2024 Nando Norma Benign essential HTN I10 ; Major depressive disorder, recurrent severe without psychotic features F33.2 and Memory impairment R41.3 [facility] [address] [address] 11/17/2024 Nando Norma Memory impairment R41.3 [facility] [address] 11/25/2024 Nando Norma Benign essential HTN I10 ; Major depressive disorder, recurrent severe without psychotic features F33.2 and Memory impairment R41.3 [facility] [address] [place] [address] 11/04/2024 Nando Norma [facility] [address] [place] [address] 11/18/2024 Nando Norma [facility] [address] [place] [address] 11/30/2024 Tej Clubb Major depressive disorder, recurrent severe without psychotic features F33.2 [facility] [address] [place] [address] 04/14/2025 Nando Green Assessments Encounter Date Diagnosis (ICD Code) Assessment [...] games that involve quick visual discrimination (e.g., Lumosity, BrainHQ). Practice mindfulness meditation to improve sustained focus. Try spot the difference or memory card-matching games. Response Inhibition Improvement: Engage in Stroop Task exercises (e.g., saying the color of a word instead of reading it). Play impulse-control games like Yifan Says or reaction-based games. Mental Rotation & Visuospatial Memory Enhancement: Solve jigsaw puzzles, 3D visualization exercises, or play Curoverseis-like games. Practice mental imagery tasks, such as [...] - Collaborate with the memory clinic at [facility] for further evaluation and management. Insomnia - [...] appointment. - Send prescription for Spravato to [facility] pharmacy in [place] and inform the patient about the cost. [...] Coverage Start Date Coverage End Date Aetna [address] [place] [address] [id number] RXAETD Ernst Malave Self - patient is [...]
[2025-05-04 09:22] LABS: Hematocrit 44.9 % (37.0-46.0); Hemoglobin 14.9 g/dL (12.4-15.3); Immature Granulocyte Percent A 0.2 % (0.0-0.0); Lymphocytes Absolute Auto 1.80 K/mm3 (1.10-4.50); Mean Corpuscular HGB Conc 33.2 g/dL (32-36); Mean Corpuscular Hemoglobin 29.7 pg (27.0-31.0); Mean Corpuscular Volume 89.4 fL (78.0-102.0); Nucleated Red Blood Cells Absolute Auto 0.00 K/mm3 (0.00-0.00); Nucleated Red Blood Cells Perc 0.0 % (0-0.0); Platelet Count Result 209 K/mm3 (150-420); Red Blood Count 5.02 M/mm3 (4.70-6.10); White Blood Count 6.0 K/mm3 (4.8-10.8)
[2025-05-04 09:23] LABS: Add Urine Microscopic? NO; Appearance Urine Clear (Clear); Glucose Urine UA Negative (Negative); Leukocyte Esterase Ur Negative (Negative); Nitrate Urine Negative (Negative); Specific Grav Ur >= 1.030 (1.010-1.020)
[2025-05-04 09:47] LABS: Hemoglobin A1C 6.8 % (<5.7)
[2025-05-04 10:03] LABS: MALB Creatinine Ratio 12.2 mg/g (0-30)
[2025-05-04 10:07] LABS: Alanine Aminotransferase 19 U/L (6-50); Albumin Level 4.5 g/dL (3.5-5.1); Alkaline Phosphatase 56 U/L (38-126); Anion Gap 6 mmol/L (4-12); Aspartate Amino Transferase 22 U/L (17-59); Bilirubin,Total 1.6 mg/dL (0.2-1.3); Blood Urea Nitrogen 16 mg/dL (9-20); Calcium 9.7 mg/dL (8.4-10.2); Carbon Dioxide 30 mmol/L (22-30); Chloride 105 mmol/L (98-107); Estimated Glomerular Filt Rate > 60; Glucose 150 mg/dL (65-110); Iron 88 ug/dL (49-181); Osmolality Calculated 296 mOsm/kg (285-295); Potassium 5.0 mmol/L (3.4-5.0); Sodium 141 mmol/L (137-145); Total Protein 7.3 g/dL (6.3-8.2)
[2025-05-04 10:16] LABS: Percent Iron Saturation 25 % (20-50)
[2025-05-04 10:38] LABS: Thyroid Stimulating Hormone 1.870 uIU/mL (0.465-4.680)
[2025-05-04 10:42] LABS: Ferritin 33.60 ng/mL (11.1-264)
== END 2025-05-04 08:57 | disposition home or self-care (01) ==
PROVIDERS: PCP Family Medicine; Visit Provider Family Medicine
DX: E11.9 Type 2 diabetes mellitus without complications (principal); D50.9 Iron deficiency anemia, unspecified; M25.561 Pain in right knee; M25.562 Pain in left knee; M17.0 Bilateral primary osteoarthritis of knee
CPT/HCPCS: 36415; 73562; 80053; 81003; 82043; 82248; 82728; 83036; 83540; 83550; 84443; 85025

== ENCOUNTER 2025-07-22 07:36 | Outpatient (CLI) | payer MEDICARE, SELFPAY ==
--- OUTSIDE RECORDS SUMMARY | 2025-07-22 07:41 | XMS_ITS | Patient Health Record ---
Author Organization [facility] Address [address] [place] [address] Care Team Providers Care Filling Machine Operator Name Role Phone Marcial Cardenas MD Primary Care Provider Nando Varela Unavailable [phone] Tej Dalal Unavailable [phone] Allergies Allergen (clinical drug ingredient) Drug/Non Drug Allergy documented on EMR Reaction Allergy Type Onset Date Status Blood pressure med (uncoded) Unknown Allergy Active Penicillin Unknown Drug Allergy Active Reason For Referral No Information Medications Medication SIG (Take, Route, Frequency, Duration) Notes Start Date End Date Status Propranolol HCl ER 80 MG Capsule Extended Release 24 Hour Oral; Duration: 30 Days Active HYDROcodone-Acetamino phen 5-325 MG Tablet Oral; Duration: 15 Days Active QUEtiapine Fumarate 50 MG Tablet 1 tablet at bedtime Oral Once a day; Duration: 90 days Active Atorvastatin Calcium 40 MG Tablet TAKE 1 TABLET BY MOUTH EVERY DAY AT BEDTIME Oral; Duration: 90 Days Active Citalopram Hydrobromide 40 MG Tablet 1 tablet Oral Once a day; Duration: 90 days Active Pregabalin 100 MG Capsule Oral; Duration: 90 Days Active Losartan Potassium 50 MG Tablet Oral; Duration: 90 Days Active metFORMIN HCl ER 500 MG Tablet Extended Release 24 Hour Oral; Duration: 90 Days Active Spravato (84 MG Dose) 28 MG/DEVICE Solution Therapy Pack 3 sprays in each nostril Nasally twice a week; Duration: 1 days Call [phone] for copay. Lalo (son) 11/30/2024 Active Spravato (56 MG Dose) 28 MG/DEVICE Solution Therapy Pack 2 sprays in each nostril Nasally once; Duration: 1 days Call [phone] for copay. May (son) 11/30/2024 Active Social History Tobacco Use: Social History Observation Description Date Details (start date - stop date) Never Smoker NA - NA Sex Assigned At : Social History Observation Description Sex Assigned At Male Social History Miscellaneous: Social Info Question Answer Notes Advance Care Planning Are you your own decision-maker Yes Do you have Power of Director Of Public Works for Health or Medi nikole? Yes Do you have a power of deputy county attorney for health? Yes Do you have power of deputy county attorney for Medical ? Yes If yes, then please bring the POA paperwork so that we can upload it. Yes Safety issues: Are there any firearms in the house? No Social History Social Info Question Answer Notes Household: Marital Status: Not Answered Number of Adults in household: 1 Number of Children in Household: 0 Level of Education: Finished College Drug/Alcohol: Social Info Question Answer Notes Drugs Have you used drugs other than those for medical reasons in the past 12 months? No AUDIT-C (Standard) Points 1 Interpretation Negative Did you have a drink containing alcohol in the p ast year? Yes How often did you have six or more drinks on one occasion in the past year? Never (0 point) How many drinks did you have on a typical day when you were drinking in the past year? 1 or 2 drinks (0 point) How often did you have a drink containing alcohol in the past year? Monthly or less (1 point) Tobacco Use: Social Info Question Answer Notes Tobacco Control (Standard) Tobacco use: Nonsmoker Additional Details Category Social Info Options Details Miscellaneous: Occupation: Retired Problems Problem Type SNOMED Code ICD Code Onset Dates Problem Status W/U Status Risk Notes Problem Severe recurrent major depression without psychotic features (99466573) Major depressive disorder, recurrent severe without psychotic features (F33.2) Active confirmed Problem Memory impairment (778229014) Memory impairment (R41.3) Active confirmed Problem Essential hypertension (85444121) Benign essential HTN (I10) Active confirmed Vital [...] N/A Encounters Encounter Location Date Provider Diagnosis [facility] [place] [address] [address] 11/04/2024 Nando Norma Benign essential HTN I10 ; Major depressive disorder, recurrent severe without psychotic features F33.2 and Memory impairment R41.3 [facility] [place] [address] [address] 11/17/2024 Nando Norma Memory impairment R41.3 [facility] [place] [address] [address] 11/25/2024 Anndo Norma Benign essential HTN I10 ; Major depressive disorder, recurrent severe without psychotic features F33.2 and Memory impairment R41.3 [facility] [place] [address] [address] 11/04/2024 Nando Norma [facility] [place] [address] [address] 11/18/2024 Nando Norma [facility] [address] [address] 11/30/2024 Tej Dalal Major depressive disorder, recurrent severe without psychotic features F33.2 [facility] [place] [address] [address] 04/14/2025 Nando Norma Assessments Encounter Date Diagnosis (ICD Code) Assessment Notes Treatment Notes Treatment Clinical Notes Section Notes 11/30/2024 Major depressive disorder, recurrent severe without psychotic features (ICD-10 - F33.2) 11/17/2024 Memory impairment (ICD-10 - R41.3) Cognitive [...] jigsaw puzzles, 3D visualization exercises, or play Yik Yakis-like games. Practice mental imagery tasks, such as [...] can help maintain and improve cognitive function. 11/04/2024 Benign essential HTN (ICD-10 - I10) [...] - Collaborate with the memory clinic at [facility] for further evaluation and management. Insomnia [...] appointment. - Send prescription for Spravato to [facility] in [place] and inform the patient about the cost. [...] Date Coverage End Date Aetna [address] [place] [phone] [id number] RXAETD Ernst Malave Self - patient is [...]
[2025-07-22 09:06] LABS: Hematocrit 47.2 % (42.0-52.0); Hemoglobin 15.7 g/dL (14.0-18.0); Immature Granulocyte Percent A 0.3 % (0-0.5); Lymphocytes Absolute Auto 2.04 K/mm3 (0.9-3.2); Mean Corpuscular HGB Conc 33.3 g/dl (32-36); Mean Corpuscular Hemoglobin 29.6 pg (26-34); Mean Corpuscular Volume 88.9 fl (80-100); Nucleated Red Blood Cells Absolute Auto 0.000 K/mm3 (0.0-0.012); Nucleated Red Blood Cells Perc 0.0 % (0.0-0.2); Platelet Count Result 202 k/mm3 (150-375); Red Blood Count 5.31 M/mm3 (4.6-6.20); White Blood Count 6.7 K/mm3 (4.5-10.0)
[2025-07-22 09:11] LABS: Add Urine Microscopic? YES; Appearance Urine Clear (Clear); Glucose Urine UA 3+ mg/dL (Negative); Leukocyte Esterase Ur Negative LEU/UL (Negative); Nitrate Urine Negative (Negative); Non Pathogenic Casts 0-2; Specific Grav Ur 1.029 (1.001-1.035)
[2025-07-22 09:18] LABS: INR 1.1; Partial Thromboplastin Time 25.2 Seconds (22.3-36.8); Prothrombin Time 13.8 Seconds (11.1-14.7)
[2025-07-22 09:29] LABS: Albumin Level 4.5 g/dL (3.5-5.1); Anion Gap 8 mmol/L (4-12); Blood Urea Nitrogen 16 mg/dL (9-20); Calcium 9.3 mg/dL (8.4-10.2); Carbon Dioxide 31 mmol/L (22-30); Chloride 100 mmol/L (98-107); Estimated Glomerular Filt Rate > 60; Glucose 237 mg/dL (65-110); Potassium 4.5 mmol/L (3.4-5.0); Sodium 139 mmol/L (137-145)
[2025-07-22 10:39] LABS: MRSA (PCR) NOT DETECTED (NOT DETECTE)
== END 2025-07-22 07:37 | disposition home or self-care (01) ==
LOC: ANHSURGERY 07:39
PROVIDERS: PCP Family Medicine; Visit Provider Orthopaedic Surgery
DX: Z01.812 Encounter for preprocedural laboratory examination (principal); M17.9 Osteoarthritis of knee, unspecified
CPT/HCPCS: 80048; 80307; 81001; 82040; 85025; 85610; 85730; 86850; 86900; 86901; 87641

== ENCOUNTER 2025-08-02 00:45 | Day surgery (SDC) | payer MEDICARE, SELFPAY ==
[2025-07-22 08:08] VITALS: BP 132/82; PULSE 84; RESP 16; TEMP 36.3; O2SAT 96; BMI 37.2
--- NOTE | 2025-07-22 08:29 | PC.NURSE ---
Addendum entered by Verena Mckenzie RN 07/22/25 09:00: Pt not on Nifedipine, Son aware to take rest of am meds as indicated rest of med list reconciled w Assisted [facility] Original Note: [facility] has started construction of its new state of the art ER which will open Spring 2026. With this, we anticipate parking may be a challenge for some our surgical patients and families. Parking spaces are limited but are available for all Surgical, obstetrics, and ER patients sharing this lot. If you arrive and find you are having a hard time finding a parking space, please note that we understand the challenges, please drive around the hospital and park near Hospital Entrance 1. When you enter this entrance, you can ask a volunteer to direct or take you back to the surgical waiting area to check in. We appreciate everyone?s understanding of these expected challenges while we build for your future. Report to the Outpatient Waiting Room, entrance under the green pavilion located off [address], at time __06:30am on date ___08/02/25____. Planned Procedure Time: __08:30am .? Time changes happen often and if your time is changed the preop area will call you the afternoon before. - You and your visitor will be asked to self-screen and do not enter if you have any COVID symptoms. Please call surgeon if you need to reschedule. - A mask is optional within the hospital at this time. Patients may have clear liquids (water, carbonated beverages, clear teas, apple juice) until 3 hours prior to surgery with a maximum of 20 ounces. - No food from midnight until time of surgery and no smoking, or chewing tobacco (or any form of nicotine). No chewing gum, candy or mints. (05:30am) Take only the following medications with a SIP of water on the morning of surgery: ___Citalopram, Propanalol, Pregabalin, Lamotrigine, Nifedipine, Cyclobenzaprine if needed, Hydrocodone if needed DO NOT STOP ANY OF YOUR OTHER PRESCRIPTION MEDICATIONS PRIOR TO SURGERY EXCEPT THE FOLLOWING Hold all vitamins and supplements for 3 days per anesthesiologist. Date of last dose is 07/29/25 Medications to discontinue per physician Aspirin and Ibuprofen/NSAIDS for [address] Munoz Date to take last dose___07/25/25 Awaiting call from Facility regarding if pt on Seizure medication or not. Pt is to take it that am of Surgery if so. Please no make-up, nail kiswahili, hairspray, perfume, deodorant, or body powder the day of surgery.? No jewelry (including any body piercings) or valuables the day of surgery, leave them at home.? Please take a shower or bath the night before, or the morning of, surgery with an antibacterial soap Scrub per Dr Munoz. Wear comfortable, loose fitting clothing.? Overnight bag w toiletries, CPAP, WALKER and good shoes. - Jewelry must be removed prior to entering the operating room.? Rings and piercings that are not removed may be cut off. - The hospital will not accept responsibility for valuables.? - Please leave all valuables, including medications, at home the day of surgery. If you are going home after surgery, a licensed regional intermodal truck driver must drive you home.? - NO public transportation without another adult if you receive anesthesia. - We recommend that an adult stay with you for 24 hours following discharge. - We also recommend that you do not drive, make important decision, drink alcoholic beverages, or take any drugs that were not prescribed by your health care provider for at least 24 hours after your discharge time. Follow any additional instructions given to you from your surgeon. Telephone instructions given to __Patient and son Lalo and asked if any additional questions and then verbalized understanding. Patient advised to call surgeon office or pre surgery nurse liaison [phone] if any additional questions.
[2025-08-02] VITALS (12 sets, daily range): BP systolic 109–147; BP diastolic 52–94; PULSE 71–100; RESP 12–19; TEMP 36.1–36.8; O2SAT 92–99
--- NOTE | ~2025-08-02 | XR_ITS ---
EXAMINATION: [id number] DATE: 08/02/2025 11:36 INDICATION: Postoperative evaluation following left total knee arthroplasty. TECHNIQUE: Anteroposterior and lateral views of the left knee were obtained. COMPARISON: None. FINDINGS: Left total knee arthroplasty without patellar resurfacing appears well seated and in near anatomic alignment. No fractures identified. Expected postoperative subcutaneous and intra-articular gas. IMPRESSION: 1. Left total knee arthroplasty, negative for postoperative purposes. Reviewed, dictated and finalized at location A. 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
--- OUTSIDE RECORDS SUMMARY | 2025-08-02 00:47 | XMS_ITS | Patient Health Record ---
Author Organization [facility] [employer] Address [address] [place] [address] Care Team Providers Care Videographer Name Role Phone Marcial Cardenas MD Primary Care Provider Nando Varela Unavailable [phone] Tej Dalal Unavailable [phone] Allergies Allergen (clinical drug ingredient) Drug/Non Drug [...] twice a week; Duration: 1 days Call [phone] for copay. Lalo (son) 11/30/2024 Active Spravato (56 MG Dose) 28 MG/DEVICE Solution Therapy Pack 2 sprays in each nostril Nasally once; Duration: 1 days Call [phone] for copay. May (son) 11/30/2024 Active Social History Tobacco Use: Social History Observation Description Date Details (start date - stop date) Never Smoker NA - NA Sex Assigned At : Social History Observation Description Sex Assigned At Male Social History Miscellaneous: Social Info Question Answer Notes Advance Care Planning Are you your own decision-maker Yes Do you have Power of Applications Support Specialist for Health or Medi nikole? Yes Do you have a power of assistant county attorney for health? Yes Do you have power of assistant county attorney for Medical ? Yes If [...] Severe recurrent major depression without psychotic features (63153844) Major depressive disorder, recurrent severe without psychotic features (F33.2) Active confirmed Problem Memory impairment (767598470) Memory impairment (R41.3) Active confirmed Problem Essential hypertension (45938553) Benign essential HTN (I10) Active confirmed Vital [...] N/A Encounters Encounter Location Date Provider Diagnosis [facility] [address] [address] 11/04/2024 Nando Norma Benign essential HTN I10 ; Major depressive disorder, recurrent severe without psychotic features F33.2 and Memory impairment R41.[address] [facility] [address] [address] 11/17/2024 Nando Norma Memory impairment R41.3 [facility] [address] [address] 11/25/2024 Nando Norma Benign essential HTN I10 ; Major depressive disorder, recurrent severe without psychotic features F33.2 and Memory impairment R41.3 [facility] [address] [address] 11/04/2024 Nando Norma [facility] [employer] [facility] [address] [address] 11/18/2024 Nando Norma [facility] [facility] [address] [address] 11/30/2024 Tej Dalal Major depressive disorder, recurrent severe without psychotic features F33.[address] [facility] [place] [address] [address] 04/14/2025 Nando Norma Assessments Encounter Date Diagnosis [...] jigsaw puzzles, 3D visualization exercises, or play Prixingis-like games. Practice mental imagery tasks, such as [...] - Collaborate with the memory clinic at [facility] for further evaluation and management. Insomnia - [...] appointment. - Send prescription for Spravato to [facility] in [place] and inform the patient about the cost. [...] Date Coverage End Date Aetna [address] [place] [phone] [id number] RXAETD Ernst Malave Self - patient is [...]
--- NOTE | 2025-08-02 06:44 | WPDANESEPPF ---
Anes - Initial Pre Proc Eval Procedure: Operation Date: 08/02/25 08:30 Proposed Procedures p Left Total Knee Arthroplasty - Marcelo Munoz MD Date/Time: 08/02/25 06:44 Surgeon: Marcelo Munoz MD Pre Op Diagnosis: left knee DJD Patient Data Age: 69 Gender: M Height: 1.85 m Weight: 127.9 kg Last Vital Signs Temp 36.3 C L 07/22/25 08:08 Pulse 84 07/22/25 08:08 Resp 16 07/22/25 08:08 BP 132/82 07/22/25 08:08 Pulse Ox 96 07/22/25 08:08 O2 Del Method Room Air 07/22/25 08:08 Allergies Allergy/AdvReac Type Severity Reaction Status Date / Time Penicillins Allergy Unknown Hives,Hives, Verified 08/02/25 06:30 SOB blood pressure med AdvReac Headache Uncoded 07/22/25 09:34 Home Medications ?Medication ?Instructions ?Recorded ?Confirmed ?Type aspirin 81 mg tablet,delayed 81 mg PO DAILY 01/11/23 07/22/25 History release multivitamin 1 tablet PO DAILY 12/22/23 07/22/25 History cyclobenzaprine 5 mg tablet 5 mg PO TID PRN Muscle Spasm 04/10/24 07/22/25 History hydrocodone 5 mg-acetaminophen 325 1 tablet PO Q6H PRN Pain (Scale 04/10/24 07/22/25 History mg tablet Score 7-10) metformin 500 mg tablet,extended 500 mg PO BID 04/23/24 07/22/25 History release 24 hr propranolol 80 mg capsule,24 80 mg PO DAILY 04/23/24 07/22/25 History hr,extended release CPAP machine and supplies #1 ea 05/03/24 07/22/25 Rx atorvastatin 40 mg tablet 40 mg PO QHS #90 tabs 05/25/24 07/22/25 Rx quetiapine 50 mg tablet 50 mg PO QHS 08/18/24 07/22/25 History citalopram 40 mg tablet (Celexa) 40 mg PO DAILY #90 tabs 09/30/24 07/22/25 Rx pregabalin 50 mg capsule (Lyrica) 50 mg PO BID #90 caps 10/12/24 07/22/25 Rx ferrous sulfate 325 mg (65 mg 325 mg PO BID #180 tabs 10/19/24 07/22/25 Rx iron) tablet,delayed release Vital Pump XL Testo Gummies 1 ea PO DAILY 03/15/25 07/22/25 History chlorhexidine gluconate 4 % 1 applic topical ONCE #237 mL 07/20/25 07/22/25 Rx topical liquid (Hibiclens) sulfamethoxazole 800 1 tablet PO Q12H #21 tabs 07/22/25 Rx mg-trimethoprim 160 mg tablet (Bactrim DS) Patient hx anesthesia problems: none Family hx anesthesia problems: none Results Review: All pre-operative results and documents have been reviewed as part of the pre-operative evaluation. 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 Depression determined by examination MCI (mild cognitive impairment) with memory loss Seizure disorder Dizziness Obstructive sleep apnea on CPAP Frequent falls Neuropathy Hyperlipidemia Diabetes type 2, controlled Crush injury of foot As a child left foot Surgical History Surgical History Status post open reduction with internal fixation of fracture Left foot due to crush injury as a child History of shoulder replacement Bilateral Family History Family History Unknown Hypertension Depression Diabetes mellitus Cerebrovascular accident Neuropathy Social History Social History Social History: The patient is still but he and his have been legally since 2018. 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 He denies any history of tobacco or alcohol use. Code status: DNR/DNI per patient request Healthcare power of multi media specialist: Lalo (son) Smoking status: Never smoker Second hand tobacco smoke exposure: No Alcohol intake: current Drinks per week: 4 Alcohol use details: occasionally Substance use: never Substance use type: marijuana Other substance usage details: THC gummies to help sleep Do You Feel Safe in your Home?: Yes Lack of Transportation: YES Lack of Food: Never True Current Housing: I Do Not Have Housing Concerned About Future Housing: No Difficulty Paying Gas/Electric Bills: No Difficulty Paying for Meds: No Currently Unemployed: No Education: Trade/Vocational Certificate Difficulty w/ Childcare or Family Care: No Living arrangements: assisted living Additional living arrangements comments: Independent Living facility [facility] [place] [phone] Occupation/Education: retired Gender identity (if verbalized by the patient): Male Spiritual care concerns: No Agree to blood products: Yes Anes - Eval Final PreProcedure Day of Procedure 08/02/25 06:44 Patient weight: obese Heart: regular rate and rhythm Lungs: clear to auscultation Airway: Mallampati scale class II Neurological: alert and oriented Last oral intake: >/= 8 hours ASA classification: IV Emergent: no Anesthetic plan: proceed Anesthesia type and monitoring: general LMA and standard monitoring Results Review: All pre-operative results and documents have been reviewed as part of the pre-operative evaluation. Informed Consent: The patient's anesthetic plan and its attendant risks and benefits were discussed with the patient/family/POA. Questions were solicited and answers provided to the satisfaction of the patient/family/POA.
[2025-08-02] MEDS: ACETAMINOPHEN 500 MG TABLET 1000 MG PO (06:50)
[2025-08-02] MEDS: TRANEXAMIC ACID 1,000MG/ISO100 1,000 MG/100 ML BAG 200 MG IVPB (06:55)
[2025-08-02] MEDS: LACTATED RINGERS 1,000 ML 30 ML IV CONT ×2 (06:55→11:07)
--- NOTE | 2025-08-02 08:30 | WPDHPUPDATE1 ---
History and Physical Update Update Date/Time: 08/02/25 08:30 History and Physical has been reviewed, including an updated exam of the patient. There are NO changes in the patient's condition. Risks, benefits, and alternatives have been discussed and questions answered. Patient agrees to proceed with procedure.
--- NOTE | 2025-08-02 08:38 | WPDANESPNB ---
Anes - Peripheral Nerve Block Date/Time: 08/02/25 08:38 I have discussed with the patient/family/POA the placement of a peripheral nerve block for post-operative pain management, including associated risks, benefits, complications, and side effects. Alternative methods of post-operative analgesia were detailed. Questions were solicited and answers provided to the satisfaction of the patient/family/POA. Time-Out: A pre-procedural Time-Out was completed immediately before starting the procedure and confirmed: Patient Identification, Site, Procedure, Patient Position and the Availability of Requisite Equipment. Clinical Indications: Acute post-operative pain management requested by the operative surgeon. Nerve Block Insertion Note Anes-nerve block: adductor canal left Patient position: supine Skin prep: chlorhexidine Needle: 22 gauge, stimulating, insulated echogenic needle. Needle length: 80 mm Technique: ultrasound Injectate: bupivacaine 0.5% with epi 5 mcg/ml (30cc) and dexamethasone (mg) (8) Observations: tolerated well Complications: none Procedure start time:: 724 Procedure end time:: 730
[2025-08-02] MEDS: ceFAZolin 3 GM/D5W 100 ML 100 ML IVPB (08:46)
[2025-08-02] MEDS: SODIUM CHLORIDE 0.9% IV 37.7 ML, MORPHINE SULFATE INJ (*CRX) 2 MG, ROPivacaine HCL 1% 2... INFILTRATE (09:20)
[2025-08-02] MEDS: GENTAMICIN BONE CEMENT REFOBACIN 1 EACH TOPICAL (09:52)
--- NOTE | 2025-08-02 11:21 | W.PM.PROC2 ---
Procedure Note - Detailed Date of Procedure 08/02/25 Pre-op Diagnosis left knee DJD Post-op Diagnosis Same Procedure Performed L TKA Surgeon Marcelo Munoz MD Anesthesia General Description of Procedure THE LEFT KNEE WAS PREPPED AND DRAPED IN THE STERILE FASHION. A MIDLINE SKIN INCISION WAS MADE. A MEDIAL PARAPATELLAR ARTHROTOMY WAS MADE. THE PATELLA WAS EVERTED. THERE WAS TRICOMPARTMENT DJD. THERE WAS MINIMAL PATELLA DJD. AN INTRAMEDULLARY ALONDRA WAS PLACED IN THE FEMUR. A DISTAL FEMORAL CUT WAS MADE IN 5 DEGREES OF VALGUS REMOVING APPROXIMATELY 9 MM OF BONE FROM THE DISTAL FEMUR. THE FEMUR WAS SIZED TO 70. A 70 FEMORAL CUTTING BLOCK WAS PLACED IN 3 DEGREES OF EXTERNAL ROTATION AND IN ALIGNMENT WITH ALEXSANDER'S LINE AND THE TRANSEPICONDYLAR AXIS. ANTERIOR POSTERIOR AND CHAMFER CUTS WERE MADE. THE CUTS WERE EXCELLENT. NEXT AN INTRAMEDULLARY CUTTING GUIDE WAS PLACED IN THE TIBIA. A TRANS TIBIAL CUT WAS MADE ALONG THE LONG AXIS OF THE TIBIA. APPROXIMATELY 10 MM OF BONE WAS REMOVED FROM THE HIGH SIDE OF THE TIBIA. THE TIBIA WAS THEN PLANED TO A SMOOTH SURFACE. POSTERIOR FEMORAL OSTEOPHYTES WERE REMOVED FROM THE FEMORAL CONDYLES. A 79 TIBIAL TRIAL WAS PLACED IN ALIGNMENT WITH THE 1/3 MEDIAL ASPECT OF THE TIBIAL TUBERCLE. THEN A 70 FEMORAL TRIAL COMPONENT WAS PLACED. BOTH HAD EXCELLENT FITS. EVENTUALLY A 12 MM POLYETHYLENE TRIAL COMPONENT WAS PLACED. THE KNEE WAS TAKEN THROUGH A RANGE OF MOTION. THE KNEE CAME OUT TO FULL EXTENSION. THERE WAS NO ABNORMAL TILT TO THE PATELLA. THERE WAS GOOD A/P AND VARUS/VALGUS STABILITY. THERE WAS NO EXCESSIVE ROLL BACK WITH FLEXION. THE TRIAL COMPONENTS WERE REMOVED. THEN A 70 FEMORAL COMPONENT AND 79 TIBIAL COMPONENT WITH A 12 POLYETHYLENE COMPONENT WERE CEMENTED INTO PLACE. ONCE THE CEMENT WAS HARD THE KNEE WAS TAKEN THROUGH A ROM AGAIN AND FOUND TO BE STABLE WITH NO PATELLA TILT NO EXCESSIVE ROLL BACK WITH FLEXION AND GOOD STABILITY WITH COMPLETE AND FULL EXTENSION. THE KNEE WAS IRRIGATED WITH STERILE BETADINE AND WATER FOR ABOUT 3 MINUTES. THE BLEEDERS WERE CAUTERIZED. THE ARTHROTOMY WAS REPAIRED WITH NUMBER 1 VICRYL. THE SUB CUTANEOUS LAYER WITH 2-0 VICRYL AND THE SKIN WITH 3-0 QUIL AND DERMABOND. THE WOUND WAS WASHED AND A STERILE DRESSING WAS APPLIED. PATIENT WAS EXTUBATED. Estimated Blood Loss -150.0 Pathology None sent Complications No immediate complications Condition Stable Disposition PACU
[2025-08-02] MEDS: fentaNYL CITRATE INJ (*CRX) 100 MCG/2 ML VIAL 25 MCG IV PUSH ×8 (11:22→12:05)
[2025-08-02] MEDS: SENNA/DOCUSATE SODIUM TABLET 2 TAB PO ×2 (13:36→17:12)
[2025-08-02] MEDS: oxyCODONE/ACETAMINOPHEN (*CRX) 10-325 MG TABLET 1 TAB PO ×2 (13:36→19:26)
[2025-08-02] MEDS: FAMOTIDINE 20 MG TABLET PO ×2 (13:37→21:14)
[2025-08-02] MEDS: CITALOPRAM HYDROBROMIDE 20 MG TABLET 40 MG PO (13:37)
[2025-08-02] MEDS: PREGABALIN (*CRX) 50 MG CAPSULE PO ×2 (13:37→21:14)
[2025-08-02] MEDS: ASPIRIN 325 MG ENTERIC TABLET PO ×2 (13:38→21:14)
[2025-08-02] MEDS: lamoTRIgine 50 MG TABLET PO (13:38)
[2025-08-02] MEDS: KETOROLAC 15 MG/ML VIAL (*BKC) IV PUSH ×3 (13:38→23:37)
[2025-08-02] MEDS: ceFAZolin 2 GM in SODIUM CHLORIDE 0.9% IV 50 ML 100 ML IVPB (17:13)
[2025-08-02] MEDS: metFORMIN HCL XR 500 MG TAB.SR.24H PO (21:14)
[2025-08-02] MEDS: ATORVASTATIN 40 MG TABLET PO (21:14)
[2025-08-02] MEDS: oxyCODONE/ACETAMINOPHEN (*CRX) 5-325 MG TABLET 1 TABLET PO (23:45)
[2025-08-03] VITALS: BP 109/61; PULSE 93; RESP 17; TEMP 36.8; O2SAT 96
[2025-08-03] MEDS: ceFAZolin 2 GM in SODIUM CHLORIDE 0.9% IV 50 ML 100 ML IVPB ×2 (00:08→09:37)
[2025-08-03 05:10] VITALS: BP 116/73; PULSE 93; RESP 18; TEMP 36.5; O2SAT 97
[2025-08-03] MEDS: KETOROLAC 15 MG/ML VIAL (*BKC) IV PUSH ×2 (05:44→12:26)
[2025-08-03 05:50] LABS: Hematocrit 37.7 % (42.0-52.0); Hemoglobin 12.2 g/dL (14.0-18.0); Immature Granulocyte Percent A 0.7 % (0-0.5); Lymphocytes Absolute Auto 1.77 K/mm3 (0.9-3.2); Mean Corpuscular HGB Conc 32.4 g/dl (32-36); Mean Corpuscular Hemoglobin 29.3 pg (26-34); Mean Corpuscular Volume 90.4 fl (80-100); Nucleated Red Blood Cells Absolute Auto 0.000 K/mm3 (0.0-0.012); Nucleated Red Blood Cells Perc 0.0 % (0.0-0.2); Platelet Count Result 197 k/mm3 (150-375); Red Blood Count 4.17 M/mm3 (4.6-6.20); White Blood Count 14.6 K/mm3 (4.5-10.0)
[2025-08-03 06:01] LABS: Anion Gap 8 mmol/L (4-12); Blood Urea Nitrogen 25 mg/dL (9-20); Calcium 8.8 mg/dL (8.4-10.2); Carbon Dioxide 24 mmol/L (22-30); Chloride 102 mmol/L (98-107); Estimated CRCL calculation 67 ml/min; Estimated Glomerular Filt Rate 56; Glucose 243 mg/dL (65-110); Potassium 5.0 mmol/L (3.4-5.0); Sodium 134 mmol/L (137-145)
[2025-08-03] MEDS: oxyCODONE/ACETAMINOPHEN (*CRX) 10-325 MG TABLET 1 TAB PO ×2 (06:25→12:36)
[2025-08-03] MEDS: SENNA/DOCUSATE SODIUM TABLET 2 TAB PO ×2 (09:37→17:06)
[2025-08-03] MEDS: lamoTRIgine 50 MG TABLET PO (09:37)
[2025-08-03] MEDS: ASPIRIN 325 MG ENTERIC TABLET PO (09:37)
[2025-08-03] MEDS: FAMOTIDINE 20 MG TABLET PO (09:37)
[2025-08-03] MEDS: CITALOPRAM HYDROBROMIDE 20 MG TABLET 40 MG PO (09:38)
[2025-08-03] MEDS: PREGABALIN (*CRX) 50 MG CAPSULE PO (09:38)
[2025-08-03 10:13] VITALS: BP 102/85; PULSE 93; RESP 18; TEMP 36.8; O2SAT 98
[2025-08-03 14:13] VITALS: BP 114/65; PULSE 93; RESP 17; TEMP 36.6; O2SAT 96
--- NOTE | 2025-08-03 19:03 | P.PNOP_ITS ---
Progress Note: A&P Assessment and Plan (1) S/P total knee arthroplasty: Code(s): Z96.659 - Presence of unspecified artificial knee joint Status: Acute Assessment and Plan: POD 1 DOING WELL. GOOD PROGRESS WITH PT OK TO DC HOME F/U IN 3 WEEKS. Subjective Subjective Date/Time Seen: 08/03/25 19:03 Interval history: POD 1 DOING VERY WELL. GOOD PROGRESS WITH PT Exam Extrem: Other: VSS AFEBRILE DRESSING DRY NV INTACT NEG HOMANS SIGN CALF AND THIGH SOFT NON TENDER Objective Data Vital Signs Vital Signs: Vital Signs - 24 hr 08/02/25 20:29 08/02/25 21:14 08/02/25 21:50 Temperature 36.8 C Pulse Rate 100 71 Respiratory Rate 19 Blood Pressure 112/68 Pulse Oximetry 97 96 Oxygen Delivery Room Air CPAP 08/03/25 00:00 08/03/25 05:10 08/03/25 08:00 Temperature 36.8 C 36.5 C Pulse Rate 93 93 Respiratory Rate 17 18 Blood Pressure 109/61 116/73 Pulse Oximetry 96 97 Oxygen Delivery CPAP 08/03/25 10:13 08/03/25 14:13 Temperature 36.8 C 36.6 C Pulse Rate 93 93 Respiratory Rate 18 17 Blood Pressure 102/85 114/65 Pulse Oximetry 98 96 Oxygen Delivery Intake/Output Intake/Output: Intake & Output 07/31/25 08/01/25 08/02/25 08/03/25 23:59 23:59 23:59 23:59 Intake Total 650 1250 Balance 650 1250 Meds/Results Radiology Results: ITS Impressions Knee X-Ray 08/02/25 11:45 IMPRESSION: 1. Left total knee arthroplasty, negative for postoperative purposes. Labs Labs: Laboratory Results - last 24 hr 08/03/25 05:39 WBC 14.6 H RBC 4.17 L Hgb 12.2 L D Hct 37.7 L MCV 90.4 MCH 29.3 MCHC 32.4 RDW 12.6 Plt Count 197 MPV 10.3 Immature Gran % (Auto) 0.7 H Neut % (Auto) 79.8 H Lymph % (Auto) 12.1 L [place] % (Auto) 7.1 Eos % (Auto) 0.0 Baso % (Auto) 0.3 Lymph # (Auto) 1.77 [place] # (Auto) 1.0 H Eos # (Auto) 0.0 Baso # (Auto) 0.0 Abs Immat Gran (auto) 0.10 H Absolute Neuts (auto) 11.7 H Absolute Nucleated RBC 0.000 Nucleated RBC % 0.0 Sodium 134 L Potassium 5.0 Chloride 102 Carbon Dioxide 24 Anion Gap 8 BUN 25 H Creatinine 1.27 Estim Creat Clear Calc 67 Estimated GFR 56 L Glucose 243 H Calcium 8.8
== END 2025-08-03 18:20 | disposition home health service (06) ==
LOC: ANHSURGERY 06:13 → ANH3MEDSUR 12:37
PROVIDERS: PCP Family Medicine; Visit Provider Orthopaedic Surgery
PROC: (CPT 27447; principal; 2025-08-02 08:30)
DX: M17.12 Unilateral primary osteoarthritis, left knee (principal); M25.762 Osteophyte, left knee; G89.18 Other acute postprocedural pain; E78.5 Hyperlipidemia, unspecified; E11.9 Type 2 diabetes mellitus without complications; I10 Essential (primary) hypertension; G25.0 Essential tremor; G47.33 Obstructive sleep apnea (adult) (pediatric); G31.84 Mild cognitive impairment of uncertain or unknown etiology; G40.909 Epilepsy, unspecified, not intractable, without status epilepticus; F31.9 Bipolar disorder, unspecified; G89.29 Other chronic pain; M54.50 Low back pain, unspecified; G62.9 Polyneuropathy, unspecified; F12.90 Cannabis use, unspecified, uncomplicated; E66.9 Obesity, unspecified; Z68.36 Body mass index [BMI] 36.0-36.9, adult; Z79.891 Long term (current) use of opiate analgesic; Z79.82 Long term (current) use of aspirin; Z79.84 Long term (current) use of oral hypoglycemic drugs; Z99.89 Dependence on other enabling machines and devices; Z98.890 Other specified postprocedural states; Z86.73 Personal history of transient ischemic attack (TIA), and cerebral infarction without residual deficits
CPT/HCPCS: 64447; 27447; 36415; 73560; 80048; 82948; 85025; 97110; 97161; 97165; 97530; 97535; J0690; A9270; C1713; C1776; J0166; J1100; J1885; J2003; J2250; J2270; J2371; J2704; J2795; J3010; J3290; J3373; J7120

== ENCOUNTER 2025-08-08 15:05 | Outpatient (CLI) | payer MEDICARE, SELFPAY ==
--- NOTE | ~2025-08-08 | US_ITS ---
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 Findings: Deep Venous System:Normal flow, augmentation and compressibility. No echogenic thrombus identified. The contralateral saphenofemoral junction appears unremarkable. Superficial Venous SystemNo superficial thrombophlebitis. Soft tissues: Soft tissues are unremarkable. Impression: Negative for DVT. Reviewed, dictated and finalized at location P. STICS SUPPLY OFFICER Impression: Negative for DVT.
== END 2025-08-08 15:06 | disposition home or self-care (01) ==
PROVIDERS: PCP Family Medicine; Visit Provider Orthopaedic Surgery
DX: M79.662 Pain in left lower leg (principal); Z96.659 Presence of unspecified artificial knee joint
CPT/HCPCS: 93971